=== PATIENT | male | born 1955 | race Caucasian/White ===

== ENCOUNTER 2017-10-03 12:36 | Emergency (ER) | payer OTHER, SELFPAY | END 2017-10-03 14:02 | disposition home or self-care (01) | DX: J01.01 Acute recurrent maxillary sinusitis (principal); E78.5 Hyperlipidemia, unspecified; F17.210 Nicotine dependence, cigarettes, uncomplicated; Z88.2 Allergy status to sulfonamides; Z91.040 Latex allergy status | CPT/HCPCS: 87804; 87880; 96372 ==

== ENCOUNTER 2017-11-23 06:58 | Day surgery (SDC) | payer OTHER, SELFPAY ==
[2017-11-19 14:14] VITALS: BMI 33.3
[2017-11-23] VITALS (7 sets, daily range): BP systolic 105–135; BP diastolic 55–88; PULSE 62–89; RESP 18; TEMP 36.6; O2SAT 93–96
--- NOTE | 2017-11-23 08:14 | PC.NURSE ---
pt continues bearing down aftewr receiving 13 versed & 200 mariana cartagena consulted per dr montejo request & will assume sedation responsibilities
--- NOTE | 2017-11-23 09:03 | P.PCN_ITS ---
- Procedure: Date: 11/23/17 Procedure Performed:: Total colonoscopy with polypectomy Indications:: 62-year-old white male who was referred by Dr. Guy Chung for hernia. Patient had been seen 2-1/2 years ago which time I did a colonoscopy. He was having some left flank pain. Colonoscopy done on 04/30/15 revealed sigmoid diverticulosis and a couple of serrated adenomas near the hepatic flexure as well as a couple of tubular adenomas. I had recommended a 2 year follow-up colonoscopy. Patient had recently seen Dr. Mendoza for several urologic issues. He underwent his routine CT scan and was found to have left inguinal hernia containing fat. He was referred for surgical consultation. He was found to have a moderate sized left inguinal hernia which seem to be likely asymptomatic. However, the patient complained of intermittent left flank pain. He also had an incidental small umbilical hernia and had previously undergone laparoscopic cholecystectomy. Due to the history of atypical precancerous polyps I planned to proceed with colonoscopy initially. Performing Provider:: Sukumar Moon MD Referring Provider:: Guy Chung Sedation:: Versed 13 mg, fentanyl 200 mcg, propofol Procedure:: Consent was obtained and patient was taken to same-day surgery endoscopy procedure room. He was positioned in a lateral decubitus position. Sedation was achieved with titration of Versed and fentanyl. Variable stiffness Olympus colonoscope was inserted in the descending colon without significant difficulty. However he was unable to be advanced beyond this for quite some time due to some floppiness and looping of the sigmoid colon. Due to the patient's discomfort and difficulty anesthesia then administered propofol. Ultimately with abdominal pressure the colonoscope was advanced into the cecum. Ileocecal valve and appendiceal orifice were clearly identified. Colonoscope was withdrawn through the colon with careful surveillance. Near the hepatic flexure he had a moderate sessile polyp removed with hot snare. In the distal transverse colon there were several small polyps removed with cold biopsy forceps. In the sigmoid colon there was a sessile polyp removed with hot snare. Distal sigmoid revealed several diminutive polyps removed with cold biopsy forceps. There was some sigmoid diverticulosis. Retroflexion within the rectum revealed nonpathologic internal hemorrhoids. Findings:: Diverticulosis Polyps Recommendations:: Likely recommend repeat colonoscopy in 3 years pending the pathology. Possible some of his left flank pain symptoms may be secondary to left inguinal hernia. He also may have some floppiness and looping of the sigmoid colon which may contribute. He returns this I will substance abuse counselor him about potential laparoscopic left with possible bilateral inguinal hernia repair with concomitant primary repair of small umbilical hernia. Complications:: None Estimated blood obtained (mL): 5
--- NOTE | 2017-11-23 09:15 | PC.NURSE ---
rectal tube removed
== END 2017-11-23 09:45 | disposition home or self-care (01) ==
LOC: OUTP 06:59
PROVIDERS: Family Provider Physician Assistant; PCP Physician Assistant; Visit Provider Surgery
PROC: 0DJD8ZZ Inspection of Lower Intestinal Tract, Via Natural or Artificial Opening Endoscopic (ICD-10-PCS; CPT 45385; principal; 2017-11-23 07:30)
DX: Z09 Encounter for follow-up examination after completed treatment for conditions other than malignant neoplasm (principal); Z86.010 Personal history of colon polyps; K63.5 Polyp of colon; K57.30 Diverticulosis of large intestine without perforation or abscess without bleeding; D37.4 Neoplasm of uncertain behavior of colon; R10.32 Left lower quadrant pain
CPT/HCPCS: 45385; 45380; 99152; 99153

== ENCOUNTER 2017-12-12 11:19 | Emergency (ER) | payer OTHER, SELFPAY ==
[2017-12-12 11:37] VITALS: BP 107/80; PULSE 81; RESP 18; TEMP 36.6; O2SAT 98; BMI 36.3
[2017-12-12 11:52] LABS: Basophils # 0.1 K/mm3 (0-0.2); Basophils % 1.2 % (0.1-2.0); Eosinophils # 0.1 K/mm3 (0.0-0.4); Eosinophils % 2.4 % (0.1-12.0); Hematocrit 46.5 % (42.0-52.0); Hemoglobin 15.3 g/dL (14.1-18.0); Lymphocytes # 1.3 K/mm3 (0.7-4.5); Lymphocytes % 23.7 K/mm3 (10-50); Mean Corpuscular HGB Conc 32.9 g/dL (31.8-35.4); Mean Corpuscular Volume 94.4 fl (80-94); Mean Platelet Volume 9.4 fl (7.4-10.4); Monocytes # 0.4 K/mm3 (0.1-1.0); Monocytes % 6.9 % (1.7-9.3); Neutrophils # 3.5 K/mm3 (1.8-7.8); Neutrophils % 65.8 % (37.0-80.0); Platelet Count 166 K/mm3 (142-424); Red Blood Count 4.93 M/mm3 (4.60-6.20); Red Cell Distribution Width 12.8 % (11.5-17.5); White Blood Count 5.4 K/mm3 (4.8-10.8)
--- NOTE | 2017-12-12 12:03 | HMH.EDUTC ---
[facility] Disposition Clinical Impression: URI (upper respiratory infection) Qualifiers: URI type: unspecified URI Qualified Code(s): J06.9 - Acute upper respiratory infection, unspecified Disposition: Home, Self-Care Condition on Discharge: Good Instructions: DI for Nasal Congestion, Sore Throat Additional Instructions: Follow up with family doctor in 12-48 hours if no improvement in symptoms Follow up with family doctor for lab results that was drawn in the [facility] today Over the counter Motrin or Tylenol as needed for fever or pain Return if needed Make sure to inform your doctor that you was recently given antibiotics so they are aware prior to your surgery Referrals: Rocio Bedoya PA [Primary Care Provider] - Time of Disposition: 12:12 Medical Decision Making - Medical Records Medical records reviewed: Yes: I reviewed the patient's medical records. Vital Signs: 12/12/17 11:37 Temperature 97.9 F Temperature Source Temporal Artery Scan Pulse Rate [Right Brachial] 81 Respiratory Rate 18 Blood Pressure [Right Arm] 107/80 Blood Pressure Mean [Right Arm] 89 Blood Pressure Source [Right Arm] Automatic Cuff Blood Pressure Position [Right Arm] Sitting 02 Sat by Pulse Oximetry 98 Oxygen Delivery Method Room Air - Lab Data Lab results reviewed: Yes: I reviewed the patient's lab results. Lab Results 12/12/17 11:43: WBC 5.4, RBC 4.93, Hgb 15.3, Hct 46.5, MCV 94.4 H, MCH 31.0, MCHC 32.9, RDW 12.8, Plt Count 166, MPV 9.4, Neut % (Auto) 65.8, Lymph % (Auto) 23.7, [place] % (Auto) 6.9, Eos % (Auto) 2.4, Baso % (Auto) 1.2, Neut # (Auto) 3.5, Lymph # (Auto) 1.3, [place] # (Auto) 0.4, Eos # (Auto) 0.1, Baso # (Auto) 0.1 Result diagrams: 12/12/17 11:43 Orders (Tests/Meds): ORDERS Category Date Time Status Basic Metabolic Panel Stat Lab 12/12/17 11:43 Received - Valentin Inquiry Pt receiving controlled substance: No Valentin was queried for this patient: No - Reevaluation(s) Time: 12:10 [facility] HPI - General Stated complaint: sinus Mode of Arrival: Family Vehicle Source of Information: Patient Limitations: No Limitations Description of Symptoms (Recalled from Triage Doc. by RN): POSSIBLE SINUS INFECTION X 3 DAYS HEENT Symptoms (Recalled from RN notes): Yes (SINUS PROBLEMS) Resp Symptoms (Recalled from RN notes): Yes (SINUS PROBLEMS) Skin Symptoms (Recalled from RN notes): No MS Symptoms (Recalled from RN notes): No Functional Status (Recalled from RN notes): N/A - History of Present Illness Provider Complaint: Patient states that he is scheduled for surgery on Wed and was suppose to have labs drawn today States that he also wanted to be seen because he was having sinus pain and pressure and throat feeling sore. State that he has not had any fever, denies SOA - Related Data Home Medications Medication Instructions Recorded Confirmed meloxicam 15 mg tablet 15 mg PO QDAY 10/13/17 11/23/17 omeprazole 20 mg capsule,delayed 20 mg PO QDAY 10/13/17 11/23/17 release oxybutynin chloride ER 10 mg 10 mg PO QDAY 10/13/17 11/23/17 tablet,extended release 24 hr paroxetine 10 mg tablet 10 mg PO QAM 10/13/17 11/23/17 Allergies Allergy/AdvReac Type Severity Reaction Status Date / Time latex [LATEX] Allergy Mild Verified 12/06/17 09:27 Sulfa (Sulfonamide Allergy Mild Verified 12/06/17 09:27 Antibiotics) [SULFA (SULFONAMIDE ANTIBIOTICS)] - Worker's Comp Is this a Worker's Comp case?: No [facility] History I have reviewed the patient's past medical history: Yes Medical History: Reports:: Hyperlipidemia Denies:: Diabetes Mellitus Type 1, Diabetes Mellitus Type 2, Internal Pacemaker, Lung Disease, Seizures Other Medical History: Reports: Arthritis Comment: Enlarged prostate, Primary osteoarthritis, Anxiety Laterality Cases: Bilateral: Other Other Surgeries: Yes: Colonoscopy, Other (cholecystectomy,prostate laser,cysto,ibnc,meatal dilat.). No: Pacemaker Amputation: No Fractu
--- NOTE | 2017-12-12 12:07 | ED_ITS ---
[facility] [place] Disposition Clinical Impression: URI (upper respiratory infection) Qualifiers: URI type: unspecified URI Qualified Code(s): J06.9 - Acute upper respiratory infection, unspecified Disposition: Home, Self-Care Condition on Discharge: Good Instructions: DI for Nasal Congestion, Sore Throat Additional Instructions: Follow up with family doctor in 12-48 hours if no improvement in symptoms Follow up with family doctor for lab results that was drawn in the [facility] today Over the counter Motrin or Tylenol as needed for fever or pain Return if needed Make sure to inform your doctor that you was recently given antibiotics so they are aware prior to your surgery Referrals: Rocio Bedoya PA [Primary Care Provider] - Time of Disposition: 12:12 Medical Decision Making - Medical Records Medical records reviewed: Yes: I reviewed the patient's medical records. Vital Signs: 12/12/17 11:37 Temperature 97.9 F Temperature Source Temporal Artery Scan Pulse Rate [Right Brachial] 81 Respiratory Rate 18 Blood Pressure [Right Arm] 107/80 Blood Pressure Mean [Right Arm] 89 Blood Pressure Source [Right Arm] Automatic Cuff Blood Pressure Position [Right Arm] Sitting 02 Sat by Pulse Oximetry 98 Oxygen Delivery Method Room Air - Lab Data Lab results reviewed: Yes: I reviewed the patient's lab results. Lab Results 12/12/17 11:43: WBC 5.4, RBC 4.93, Hgb 15.3, Hct 46.5, MCV 94.4 H, MCH 31.0, MCHC 32.9, RDW 12.8, Plt Count 166, MPV 9.4, Neut % (Auto) 65.8, Lymph % (Auto) 23.7, [place] % (Auto) 6.9, Eos % (Auto) 2.4, Baso % (Auto) 1.2, Neut # (Auto) 3.5 , Lymph # (Auto) 1.3, [place] # (Auto) 0.4, Eos # (Auto) 0.1, Baso # (Auto) 0.1 Result diagrams: 12/12/17 11:43 Orders (Tests/Meds): ORDERS Category Date Time Status Basic Metabolic Panel Stat Lab 12/12/17 11:43 Received - Valentin Inquiry Pt receiving controlled substance: No Valentin was queried for this patient: No - Reevaluation(s) Time: 12:10 [facility] [place] HPI - General Stated complaint: sinus Mode of Arrival: Family Vehicle Source of Information: Patient Limitations: No Limitations Description of Symptoms (Recalled from Triage Doc. by RN): POSSIBLE SINUS INFECTION X 3 DAYS HEENT Symptoms (Recalled from RN notes): Yes (SINUS PROBLEMS) Resp Symptoms (Recalled from RN notes): Yes (SINUS PROBLEMS) Skin Symptoms (Recalled from RN notes): No MS Symptoms (Recalled from RN notes): No Functional Status (Recalled from RN notes): N/A - History of Present Illness Provider Complaint: Patient states that he is scheduled for surgery on Wed and was suppose to have labs drawn today States that he also wanted to be seen because he was having sinus pain and pressure and throat feeling sore. State that he has not had any fever, denies SOA - Related Data Home Medications Medication Instructions Recorded Confirmed meloxicam 15 mg tablet 15 mg PO QDAY 10/13/17 11/23/17 omeprazole 20 mg capsule,delayed 20 mg PO QDAY 10/13/17 11/23/17 release oxybutynin chloride ER 10 mg 10 mg PO QDAY 10/13/17 11/23/17 tablet,extended release 24 hr paroxetine 10 mg tablet 10 mg PO QAM 10/13/17 11/23/17 Allergies Allergy/AdvReac Type Severity Reaction Status Date / Time latex [LATEX] Allergy Mild Verified 12/06/17 09:27 Sulfa (Sulfonamide Allergy Mild
[2017-12-12 12:25] VITALS: BP 110/82; PULSE 80; RESP 18; TEMP 36.6; O2SAT 98
[2017-12-12 12:31] LABS: Anion Gap 11.1 mEq/L (5-15); Blood Urea Nitrogen 19 mg/dL (7-18); Carbon Dioxide 27 mmol/L (21.0-32.0); Chloride 105 mmol/L (98-107); Creatinine Clearance Estimated 114 mL/min (0-300); Creatinine,Serum 1.17 mg/dL (0.70-1.30); Estimated Glomerular Filt Rate 63 ml/min (>60); GFR (African American) 77 ML/MIN (>60); Glucose 105 mg/dL (74-106); Potassium 4.1 mmoL/L (3.5-5.1); Sodium 139 mmol/L (136-145)
[2017-12-17 14:48] LABS: Prostate Specific Ag 0.6 ng/mL (0.0-4.0)
[2017-12-17 14:49] LABS: PSA, Free 0.14 ng/mL
== END 2017-12-12 12:27 | disposition home or self-care (01) ==
PROVIDERS: Emergency Provider Nurse Practitioner; Family Provider Physician Assistant; PCP Physician Assistant
DX: J06.9 Acute upper respiratory infection, unspecified (principal); Z91.040 Latex allergy status; E78.5 Hyperlipidemia, unspecified; Z88.2 Allergy status to sulfonamides; F17.210 Nicotine dependence, cigarettes, uncomplicated
CPT/HCPCS: 80048; 84153; 84154; 85025; 96372; 99202

== ENCOUNTER 2017-12-15 06:11 | Day surgery (SDC) | payer OTHER, SELFPAY ==
[2017-12-14 11:06] VITALS: BMI 36.2
[2017-12-15] VITALS (12 sets, daily range): BP systolic 124–142; BP diastolic 72–92; PULSE 64–108; RESP 12–22; TEMP 36.3–43; O2SAT 93–97
--- NOTE | 2017-12-15 07:01 | HMH.ANESCL ---
[facility] Anesthesia Checklist - Patient Identification Patient Identification: Arm Band, Verbal (Name & ) - Structural Data Admitted From: Home Planned Operative Procedure/s: ing hernia Consent for Planned Operative Procedure(s) Verified: Yes Verified Documents: Surgical Consent - NPO Status Verified Time NPO: 00:00 - Chart Verification Results Verified: CBC, BMP - Additional verifications Patient : No Anesthesia Reactions: No Hx Blood Transfusions: No Blood Transfusion Reaction: No Cephalosporin Allergy: No Previous Colonoscopy: Yes - Cardiovascular Assessment Heart Sounds: S1 & S2 Pulse Strength: Baseline Pulse Rhythm: Regular Peripheral Edema: No - Airway Assessment C-Spine Mobility Assessed: Yes TMJ Mobility Assessed: Yes Dentition: Good Dentition - Neurological Assessment Level of Consciousness: Awake, Appropriate Hx Seizures: No Numbness or tingling in extremities: No - Anesthesia Plan Anesthesia Risk discussed: Yes Anesthesia Plan: Verified ASA Class: III Anesthesia Type: General [facility] Anesthesia HX I have reviewed the patient's past medical history: Yes Medical History: Reports:: Chronic Obstructive Pulmonary Disease (COPD), Hyperlipidemia Denies:: Cancer, Diabetes Mellitus Type 1, Diabetes Mellitus Type 2, Internal Pacemaker, Lung Disease, MRSA, Seizures Other Medical History: Reports: Arthritis. Denies: Blood Transfusion Reaction Laterality Cases: Bilateral: Other Other Surgeries: Yes: Colonoscopy, Other (cholecystectomy,prostate laser,cysto,ibnc,meatal dilat.). No: Pacemaker Amputation: No Fractures: No *Family Hx:: Unable to obtain, Cancer
--- NOTE | 2017-12-15 09:36 | SUR.OPER ---
Addendum entered by Sherlyn Parker RN 12/15/17 13:40: 1123-alaniz catheter removed at this time 1110-family updated at this time per RONA Gotti Original Note: 0927-family updated at this time per RONA Gotti
--- NOTE | 2017-12-15 11:32 | P.PN_ITS ---
[facility] Anesthesia Record Part II Discharge Time: 12:00 Destination: [facility] PACU nurse assessment reviewed?: Yes Patient Condition:: Good Anesthesia Complications:: None
--- NOTE | 2017-12-15 11:32 | P.PN_ITS ---
[facility] Anesthesia Record Part I Intake, IV Amount: 3,500 Estimated blood loss (mL): 25 Urine output (mL): 400 Blood Pressure: 139/73 SaO2: 94 Pulse Rate: 108 Respiratory Rate: 12 Temperature: 98.6 F Patient is:: Awake, Stable Stable to PACU at:: 11:30
--- NOTE | 2017-12-15 11:32 | HMH.ANESII ---
[facility] Anesthesia Record Part II Discharge Time: 12:00 Destination: [facility] PACU nurse assessment reviewed?: Yes Patient Condition:: Good Anesthesia Complications:: None
--- NOTE | 2017-12-15 11:35 | HMH.OPNOTE ---
Date of procedure: 12/15/17 Pre-op Diagnosis:: Possible bilateral inguinal hernia Umbilical hernia Post-op Diagnosis:: Incarcerated left inguinal hernia, no obvious right inguinal hernia Umbilical hernia Procedure performed:: Laparoscopic left inguinal hernia repair (TEPP) with placement of extra large Bard 3D max mesh Open primary repair of umbilical hernia. Surgeon:: Sukumar Moon MD LOCAL DELIVERY TRUCK DRIVER:: Kerwin Rodriguez Anesthesia: GETA Estimated blood loss (mL): 75 Clinical Note:: Patient is a 62-year-old white male. He has a history of left lower quadrant and left flank pain and discomfort. He has been seeing Dr. Guy Chung for some urologic issues. He had undergone CT scan of the abdomen and pelvis which revealed a left inguinal hernia containing fat. He was sent for surgical consultation. At that time the patient was past due for colonoscopy needed undergo colonoscopy which revealed floppiness of the sigmoid colon and several adenomatous polyps. However he did have a rather large palpable symptomatic left inguinal hernia. There is also question of possible right inguinal hernia. He had an asymptomatic incidental umbilical hernia. The options were discussed with the patient and given the multiple hernias with possible bilateral inguinal hernias and a definite asymptomatic umbilical hernia plan was made for laparoscopic repair attempt. Attention was to be turned to the left side as this was the large symptomatic definite inguinal hernia. Operative findings:: Patient had a rather large chronically incarcerated left indirect inguinal hernia containing a large amount of fat. The internal ring defect had actually extended onto the left lower flank area. Of note, he did have a ridge thickened tissue above the cord within the muscles. Operative note:: Consent was obtained. Patient was taken to the operating room. He was positioned in a supine position. General anesthesia was induced via endotracheal tube. Ambriz catheter was placed for bladder decompression. Abdomen and perineum were prepped and draped in the standard surgical fashion. Subumbilical skin incision was made. With difficulty due to scar tissue from prior laparoscopic cholecystectomy dissection was carried down to the anterior rectus fascia. This was incised to the left of the linea alba. Preperitoneal space was entered. The dissecting balloon trocar was inserted and preperitoneal space was dissected out. This was then removed and replaced with the structural balloon trocar. CO2 pneumo preperitoneum was achieved 15 mmHg. A couple of 5 mm trochars were inserted in the midline inferior to the umbilicus under laparoscopic visualization. Dissection was carried out initially identifying Servando's ligament. There was a large amount of fatty tissues and these were swept inferiorly. Structures were identified including inferior epigastric vessels. Initially was difficult to identify the cord structures due to the large amount of fatty tissues with herniation. Ultimately the herniated fatty tissues were able to be dissected free from the internal ring. Dissection of the preperitoneal space was carried out laterally. The internal ring defect appeared to be quite large and extensive splitting the muscles laterally to the patient's left lower quadrant area. Ultimately this was all dissected free. There appeared to be some development of pneumoperitoneum and visualization was somewhat difficult. To inspect internally a 5 mm trocar using the optical trocar was inserted in the left upper abdomen. There appeared to be extremely tiny defect in the peritoneum measuring a few millimeters. Trocar was used for evacuation of intra-abdominal gas. Additional dissection was carried out the preperitoneal space and there was noted to be somewhat of a thickened ridge of muscle initially believed to be possible additional chronically incarcerated tissues however this was above the cord. Briefly inspectio
--- NOTE | 2017-12-15 11:38 | P.OP_ITS ---
Date of procedure: 12/15/17 Pre-op Diagnosis:: Possible bilateral inguinal hernia Umbilical hernia Post-op Diagnosis:: Incarcerated left inguinal hernia, no obvious right inguinal hernia Umbilical hernia Procedure performed:: Laparoscopic left inguinal hernia repair (TEPP) with placement of extra large Bard 3D max mesh Open primary repair of umbilical hernia. Surgeon:: Sukumar Moon MD HABILITATION SPECIALIST:: Kerwin Rodriguez Anesthesia: GETA Estimated blood loss (mL): 75 Clinical Note:: Patient is a 62-year-old white male. He has a history of left lower quadrant and left flank pain and discomfort. He has been seeing Dr. Guy Chung for some urologic issues. He had undergone CT scan of the abdomen and pelvis which revealed a left inguinal hernia containing fat. He was sent for surgical consultation. At that time the patient was past due for colonoscopy needed undergo colonoscopy which revealed floppiness of the sigmoid colon and several adenomatous polyps. However he did have a rather large palpable symptomatic left inguinal hernia. There is also question of possible right inguinal hernia. He had an asymptomatic incidental umbilical hernia. The options were discussed with the patient and given the multiple hernias with possible bilateral inguinal hernias and a definite asymptomatic umbilical hernia plan was made for laparoscopic repair attempt. Attention was to be turned to the left side as this was the large symptomatic definite inguinal hernia. Operative findings:: Patient had a rather large chronically incarcerated left indirect inguinal hernia containing a large amount of fat. The internal ring defect had actually extended onto the left lower flank area. Of note, he did have a ridge thickened tissue above the cord within the muscles. Operative note:: Consent was obtained. Patient was taken to the operating room. He was positioned in a supine position. General anesthesia was induced via endotracheal tube. Ambriz catheter was placed for bladder decompression. Abdomen and perineum were prepped and draped in the standard surgical fashion. Subumbilical skin incision was made. With difficulty due to scar tissue from prior laparoscopic cholecystectomy dissection was carried down to the anterior rectus fascia. This was incised to the left of the linea alba. Preperitoneal space was entered. The dissecting balloon trocar was inserted and preperitoneal space was dissected out. This was then removed and replaced with the structural balloon trocar. CO2 pneumo preperitoneum was achieved 15 mmHg. A couple of 5 mm trochars were inserted in the midline inferior to the umbilicus under laparoscopic visualization. Dissection was carried out initially identifying Servando's ligament. There was a large amount of fatty tissues and these were swept inferiorly. Structures were identified including inferior epigastric vessels. Initially was difficult to identify the cord structures due to the large amount of fatty tissues with herniation. Ultimately the herniated fatty tissues were able to be dissected free from the internal ring. Dissection of the preperitoneal space was carried out laterally. The internal ring defect appeared to be quite large and extensive splitting the muscles laterally to the patient's left lower quadrant area. Ultimately this was all dissected free. There appeared to be some development of pneumoperitoneum and visualization was somewhat difficult. To inspect internally a 5 mm trocar using the optical trocar was inserted in the left upper abdomen. There appeared to be extremely tiny defect in the peritoneum measuring a few millimeters. Trocar was used for evacuation of intra-abdominal gas. Addit
[2017-12-15 15:15] LABS: Microscopic,Cath URINE MICROSCOPIC (MICROSCOPIC)
[2017-12-15 16:29] LABS: Appearance,Urine/Cath CLEAR (Clear); Bilirubin,Cath Negative (Negative); Blood, Urine/Cath Negative (Negative); Color,Urine/Cath YELLOW (Yellow); Glucose,Urine/Cath (UA) Negative (Negative); Ketones,Urine/Cath Negative (Negative); Leukocyte Esterase,Cath Negative (Negative); Nitrate,Cath Negative (Negative); Protein,Urine/Cath Negative (Negative); Urobilinogen,Cath 0.2 EU/dl (0.2)
[2017-12-15 17:30] LABS: Bacteria,Urine/Cath 1+ /lpf; Hyaline Casts,Urine/Cath OCC #/lpf (0)
== END 2017-12-15 12:45 | disposition home or self-care (01) ==
LOC: OR 06:12
PROVIDERS: Family Provider Physician Assistant; PCP Physician Assistant; Visit Provider Surgery
PROC: (CPT 49653; principal; 2017-12-15 07:30)
PROC: 0WQF4ZZ Repair Abdominal Wall, Percutaneous Endoscopic Approach (ICD-10-PCS; CPT 49653; 2017-12-15 07:30)
DX: K40.90 Unilateral inguinal hernia, without obstruction or gangrene, not specified as recurrent (principal); K42.9 Umbilical hernia without obstruction or gangrene
CPT/HCPCS: 49653; 49585; 81001; 93005; 96374; C1781; J0131; J0330; J2405; J2710

== ENCOUNTER → 2018-05-02 09:03 | Outpatient (REF) | payer OTHER, SELFPAY ==
[2018-05-02 13:59] LABS: Basophils # 0.1 K/mm3 (0-0.2); Basophils % 1.1 % (0.1-2.0); Eosinophils # 0.2 K/mm3 (0.0-0.4); Eosinophils % 3.4 % (0.1-12.0); Hematocrit 47.1 % (42.0-52.0); Hemoglobin 15.8 g/dL (14.1-18.0); Lymphocytes # 1.3 K/mm3 (0.7-4.5); Lymphocytes % 23.8 K/mm3 (10-50); Mean Corpuscular HGB Conc 33.6 g/dL (31.8-35.4); Mean Corpuscular Hemoglobin 31.7 pg (27.0-31.2); Mean Corpuscular Volume 94.4 fl (80-94); Monocytes # 0.4 K/mm3 (0.1-1.0); Monocytes % 6.7 % (1.7-9.3); Neutrophils # 3.7 K/mm3 (1.8-7.8); Platelet Count 190 K/mm3 (142-424); Red Blood Count 4.99 M/mm3 (4.60-6.20); Red Cell Distribution Width 13.2 % (11.5-17.5); White Blood Count 5.6 K/mm3 (4.8-10.8)
[2018-05-02 14:02] LABS: Alanine Aminotransferase 30 U/L (12-78); Albumin/Globulin Ratio 1.3 (1.1-1.8); Alkaline Phosphatase 61 U/L (46-116); Aspartate Amino Transferase 18 U/L (15-37); Bilirubin,Total 0.6 mg/dL (0.2-1.0); Blood Urea Nitrogen 24 mg/dL (7-18); Calcium 9.2 mg/dL (8.5-10.1); Carbon Dioxide 25 mmol/L (21.0-32.0); Chloride 107 mmol/L (98-107); Chol/HDL Ratio 4.9 (1-3.5); Cholesterol 209 mg/dL (140-200); Creatinine,Serum 1.17 mg/dL (0.70-1.30); Estimated Glomerular Filt Rate 63 ml/min (>60); GFR (African American) 77 ML/MIN (>60); Globulin 3.1 gm/dl (1.3-3.2); Glucose 95 mg/dL (74-106); HDL Cholesterol 43 mg/dL (27-67); LDL Cholesterol 145 mg/dL (0-130); Sodium 141 mmol/L (136-145); T4 (Thyroxine) 8.5 ug/dl (4.7-13.3); Thyroid Stimulating Hormone 1.07 uIU/ml (0.358-3.740); Total Protein,Serum 7.1 gm/dL (6.4-8.2); Triglycerides 107 mg/dL (30-200); VLDL Cholesterol 21 mg/dL (0-40)
[2018-05-04 16:49] LABS: PSA, Free 0.14 ng/mL; Prostate Specific Ag 0.6 ng/mL (0.0-4.0); Vitamin B12 331 pg/mL (232-1245)
[2018-05-04 17:11] LABS: Testosterone,Free 5.2 pg/mL (6.6-18.1)
[2018-05-06 18:14] LABS: Testosterone, Total, LC/MS 623.6 ng/dL (264.0-916.0)
== END ==
LOC: LAB 09:03
PROVIDERS: Visit Provider Physician Assistant
DX: J44.9 Chronic obstructive pulmonary disease, unspecified (principal); R53.83 Other fatigue
CPT/HCPCS: 80053; 80061; 82607; 82652; 84153; 84154; 84402; 84403; 84436; 84443; 85025

== ENCOUNTER → 2018-05-25 10:36 | Outpatient (REF) | payer OTHER, SELFPAY ==
[2018-05-30 12:56] LABS: Testosterone, Total, LC/MS 689.3 ng/dL (264.0-916.0)
== END ==
LOC: LAB 10:36
PROVIDERS: Visit Provider Physician Assistant
DX: R79.89 Other specified abnormal findings of blood chemistry (principal)
CPT/HCPCS: 84402; 84403

== ENCOUNTER → 2018-09-07 13:30 | Outpatient (CLI) | payer OTHER, SELFPAY ==
--- NOTE | 2018-09-07 13:35 | US_ITS ---
US scrotum HISTORY: Left testicular swelling ITS.REASON: swelling left testicle ORDERING PHYSICIAN: GEORGIA Millan PATIENT AGE: 62 years Comparison: None FINDINGS: RIGHT TESTICLE: The right testicle has an unremarkable appearance measuring 4.9 x 2.8 x 3.3 cm. No testicular mass, spermatocele, or varicocele evident. Blood flow is noted to the right testicle. There is a small right hydrocele LEFT TESTICLE: The left testicle has an unremarkable appearance measuring5.2 x 3 x 3.0 cm. No mass, hydrocele, or varicocele evident. Blood flow is noted to the left testicle. There is a medium-sized left hydrocele IMPRESSION: Small right hydrocele and medium sized left hydrocele No testicular mass. There is bilateral testicular blood flow
--- NOTE | 2018-09-07 13:35 | CT_ITS ---
CT abdomen pelvis wo con CLINICAL INDICATION: Left lower quadrant pain and swelling of the left testicle ITS.REASON: LLQ pain ORDERING PHYSICIAN: GEORGIA Millan PATIENT AGE: 62 years COMPARISON: 09/16/2017 TECHNIQUE: Axial images obtained with sagittal and coronal reformats. All CT scans at the facility use one or more dose reduction, viz: automated exposure control, ma/kV adjustment per patient size (including targeted exams where dose is matched to indication, i.e. head), or iterative reconstruction technique. PROCEDURE: Oral Contrast: None IV Contrast: None . FINDINGS: No acute finding of the lung bases. The liver, spleen, adrenal glands, and pancreas have an unremarkable unenhanced CT appearance. There has been a prior cholecystectomy without ductal dilatation. No renal calculi or hydronephrosis. No ureteral calculi. No evidence of appendicitis. There is a small appendicolith present at the base of the appendix at 3 mm. No intestinal obstruction or free air. There is diverticulosis of the colon. No evidence of diverticulitis. There is some increased soft tissue density deep to the left lower abdominal wall and extending to the inguinal region assumed to represent postsurgical change from prior left inguinal hernia surgery. Left inguinal hernia no longer apparent. There is some minimal stranding of the fat lower pelvic region anteriorly deep to the rectus muscle which may be due to postsurgical scarring. Postsurgical changes noted of the lumbar spine with prior fusion at L5-S1 with degenerative disc disease in the lumbar spine. IMPRESSION: 1. No acute abdominal pelvic findings. 2. Postsurgical changes in the left inguinal region. There is some increased density deep to the rectus abdominis muscle inferiorly on the left and in the left ankle is now presumed to be postsurgical in nature. There is some minimal stranding of the fat lower pelvic region anteriorly deep to the rectus muscle which may be due to postsurgical scarring
== END ==
PROVIDERS: PCP Physician Assistant; Visit Provider Physician Assistant
DX: R10.32 Left lower quadrant pain (principal); N50.89 Other specified disorders of the male genital organs
CPT/HCPCS: 74176; 76870

== ENCOUNTER 2018-11-19 17:47 | Emergency (ER) | payer OTHER, SELFPAY ==
[2018-11-19 18:10] VITALS: BP 152/88; PULSE 85; RESP 20; TEMP 36.6; O2SAT 97; BMI 35.2
--- NOTE | 2018-11-19 18:28 | HMH.EDUTC ---
[facility] [place] Disposition Clinical Impression: Left groin pain, Leg pain, left Radiculopathy Qualifiers: Spinal region: lumbar Qualified Code(s): M54.16 - Radiculopathy, lumbar region Disposition: Home, Self-Care Condition on Discharge: Good Instructions: DI for Groin Strain, DI for Leg Pain Additional Instructions: Rest, apply ice to the affected area as tolerated fro 15 minutes 3 to 4 times as tolerated if it helps. Take tylenol for the pain. If it continues, you need further evaluation. This could be related to a hernia, even though we did not feel one. Please follow up with your regular doctor or your hernia surgeon in 48 hours or so if you continue to have problems. GO TO THE ER IF YOU HAVE ANY WORSENING SYMPTOMS, SUCH WORSENING PAIN, SWELLING, REDNESS, ETC, OR IF YOU HAVE ANY LIFE THREATENING SYMPTOMS. Referrals: Rocio Bedoya PA [Primary Care Provider] - Time of Disposition: 19:54 Medical Decision Making - Medical Records Medical records reviewed: Yes: I reviewed the patient's medical records. - Valentin Inquiry Pt receiving controlled substance: No Valentin was queried for this patient: No Vital Signs: 11/19/18 18:10 11/19/18 19:59 Temperature 97.9 F 98.1 F Temperature Source Temporal Artery Scan Oral Pulse Rate 80 Pulse Rate [Right Radial] 85 Respiratory Rate 20 18 Blood Pressure 146/82 H Blood Pressure [Right Arm] 152/88 H Blood Pressure Mean [Right Arm] 109 02 Sat by Pulse Oximetry 97 Oxygen Delivery Method Room Air Room Air - Lab Data Lab results reviewed: Yes: I reviewed the patient's lab results. Lab Results 11/19/18 18:00: WBC 10.1, RBC 5.12, Hgb 16.0, Hct 47.7, MCV 93.1, MCH 31.2, MCHC 33.5, RDW 13.3, Plt Count 257, MPV 7.9, Neut % (Auto) 57.3, Lymph % (Auto) 31.3, [place] % (Auto) 7.7, Eos % (Auto) 2.5, Baso % (Auto) 1.2, Neut # (Auto) 5.8, Lymph # (Auto) 3.2, [place] # (Auto) 0.8, Eos # (Auto) 0.3, Baso # (Auto) 0.1 11/19/18 18:00: Sodium 140, Potassium 4.0, Chloride 104, Carbon Dioxide 26, Anion Gap 14.0, BUN 28 H, Creatinine 1.05, Estimated Creat Clear 122, Estimated GFR 72, Est GFR ( Amer) 87, Glucose 71 L, Calcium 9.2 11/19/18 18:46: Urine Color Yellow, Urine Appearance Clear, Urine pH 6.0, Ur Specific [place] 1.025, Urine Protein Negative, Urine Glucose (UA) Negative, Urine Ketones Negative, Urine Blood Negative, Urine Nitrate Negative, Urine Bilirubin Negative, Urine Urobilinogen 0.2, Ur Leukocyte Esterase Negative Result diagrams: 11/19/18 18:00 11/19/18 18:00 Orders (Tests/Meds): ORDERS Category Date Time Status XR hip LT 2-3V w/pelvis Stat Exams 11/19/18 18:34 Taken - Radiology Data #1 Image(s): Hip Image Reviewed: Yes I reviewed the patient's radiology image Preliminary Findings: Normal/NAD [facility] [place] HPI - General Stated complaint: pain in groin Time Seen by Provider: 11/19/18 18:15 Mode of Arrival: Family Vehicle Source of Information: Patient Limitations: No Limitations Description of Symptoms (Recalled from Triage Doc. by RN): left groin pain that is radiating down his left thigh. pt denies any scrotal pain, injury. pt states it started suddenly yesterday and has gotten worse today. HEENT Symptoms (Recalled from RN notes): No Resp Symptoms (Recalled from RN notes): No Skin Symptoms (Recalled from RN notes): No MS Symptoms (Recalled from RN notes): Yes (left groin pain) Functional Status (Recalled from RN notes): na - History of Present Illness Provider Complaint: He c/o left groin pain that is radiating down his left thigh. pt denies any scrotal pain, injury. pt states it started suddenly yesterday and has gotten worse today. He has a history of similar complaints. He recently had scrotal u/s done for scrotal pain (2 weeks ago). But he states this pain is definitely not in the scrotum. - Related Data Home Medications Medication Instructions Recorded Confirmed paroxetine 10 mg tablet 10 mg PO ONCE 05/02/18 10/17/18 Prev
--- NOTE | 2018-11-19 18:34 | XR_ITS ---
XR hip LT 2-3V w/pelvis Ordering Physician: George Bansal Patient Age: 63 years: Male HISTORY: ITS.REASON: groin and hip pain Left hip and groin pain for 2 days versus with standing but not sitting. No known trauma. TECHNIQUE: Left hip AP and frog-leg view AP pelvis radiograph included COMPARISON :CT abdomen and pelvis from September 2018. FINDINGS : . LEFT HIP. AP and frog-leg view appear intact. No fracture nor dislocation. Left hip joint space fairly fairly well maintained with only Borderline narrowing superior lateral left hip joint space .. The left femoral head and neck are intact. Femoral head normal contour and density.. Benign Sclerotic bone island is again seen at the base of the left femoral neck similar to previous studies. There are other scattered small sclerotic foci seen on previous CT elsewhere which appear stable. A most compatible with small benign bone islands. AP OSSEOUS PELVIS: appears stable, & intact. Previous fusion at L5/S1 along with the prominent disc space narrowing L4/5 again observed. SI joints unremarkable. Sacrum unremarkable IMPRESSION:.... Left hip intact.... No fracture. Osseous pelvis intact.... No acute findings. L5/S1 fusion. Degenerative disc changes L4/5- incidentally noted at the margin of today's image
--- NOTE | 2018-11-19 18:36 | ED_ITS ---
[facility] [place] Disposition Clinical Impression: Left groin pain, Leg pain, left Radiculopathy Qualifiers: Spinal region: lumbar Qualified Code(s): M54.16 - Radiculopathy, lumbar region Disposition: Home, Self-Care Condition on Discharge: Good Instructions: DI for Groin Strain, DI for Leg Pain Additional Instructions: Rest, apply ice to the affected area as tolerated fro 15 minutes 3 to 4 times as tolerated if it helps. Take tylenol for the pain. If it continues, you need further evaluation. This could be related to a hernia, even though we did not feel one. Please follow up with your regular doctor or your hernia surgeon in 48 hours or so if you continue to have problems. GO TO THE ER IF YOU HAVE ANY WORSENING SYMPTOMS, SUCH WORSENING PAIN, SWELLING, REDNESS, ETC, OR IF YOU HAVE ANY LIFE THREATENING SYMPTOMS. Referrals: Rocio Bedoya PA [Primary Care Provider] - Time of Disposition: 19:54 Medical Decision Making - Medical Records Medical records reviewed: Yes: I reviewed the patient's medical records. - Valentin Inquiry Pt receiving controlled substance: No Valentin was queried for this patient: No Vital Signs: 11/19/18 18:10 11/19/18 19:59 Temperature 97.9 F 98.1 F Temperature Source Temporal Artery Scan Oral Pulse Rate 80 Pulse Rate [Right Radial] 85 Respiratory Rate 20 18 Blood Pressure 146/82 H Blood Pressure [Right Arm] 152/88 H Blood Pressure Mean [Right Arm] 109 02 Sat by Pulse Oximetry 97 Oxygen Delivery Method Room Air Room Air - Lab Data Lab results reviewed: Yes: I reviewed the patient's lab results. Lab Results 11/19/18 18:00: WBC 10.1, RBC 5.12, Hgb 16.0, Hct 47.7, MCV 93.1, MCH 31.2, MCHC 33.5, RDW 13.3, Plt Count 257, MPV 7.9, Neut % (Auto) 57.3, Lymph % (Auto) 31.3, Burt % (Auto) 7.7, Eos % (Auto) 2.5, Baso % (Auto) 1.2, Neut # (Auto) 5.8, Lymph # (Auto) 3.2, Burt # (Auto) 0.8, Eos # (Auto) 0.3, Baso # (Auto) 0.1 11/19/18 18:00: Sodium 140, Potassium 4.0, Chloride 104, Carbon Dioxide 26, Anion Gap 14.0, BUN 28 H, Creatinine 1.05, Estimated Creat Clear 122, Estimated GFR 72, Est GFR ( Amer) 87, Glucose 71 L, Calcium 9.2 11/19/18 18:46: Urine Color Yellow, Urine Appearance Clear, Urine pH 6.0, Ur Specific [place] 1.025, Urine Protein Negative, Urine Glucose (UA) Negative, Urine Ketones Negative, Urine Blood Negative, Urine Nitrate Negative, Urine Bilirubin Negative, Urine Urobilinogen 0.2, Ur Leukocyte Esterase Negative Result diagrams: 11/19/18 18:00 11/19/18 18:00 Orders (Tests/Meds): ORDERS Category Date Time Status XR hip LT 2-3V w/pelvis Stat Exams 11/19/18 18:34 Taken - Radiology Data #1 Image(s): Hip Image Reviewed: Yes I reviewed the patient's radiology image Preliminary Findings: Normal/NAD [facility] [place] HPI - General Stated complaint: pain in groin Time Seen by Provider: 11/19/18 18:15 Mode of Arrival: Family Vehicle Source of Information: Patient Limitations: No Limitations Description of Symptoms (Recalled from Triage Doc. by RN): left groin pain that is radiating down his left thigh. pt denies any scrotal pain, injury. pt states it started suddenly yesterday and has gotten worse today. HEENT Symptoms (Recalled from RN notes): No Resp Symptoms (Recalled fr
[2018-11-19 19:06] LABS: Apearance,Urine Clear (Clear); Bilirubin,Urine Negative (Negative); Blood, Urine Negative (Negative); Color,Urine Yellow (Yellow); Glucose,Urine (UA) Negative (Negative); Ketones,Urine Negative (Negative); Protein,Urine Negative (Negative); Specific Gravity, Urine 1.025 (1.005-1.030); UTC Leukocyte Esterase,Urine Negative (Negative); Urobilinogen,Urine 0.2 EU/dl (0.2)
[2018-11-19 19:07] LABS: UTC Nitrate,Urine Negative (Negative)
[2018-11-19 19:09] LABS: Basophils # 0.1 K/mm3 (0-0.2); Basophils % 1.2 % (0.1-2.0); Eosinophils # 0.3 K/mm3 (0.0-0.4); Eosinophils % 2.5 % (0.1-12.0); Hematocrit 47.7 % (42.0-52.0); Lymphocytes # 3.2 K/mm3 (0.7-4.5); Lymphocytes % 31.3 % (10-50); Mean Corpuscular HGB Conc 33.5 g/dL (31.8-35.4); Mean Corpuscular Hemoglobin 31.2 pg (27.0-31.2); Mean Corpuscular Volume 93.1 fl (80-94); Mean Platelet Volume 7.9 fl (7.4-10.4); Monocytes # 0.8 K/mm3 (0.1-1.0); Monocytes % 7.7 % (1.7-9.3); Neutrophils # 5.8 K/mm3 (1.8-7.8); Neutrophils % 57.3 % (37.0-80.0); Platelet Count 257 K/mm3 (142-424); Red Blood Count 5.12 M/mm3 (4.60-6.20); Red Cell Distribution Width 13.3 % (11.5-17.5); White Blood Count 10.1 K/mm3 (4.8-10.8)
[2018-11-19 19:15] LABS: Blood Urea Nitrogen 28 mg/dL (7-18); Calcium 9.2 mg/dL (8.5-10.1); Carbon Dioxide 26 mmol/L (21.0-32.0); Chloride 104 mmol/L (98-107); Creatinine Clearance Estimated 122 mL/min (50-200); Creatinine,Serum 1.05 mg/dL (0.70-1.30); Estimated Glomerular Filt Rate 72 ml/min (>60); GFR (African American) 87 ML/MIN (>60); Glucose 71 mg/dL (74-106); Sodium 140 mmol/L (136-145)
[2018-11-19 19:59] VITALS: BP 146/82; PULSE 80; RESP 18; TEMP 36.7; O2SAT 98
== END 2018-11-19 19:56 | disposition home or self-care (01) ==
PROVIDERS: Emergency Provider Nurse Practitioner Family; PCP Physician Assistant
DX: M54.16 Radiculopathy, lumbar region (principal); E78.5 Hyperlipidemia, unspecified; J44.9 Chronic obstructive pulmonary disease, unspecified; F17.210 Nicotine dependence, cigarettes, uncomplicated
CPT/HCPCS: 73502; 80048; 81003; 85025; 96372; 99203

== ENCOUNTER 2018-11-20 11:22 | Emergency (ER) | payer OTHER, SELFPAY ==
[2018-11-20 11:31] VITALS: BP 156/93; PULSE 69; RESP 18; TEMP 37.2; O2SAT 96; BMI 34.5
--- NOTE | 2018-11-20 11:40 | HMH.EDGENADL ---
ED Disposition Clinical Impression: Left thigh pain Disposition: Home, Self-Care Condition on Discharge: Good Additional Instructions: Follow-up with Rocio in the office this week, call tomorrow to arrange appointment. Additional instructions for CONTROLLED SUBSTANCES: You have been prescribed a medication that is a controlled substance. Controlled substances include pain medications known as opiates and sedative nerve medications known as benzodiazepines. Tramadol, Fioricet, and gabapentin are also controlled substances. Some common opiates include: Codeine (such as Tylenol #3) Hydrocodone (Vicodin, Lortab, Lorcet, Burt) Oxycodone (Percocet, Percodan, Oxycodone, Oxy IR) Some common benzodiazepines include: Diazepam (Valium) Lorazepam (Ativan) Alprazolam (Xanax) Clonazepam (Klonopin) Oxazepam (Serax) All of these controlled substances are highly addictive and frequently abused. Misuse can and frequently does lead to addiction as well as overdose and . Medication should be stored in a locked cabinet or other secure storage unit. Do not store the medication in a motor vehicle. Short term supplies, 3 days or less, are prescribed because of the highly addictive nature of the medication. Any of the controlled substance medication NOT taken should be disposed of properly and NOT SAVED. The recommended method of disposing of unused medications is: Place the medicines in a sealable plastic bag. If the medicine is a solid, crush it or add water to dissolve it. Add something undesirable (cat litter, coffee grounds, etc.) Dispose of sealed bag in household trash Do not flush or pour unused medicines down a sink or drain. Controlled substances should not be shared, given away or sold. Because of the addictive nature and frequent abuse, these medications are sometimes stolen. These medications should be kept in a safe place where they cannot be stolen. Do not keep them in your car or purse. Lost or stolen prescriptions for controlled substances WILL NOT BE REFILLED in this emergency department, regardless of whether a police report was filed. Prescriptions: Gabapentin [Gabapentin 100mg Cap] 100 mg PO TID #21 cap predniSONE [Prednisone 10mg Tab Dose-Pack] 10 mg PO DAILY #42 pack Referrals: Rocio Bedoya PA [Primary Care Provider] - - Critical Care Critical Care Time: No Attestation: On 11/20/18, the high probability of a clinically significant, sudden or life threatening deterioration of the following system(s) required my full and direct attention, intervention and personal management. The time I documented below is in addition to time spent performing reported procedures but includes the following listed in this critical care notation. Medical Decision Making - Valentin Inquiry Pt receiving controlled substance: Yes Valentin was queried for this patient: Yes Reference #:: [id number] Risks and benefits of using a controlled substance: were discussed with pt by me Comment: 7 rxs, last rx 12 percocet 11/14/18. Vital Signs: 11/20/18 11:31 Temperature 99 F Temperature Source Oral Pulse Rate [Left Radial] 69 Respiratory Rate 18 Blood Pressure [Right Arm] 156/93 H Blood Pressure Mean [Right Arm] 114 Blood Pressure Source [Right Arm] Automatic Cuff Blood Pressure Position [Right Arm] Sitting 02 Sat by Pulse Oximetry 96 Oxygen Delivery Method Room Air - Lab Data Lab Results 11/20/18 12:15: D-Dimer 194 Orders (Tests/Meds): ED MEDICATIONS Discontinued Medications Generic Name Dose Route Start Last Admin Trade Name Freq PRN Reason Stop Dose Admin Methylprednisolone Sodium Succinate 125 mg 11/20/18 12:54 11/20/18 13:09 Solu-Medrol 125mg/2ml Vial IV 11/20/18 12:55 125 mg ONCE ONE Administration Medical Decision Narrative: Patient's states that she thought she was told yesterday in the urgent treatment center that a blood test
[2018-11-20 12:41] LABS: D-Dimer 194 ng/mL (0-400)
[2018-11-20 13:23] VITALS: BP 145/78; PULSE 75; RESP 16; TEMP 36.6; O2SAT 98
== END 2018-11-20 13:24 | disposition home or self-care (01) ==
PROVIDERS: Emergency Provider Emergency Medicine; PCP Physician Assistant
DX: M79.652 Pain in left thigh (principal); J44.9 Chronic obstructive pulmonary disease, unspecified; E78.5 Hyperlipidemia, unspecified; F17.210 Nicotine dependence, cigarettes, uncomplicated; Z88.2 Allergy status to sulfonamides; Z91.040 Latex allergy status; Z51.81 Encounter for therapeutic drug level monitoring
CPT/HCPCS: 85378; 96374; 99282

== ENCOUNTER → 2018-11-21 12:38 | Outpatient (CLI) | payer OTHER, SELFPAY ==
--- NOTE | 2018-11-21 12:50 | XR_ITS ---
EXAM: XR lumbar spine min 4V HISTORY: ITS.REASON: left thigh pain ORDERING PHYSICIAN: GEORGIA Millan PATIENT AGE: 63 years COMPARISON: CT scan abdomen and pelvis 09/16/2017 FINDINGS: There is straightening of the normal curvature. There are metallic brackets and pedicle screws fusing L5 and S1. All lumbar vertebrae appear intact. L5 is a transitional vertebrae with partial sacralization. There is no pars defect. There is disc space narrowing and anterior ossific spurring at the L4-5 level. There is mild sclerosis of the right SI joint. IMPRESSION: Postsurgical changes L5-S1 with prominent degenerative disc disease L4-5
== END ==
PROVIDERS: PCP Physician Assistant; Visit Provider Physician Assistant
DX: M79.652 Pain in left thigh (principal)
CPT/HCPCS: 72110

== ENCOUNTER → 2019-02-15 10:03 | Outpatient (CLI) | payer OTHER, SELFPAY ==
--- NOTE | 2019-02-15 10:06 | NVE_ITS ---
Venous Exam Indications: 729.5 Pain in limb. IMPRESSIONS 1. There is no evidence of significant Reflux. 2. No evidence of deep or superficial vein thrombosis involving the right lower extremity History: Risk factors: Current tobacco use. Right lower extremity venous duplex evaluation. Doppler flow study including spectral analysis, color and wheeler scale imaging. Location: Vascular laboratory. Patient status: Outpatient. CRITICAL FINDINGS - Reported to: David Hernandez's office - 02/15/2019 - 10:25 am - Neg for DVT Tables: Venous flow and imaging: + +-------+ + Location Overall Flow properties + +-------+ + Right common femoral Patent Normal phasicity; spontaneous; normal augmentation; compressible + +-------+ + Right saphenofemoral junction Patent Compressible + +-------+ + Right profunda femoral Patent Compressible + +-------+ + Right femoral Patent Normal phasicity; spontaneous; normal augmentation; compressible + +-------+ + Right greater saphenous Patent Normal phasicity; spontaneous; normal augmentation; compressible + +-------+ + Right popliteal Patent Normal phasicity; spontaneous; normal augmentation; compressible + +-------+ + Right posterior tibial Patent Compressible + +-------+ + Right peroneal Patent Compressible + +-------+ + Right gastrocnemius Patent Compressible + +-------+ + Right soleal Patent Compressible + +-------+ + (Report amended ) Electronically signed by: Sloan Hobson [id number]
--- NOTE | 2019-02-15 10:27 | XR_ITS ---
XR knee RT 4V HISTORY: ITS.REASON: Right knee pain ORDERING PHYSICIAN: GEORGIA Villatoro PATIENT AGE: 63 years COMPARISON: None FINDINGS: There are moderate osteoarthritic changes involving all 3 compartments greatest at the medial compartment. No fracture or dislocation. No lytic or blastic change. There is a small suprapatellar effusion. IMPRESSION: Moderate osteoarthritis
== END ==
PROVIDERS: PCP Emergency Medicine; Visit Provider Physician Assistant
DX: M25.561 Pain in right knee (principal)
CPT/HCPCS: 73564; 93971

== ENCOUNTER → 2019-08-03 13:34 | Outpatient (CLI) | payer OTHER, SELFPAY ==
[2019-08-03 14:02] LABS: Basophils # 0.1 K/mm3 (0-0.2); Basophils % 1.5 % (0.1-2.0); Eosinophils # 0.1 K/mm3 (0.0-0.4); Eosinophils % 2.6 % (0.1-12.0); Hematocrit 48.4 % (42.0-52.0); Hemoglobin 15.6 g/dL (14.1-18.0); Lymphocytes # 1.5 K/mm3 (0.7-4.5); Lymphocytes % 27.8 % (10-50); Mean Corpuscular HGB Conc 32.3 g/dL (31.8-35.4); Mean Corpuscular Hemoglobin 31.5 pg (27.0-31.2); Mean Corpuscular Volume 97.7 fl (80-94); Mean Platelet Volume 10.6 fl (7.4-10.4); Monocytes # 0.4 K/mm3 (0.1-1.0); Monocytes % 7.6 % (1.7-9.3); Neutrophils # 3.3 K/mm3 (1.8-7.8); Neutrophils % 60.4 % (37.0-80.0); Platelet Count 199 K/mm3 (142-424); Red Blood Count 4.95 M/mm3 (4.60-6.20); Red Cell Distribution Width 12.5 % (11.5-17.5); White Blood Count 5.5 K/mm3 (4.8-10.8)
[2019-08-03 14:56] LABS: Alanine Aminotransferase 25 U/L (12-78); Albumin Level 3.8 gm/dL (3.4-5.0); Albumin/Globulin Ratio 1.3 (1.1-1.8); Alkaline Phosphatase 53 U/L (46-116); Anion Gap 13.3 mEq/L (5-15); Aspartate Amino Transferase 15 U/L (15-37); Bilirubin,Total 0.4 mg/dL (0.2-1.0); Blood Urea Nitrogen 19 mg/dL (7-18); Calcium 9.2 mg/dL (8.5-10.1); Carbon Dioxide 24 mmol/L (21.0-32.0); Chloride 104 mmol/L (98-107); Chol/HDL Ratio 3.8 (1-3.5); Cholesterol 179 mg/dL (140-200); Creatinine,Serum 1.04 mg/dL (0.70-1.30); Estimated Glomerular Filt Rate 72 ml/min (>60); GFR (African American) 88 ML/MIN (>60); Glucose 92 mg/dL (74-106); HDL Cholesterol 47 mg/dL (27-67); LDL Cholesterol 115 mg/dL (0-130); Potassium 4.3 mmoL/L (3.5-5.1); Prostate Specific Ag Screen 0.5 ng/mL (0.0-4.0); Sodium 137 mmol/L (136-145); Thyroid Stimulating Hormone 0.91 uIU/ml (0.358-3.740); Total Protein,Serum 6.8 gm/dL (6.4-8.2); Triglycerides 84 mg/dL (30-200); VLDL Cholesterol 17 mg/dL (0-40)
[2019-08-04 08:19] LABS: Vitamin D 25 Hydroxy 25.5 ng/mL (30.0-100.0)
[2019-08-04 14:57] LABS: Testosterone,Total 502 ng/dL (264-916)
== END ==
PROVIDERS: Visit Provider Physician Assistant
DX: R53.83 Other fatigue (principal); G47.33 Obstructive sleep apnea (adult) (pediatric); Z12.5 Encounter for screening for malignant neoplasm of prostate; E55.9 Vitamin D deficiency, unspecified; Z79.899 Other long term (current) drug therapy
CPT/HCPCS: 80053; 80061; 82652; 84403; 84443; 85025; G0103

== ENCOUNTER → 2019-08-16 12:44 | Outpatient (CLI) | payer OTHER, SELFPAY ==
[2019-08-16 13:50] VITALS: PULSE 79; PULSE 82
--- NOTE | 2019-08-16 14:13 | CT_ITS ---
PROCEDURE: CT LUNG SCREENING CLINICAL INDICATION: Smoker Sixty pack-year smoking history, asymptomatic for lung cancer COMPARISON: [facility] CT CHEST W/O CONTRAST from 03/23/2017 TECHNIQUE: The exam was performed on a GE Light Speed [address] scanner using 2.90 mGy CTDI. A low dose helical CT CHEST was performed on a multi-detector scanner. All CT scans at the facility use one or more dose reduction, viz: automated exposure control, ma/kV adjustment per patient size (including targeted exams where dose is matched to indication, i.e. head), or iterative reconstruction technique. The LDCT was performed in a facility that meets the criteria for the screening program. Data regarding this exam was submitted to ACR which is an approved registry. The order for this exam indicates that it came as a result of a lung cancer screening counseling shard decision-making visit that included all the elements required of such a visit including smoking cessation. The radiologist interpreting this exam meets the CMS criteria for the LDCT lung cancer screening program. The exam is reported using the Lung-RADS classification scale and reported to the ACR registry. NOTE: This study was performed for the specific purposes of lung cancer screening and is not an alternative to diagnostic chest CT. RADIATION DOSE: CTDI vol(CT dose Index-volume) = 2.90mG DLP (Dose Length Product) = 114.64 2 or mGcm FINDINGS: Centrilobular emphysema with scattered areas of scarring. There is an azygos fissure is a normal variant. A hyperdense nodular areas present in the right upper lobe centrally containing some calcification. 5 mm subpleural nodule left upper lobe unchanged. Calcified granuloma left lower lobe OTHER FINDINGS: Coronary artery calcification IMPRESSION: Lung rads category 2 benign findings. Recommend screening LD CT in 12 months Dictated by: Sloan Hobson MD 08/16/2019 17:39 Electronically signed by Sloan Hobson MD in [place] 08/20/2019 07:23
== END ==
PROVIDERS: PCP Emergency Medicine; Visit Provider Physician Assistant
DX: Z87.890 Personal history of sex reassignment (principal); Z12.2 Encounter for screening for malignant neoplasm of respiratory organs; R53.83 Other fatigue; G47.33 Obstructive sleep apnea (adult) (pediatric); R06.00 Dyspnea, unspecified
CPT/HCPCS: 94060; 94618; 94640

== ENCOUNTER → 2019-09-11 14:26 | Outpatient (CLI) | payer OTHER, SELFPAY ==
--- NOTE | 2019-09-11 14:28 | CA_ITS ---
APPROVED REPORT Right Lower Extremity Venous Study for DVT. Sharepoint Application Developer: LEIDA Indications Lower Extremity Pain: Right pain Risk Factors Trauma Vein Imaging CFV (R): compressive, spontaneous, phasic, augmentation SFJ (R): compressive, spontaneous, phasic, augmentation FEM (R): compressive, spontaneous, phasic, augmentation POP (R): compressive, spontaneous, phasic, augmentation PTV (R): compressive, spontaneous, phasic, augmentation, Compressible GSV (R): Compressible Peroneals (R):Compressible GAS (R): Compressible Findings No evidence of DVT or superficial thrombophlebitis in the veins scanned of the right lower extremity. Conclusion No evidence of DVT or superficial thrombophlebitis in the veins scanned of the right lower extremity. Electronically signed by : Sloan Hobson MD 09/11/2019 16:50:23
== END ==
PROVIDERS: PCP Emergency Medicine; Visit Provider Nurse Practitioner Family
DX: M79.604 Pain in right leg (principal); T14.8XXA Other injury of unspecified body region, initial encounter
CPT/HCPCS: 93971

== ENCOUNTER → 2019-10-03 06:17 | Outpatient (CLI) | payer OTHER, SELFPAY ==
--- NOTE | 2019-10-03 06:18 | CA_ITS ---
APPROVED REPORT EXAM: Comprehensive 2D, Doppler, and color-flow Echocardiogram Panman: Evelia May RDCS Ht: 6 ft 0 in Wt: 241lbs BSA: 2.31 BP: 150/84 mmHg Indications: COPD, Shortness of Breath, ABN CT CALCIUM,DEBORAH,GERD,SMOKER 2D Dimensions LVOT 2.03 cm (M/F) 1.5-2.5 M-Mode Dimensions RVDd 2.91 cm (0.9-2.6) LVDd 5.23 cm (3.5-5.7) LVDs 3.22 cm (3.5-5.7) IVSd 1.07 cm (0.6-1.1) PWd 1.07 cm (0.6-1.1) EF (Teich) 68.30% FS 38.40% EDV (Teich) 131.20 mL ESV (Teich) 41.60 mL LV Diastology E/A Ratio 1.21 Mitral Valve MV A Velocity 50.00 (40-130 cm/s) Left Ventricle Left atrium is mildly enlarged, left ventricle is normal size, mild concentric left ventricular hypertrophy, visually estimated ejection fraction 55% with no regional wall motion abnormality, diastolic parameters are inconclusive. Right Ventricle Right atrium and right ventricle mildly enlarged with normal contractility. Aortic Valve Aortic valve is thickened and calcified leaflet continue to display good mobility. There is no aortic stenosis or aortic insufficiency. Mitral Valve Mitral valve is grossly normal, there is mild mitral regurgitation. Tricuspid Valve Tricuspid valve is grossly normal, there is mild tricuspid regurgitation. Tricuspid regurgitation jet velocity is inadequate for calculation of the right ventricular systolic pressure. Pulmonic Valve Pulmonic valve is poorly visualized. Great Vessels Aortic root is normal size. Pericardium No significant pericardial effusion noted. Conclusion 1. Mild mitral enlargement, normal left ventricular size, mild concentric left ventricular hypertrophy, visually estimated ejection fraction 55% with no regional wall motion abnormality, diastolic parameters are inconclusive. 2. Mildly enlarged right ventricle with normal contractility. 3. Mild mitral and tricuspid regurgitation. 4. No significant pericardial effusion noted. Electronically signed by : Ankush Mahmood, 10/03/2019 15:14:38
--- NOTE | 2019-10-03 06:22 | NM_ITS ---
APPROVED REPORT Exam: Nuclear Stress Test Indication: SOB, Fatigue, Abnormal CT, High cholesterol, Tobacco use, Family history Patient Location: Outpatient Stress Tech: Oriana Cox NE Tech:Patience Cartagena, ARRT, RT (R)(N) Ht: 6 ft 0 in Wt: 270 lbs HR: 61 bpm BP: 143/91 mmHg BSA: 2.42 m2 History: SOB, Fatigue, Abnormal CT, High cholesterol, Tobacco use, Family history Procedure: Patient received a 0.4 mg of intravenous Lexiscan, resting heart rate 61 bpm, resting blood pressure 143/91 mmHg, with Lexiscan maximum heart rate achived was 103 bpm which is % of the maximum predicted heart rate and blood pressure was 149/83 mmHg. Electrocardiogram Resting electrocardiogram showed sinus rhythm, with Lexiscan there is less than 1.[address] segment depression noted from the baseline EKG. The EKG portion of the Lexiscan Myoview is nondiagnostic. Cardiac Stress and Resting SPECT Images: Cardiac Stress and Resting SPECT images were obtained using technetium 99m Myoview 29.3 mCi stress and 10.86 mCi at rest. Gated SPECT for analysis of segmental wall motion and calculation of the ejection fraction also done. Cardiac stress and resting SPECT images show decreases activity in the inferolateral wall which improves on the resting images suggestive of reversible ischemia, computer derived ejection fraction is 58% with no regional wall motion abnormality, right ventricle is normal size and contractility. Conclusion: 1. The EKG portion of the Lexiscan Myoview is nondiagnostic. 2. Mild reversible ischemia involving the inferolateral wall, computer derived ejection fraction 58% with no regional wall motion abnormality, right ventricle is normal size and contractility. 3. Abnormal Lexiscan Myoview study. Electronically signed by : Ankush Mahmood, 10/06/2019 12:20:41
--- NOTE | 2019-10-03 06:22 | CA_ITS ---
APPROVED REPORT Exam: Pharmacologic Technologist: Oriana Cox Ht: 6 ft 0 in Wt: 270 lbs BSA: 2.42 m2 HR: 61 bpm BP: 143/91 mmHg Indications: CAlcification Abnormal CT Medical History Medications: Omeprazole,,,,, Vitamin D3,,,,, Buspirone,,,,, MeLOXICAM,,,,, Vitamin D2,,,,, CHANTIX,,,,, TriLOgy,,,,, ViByrd,,,,, Stress Test Details Test: LEXISCAN HR Resting HR: 74 bpm Max Heart Rate (APMHR): 158 bpm Max HR Achieved: 109 bpm Target HR (85% APMHR): 134 bpm % of APMHR: 68 Recovery HR: 79 bpm BP Resting BP: 143.0/91.0 mmHg Max BP: 157.0/91.0 mmHg Recovery BP: 147.0/87.0 mmHg ECG Clinical Exercise duration: 04:00 min Highest Stage Achieved: Exercise capacity: 1.0 METs Stress ECG Conclusion Resting ECG: Normal sinus rhythm, PVC, otherwise normal Symptoms: Mild chest pressure, dyspnea, malaise. Arrhythmias/Ectopy: Occasional PVC. ST-T Changes: No significant changes. Conclusion: Unremarkable Lexiscan stress. Myoview images reported separately. Electronically signed by : Ankush Mahmood, 10/03/2019 15:18:21
--- NOTE | 2019-10-03 07:03 | HMH.ITSHM ---
Current Home Medications as stated by this patient Jacob Lunsford or international account representative. []BUSIPIRONE VITAMIN D3 VITAMIN D2 TRILAGEY MELOXICAM OMEPRAZOLE CHANBEREX CONSUELO
== END ==
PROVIDERS: PCP Physician Assistant; Visit Provider Nurse Practitioner Family
DX: I25.10 Atherosclerotic heart disease of native coronary artery without angina pectoris (principal); I10 Essential (primary) hypertension; R06.00 Dyspnea, unspecified; R53.83 Other fatigue
CPT/HCPCS: 78452; 93017; 93306; A9502; J2785

== ENCOUNTER → 2019-11-06 09:36 | Outpatient (CLI) | payer OTHER, SELFPAY ==
--- NOTE | 2019-11-06 09:51 | CT_ITS ---
PROCEDURE: CT ABDOMEN PELVIS WO CON CLINICAL INDICATION: LLQ PAIN CHRONIC LEFT LOWER QUADRANT PAIN COMPARISON: ABDPELW/O CT ABD PELVIS W/O CONTRAST from 03/15/[address] abdomen pelvis wo con from 09/07/2018 TECHNIQUE: Axial images obtained with sagittal and coronal reformats. All CT scans at the facility use one or more dose reduction, viz: automated exposure control, ma/kV adjustment per patient size (including targeted exams where dose is matched to indication, i.e. head), or iterative reconstruction technique. FINDINGS: LOWER THORAX: No acute finding ABDOMEN & PELVIS: The liver, spleen, adrenal glands, and pancreas have an unremarkable unenhanced appearance. There has been a prior cholecystectomy. No renal or ureteral calculi. No hydronephrosis. There is mild thickening of the gastric wall which may be due to nondistention. Gastritis is included in the differential diagnosis. Unremarkable appendix. There are scattered sigmoid and descending colon diverticula but no evidence of diverticulitis. There are postsurgical changes in the left lower quadrant from prior hernia repair. There is some fat density noted in the left inguinal region with a thin density noted along the posterior aspect of this fat. This may represent some fat in trapped between the peritoneum and abdominal wall and mesh or could be secondary to previous inflammatory changes. This is not significantly changed. No recurrence inguinal hernia is evident. Postsurgical changes are present in the lumbar spine. IMPRESSION: 1. Mild thickening of the body and fundus of the stomach which could be due to nondistention or gastritis. 2. Colonic diverticulosis without evidence of diverticulitis. 3. Postsurgical changes in the left inguinal region with an area of encapsulated fat in this region which may be postsurgical. Not significantly changed. No evidence of recurrence hernia Dictated by: Sloan Hobson MD 11/07/2019 07:19 Electronically signed by Sloan Hobson MD in [place] 11/07/2019 07:19
== END ==
PROVIDERS: PCP Physician Assistant; Visit Provider Internal Medicine
DX: R10.32 Left lower quadrant pain (principal)
CPT/HCPCS: 74176

== ENCOUNTER → 2019-11-15 15:24 | Outpatient (CLI) | payer OTHER, SELFPAY | PROVIDERS: PCP Internal Medicine; Visit Provider Nurse Practitioner Family | DX: G47.33 Obstructive sleep apnea (adult) (pediatric) (principal) | CPT/HCPCS: 94762 ==

== ENCOUNTER 2020-10-20 18:09 | Emergency (ER) | payer BC, SELFPAY ==
[2020-10-20 18:15] VITALS: BP 124/94; PULSE 98; RESP 21; TEMP 37.1; O2SAT 100; BMI 31.4
--- NOTE | 2020-10-20 18:21 | HMH.EDUTC ---
[facility] [place] Disposition Clinical Impression: Sinusitis Qualifiers: Sinusitis location: unspecified location Chronicity: acute Recurrence: non-recurrent Qualified Code(s): J01.90 - Acute sinusitis, unspecified Fatigue Qualifiers: Fatigue type: chronic, unspecified Qualified Code(s): R53.82 - Chronic fatigue, unspecified Disposition: Home, Self-Care Condition on Discharge: Good Instructions: DI for Sinusitis, DI for Fatigue Additional Instructions: Drink plenty of fluids. Take tylenol for pain or fever. Return if you begin to have difficulty breathing. Follow up with your regular doctor. GO TO THE ER FOR ANY WORSENING SYMPTOMS Follow up with your primary care doctor. There are lab test that you need that you need to be fasting to do. That is something that your physician should do. Also your weakness in your legs needs to be checked out further by your primary care doctor. Prescriptions: methylPREDNISolone [Medrol] 4 mg PO DIRECTED 6 Days #21 [email or web address] Transmission Status: Received by [facility] #[id number] Cefdinir [Omnicef 300mg Capsule] 300 mg PO BID #20 cap Transmission Status: Received by [facility] #[id number] Benzonatate [Tessalon Perle 100mg Cap] 100 mg PO TIDP PRN #30 cap PRN Reason: Cough Transmission Status: Received by [facility] #[id number] Referrals: Rocio Bedoya PA [Primary Care Provider] - Time of Disposition: 19:07 Medical Decision Making - Medical Records Medical records reviewed: No: I reviewed the patient's medical records. - Valentin Inquiry Pt receiving controlled substance: No Vital Signs: 10/20/20 18:15 10/20/20 19:24 Temperature 98.7 F 98.7 F Temperature Source Oral Pulse Rate 98 H Pulse Rate [Right Brachial] 98 H Respiratory Rate 21 21 Blood Pressure 124/94 H Blood Pressure [Right Arm] 124/94 H Blood Pressure Mean [Right Arm] 104 Blood Pressure Source [Right Arm] Automatic Cuff Blood Pressure Position [Right Arm] Sitting 02 Sat by Pulse Oximetry 100 - Lab Data Lab results reviewed: Yes: I reviewed the patient's lab results. Lab Results 10/20/20 18:35: WBC 8.0, RBC 5.36, Hgb 17.3, Hct 50.0, MCV 93.4, MCH 32.3 H, MCHC 34.6, RDW 13.2, Plt Count 219, MPV 8.7, Neut % (Auto) 58.2, Lymph % (Auto) 30.6, [place] % (Auto) 6.4, Eos % (Auto) 3.0, Baso % (Auto) 1.9, Neut # (Auto) 4.7, Lymph # (Auto) 2.5, [place] # (Auto) 0.5, Eos # (Auto) 0.2, Baso # (Auto) 0.2 10/20/20 18:35: Sodium 136, Potassium 3.7, Chloride 105, Carbon Dioxide 25, Anion Gap 9.7, BUN 16, Creatinine 1.20, Estimated Creat Clear 93, Estimated GFR 61, Est GFR ( Amer) 74, Glucose 97, Calcium 9.8, Total Bilirubin 0.6, AST 27, ALT 17, Alkaline Phosphatase 61, Total Protein 7.9, Albumin 4.5, Globulin 3.4 H, Albumin/Globulin Ratio 1.3 Result diagrams: 10/20/20 18:35 10/20/20 18:35 Orders (Tests/Meds): ED MEDICATIONS Discontinued Medications Generic Name Dose Route Start Last Admin Trade Name Freq PRN Reason Stop Dose Admin Ceftriaxone Sodium 1 gm 10/20/20 18:50 10/20/20 19:00 Ceftriaxone 1gm Vial IM 10/20/20 18:51 1 gm ONCE ONE Administration Protocol Lidocaine HCl 0 ml 10/20/20 18:50 10/20/20 19:00 Lidocaine 1% 5ml Pf Vial IM 10/20/20 18:51 2.1 ml ONCE ONE Administration Methylprednisolone Sodium Succinate 125 mg 10/20/20 18:50 10/20/20 19:00 Methylprednisolone Sod Succ 125mg Vial IM 10/20/20 18:51 125 mg ONCE ONE Administration ORDERS Category Date Time Status XR chest 2V Stat Exams 10/20/20 18:25 Taken Covid-19 Nasal PCR ([facility]) Routine Lab 10/20/20 18:40 Received [facility] [place] HPI - General Stated complaint: sore throat cough drainage weakness Time Seen by Provider: 10/20/20 18:21 - History of Present Illness Provider Complaint: He is here with a chief complaint of having sinus congestion, sore throat and a dry cough. He states that he has been feeling more weak over the past 1 month. He describes th
--- NOTE | 2020-10-20 18:25 | XR_ITS ---
PROCEDURE: XR CHEST 2V Referring Doctor: George Bansal Patient Age:65Y CLINICAL HISTORY: cough Cough congestion drainage since this morning today's PA and lateral chest is COMPARISON: CR CXR CHEST(2 VIEWS-NOT PORTABLE) from 06/10/2016 CR CXR CHEST(2 VIEWS-NOT PORTABLE) from 07/03/2016 CR CXR CHEST(2 VIEWS-NOT PORTABLE) from 02/20/[address] [address] CHEST W/O CONTRAST from 03/23/2017 FINDINGS: Compared to previous chest film from 02/20/2017 and 07/03/2016. There is actually more optimal inspiration today. There is subtle coarsening markings bilaterally but this is similar to previous studies and most compatible with some minor chronic changes but I see no convincing acute infiltrate or pneumonia at this point. If symptoms progress consider follow-up Heart, darnell, mediastinal structures appear stable and satisfactory. Normal pulmonary vascularity Whole subtle hyperexpansion could reflect some early emphysematous change. Markings upper normal towards the lower lobe on lateral film only.. Incidental azygos lobe. Trace apical pleural scarring. . Chest wall and T-spine appears stable and satisfactory.. IMPRESSION: Nothing definitely acute Subtle chronic changes mild hyperexpansion but no discrete focal pneumonia Dictated by: Swapnil Simon MD 10/20/2020 21:55 Swapnil Simon MD in [place] 10/20/2020 21:55
[2020-10-20 18:52] LABS: Basophils # 0.2 K/mm3 (0-0.2); Basophils % 1.9 % (0.1-2.0); Eosinophils # 0.2 K/mm3 (0.0-0.4); Hemoglobin 17.3 g/dL (14.1-18.0); Lymphocytes # 2.5 K/mm3 (0.7-4.5); Lymphocytes % 30.6 % (10-50); Mean Corpuscular HGB Conc 34.6 g/dL (31.8-35.4); Mean Corpuscular Hemoglobin 32.3 pg (27.0-31.2); Mean Corpuscular Volume 93.4 fl (80-94); Mean Platelet Volume 8.7 fl (7.4-10.4); Monocytes # 0.5 K/mm3 (0.1-1.0); Monocytes % 6.4 % (1.7-9.3); Neutrophils # 4.7 K/mm3 (1.8-7.8); Neutrophils % 58.2 % (37.0-80.0); Platelet Count 219 K/mm3 (142-424); Red Blood Count 5.36 M/mm3 (4.60-6.20); Red Cell Distribution Width 13.2 % (11.5-17.5)
[2020-10-20 18:53] LABS: Chloride 105 mmol/L (98-107); Potassium 3.7 mmoL/L (3.5-5.1); Sodium 136 mmol/L (136-145)
[2020-10-20 18:55] LABS: Blood Urea Nitrogen 16 mg/dl (9-20); Creatinine Clearance Estimated 93 mL/min (50-200); Estimated Glomerular Filt Rate 61 ml/min (>60); GFR (African American) 74 ML/MIN (>60)
[2020-10-20 18:56] LABS: Alanine Aminotransferase 17 U/L (12-78); Albumin Level 4.5 g/dl (3.5-5.0); Albumin/Globulin Ratio 1.3 (1.1-1.8); Alkaline Phosphatase 61 U/L (38-126); Anion Gap 9.7 mEq/L (5-15); Aspartate Amino Transferase 27 U/L (17-59); Bilirubin,Total 0.6 mg/dl (0.2-1.3); Calcium 9.8 mg/dl (8.4-10.2); Carbon Dioxide 25 mmol/L (22.0-30.0); Globulin 3.4 g/dL (1.3-3.2); Glucose 97 mg/dl (74-100); Total Protein,Serum 7.9 g/dl (6.3-8.2)
[2020-10-20 19:24] VITALS: BP 124/94; PULSE 98; RESP 21; TEMP 37.1; O2SAT 100
== END 2020-10-20 19:28 | disposition home or self-care (01) ==
PROVIDERS: Emergency Provider Nurse Practitioner Family; PCP Physician Assistant
DX: Z20.822 Contact with and (suspected) exposure to COVID-19 (principal); J01.90 Acute sinusitis, unspecified; R53.82 Chronic fatigue, unspecified; E78.5 Hyperlipidemia, unspecified; K21.9 Gastro-esophageal reflux disease without esophagitis; F41.9 Anxiety disorder, unspecified; F17.210 Nicotine dependence, cigarettes, uncomplicated; Z88.2 Allergy status to sulfonamides; Z91.040 Latex allergy status
CPT/HCPCS: 71046; 80053; 85025; 96372; 99203; G0463; U0003

== ENCOUNTER → 2020-11-21 08:13 | Outpatient (CLI) | payer BC, SELFPAY ==
--- NOTE | 2020-11-21 08:15 | CT_ITS ---
PROCEDURE: CT LUNG SCREENING CLINICAL INDICATION: HX OF NICOTINE DEPENDENCE COMPARISON: CT CT LUNG SCREENING from 08/16/2019 TECHNIQUE: The exam was performed on a GE Light Speed [address] scanner using 2.90 mGy CTDI. A low dose helical CT CHEST was performed on a multi-detector scanner. All CT scans at the facility use one or more dose reduction, viz: automated exposure control, ma/kV adjustment per patient size (including targeted exams where dose is matched to indication, i.e. head), or iterative reconstruction technique. The LDCT was performed in a facility that meets the criteria for the screening program. Data regarding this exam was submitted to ACR which is an approved registry. The order for this exam indicates that it came as a result of a lung cancer screening counseling shard decision-making visit that included all the elements required of such a visit including smoking cessation. The radiologist interpreting this exam meets the CMS criteria for the LDCT lung cancer screening program. The exam is reported using the Lung-RADS classification scale and reported to the ACR registry. NOTE: This study was performed for the specific purposes of lung cancer screening and is not an alternative to diagnostic chest CT. RADIATION DOSE: CTDI vol(CT dose Index-volume) = 2.90mG DLP (Dose Length Product) = 113 mGcm FINDINGS: There is diffuse emphysematous change. Normal variant azygos lobe is present. There is an area of right upper lobe scarring with calcification. There has been interval development of an irregular area of density and spiculation in the right upper lobe extending to the right apex. This has an irregular margin making measurements imprecise but on axial image 26 it measures 2.8 x 1.3 centimeters. Greatest length on coronal images is more than 5 centimeters. This is separate from the benign findings seen on prior screening CT. The prior CT findings are unchanged and again are benign. There is moderate calcification in the coronary arteries. Partial visualization of the upper abdomen reveals surgical clips from prior cholecystectomy and diverticulosis. There are no suspicious bone lesions CT. IMPRESSION: Lung-RADS Category 4X Very Suspicious Follow-up: Immediate Chest CT without or with contrast, PET/CT and/or tissue sampling depending on the probability of malignancy and comorbidites. PET/CT may be used when there is a greater than or equal to 8 mm solid component. Pulmonary referral is recommended Dictated by: Shannan Nguyen MD 11/21/2020 17:16 Shannan Nguyen MD in [place] 11/21/2020 17:16
== END ==
PROVIDERS: PCP Physician Assistant; Visit Provider Physician Assistant
DX: Z87.891 Personal history of nicotine dependence (principal); Z12.2 Encounter for screening for malignant neoplasm of respiratory organs
CPT/HCPCS: 71271

== ENCOUNTER → 2020-12-05 12:46 | Outpatient (CLI) | payer BC, SELFPAY ==
[2020-12-05 13:18] LABS: Basophils # 0.1 K/mm3 (0-0.2); Basophils % 1.2 % (0.1-2.0); Eosinophils # 0.2 K/mm3 (0.0-0.4); Hematocrit 46.3 % (42.0-52.0); Hemoglobin 15.8 g/dL (14.1-18.0); Lymphocytes # 1.6 K/mm3 (0.7-4.5); Lymphocytes % 20.4 % (10-50); Mean Corpuscular Volume 94.1 fl (80-94); Mean Platelet Volume 8.5 fl (7.4-10.4); Monocytes # 0.5 K/mm3 (0.1-1.0); Neutrophils # 5.6 K/mm3 (1.8-7.8); Neutrophils % 70.3 % (37.0-80.0); Platelet Count 210 K/mm3 (142-424); Red Blood Count 4.92 M/mm3 (4.60-6.20); Red Cell Distribution Width 13.5 % (11.5-17.5)
[2020-12-07 13:10] LABS: Alpha-1-Antitrypsin 156 mg/dL (101-187)
[2020-12-11 13:27] LABS: QuantiFERON-TB Gold Plus Negative (Negative)
[2020-12-11 23:30] LABS: Aspergillus flavus Negative (Neg:<1:1); Aspergillus fumigatus Negative (Neg:<1:1); Aspergillus niger Negative (Neg:<1:1)
[2020-12-12 05:22] LABS: Blastomyces Antibody Negative (Neg:<1:1)
== END ==
PROVIDERS: Visit Provider Internal Medicine Pulmonary Disease
DX: J44.9 Chronic obstructive pulmonary disease, unspecified (principal); J84.10 Pulmonary fibrosis, unspecified; J45.909 Unspecified asthma, uncomplicated
CPT/HCPCS: 36415; 82103; 85025; 86480; 86606; 86612

== ENCOUNTER → 2020-12-25 11:37 | Outpatient (CLI) | payer BC, SELFPAY | PROVIDERS: PCP Physician Assistant; Visit Provider Internal Medicine Pulmonary Disease | DX: Z01.818 Encounter for other preprocedural examination (principal); Z20.822 Contact with and (suspected) exposure to COVID-19 | CPT/HCPCS: U0003 ==

== ENCOUNTER 2020-12-27 10:50 | Day surgery (SDC) | payer BC, SELFPAY ==
[2020-12-24 13:41] VITALS: BMI 32.3
[2020-12-27] VITALS (9 sets, daily range): BP systolic 111–152; BP diastolic 64–103; PULSE 82–92; RESP 14–19; TEMP 36.1–37.1; O2SAT 93–98
--- NOTE | 2020-12-27 13:39 | XR_ITS ---
PROCEDURE: XR CHEST AP CLINICAL HISTORY: BRONCH WITH BX COMPARISON: CR CXR CHEST(2 VIEWS-NOT PORTABLE) from 07/03/2016 CR CXR CHEST(2 VIEWS-NOT PORTABLE) from 02/20/[address] CHEST W/O CONTRAST from 03/23/2017 CR XR CHEST 2V from 10/20/[address] LUNG SCREENING from 11/21/2020 CT,PT PET CT Skull Base to Midthigh from 11/29/2020 FINDINGS: There is a single image submitted during the bronchoscopy showing the bronchus scope in place in the right mid to lower lung Fluoroscopy time: 153 seconds. IMPRESSION: Status post fluoroscopic guided bronchoscopy Dictated by: Sloan Hobson MD 01/24/2021 17:32 Sloan Hobson MD in [place] 01/24/2021 17:32
--- NOTE | 2020-12-27 13:43 | HMH.ANESCL ---
[facility] Anesthesia Checklist - Patient Identification Patient Identification: Family - Structural Data Admitted From: Home Planned Operative Procedure/s: Bronchoscopy with biopsies Consent for Planned Operative Procedure(s) Verified: Yes Verified Documents: Surgical Consent, History and Physical - NPO Status Verified Time NPO: 00:00 - Additional verifications Anesthesia Reactions: No Hx Blood Transfusions: No Blood Transfusion Reaction: No - Airway Assessment C-Spine Mobility Assessed: Yes TMJ Mobility Assessed: Yes (upper missing two upper teeth) Dentition: Partials - Neurological Assessment Level of Consciousness: Awake, Alert - Anesthesia Plan Anesthesia Risk discussed: Yes Anesthesia Plan: Verified ASA Class: III Anesthesia Type: General [facility] History I have reviewed the patient's past medical history: Yes (NAC) Medical History: Reports:: Anxiety, Chronic Obstructive Pulmonary Disease (COPD), Gastroesophageal Reflux Disease(GERD), Hyperlipidemia Denies:: Cancer, Diabetes Mellitus Type 1, Diabetes Mellitus Type 2, Internal Pacemaker, Lung Disease, MRSA, Seizures *Have you ever received a pneumonia vaccine?: Yes *Have you received a flu vaccine this season?: Yes Other Medical History: Reports: Arthritis. Denies: Blood Transfusion Reaction Anesthesia experience/problems:: NAC Laterality Cases: Bilateral: Other Other Surgeries: Yes: Cardiac Catheterization, Cholecystectomy, Colonoscopy, Hernia Repair, Other (cholecystectomy,prostate laser,cysto,ibnc,meatal dilat.). No: Pacemaker Amputation: No Fractures: No - *Social History Last grade of school completed: High school graduate Smoking Status: Current every day smoker Tobacco Type: cigarettes # Packs/Day (cigarettes): 1 Alcohol Intake: never Alcohol Intake Frequency:: other Substance Use Type: denies use *Occupational Status:: retired Housing: house Household Members: spouse *Travel in the last 8 weeks: None - Psychiatric History Pschychiatric History:: Reports:: Anxiety Family Hx:: Cancer, Coronary Artery Disease
--- NOTE | 2020-12-27 13:45 | SUR.PHASEI ---
Pt alert and oriented x3. no complaints of pain. VSS.
--- NOTE | 2020-12-27 13:47 | P.PN_ITS ---
[facility] Anesthesia Record Part I Intake, IV Amount: 1,000 Estimated blood loss (mL): 0 Urine output (mL): 0 Blood Products used (#): none Blood Pressure: 152/103 SaO2: 95 Pulse Rate: 83 Respiratory Rate: 16 Temperature: 97.7 F Patient is:: Drowsy, Stable Stable to PACU at:: 13:32
--- NOTE | 2020-12-27 14:02 | HMH.BRONCH ---
- Procedure: Date: 12/27/20 Patient Date of :: 1955 Procedure Performed:: Bronchoscopy with BAL and transbronchial biopsy Indications:: Pulmonary nodule Performing Provider:: Alex Ko MD Referring Provider:: Dr: Rocio Bedoya Sedation:: General anesthesia Procedure:: Bronchoscopy with BAL and transbronchial biopsy: Diagnostic bronchoscope advanced to the ET tube, airways were examined up to subsegmental bronchi. Airways grossly appear normal. Multiple thick mucoid secretions noted on the airways. No mucous plugging noted. No evidence of hemoptysis or blood clots noted. Bronchoalveolar lavage was performed in the right upper lobe posterior segment with instillation of total of 6 cc of normal saline with return of only 15 cc. Lavage fluid were sent for cell count and differential along with bacterial fungal and AFB staining and cultures. Transbronchial biopsies was performed in the right upper lobe posterior segment a total of 8 biopsies was performed and were sent for cytopathology along with bacterial fungal and AFB staining and cultures. Tolerated the procedure well. Will follow in the clinic with results as previously scheduled Findings:: Please see the procedure note Specimens:: Bronchoalveolar lavage and transbronchial biopsy specimens Recommendations:: See the procedure note Complications:: None Estimated blood obtained (mL): 0
[2021-01-01 13:36] VITALS: BP 126/67; PULSE 92; TEMP 36.3
--- NOTE | 2021-01-01 13:36 | P.PN_ITS ---
[facility] Anesthesia Record Part II Discharge Time: 13:52 Destination: [facility] PACU nurse assessment reviewed?: Yes Patient Condition:: Good Anesthesia Complications:: None Swallowing reflex intact?: Yes Cyanosis?: No Blood Pressure: 126/67 Pulse Rate: 92 Temperature: 97.3 F Mental Status: Alert & Oriented Pain level:: 0 Nausea and/or vomitting:: None Intake, IV Amount: 1,500
== END 2020-12-27 14:30 | disposition home or self-care (01) ==
LOC: OR 10:51
PROVIDERS: PCP Physician Assistant; Visit Provider Internal Medicine Pulmonary Disease
PROC: (CPT 31624; principal; 2020-12-27 12:00)
DX: R91.8 Other nonspecific abnormal finding of lung field (principal); J44.9 Chronic obstructive pulmonary disease, unspecified; Z72.0 Tobacco use; Z79.899 Other long term (current) drug therapy
CPT/HCPCS: 31624; 31628; 71045; 76000; 87070; 87102; 87116; 87186; 87205; 87206; 87220; 89051; J2405

== ENCOUNTER → 2021-02-10 13:48 | Outpatient (POV) | payer BC, SELFPAY | PROVIDERS: Visit Provider Nurse Practitioner Family | DX: Z00.00 Encounter for general adult medical examination without abnormal findings (principal) ==

== ENCOUNTER → 2021-03-12 07:52 | Outpatient (CLI) | payer BC, SELFPAY ==
--- NOTE | 2021-03-12 07:52 | CT_ITS ---
PROCEDURE: CT CHEST WO CON CLINICAL INDICATION: 3-month follow-up Nodule COMPARISON: CT CT LUNG SCREENING from 08/16/[address] LUNG SCREENING from 11/21/2020 TECHNIQUE: Axial images obtained with sagittal and coronal reformats. All CT scans at the facility use one or more dose reduction, viz: automated exposure control, ma/kV adjustment per patient size (including targeted exams where dose is matched to indication, i.e. head), or iterative reconstruction technique. FINDINGS: HEART AND MEDIASTINAL STRUCTURES: No mediastinal or hilar mass or adenopathy. Coronary artery calcifications are present. LUNGS AND PLEURAL SPACES: COPD with centrilobular emphysema and scattered areas of scarring are once again noted. In particular, the irregular parenchymal opacity in the right upper lobe posteriorly is once again noted and not significantly changed. This is flat like in nature with associated atelectatic change/volume loss and air bronchograms suggesting postinflammatory fibrotic changes. The continued follow-up is suggested to confirm long-term stability in this patient with high risk factors for neoplasm. Other scattered areas parenchymal scarring also noted as before. BONY STRUCTURES: No acute bony abnormalities apparent. UPPER ABDOMEN: Unremarkable. ADDITIONAL FINDINGS: No other significant abnormalities. IMPRESSION: Stable CT appearance of the chest. COPD with centrilobular emphysema and scattered areas of scarring. The irregular parenchymal opacity in the right upper lobe is not significantly changed and may represent an area of postinflammatory scarring. Continued 6-12 month follow-up suggested to confirm stability. Dictated by: Sloan Hobson MD 03/13/2021 09:28 Sloan Hobson MD in [place] 03/13/2021 09:28
== END ==
PROVIDERS: PCP Physician Assistant; Visit Provider Internal Medicine Pulmonary Disease
DX: R91.8 Other nonspecific abnormal finding of lung field (principal)
CPT/HCPCS: 71250

== ENCOUNTER → 2021-04-16 11:29 | Outpatient (CLI) | payer BC, SELFPAY | PROVIDERS: Visit Provider Internal Medicine Gastroenterology | DX: Z20.822 Contact with and (suspected) exposure to COVID-19 (principal) | CPT/HCPCS: U0003 ==

== ENCOUNTER 2021-04-18 06:55 | Day surgery (SDC) | payer BC, SELFPAY ==
[2021-04-11 15:54] VITALS: BMI 31.8
[2021-04-18 07:14] VITALS: BP 151/91; PULSE 90; RESP 18; TEMP 36.9; O2SAT 95
--- NOTE | 2021-04-18 07:52 | HMH.PROC ---
[facility] Procedure Note Procedure Note:: Colonoscopy Procedure Report: Colonoscopy with cold snare polypectomy Endoscopist: Petar Schultz II, MD Referring physician: Rocio Bedoya PA-C Date of Procedure: April 18, 2021 Equipment: Olympus 190 variable stiffness pediatric colonoscope Sedation: MAC sedation Indication: Mr. Lunsford is a 65-year-old gentleman with chronic left lower quadrant abdominal pain that is intermittent and began a few years ago. 6 weeks ago, he did go to [facility] and had extensive evaluation that was essentially normal including a CAT scan. He also had a CAT scan 1 year ago that was essentially normal. He does have diverticulosis but has not had any prior diverticulitis. He does feel this discomfort sometimes when he exerts abdominal pressure with a bowel movement. He describes something flopping and looping of the left colon. He did have a colonoscopy in 2018 (Dr. Sukumar Moon) and had 8 polyps (tubular adenomas x2, serrated adenomas x2 and hyperplastic polyps x4) which were removed. His mother had colon cancer and he is uncertain at which age. He was started on MiraLAX plus Konsyl previously with buspirone. He does use a heating pad intermittently. He reports no rectal bleeding, change in his bowel habits or weight loss. The patient will sometimes have left testicular/scrotal swelling at the same time he develops a left-sided abdominal discomfort. He does not have any pain in the left testicle. Procedure: Prior to the procedure, a history and physical exam was performed, and patient's medications and allergies were reviewed. The risks, benefits and alternatives of the sedation and procedure were discussed with the patient. All questions were answered and informed consent was obtained. The patient was brought to the procedure room. Patient identification and proposed procedure were verified by the physician and the nurse. The patient was placed in a left lateral decubitus position and the scope was passed under direct vision. Throughout the procedure, the patient's blood pressure, pulse, and oxygen saturations were monitored continuously. The colonoscopy was accomplished without difficulty. The patient tolerated the procedure well. Findings: On digital rectal examination there was normal rectal tone. There were no external hemorrhoids. The prostate was 2+, smooth, soft, symmetric without nodules. The colonoscope was introduced through the anal canal to the rectum and advanced to the cecum. The ileocecal valve and appendiceal orifice were identified. The scope was advanced a short distance into the ileum which appeared grossly normal. The scope was then withdrawn into the colon. There were a total of 5 polyps (ascending x1 (4 mm), transverse x1 (4 mm), descending x2 (3 and 4 mm) and sigmoid x1 (5 mm)) which were all removed via cold snare polypectomy. The remaining cecum, ascending and transverse colon and mucosa were grossly normal. There were scattered extensive diverticuli throughout the descending and sigmoid colon (LEFT colon). The rectum itself was normal. Upon retroflexion within the rectum there were grade 1-2 internal hemorrhoids. The preparation was excellent throughout with Howard Preparation Score of 9. The cecal time was 12 minutes. Impression: 1. Diminutive colonic polyps x5 2. Extensive left-sided diverticulosis 3. Grade 1-2 internal hemorrhoids Plan: I will follow up the polyp pathology and recommend repeat colonoscopy again in 3-5 years based upon the polyp histology. I would encourage dietary measures and continuation of the fiber bowel regimen on a long-term daily maintenance basis. If the pain persists, I would consider small bowel series.
--- NOTE | 2021-04-18 07:54 | HMH.ANESCL ---
[facility] Anesthesia Checklist - Patient Identification Patient Identification: Arm Band - Structural Data Admitted From: Home Planned Operative Procedure/s: colonoscopy Consent for Planned Operative Procedure(s) Verified: Yes Verified Documents: Surgical Consent, History and Physical - NPO Status Verified Time NPO: 00:00 - Additional verifications Anesthesia Reactions: No Hx Blood Transfusions: No Blood Transfusion Reaction: No - Airway Assessment C-Spine Mobility Assessed: Yes (mp2) TMJ Mobility Assessed: Yes Dentition: Good Dentition - Neurological Assessment Level of Consciousness: Awake, Alert - Anesthesia Plan Anesthesia Risk discussed: Yes Anesthesia Plan: Verified ASA Class: III Anesthesia Type: MAC [facility] History I have reviewed the patient's past medical history: Yes Medical History: Reports:: Anxiety, Chronic Obstructive Pulmonary Disease (COPD), Gastroesophageal Reflux Disease(GERD), Hyperlipidemia, Hypertension Denies:: Cancer, Diabetes Mellitus Type 1, Diabetes Mellitus Type 2, Internal Pacemaker, Lung Disease, MRSA, Seizures *Have you ever received a pneumonia vaccine?: No *Have you received a flu vaccine this season?: Yes Other Medical History: Reports: Arthritis. Denies: Blood Transfusion Reaction Anesthesia experience/problems:: nac Laterality Cases: Bilateral: Other Other Surgeries: Yes: Cardiac Catheterization, Cholecystectomy, Colonoscopy, Hernia Repair, Other (cholecystectomy,prostate laser,cysto,ibnc,meatal dilat.). No: Pacemaker Amputation: No Fractures: No - *Social History Last grade of school completed: High school graduate Smoking Status: Current every day smoker Tobacco Type: cigarettes # Packs/Day (cigarettes): 1 Alcohol Intake: never Alcohol Intake Frequency:: other Substance Use Type: denies use *Occupational Status:: employed Housing: house Household Members: spouse *Travel in the last 8 weeks: None - Psychiatric History Pschychiatric History:: Reports:: Anxiety Family Hx:: Cancer, Coronary Artery Disease
[2021-04-18 08:15] VITALS: BP 126/91; PULSE 83; RESP 18; TEMP 36.9; O2SAT 96
[2021-04-18 08:25] VITALS: BP 129/78; PULSE 67; RESP 18; O2SAT 96
[2021-04-18 08:35] VITALS: BP 131/74; PULSE 71; RESP 18; O2SAT 97
[2021-04-18 08:45] VITALS: BP 132/83; PULSE 71; RESP 18; O2SAT 98
[2021-04-18 12:23] VITALS: O2SAT 99
== END 2021-04-18 09:04 | disposition home or self-care (01) ==
PROVIDERS: PCP Physician Assistant; Visit Provider Internal Medicine Gastroenterology
PROC: 0DJD8ZZ Inspection of Lower Intestinal Tract, Via Natural or Artificial Opening Endoscopic (ICD-10-PCS; CPT 45378; principal; 2021-04-18 08:00)
DX: Z86.010 Personal history of colon polyps (principal); Z80.0 Family history of malignant neoplasm of digestive organs; K63.5 Polyp of colon; K57.30 Diverticulosis of large intestine without perforation or abscess without bleeding; K64.0 First degree hemorrhoids
CPT/HCPCS: 45384

== ENCOUNTER 2021-05-24 16:20 | Emergency (ER) | payer BC, SELFPAY ==
[2021-05-24 17:00] VITALS: BP 125/77; PULSE 72; RESP 19; TEMP 36.9; O2SAT 96; BMI 31.4
--- NOTE | 2021-05-24 17:42 | HMH.EDUTC ---
[facility] [place] Disposition Clinical Impression: Sinusitis Qualifiers: Sinusitis location: unspecified location Chronicity: unspecified Qualified Code(s): J32.9 - Chronic sinusitis, unspecified Disposition: Home, Self-Care Condition on Discharge: Good Instructions: Sinusitis, DI for Sinusitis, DI for Cough -- Adult Additional Instructions: *Monitor Temp, Over the counter Motrin or Tylenol as directed/as needed Tylenol every 4 hours and Motrin every 6 hours (as long as your family doctor has told you that you can take it) for fever or pain. and straight to ER if unable to lower temp less than 101.0 after medication given *Warm salt water gargles may help to soothe the throat *Throat Lozenges *Warm fluids like tea with honey may help to soothe the throat *Sleep elevated *Humidifier/Vaporizer Start oral medication tomorrow Follow up IMMEDIATELY for new or worsening symptoms or no Noticeable improvement over the next 48-72 hours. 911 for difficulty breathing or swallowing Prescriptions: methylPREDNISolone [Medrol 4mg tab] 4 mg PO DIRECTED #21 tab Transmission Status: Pending to [facility] # Azithromycin [Z-Bladimir 250mg Tab] 250 mg PO DIRECTED #6 tab Transmission Status: Pending to [facility] # Referrals: Rocio Bedoya PA [Primary Care Provider] - As needed Time of Disposition: 18:06 Medical Decision Making - Valentin Inquiry Pt receiving controlled substance: No Valentin was queried for this patient: No Vital Signs: 05/24/21 17:00 05/24/21 18:03 Temperature 98.4 F 98.4 F Temperature Source Oral Pulse Rate 72 Pulse Rate [Right Brachial] 72 Respiratory Rate 19 19 Blood Pressure 125/77 Blood Pressure [Right Arm] 125/77 Blood Pressure Mean [Right Arm] 93 Blood Pressure Source [Right Arm] Automatic Cuff Blood Pressure Position [Right Arm] Sitting 02 Sat by Pulse Oximetry 96 Oxygen Delivery Method Room Air Orders (Tests/Meds): ED MEDICATIONS Discontinued Medications Generic Name Dose Route Start Last Admin Trade Name Freq PRN Reason Stop Dose Admin Ceftriaxone Sodium 1 gm 05/24/21 17:50 05/24/21 18:00 Ceftriaxone 1gm Vial IM 05/24/21 17:51 1 gm ONCE ONE Administration Lidocaine HCl 0 ml 05/24/21 17:50 05/24/21 18:00 Lidocaine 1% 5ml Pf Vial IM 05/24/21 17:51 2.1 ml ONCE ONE Administration Methylprednisolone Sodium Succinate 125 mg 05/24/21 17:50 05/24/21 18:00 Methylprednisolone Sod Succ 125mg Vial IM 05/24/21 17:51 125 mg ONCE ONE Administration Medical Decision Narrative: Patient state that he has taken azithromycin and Medrol in the past without complications or reactions [facility] [place] HPI - General Stated complaint: cough, congestion Time Seen by Provider: 05/24/21 17:42 Mode of Arrival: Ambulatory Source of Information: Patient Limitations: No Limitations Description of Symptoms (Recalled from Triage Doc. by RN): PATIENT C/O SINUS CONGESTION, SORE THROAT, AND COUGH SINCE YESTERDAY HEENT Symptoms (Recalled from RN notes): Yes Resp Symptoms (Recalled from RN notes): Yes Skin Symptoms (Recalled from RN notes): No MS Symptoms (Recalled from RN notes): No Functional Status (Recalled from RN notes): WNL - History of Present Illness Provider Complaint: Patient state that he gets sinus infections about this time every year State that he has been feeling like it is coming on for a week and for the last couple of days it has continued to get worse State that he is having pressure like feeling in his sinuses cough and throat irriation State that he feels like it is draining in his throat so he came in to get checked - Related Data Home Medications Medication Instructions Recorded Confirmed polyethylene glycol 3350 17 17 g PO DAILY 11/15/19 04/18/21 gram/dose oral powder Aspirin [Low Dose Aspirin EC] 81 mg PO DAILY 12/24/20 04/18/21 Ofloxacin 10 drp OTIC NEEDED PRN 12/24/20 04/18/21 Dicyclomine HCl [Bentyl 10mg
[2021-05-24 18:03] VITALS: BP 125/77; PULSE 72; RESP 19; TEMP 36.9; O2SAT 96
== END 2021-05-24 18:11 | disposition home or self-care (01) ==
PROVIDERS: Emergency Provider Nurse Practitioner; PCP Physician Assistant
DX: J32.9 Chronic sinusitis, unspecified (principal)
CPT/HCPCS: 96372; 99202; G0463

== ENCOUNTER → 2021-06-23 14:02 | Outpatient (CLI) | payer BC, SELFPAY ==
[2021-06-23 14:19] LABS: Basophils # 0.1 K/mm3 (0-0.2); Basophils % 1.6 % (0.1-2.0); Eosinophils # 0.2 K/mm3 (0.0-0.4); Eosinophils % 4.5 % (0.1-12.0); Hematocrit 49.3 % (42.0-52.0); Hemoglobin 16.8 g/dL (14.1-18.0); Lymphocytes # 1.7 K/mm3 (0.7-4.5); Lymphocytes % 33.7 % (10-50); Mean Corpuscular HGB Conc 34.1 g/dL (31.8-35.4); Mean Corpuscular Hemoglobin 32.9 pg (27.0-31.2); Mean Corpuscular Volume 96.4 fl (80-94); Mean Platelet Volume 9.4 fl (7.4-10.4); Monocytes # 0.4 K/mm3 (0.1-1.0); Monocytes % 7.7 % (1.7-9.3); Neutrophils # 2.7 K/mm3 (1.8-7.8); Neutrophils % 52.5 % (37.0-80.0); Platelet Count 220 K/mm3 (142-424); Red Blood Count 5.11 M/mm3 (4.60-6.20); Red Cell Distribution Width 12.6 % (11.5-17.5); White Blood Count 5.1 K/mm3 (4.8-10.8)
[2021-06-23 15:06] LABS: Alanine Aminotransferase 19 U/L (12-78); Albumin Level 4.3 g/dl (3.5-5.0); Albumin/Globulin Ratio 1.5 (1.1-1.8); Alkaline Phosphatase 61 U/L (38-126); Anion Gap 12.4 mEq/L (5-15); Aspartate Amino Transferase 26 U/L (17-59); Bilirubin,Total 0.4 mg/dl (0.2-1.3); Blood Urea Nitrogen 17 mg/dl (9-20); Calcium 9.7 mg/dl (8.4-10.2); Carbon Dioxide 27 mmol/L (22.0-30.0); Chloride 103 mmol/L (98-107); Chol/HDL Ratio 4.4 (1-3.5); Cholesterol 231 mg/dl (140-200); Estimated Glomerular Filt Rate 67 ml/min (>60); GFR (African American) 82 ML/MIN (>60); Globulin 2.9 g/dL (1.3-3.2); Glucose 79 mg/dl (74-100); HDL Cholesterol 52 mg/dl (40-60); Potassium 4.4 mmoL/L (3.5-5.1); Sodium 138 mmol/L (136-145); Total Protein,Serum 7.2 g/dl (6.3-8.2); Triglycerides 167 mg/dl (30-150); VLDL Cholesterol 33 mg/dL (0-40)
[2021-06-23 15:17] LABS: C-Reactive Protein 1.3 mg/L (0-4); Direct LDL Cholesterol 139.18 mg/dL (100-129)
[2021-06-23 15:36] LABS: Prostate Specific Ag Screen 0.6 ng/ml (0.0-4.0); Thyroid Stimulating Hormone 1.15 uIU/mL (0.465-4.68)
[2021-06-23 15:54] LABS: Vitamin B12 362 pg/mL (239-931)
[2021-06-23 16:32] LABS: 25-OH Vitamin D, Total 44.3 ng/mL (30-100)
[2021-06-23 20:32] LABS: Erythrocyte Sedimentation Rate 4 mm/hr (0-20)
[2021-06-25 08:28] LABS: HIV Screen 4th Generation wRfx Non Reactive (Non Reactive); Hep A Ab, IgM Negative (Negative); Hepatitis B Core Antibody IgM Negative (Negative); Hepatitis B Surface Antigen Negative (Negative); Hepatitis C Antibody <0.1 s/co ratio (0.0-0.9); RA Latex Turbid. <10.0 IU/mL (0.0-13.9); Testosterone,Total 645 ng/dL (264-916)
[2021-06-25 14:14] LABS: Anti-Centromere B Antibodies <0.2 AI (0.0-0.9); Anti-DNA (DS) Ab Qn 2 IU/mL (0-9); Anti-Jo-1 <0.2 AI (0.0-0.9); Anti-Smith Antibody <0.2 AI (0.0-0.9); Antichromatin Antibodies <0.2 AI (0.0-0.9); Antiscleroderma-70 Antibodies <0.2 AI (0.0-0.9); RNP Antibodies <0.2 AI (0.0-0.9); Sjogren's Anti-SS-A <0.2 AI (0.0-0.9); Sjogren's Anti-SS-B <0.2 AI (0.0-0.9)
[2021-06-26 00:07] LABS: Anti-Cyclic Citrullinated Pept 7 units (0-19)
== END ==
PROVIDERS: Visit Provider Physician Assistant
DX: M25.50 Pain in unspecified joint (principal); R53.1 Weakness; M54.5 Low back pain; R29.898 Other symptoms and signs involving the musculoskeletal system; Z11.4 Encounter for screening for human immunodeficiency virus [HIV]; Z12.5 Encounter for screening for malignant neoplasm of prostate; Z68.32 Body mass index [BMI] 32.0-32.9, adult
CPT/HCPCS: 80053; 80061; 80074; 82306; 82607; 84403; 84443; 85025; 85651; 86140; 86200; 86225; 86235; 86431; 86703; G0103; G0432

== ENCOUNTER → 2021-07-01 14:39 | Outpatient (POV) | payer BC, SELFPAY | PROVIDERS: Visit Provider Dermatology | DX: Z00.00 Encounter for general adult medical examination without abnormal findings (principal) ==

== ENCOUNTER 2021-07-05 14:02 | Emergency (ER) | payer BC, SELFPAY ==
[2021-07-05 14:08] VITALS: BP 159/98; PULSE 90; RESP 18; O2SAT 98; BMI 31.8
[2021-07-05 14:30] VITALS: BP 159/98; PULSE 90; RESP 18; TEMP 36.7; O2SAT 98; BMI 31.8
[2021-07-05 14:43] VITALS: BP 159/98; PULSE 90; RESP 18; TEMP 36.7; O2SAT 98
--- NOTE | 2021-07-05 15:16 | HMH.EDUTC ---
[facility] [place] Clinical Impression: Laceration Disposition: Home, Self-Care Condition on Discharge: Good Instructions: How to Care for a Laceration After Repair, DI for Laceration Repair -- Simple Additional Instructions: return in 10 days for suture removal watch s/s of infection antibiotics as ordered Prescriptions: cephALEXin [Cephalexin 500mg Tab] 500 mg PO BID 7 Days #14 tab Transmission Status: Pending to [facility] #[id number] Referrals: Rocio Bedoya PA [Primary Care Provider] - Time of Disposition: 15:21 Medical Decision Making - Valentin Inquiry Pt receiving controlled substance: No Vital Signs: 07/05/21 14:08 07/05/21 14:30 07/05/21 14:43 Temperature 98.0 F 98.0 F Temperature Source Oral Pulse Rate 90 Pulse Rate [Left Radial] 90 90 Respiratory Rate 18 18 18 Blood Pressure 159/98 H Blood Pressure [Right Arm] 159/98 H 159/98 H Blood Pressure Mean [Right Arm] 118 118 Blood Pressure Source [Right Arm] Automatic Cuff Automatic Cuff Blood Pressure Position [Right Arm] Sitting Sitting 02 Sat by Pulse Oximetry 98 98 Oxygen Delivery Method Room Air Room Air Orders (Tests/Meds): ED MEDICATIONS Discontinued Medications Generic Name Dose Route Start Last Admin Trade Name Freq PRN Reason Stop Dose Admin Tetanus/Reduced Diphtheria/Acell Pertussis 0.5 ml 07/05/21 14:34 07/05/21 14:40 Tet/Diphth/Pert-Adult 0.5ml Syringe IM 07/05/21 14:35 0.5 ml .ONCE ONE Administration [facility] [place] HPI - General Chief complaint: Urgent Treatment Center Stated complaint: AO 1002@1345 lac L Index finger Time Seen by Provider: 07/05/21 15:16 Mode of Arrival: Ambulatory Source of Information: Patient Limitations: No Limitations Description of Symptoms (Recalled from Triage Doc. by RN): PATIENT C/O LACERATION TO LEFT MIDDLE FINGER. REPORTS HE PINCHED IT BETWEEN A TRAILER AND A HITCH. NOT UP TO DATE ON TDAP HEENT Symptoms (Recalled from RN notes): No Resp Symptoms (Recalled from RN notes): No Skin Symptoms (Recalled from RN notes): Yes MS Symptoms (Recalled from RN notes): No Functional Status (Recalled from RN notes): WNL - History of Present Illness Provider Complaint: 65 yr old male presents for laceration to left middle finger. pt states he had his hand caught between the truck and trailor. does not want xray - Related Data Home Medications Medication Instructions Recorded Confirmed polyethylene glycol 3350 17 17 g PO DAILY 11/15/19 06/23/21 gram/dose oral powder Dicyclomine HCl [Bentyl 10mg 10 mg PO NEEDED PRN 04/11/21 06/23/21 capsule] Omeprazole See Rx Instructions .ROUTE .COMPLEX 04/11/21 06/23/21 Previous Rx's Medication Instructions Recorded losartan 25 mg tablet 25 mg PO DAILY #90 tab 04/03/21 cyclobenzaprine 10 mg tablet See Rx Instructions .ROUTE 05/07/21 NEEDED PRN #90 tab acetaminophen 300 mg-codeine 30 mg 1 tab PO BID PRN #30 tab 06/23/21 tablet albuterol sulfate 90 mcg/actuation 2 puff INHALATION Q6H #8.5 g 06/23/21 aerosol inhaler fluticasone fur. 200 mcg-umeclid 1 inh INHALATION DAILY #28 each 06/23/21 62.5 mcg-vilant 25 mcg inhalat.powder meloxicam 15 mg tablet 15 mg PO DAILY #90 tab 06/23/21 cephALEXin [Cephalexin 500mg Tab] 500 mg PO BID 7 Days #14 tab 07/05/21 Allergies Allergy/AdvReac Type Severity Reaction Status Date / Time latex [LATEX] Allergy Mild Verified 06/23/21 09:22 Sulfa (Sulfonamide Allergy Mild Verified 06/23/21 09:22 Antibiotics) [SULFA (SULFONAMIDE ANTIBIOTICS)] - Worker's Comp Is this a Worker's Comp case?: No [facility] History - Hepatitis A Screen Drug use history?: No High risk sexual behaviors?: No History of sexually transmitted infection?: No Currently employed?: No Childcare worker?: No Do you have indoor plumbing?: Yes Do you have electricity?: Yes Attestation statement:: This patient has been screened for Hepatitis A risk factors. I have reviewed t
== END 2021-07-05 15:24 | disposition home or self-care (01) ==
PROVIDERS: Emergency Provider Nurse Practitioner Family; PCP Physician Assistant
DX: S61.211A Laceration without foreign body of left index finger without damage to nail, initial encounter (principal); W23.0XXA Caught, crushed, jammed, or pinched between moving objects, initial encounter; Y92.89 Other specified places as the place of occurrence of the external cause; J44.9 Chronic obstructive pulmonary disease, unspecified; K21.9 Gastro-esophageal reflux disease without esophagitis; E78.5 Hyperlipidemia, unspecified; F17.210 Nicotine dependence, cigarettes, uncomplicated; Z91.040 Latex allergy status; Z88.2 Allergy status to sulfonamides; Z23 Encounter for immunization
CPT/HCPCS: 12001; 90471; 90715; 99202; G0463

== ENCOUNTER 2021-07-07 07:56 | Outpatient (RCR) | payer BC, SELFPAY ==
--- NOTE | 2021-07-07 08:54 | HMH.PTOPEV ---
PT Outpatient Evaluation Rehab PT Outpatient Evaluation Start: 07/07/21 07:59 Freq: Status: Active Protocol: Document 07/07/21 08:38 ANNYELMER (Rec: 07/07/21 08:54 ANNYELMER [id number]) Electronically Signed By Feliciano Burrows, PT 07/07/21 08:38 Outpatient Therapy Subjective History Subjective History This is the initial Physical Therapy evaluation for Jacob Lunsford. Pt is a 65 y/o male rferred to PT ofr low back pain, but pt's major complaints was weakness in BLE and B knee pain. Pt reports he began noticing wekness ~ 1 year ago while helping his son move. Pt reports he began noticing weakness while walking up and down the loading ramp of the [employer]. Pt rpeorta ~ 20 years ago he did have 3 spinal surgeries which fianlly required fusion of L5 /S1. Pt states he only has pain after activity and doesn' t notice the weakness unless he is up on his feet for 2-3 hours. 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 Chief Complaint Pain,Stiff,Weakness Symptom Type Ache,Dull Symptoms Relieved By Rest/Positioning,Heat Symptoms Aggravated By Standing,Physical Activity, Walking Prior Functional Limitations None Current Functional Limitations Standing,Squatting,Recreation Activity,Walking,Stairs Symptom Description Intermittent Level of pain today (0-10) 0 Pain scale - at its best (0-10) 0 Pain scale - at its worst (0-10) 6 Lumbopelvic Eval Palapation tenderness bilateral thoracic spinal tenderness No lumbar spinal tenderness No paraspinal tenderness No buttock tenderness No Range of Motion Lumbar Spine ROM Reason Not Measured Within Functional Limits Manual Muscle Test Bilateral Knee Extension Strength Grade 4 Good Knee Flexion Strength Grade 4 Good Hip Abduction Strength Grade 4 Good Hip Adduction Strength Grade 4 Good DTR Rt Patellar 1+ Lt Patellar 1+ Special Tests Lumbar Spine Screen Negative Forward Bending Test- Standing Negative Left,Negative Right Hip Bowstrin
== END 2021-07-07 07:59 | disposition home or self-care (01) ==
LOC: PT 07:56
PROVIDERS: PCP Physician Assistant; Visit Provider Physician Assistant
DX: M54.50 Low back pain, unspecified (principal)
CPT/HCPCS: 97163

== ENCOUNTER 2021-08-10 12:50 | Emergency (ER) | payer BC, SELFPAY ==
[2021-08-10 14:47] VITALS: BP 146/93; PULSE 90; RESP 19; TEMP 36.9; O2SAT 98; BMI 32.4
[2021-08-10 15:03] VITALS: BP 146/93; PULSE 90; RESP 19; TEMP 36.9
--- NOTE | 2021-08-10 15:12 | HMH.EDUTC ---
[facility] [place] Clinical Impression: Sinusitis Qualifiers: Sinusitis location: unspecified location Chronicity: acute Recurrence: non-recurrent Qualified Code(s): J01.90 - Acute sinusitis, unspecified Disposition: Home, Self-Care Condition on Discharge: Good Instructions: Sinusitis, DI for Sinusitis Additional Instructions: Drink plenty of fluids. Take tylenol or ibuprofen for pain or fever. Take the medications as directed. Follow up with your regular doctor. GO TO THE ER FOR ANY WORSENING SYMPTOMS Don't start the oral steroids until tomorrow, since you had the shot here today. Prescriptions: Amoxicillin/Potassium Clav [Augmentin 875-125 Tablet] 1 tab PO Q12H 10 Days #20 tab Transmission Status: Received by [facility] #[id number] Benzonatate [Benzonatate 100mg cap] 100 mg PO TIDP PRN #30 cap PRN Reason: Cough Transmission Status: Received by [facility] #[id number] methylPREDNISolone [Medrol] 4 mg PO DIRECTED 6 Days #21 packet Transmission Status: Received by [facility] #[id number] Referrals: Rocio Bedoya PA [Primary Care Provider] - Time of Disposition: 15:16 Medical Decision Making - Medical Records Medical records reviewed: No: I reviewed the patient's medical records. - Valentin Inquiry Pt receiving controlled substance: No Vital Signs: 08/10/21 14:47 08/10/21 15:03 Temperature 98.4 F 98.4 F Temperature Source Oral Pulse Rate 90 Pulse Rate [Left] 90 Respiratory Rate 19 19 Blood Pressure 146/93 H Blood Pressure [Right Arm] 146/93 H Blood Pressure Mean [Right Arm] 110 02 Sat by Pulse Oximetry 98 - Lab Data Lab results reviewed: Yes: I reviewed the patient's lab results. Orders (Tests/Meds): ED MEDICATIONS Discontinued Medications Generic Name Dose Route Start Last Admin Trade Name Freq PRN Reason Stop Dose Admin Ceftriaxone Sodium 1 gm 08/10/21 15:14 08/10/21 15:26 Ceftriaxone 1gm Vial IM 08/10/21 15:15 1 gm ONCE ONE Administration Lidocaine HCl 0 ml 08/10/21 15:14 08/10/21 15:26 Lidocaine 1% 5ml Pf Vial IM 08/10/21 15:15 2.5 ml ONCE ONE Administration Methylprednisolone Sodium Succinate 125 mg 11/07/21 15:14 08/10/21 15:27 Methylprednisolone Sod Succ 125mg Vial IM 08/10/21 15:15 125 mg ONCE ONE Administration [facility] [place] HPI - General Stated complaint: cough, congestion Time Seen by Provider: 08/10/21 15:13 Mode of Arrival: Ambulatory Source of Information: Patient Limitations: No Limitations Description of Symptoms (Recalled from Triage Doc. by RN): pt c/o sinus drainage/congestion, cough and green mucous. x2 days. HEENT Symptoms (Recalled from RN notes): Yes (sinus congestion/drainage with gree mucous) Resp Symptoms (Recalled from RN notes): Yes (cough) Skin Symptoms (Recalled from RN notes): No MS Symptoms (Recalled from RN notes): No Functional Status (Recalled from RN notes): na - History of Present Illness Provider Complaint: He c/o sinus congestion, sinus pressure, bilateral ear pressure and a cough for the past 3 days. He usually gets a sinus infection at this time of the year. He has been fully vaccinated against covid-19. - Related Data Home Medications Medication Instructions Recorded Confirmed polyethylene glycol 3350 17 17 g PO DAILY 11/15/19 07/30/21 gram/dose oral powder Dicyclomine HCl [Bentyl 10mg 10 mg PO NEEDED PRN 04/11/21 07/30/21 capsule] Omeprazole See Rx Instructions .ROUTE .COMPLEX 04/11/21 07/30/21 umeclidinium 62.5 mcg-vilanterol 1 inh INHALATION DAILY each 07/30/21 07/30/21 25 mcg/actuation powdr for inhalation Previous Rx's Medication Instructions Recorded losartan 25 mg tablet 25 mg PO DAILY #90 tab 04/03/21 cyclobenzaprine 10 mg tablet See Rx Instructions .ROUTE 05/07/21 NEEDED PRN #90 tab acetaminophen 300 mg-codeine 30 mg 1 tab PO BID PRN #30 tab 06/23/21 tablet albuterol sulfate 90 mcg/actuation 2 puff INHALA
== END 2021-08-10 15:36 | disposition home or self-care (01) ==
PROVIDERS: Emergency Provider Nurse Practitioner Family; PCP Physician Assistant
DX: J01.90 Acute sinusitis, unspecified (principal); K21.9 Gastro-esophageal reflux disease without esophagitis; E78.5 Hyperlipidemia, unspecified; I10 Essential (primary) hypertension; F17.210 Nicotine dependence, cigarettes, uncomplicated
CPT/HCPCS: 96372; 99202; G0463

== ENCOUNTER → 2021-12-03 08:18 | Outpatient (CLI) | payer BC, MEDICARE, SELFPAY ==
--- NOTE | 2021-12-03 08:18 | CT_ITS ---
FINAL REPORT TECHNIQUE: Axial images were obtained from the lung apex to the mid abdomen by computed tomography. Coronal reformatted images were obtained. This study was performed with techniques to keep radiation doses as low as reasonably achievable, (ALARA). Individualized dose reduction techniques using automated exposure control or adjustment of mA and/or kV according to the patient''s size were employed. CLINICAL HISTORY: 9-month follow-up from nodule COMPARISON: March 12, 2021 FINDINGS: There is no axillary adenopathy. There is no hilar or mediastinal adenopathy. Heart size is normal. There is no pericardial or pleural effusion. Limited images of the upper abdomen demonstrate postoperative changes from cholecystectomy. On the lung window images, there is moderate to severe emphysema. There is a stable, irregular right upper lobe opacity measuring up to approximately 2.4 cm, favor scarring. There are bilateral calcified granulomas. No new masses or nodules are identified. IMPRESSION: Stable right upper lobe opacity favoring scarring. No new masses or nodules are identified. Reviewed, Interpreted and Dictated by Sukumar Boogie III, MD Transcribed by Mohini Florence Authenticated by Sukumar Boogie III, MD on 12/03/2021 09:28:25 AM [facility]
== END ==
PROVIDERS: PCP Physician Assistant; Visit Provider Internal Medicine Pulmonary Disease
DX: R91.8 Other nonspecific abnormal finding of lung field (principal)
CPT/HCPCS: 71250

== ENCOUNTER 2022-02-15 10:11 | Emergency (ER) | payer BC, MEDICARE, SELFPAY ==
[2022-02-15 10:15] VITALS: BP 131/82; PULSE 76; RESP 19; TEMP 36.7; O2SAT 98; BMI 31.3
--- NOTE | 2022-02-15 10:42 | HMH.EDUTC ---
[facility] Disposition Clinical Impression: Acute non-recurrent maxillary sinusitis Disposition: Home, Self-Care Condition on Discharge: Good Instructions: DI for Sinusitis Additional Instructions: Start antibiotic patient to take as ordered for a full length of time even if you feel better. Sinus infections do not get better overnight. It may take 2-3 days to notice much improvement so be sure to use conservative measures as discussed for symptoms. Flonase 1 spray each nostril daily to help with nasal congestion, sinus and ear pressure/information Increase fluids Humidifier/vaporizer as needed Tylenol and ibuprofen as needed for fever or pain. If symptoms do not improve or get worse return or be seen in the ER Follow-up with primary care this week Prescriptions: Ciprofloxacin HCl [Ciprofloxacin 250mg Tab] 250 mg PO BID #6 tab Transmission Status: Pending to [facility] #[id number] Referrals: Rocio Bedoya PA [Primary Care Provider] - Time of Disposition: 10:55 Medical Decision Making - Valentin Inquiry Pt receiving controlled substance: No Vital Signs: 02/15/22 10:15 Temperature 98.1 F Temperature Source Oral Pulse Rate [Right Brachial] 76 Respiratory Rate 19 Blood Pressure [Right Arm] 131/82 Blood Pressure Mean [Right Arm] 98 Blood Pressure Source [Right Arm] Automatic Cuff Blood Pressure Position [Right Arm] Sitting 02 Sat by Pulse Oximetry 98 Oxygen Delivery Method Room Air Orders (Tests/Meds): ORDERS Category Date Time Status Full Resp Panel w/COVID ([facility]) Routine Lab 02/15/22 10:25 Ordered [facility] HPI - General Chief complaint: Urgent Treatment Center Stated complaint: home positive test,sore throat,cough Time Seen by Provider: 02/15/22 10:42 Mode of Arrival: Ambulatory Source of Information: Patient Limitations: No Limitations Description of Symptoms (Recalled from Triage Doc. by RN): PATIENT C/O SORE THROAT, COUGH, AND SINUS PRESSURE X 2 DAYS. REPORTS A POSITIVE HOME COVID TEST HEENT Symptoms (Recalled from RN notes): Yes Resp Symptoms (Recalled from RN notes): Yes Skin Symptoms (Recalled from RN notes): No MS Symptoms (Recalled from RN notes): No Functional Status (Recalled from RN notes): WNL - History of Present Illness Provider Complaint: 66 yr old male presents for sore throat, sinus pressure, green nasal drainage, body aches and cough since last week/ pt states he also is having a issue with his prostate and he usually takes levaquin and it clears - Related Data Home Medications Medication Instructions Recorded Confirmed polyethylene glycol 3350 17 17 g PO DAILY 11/15/19 09/16/21 gram/dose oral powder Omeprazole See Rx Instructions .ROUTE .COMPLEX 04/11/21 12/10/21 Previous Rx's Medication Instructions Recorded losartan 25 mg tablet 25 mg PO DAILY #90 tab 04/03/21 levofloxacin 500 mg tablet 500 mg PO Q24H #10 tab 11/27/21 albuterol sulfate 90 mcg/actuation 2 puff INHALATION Q6H 90 Days #8.5 12/10/21 aerosol inhaler g tiotropium 2.5 mcg-olodaterol 2.5 2 puff INHALATION DAILY 90 Days #4 12/10/21 mcg/actuation mist for inhalation g cyclobenzaprine 10 mg tablet 10 mg .ROUTE NEEDED PRN #90 tab 12/15/21 meloxicam 15 mg tablet 15 mg PO DAILY #90 tab 12/15/21 acetaminophen 300 mg-codeine 30 mg 1 tab PO BID PRN #20 tab 01/06/22 tablet levofloxacin 500 mg tablet 500 mg PO Q24H #14 tab 01/06/22 Ciprofloxacin HCl [Ciprofloxacin 250 mg PO BID #6 tab 02/15/22 250mg Tab] Allergies Allergy/AdvReac Type Severity Reaction Status Date / Time latex [LATEX] Allergy Mild Verified 12/10/21 10:11 Sulfa (Sulfonamide Allergy Mild Verified 12/10/21 10:11 Antibiotics) [SULFA (SULFONAMIDE ANTIBIOTICS)] - Worker's Comp Is this a Worker's Comp case?: No [facility] History - Hepatitis A Screen Attestation statement:: This patient has been screened for Hepatitis A risk factors. I have reviewed the patient's past medical history: Yes Medical
[2022-02-15 10:59] VITALS: BP 131/82; PULSE 76; RESP 19; TEMP 36.7; O2SAT 98
[2022-02-15 11:22] LABS: Adenovirus,PCR Not Detected (NotDetected); Bordetella Pertussis Not Detected (NotDetected); Chlamydophila Pneumoniae, PCR Not Detected (NotDetected); Coronavirus 229E Not Detected (NotDetected); Coronavirus NL63 Not Detected (NotDetected); Coronavirus OC43 Not Detected (NotDetected); Coronovirus HKU1,PCR Not Detected (NotDetected); Human Metapneumovirus Not Detected (NotDetected); Influenza A, PCR Not Detected (NotDetected); Influenza AH1, 2009 Not Detected (NotDetected); Influenza AH1, PCR Not Detected (NotDetected); Influenza AH3,PCR Not Detected (NotDetected); Influenza B, PCR Not Detected (NotDetected); Mycoplasma Pneumoniae, PCR Not Detected (NotDetected); Parainfluenza 1, PCR Not Detected (NotDetected); Parainfluenza 2, PCR Not Detected (NotDetected); Parainfluenza 3, PCR Not Detected (NotDetected); Parainfluenza 4, PCR Not Detected (NotDetected); Respiratory Syncytial Virus Not Detected (NotDetected); Rhinovirus/Enterovirus Not Detected (NotDetected)
[2022-02-15 15:03] LABS: Coronavirus 19, PCR Detected (NotDetected)
--- NOTE | 2022-02-15 15:12 | PC.NURSE ---
PATIENT NOTIFIED OF POSITIVE COVID RESULT AT THIS TIME
== END 2022-02-15 11:06 | disposition home or self-care (01) ==
PROVIDERS: Emergency Provider Nurse Practitioner Family; PCP Physician Assistant
DX: J01.00 Acute maxillary sinusitis, unspecified; U07.1 COVID-19; R05.9 Cough, unspecified; R52 Pain, unspecified; J02.9 Acute pharyngitis, unspecified
CPT/HCPCS: 87581; 87632; 87798; 96372; 99212; C9803; G0463; J0696; U0003; U0005

== ENCOUNTER → 2022-05-12 08:44 | Outpatient (CLI) | payer MEDICARE, OTHER, SELFPAY ==
[2022-05-12 10:03] LABS: Blood Urea Nitrogen 29 mg/dl (9-20); Estimated Glomerular Filt Rate 61 ml/min (>60); GFR (African American) 74 ML/MIN (>60)
== END ==
PROVIDERS: PCP Physician Assistant; Visit Provider Physician Assistant
DX: Z01.812 Encounter for preprocedural laboratory examination (principal)
CPT/HCPCS: 36415; 82565; 84520

== ENCOUNTER → 2022-05-13 08:40 | Outpatient (CLI) | payer MEDICARE, OTHER, SELFPAY ==
--- NOTE | 2022-05-13 08:41 | CT_ITS ---
FINAL REPORT TECHNIQUE: Axial CT images of the abdomen and pelvis were obtained before and after the administration of IV contrast. This study was performed with techniques to keep radiation doses as low as reasonably achievable (ALARA). Individualized dose reduction techniques using automated exposure control or adjustment of mA and/or kV according to the patient''s size were employed. CLINICAL HISTORY: left flank pain/LLQ pain/swelling left testicle left abd pain x 5 years. COMPARISON: 12/22/2019 FINDINGS: Abdomen: There is mild bibasilar atelectasis. There is mild scarring at the lung bases. The heart is normal in size. The liver has an unremarkable appearance, without evidence of mass or biliary duct dilatation. The gallbladder is absent. The spleen is unremarkable. No adrenal masses present. The pancreas has an unremarkable appearance. The kidneys enhance normally. The aorta is normal in caliber. There is no free fluid or adenopathy. No mass or abnormal fluid collection is seen. Precontrast images demonstrate no evidence of nephrolithiasis. Pelvis: The appendix is unremarkable. There is bladder wall thickening, likely inflammatory. There are postoperative changes from fusion at L5-S1. There is no evidence of mass or adenopathy. There is no evidence of bowel obstruction. IMPRESSION: Bladder wall thickening, likely inflammatory. Reviewed, Interpreted and Dictated by Sukumar Boogie III, MD Transcribed by Vesta Hernandez Authenticated and [facility]
== END ==
PROVIDERS: PCP Physician Assistant; Visit Provider Physician Assistant
DX: R10.32 Left lower quadrant pain (principal); N41.1 Chronic prostatitis
CPT/HCPCS: 74178; Q9967

== ENCOUNTER → 2022-09-01 08:36 | Outpatient (CLI) | payer MEDICARE, OTHER, SELFPAY ==
[2022-09-04 13:49] LABS: Pancreatic Elastase, Fecal 324 (>200)
== END ==
PROVIDERS: PCP Physician Assistant; Visit Provider Internal Medicine Gastroenterology
DX: R10.32 Left lower quadrant pain (principal); R10.12 Left upper quadrant pain
CPT/HCPCS: 82656

== ENCOUNTER → 2022-11-18 07:59 | Outpatient (CLI) | payer MEDICARE, OTHER, SELFPAY ==
--- NOTE | 2022-11-18 08:00 | CT_ITS ---
FINAL REPORT CLINICAL HISTORY: lung cancer screening, 1 1/4 packs per day x 40 + years COMPARISON: 12/03/2021 FINDINGS: Low-Dose Chest CT Axial images were obtained from the lung apex to the mid abdomen by computed tomography. Low-dose protocol was utilized. CTDI vol (mGy): 2.90 DLP (mGy-cm): 118.29 There is no axillary adenopathy. There is no hilar or mediastinal adenopathy. The heart is proper size. There is no pericardial or pleural effusion. Lung window images demonstrate emphysema with biapical scarring. The posterior right upper lobe irregular opacity is unchanged and favored to be scarring as previously stated. There is evidence of prior granulomatous disease. The lungs are otherwise clear.. Limited images of the upper abdomen are unremarkable. IMPRESSION: Stable chronic findings with areas of probable scarring. Lung RADS category 1. Recommend 12 month follow-up low-dose chest CT. Reviewed, Interpreted and Dictated by Nori Barry MD Transcribed by Mohini Florence Authenticated and . [facility]
== END ==
PROVIDERS: PCP Physician Assistant; Visit Provider Internal Medicine Pulmonary Disease
DX: Z87.891 Personal history of nicotine dependence (principal); Z12.2 Encounter for screening for malignant neoplasm of respiratory organs
CPT/HCPCS: 71271

== ENCOUNTER → 2022-12-24 09:00 | Outpatient (CLI) | payer MEDICARE, OTHER, SELFPAY ==
--- NOTE | 2022-12-24 09:06 | XR_ITS ---
FINAL REPORT CLINICAL HISTORY: PAIN LLQ FINDINGS: A single view of the abdomen was obtained. There is a nonobstructive bowel gas pattern. There are no abnormally dilated loops of small bowel. There are surgical clips in the right upper quadrant. There is posterior fusion hardware at L5-S1. There are advanced hypertrophic changes in the mid and lower lumbar spine. IMPRESSION: No acute process. Reviewed, Interpreted and Dictated by Ehsan Fraire MD Transcribed by Mohini Florence Authenticated and [facility]
== END ==
LOC: LAB 09:01 → RAD 09:04
PROVIDERS: PCP Physician Assistant; Visit Provider Internal Medicine Gastroenterology
DX: R10.9 Unspecified abdominal pain (principal); R10.12 Left upper quadrant pain; R10.32 Left lower quadrant pain; R14.0 Abdominal distension (gaseous); R14.2 Eructation
CPT/HCPCS: 74018

== ENCOUNTER → 2023-01-04 10:18 | Outpatient (CLI) | payer MEDICARE, OTHER, SELFPAY ==
[2023-01-04 15:02] LABS: Basophils # 0.1 K/mm3 (0-0.2); Basophils % 1.5 % (0.1-2.0); Eosinophils # 0.2 K/mm3 (0.0-0.4); Eosinophils % 2.5 % (0.1-12.0); Hematocrit 48.8 % (42.0-52.0); Hemoglobin 15.8 g/dL (14.1-18.0); Lymphocytes # 1.4 K/mm3 (0.7-4.5); Lymphocytes % 23.7 % (10-50); Mean Corpuscular HGB Conc 32.3 g/dL (31.8-35.4); Mean Corpuscular Hemoglobin 31.3 pg (27.0-31.2); Mean Platelet Volume 9.2 fl (7.4-10.4); Monocytes # 0.4 K/mm3 (0.1-1.0); Neutrophils # 3.8 K/mm3 (1.8-7.8); Neutrophils % 65.3 % (37.0-80.0); Platelet Count 183 K/mm3 (142-424); Red Blood Count 5.03 M/mm3 (4.60-6.20); Red Cell Distribution Width 12.4 % (11.5-17.5); White Blood Count 5.8 K/mm3 (4.8-10.8)
[2023-01-04 15:07] LABS: Alanine Aminotransferase 16 U/L (12-78); Albumin Level 4.6 g/dl (3.5-5.0); Albumin/Globulin Ratio 1.6 (1.1-1.8); Alkaline Phosphatase 59 U/L (38-126); Anion Gap 10.4 mEq/L (5-15); Aspartate Amino Transferase 24 U/L (17-59); Bilirubin,Total 0.7 mg/dl (0.2-1.3); Blood Urea Nitrogen 24 mg/dl (9-20); Calcium 9.5 mg/dl (8.4-10.2); Carbon Dioxide 28 mmol/L (22.0-30.0); Chloride 104 mmol/L (98-107); Chol/HDL Ratio 3.9 (1-3.5); Cholesterol 180 mg/dl (140-200); Estimated Glomerular Filt Rate 75 ml/min (>60); GFR (African American) 90 ML/MIN (>60); Globulin 2.8 g/dL (1.3-3.2); Glucose 91 mg/dl (74-100); HDL Cholesterol 46 mg/dl (40-60); Lipase 184 U/L (23-300); Potassium 4.4 mmoL/L (3.5-5.1); Sodium 138 mmol/L (136-145); Total Protein,Serum 7.4 g/dl (6.3-8.2); Triglycerides 103 mg/dl (30-150); VLDL Cholesterol 21 mg/dL (0-40)
[2023-01-04 15:19] LABS: Direct LDL Cholesterol 104.86 mg/dL (100-129)
[2023-01-04 15:38] LABS: Prostate Specific Ag Screen 0.7 ng/ml (0.0-4.0)
== END ==
PROVIDERS: PCP Family Medicine; Visit Provider Family Medicine
DX: R10.31 Right lower quadrant pain (principal); R10.32 Left lower quadrant pain; Z12.5 Encounter for screening for malignant neoplasm of prostate; J06.9 Acute upper respiratory infection, unspecified; E78.2 Mixed hyperlipidemia
CPT/HCPCS: 80053; 80061; 83690; 85025; 87086; G0103

== ENCOUNTER → 2023-01-13 07:23 | Outpatient (CLI) | payer MEDICARE, OTHER, SELFPAY ==
--- NOTE | 2023-01-13 07:23 | CT_ITS ---
FINAL REPORT TECHNIQUE: Axial CT images of the abdomen and pelvis were obtained without intravenous contrast. Coronal reformatted images were also obtained.This study was performed with techniques to keep radiation doses as low as reasonably achievable (ALARA). Individualized dose reduction techniques using automated exposure control or adjustment of mA and/or kV according to the patient's size were employed. CLINICAL HISTORY: LLQ Pain Weight loss COMPARISON: 05/13/2022 FINDINGS: Abdomen: There is mild emphysema in the lung bases. Post cholecystectomy. There is no evidence of renal stone or hydronephrosis. The left renal pelvis urothelial thickening seen on CTA of the abdomen obtained same day is not as well visualized on this study. The liver, spleen and pancreas have an unremarkable, unenhanced appearance. No mass or adenopathy is seen. No inflammatory process is identified. There is sigmoid diverticulosis. Pelvis: The appendix is normal. There is fusion of L5-S1. Moderate vascular calcifications are noted. There is persistent mild bladder wall thickening. IMPRESSION: No renal or ureteral stone, or hydronephrosis. Persistent mild bladder wall thickening. Sigmoid diverticulosis. Reviewed, Interpreted and Dictated by Sukumar Boogie III, MD Transcribed by Masha Vega Authenticated and [facility]
--- NOTE | 2023-01-13 07:23 | CT_ITS ---
FINAL REPORT TECHNIQUE: Pre-and postcontrast images of the abdomen were performed by computed tomography. Extensive 3-D reconstruction images were performed. A CTA was performed. This study was performed with techniques to keep radiation doses as low as reasonably achievable (ALARA). Individualized dose reduction techniques using automated exposure control or adjustment of mA and/or kV according to the patient''s size were employed. CLINICAL HISTORY: Mesenteric ischemia COMPARISON: none FINDINGS: ABDOMEN: The lung bases are clear. Precontrast images demonstrate no evidence of nephrolithiasis. No adrenal masses are identified. The liver, spleen and pancreas are unremarkable. Post cholecystectomy. Left renal pelvis urothelial thickening is noted of uncertain etiology. This may be inflammatory. Neoplastic involvement is not excluded. The appendix is normal. There are degenerative changes in the lumbar spine with fusion at L5-S1. CTA: The abdominal aorta is without evidence of the aneurysm or dissection. There is mild aneurysmal dilatation of the right common iliac artery up to 1.8 cm. There is mild aneurysmal dilatation of the left common iliac artery up to 1.6 cm in diameter. The celiac axis and proximal superior mesenteric arteries appear normal. The inferior mesenteric arteries are patent. There are mild vascular calcifications. There are 2 renal arteries to each kidney without evidence of stenosis. IMPRESSION: No evidence of stenosis. Mild aneurysmal dilatation of the bilateral common iliac arteries. Left renal pelvis urothelial thickening of uncertain etiology. May represent inflammatory but neoplastic involvement not excluded. Reviewed, Interpreted and Dictated by Sukumar Boogie III, MD Transcribed by Masha Vega Authenticated and [facility]
== END ==
PROVIDERS: PCP Family Medicine; Visit Provider Family Medicine
DX: R10.32 Left lower quadrant pain (principal); R63.4 Abnormal weight loss; K55.9 Vascular disorder of intestine, unspecified
CPT/HCPCS: 74175; 74176; Q9967

== ENCOUNTER 2023-12-03 06:49 | Outpatient (CLI) | payer MEDICARE, OTHER, SELFPAY ==
--- NOTE | 2023-12-03 06:52 | CT_ITS ---
FINAL REPORT TECHNIQUE: Thin section axial images were obtained through the lungs using a low-dose technique per lung cancer screening protocol. Reconstruction images were obtained using the axial data. Exam was performed using dose reduction technique. CLINICAL HISTORY: lung cancer screening November 2023 current smoker 1.5ppd x 40 years COMPARISON: 11/18/2022 FINDINGS: CTDLvol: 2.9 DLP: 105.51 68-year-old male, current smoker 60 pack year history Lungs: No acute pulmonary abnormality. Changes of emphysema are present. There is biapical scarring. A subpleural 4 mm left upper lobe nodule is identified, stable since the prior exam. There is evidence of previous granulomatous disease. Lymph nodes: No thoracic lymphadenopathy. Mediastinum: Heart size is normal. Mild coronary artery calcifications are present. Pleura/pericardium: No pleural or pericardial effusion. Other: No acute abnormality in the upper abdomen. IMPRESSION: Subpleural 4 mm left upper lobe nodule, stable. Changes of emphysema and apical scarring are present. Mild coronary artery calcification. Lung RADS: 2 Recommendation: 12-month follow-up LDCT Reviewed, Interpreted and Dictated by Nori Barry MD Transcribed by Yudith Gunter Authenticated and [facility]
== END 2023-12-03 23:59 ==
PROVIDERS: PCP Physician Assistant; Visit Provider Internal Medicine Pulmonary Disease
DX: F17.210 Nicotine dependence, cigarettes, uncomplicated (principal); Z12.2 Encounter for screening for malignant neoplasm of respiratory organs
CPT/HCPCS: 71271

== ENCOUNTER 2024-03-07 18:00 | Outpatient (CLI) | payer MEDICARE, OTHER, SELFPAY | END 2024-03-07 23:59 | disposition home or self-care (01) | LOC: LAB.DROPOF 03-08 10:58 | PROVIDERS: PCP Physician Assistant; Visit Provider Physician Assistant | DX: R31.9 Hematuria, unspecified (principal); R10.32 Left lower quadrant pain | CPT/HCPCS: 87086 ==

== ENCOUNTER 2024-03-23 07:25 | Outpatient (CLI) | payer MEDICARE, OTHER, SELFPAY ==
--- NOTE | 2024-03-23 07:25 | MR_ITS ---
FINAL REPORT TECHNIQUE: Multiplanar MR without contrast CLINICAL HISTORY: LLQ pain. LEFT SIDED ABDOMINAL PAIN. GOTTEN WORSE X1YEAR. FINDINGS: Pelvic bowel loops are unremarkable. Prostate is normal in size. No fluid collection is identified. There is no adenopathy. Appendix is normal. Distal aorta and iliac vessels are normal in caliber. There are postoperative changes of lower lumbar fusion. IMPRESSION: No findings to account for patient's symptoms. Reviewed, Interpreted and Dictated by Jose M Ramos MD Transcribed by Lucrecia Gomez Authenticated and [facility]
--- NOTE | 2024-03-23 07:25 | MR_ITS ---
FINAL REPORT TECHNIQUE: Multiplanar, sequential MRI images of the abdomen were performed. CLINICAL HISTORY: LLQ pain. LEFT SIDED ABDOMINAL PAIN. GOTTEN WORSE X1YEAR. FINDINGS: Liver is normal in size. Spleen, adrenal glands and pancreas are unremarkable. Patient is status postcholecystectomy. There is no ascites or adenopathy. Aorta is normal in caliber. Kidneys are unremarkable. Bowel is normal. IMPRESSION: No findings to account for patient's symptoms. Reviewed, Interpreted and Dictated by Jose M Ramos MD Transcribed by Lucrecia Gomez Authenticated and [facility]
== END 2024-03-23 23:59 | disposition home or self-care (01) ==
LOC: RAD 07:25
PROVIDERS: PCP Physician Assistant; Visit Provider Physician Assistant
DX: R10.32 Left lower quadrant pain (principal)
CPT/HCPCS: 72195; 74181

== ENCOUNTER 2024-04-14 11:06 | Outpatient (CLI) | payer MEDICARE, OTHER, SELFPAY ==
[2024-04-14 11:36] LABS: Basophils # 0.1 K/mm3 (0-0.2); Basophils % 1.9 % (0.1-2.0); Eosinophils # 0.2 K/mm3 (0.0-0.4); Eosinophils % 2.8 % (0.1-12.0); Hematocrit 42.6 % (42.0-52.0); Hemoglobin 14.7 g/dL (14.1-18.0); Lymphocytes # 1.4 K/mm3 (0.7-4.5); Lymphocytes % 21.7 % (10-50); Mean Corpuscular HGB Conc 34.5 g/dL (31.8-35.4); Mean Corpuscular Hemoglobin 33.4 pg (27.0-31.2); Mean Corpuscular Volume 96.7 fl (80-94); Mean Platelet Volume 9.3 fl (7.4-10.4); Monocytes # 0.4 K/mm3 (0.1-1.0); Monocytes % 5.7 % (1.7-9.3); Neutrophils # 4.2 K/mm3 (1.8-7.8); Neutrophils % 67.9 % (37.0-80.0); Platelet Count 174 K/mm3 (142-424); Red Blood Count 4.41 M/mm3 (4.60-6.20); Red Cell Distribution Width 13.4 % (11.5-17.5); White Blood Count 6.2 K/mm3 (4.8-10.8)
[2024-04-14 12:11] LABS: Alanine Aminotransferase 22 U/L (12-78); Albumin/Globulin Ratio 1.4 (1.1-1.8); Alkaline Phosphatase 73 U/L (38-126); Anion Gap 8.1 mEq/L (5-15); Aspartate Amino Transferase 25 U/L (17-59); Bilirubin,Total 0.5 mg/dl (0.2-1.3); Blood Urea Nitrogen 22 mg/dl (9-20); Calcium 10.1 mg/dl (8.4-10.2); Carbon Dioxide 25 mmol/L (22.0-30.0); Chloride 108 mmol/L (98-107); Chol/HDL Ratio 3.7 (1-3.5); Cholesterol 182 mg/dl (140-200); Estimated Glomerular Filt Rate 55 ml/min (>60); GFR (African American) 67 ML/MIN (>60); Globulin 2.8 g/dL (1.3-3.2); Glucose 100 mg/dl (74-100); HDL Cholesterol 49 mg/dl (40-60); Potassium 4.1 mmoL/L (3.5-5.1); Sodium 137 mmol/L (136-145); Total Protein,Serum 6.8 g/dl (6.3-8.2); Triglycerides 87 mg/dl (30-150); VLDL Cholesterol 17 mg/dL (0-40)
[2024-04-14 12:23] LABS: C-Reactive Protein 1.3 mg/L (0-4); Direct LDL Cholesterol 99.25 mg/dL (100-129)
[2024-04-14 12:42] LABS: Prostate Specific Ag Screen 0.6 ng/ml (0.0-4.0); Thyroid Stimulating Hormone 0.87 uIU/mL (0.465-4.68)
[2024-04-14 14:01] LABS: Erythrocyte Sedimentation Rate 8 mm/hr (0-20)
[2024-04-15 16:57] LABS: Tissue Transglutaminase IgA Ab <2 U/mL (0-3); Tissue Transglutaminase IgG Ab 3 U/mL (0-5)
[2024-04-15 17:13] LABS: H. pylori Breath Test Negative (Negative)
== END 2024-04-14 23:59 | disposition home or self-care (01) ==
LOC: LAB 11:07
PROVIDERS: PCP Physician Assistant; Visit Provider Physician Assistant
DX: Z12.5 Encounter for screening for malignant neoplasm of prostate (principal); R10.9 Unspecified abdominal pain; R53.83 Other fatigue; E78.5 Hyperlipidemia, unspecified
CPT/HCPCS: 36415; 80053; 80061; 83013; 83516; 84443; 85025; 85651; 86140; G0103

== ENCOUNTER 2024-05-04 12:48 | Outpatient (CLI) | payer MEDICARE, OTHER, SELFPAY ==
--- NOTE | 2024-05-04 12:49 | CT_ITS ---
FINAL REPORT TECHNIQUE: Pre-and postcontrast images of the abdomen and pelvis were performed by computed tomography. Extensive 3-D reconstruction images were performed. A CTA was performed. This study was performed with techniques to keep radiation doses as low as reasonably achievable (ALARA). Individualized dose reduction techniques using automated exposure control or adjustment of mA and/or kV according to the patient's size were employed. CLINICAL HISTORY: LLQ pain COMPARISON: 01/13/2023 CT of the abdomen and pelvis without contrast FINDINGS: ABDOMEN AND PELVIS: The lung bases are clear. Precontrast images demonstrate no evidence of nephrolithiasis. No adrenal masses are identified. The liver, spleen and pancreas are unremarkable. The gallbladder has been surgically removed. There is streak artifact secondary to posterior lumbar hardware at the L5-S1 level. The bladder is incompletely distended. Advanced degenerative disc disease is present in the lumbar spine. CTA: The abdominal aorta is proper caliber, and tortuous, convex to the patient's right. The SMA, celiac axis, and EMMY are patent. There is no significant stenosis or calcification. 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 There is a single left renal artery which is widely patent. Bilateral iliac artery aneurysms remain present, measuring 1.4 cm in the right iliac artery, and 1.5 cm in the left iliac artery. IMPRESSION: No significant intra-abdominal vascular abnormality is identified. There are 2 right renal arteries, the more inferior of which contains plaque producing less than 50% luminal diameter stenosis. The superior right renal artery and the left renal artery are widely patent. Bilateral iliac artery aneurysms remain present, stable since the prior exam of 2022. The bladder is incompletely distended. Reviewed, Interpreted and Dictated by Ehsan Fraire MD Transcribed by Yudith Gunter Authenticated and [facility]
[2024-05-04] MEDS: 0.9 % SODIUM CHLORIDE 50 ML VIAL IV (13:09)
[2024-05-04] MEDS: SODIUM CHLORIDE 0.9% 10ML SYR (RAD ONLY) 10 ML IV (13:10)
[2024-05-04] MEDS: IOPAMIDOL-370 (76%);100ML BOTTLE 100 ML IV (13:10)
== END 2024-05-04 23:59 | disposition home or self-care (01) ==
LOC: RAD 12:49
PROVIDERS: PCP Physician Assistant; Visit Provider Physician Assistant
DX: R10.32 Left lower quadrant pain (principal)
CPT/HCPCS: 74174; Q9967

== ENCOUNTER 2024-06-01 10:56 | Outpatient (CLI) | payer MEDICARE, OTHER, SELFPAY ==
--- NOTE | 2024-06-01 10:59 | XR_ITS ---
FINAL REPORT CLINICAL HISTORY: bilateral knee pain COMPARISON: None FINDINGS: Three views of the right knee were obtained. There is no acute fracture or dislocation. There is moderate medial compartment joint space narrowing. There is sharpening of the tibial spines. Osteophytes are noted along the undersurface of the patella. There is no acute soft tissue abnormality. IMPRESSION: Moderate hypertrophic changes of osteoarthritis in the medial compartment and patellofemoral joints. Reviewed, Interpreted and Dictated by Ehsan Fraire MD Transcribed by Masha Vega Authenticated and [facility]
--- NOTE | 2024-06-01 10:59 | XR_ITS ---
FINAL REPORT CLINICAL HISTORY: bilateral knee pain COMPARISON: None FINDINGS: Three views of the left knee were obtained. There is no acute fracture or dislocation. There is moderate medial compartment joint space narrowing. There is sharpening of the tibial spines. Osteophytes are noted along the undersurface of the patella. There is no acute soft tissue abnormality. IMPRESSION: Moderate hypertrophic changes of osteoarthritis in the medial compartment and patellofemoral joints. Reviewed, Interpreted and Dictated by Ehsan Fraire MD Transcribed by Masha Vega Authenticated and [facility]
== END 2024-06-01 23:59 | disposition home or self-care (01) ==
LOC: RAD 10:57
PROVIDERS: PCP Physician Assistant; Visit Provider Physician Assistant
DX: M25.561 Pain in right knee (principal); M25.562 Pain in left knee
CPT/HCPCS: 73562

== ENCOUNTER 2024-07-24 10:43 | Outpatient (CLI) | payer MEDICARE, OTHER, SELFPAY ==
[2024-07-24 18:39] LABS: Microscopic, Urine URINE MICROSCOPIC (MICROSCOPIC)
[2024-07-24 18:47] LABS: Appearance,Urine CLEAR (Clear); Bilirubin,Urine Negative (Negative); Blood, Urine Negative (Negative); Color,Urine YELLOW (Yellow); Glucose,Urine (UA) Negative (Negative); Ketones,Urine Negative (Negative); Leukocyte Esterase,Urine Negative (Negative); Nitrate,Urine Negative (Negative); Protein,Urine Negative (Negative); Specific Gravity, Urine 1.025 (1.005-1.030); Urobilinogen,Urine 0.2 EU/dl (0.2)
[2024-07-24 19:06] LABS: Bacteria,Urine Trace /lpf; Mucus,Urine 1+ /lpf; RBC,Urine Occasional #/hpf (0-3); Squamous Epithelial Cell,Urine Occasional #/hpf (0-5)
== END 2024-07-24 23:59 | disposition home or self-care (01) ==
LOC: LAB.DROPOF 07-25 10:43
PROVIDERS: PCP Student in an Organized Health Care Education/Training Program; Visit Provider Student in an Organized Health Care Education/Training Program
DX: R35.0 Frequency of micturition (principal)
CPT/HCPCS: 81001; 87086

== ENCOUNTER 2024-08-05 11:22 | Emergency (ER) | payer MEDICARE, OTHER, SELFPAY ==
[2024-08-05 12:47] VITALS: BP 140/79; PULSE 67; RESP 18; TEMP 36.6; O2SAT 99; BMI 31.3
--- NOTE | 2024-08-05 13:30 | ED_ITS ---
Discharge Plan Disposition Patient Disposition: Home, Self-Care Condition: Good Prescriptions Prescriptions: New azithromycin 250 mg tablet See Rx Instructions .ROUTE .COMPLEX Qty: 6 0RF Rx Instructions: For 250 mg dose pack: take 500 mg today (day 1), then 250 mg for 4 days (days 2-5) benzonatate 100 mg capsule 100 mg PO TID PRN (Reason: cough) Qty: 30 0RF No Action hydromorphone 2 mg tablet 2 mg PO Q4H gabapentin 300 mg capsule 300 mg PO DIRECTED Patient Comments: FOLLOW PRINTED DIRECTIONS buspirone 10 mg tablet 10 mg PO BID Qty: 180 1RF losartan 25 mg tablet See Rx Instructions .ROUTE .COMPLEX Qty: 90 1RF Dose Instruction: Take 1 tablet by mouth once daily for blood pressure Rx Instructions: Take 1 tablet by mouth once daily for blood pressure meloxicam 15 mg tablet See Rx Instructions .ROUTE .COMPLEX Qty: 90 1RF Dose Instruction: TAKE 1 TABLET BY MOUTH ONCE DAILY NEEDED FOR PAIN Rx Instructions: TAKE 1 TABLET BY MOUTH ONCE DAILY NEEDED FOR PAIN omeprazole 20 mg capsule,delayed release(DR/EC) See Rx Instructions .ROUTE .COMPLEX Qty: 90 1RF Dose Instruction: Take 1 capsule by mouth once daily Rx Instructions: Take 1 capsule by mouth once daily fluticasone propionate 50 mcg/actuation spray,suspension See Rx Instructions .ROUTE .COMPLEX Qty: 48 0RF Dose Instruction: Use 1 spray(s) in each nostril twice daily Rx Instructions: Use 1 spray(s) in each nostril twice daily Referrals Follow up/Referrals: Rocio Bedoya PA [Primary Care Provider] - See instructions Activity Restrictions/Add. Instructions Additional Instructions/Restrictions: Take medication as prescribed. Increase fluids and rest. Follow up with PCP next week. If you become more short or air, return to the ER. Clinical Impressions Clinical Impression: Acute lower respiratory infection, Acute exacerbation of chronic obstructive pulmonary disease Instructions Patient Instructions: DI for Chronic Obstructive Pulmonary Disease, Acute Bronchitis Print Language Print Language: Turkmen Discharge ED Provider: Vanessa Childress [facility] [place] General Stated complaint: sinus conges., cough, cough, body aches Mode of Arrival: Ambulatory Source of Information: Patient Time Seen by Provider: 08/05/24 13:30 Description of Symptoms (Recalled from Triage Doc. by RN): SINUS CONGESTION, SORE THROAT, COUGH, GREEN DRAINAGE HEENT Symptoms (Recalled from RN notes): Yes Resp Symptoms (Recalled from RN notes): Yes Skin Symptoms (Recalled from RN notes): No MS Symptoms (Recalled from RN notes): No Functional Status (Recalled from RN notes): WNL History of Present Illness Provider Complaint: Pt relates that he has a history of COPD and gets pneumonia fairly easily. He reports that for the last week he had had a strong cough and is now coughing up green phlegm. He reports clear sinus drainage and sore throat. Related Data Home Medications ?Medication ?Instructions ?Recorded ?Confirmed gabapentin 300 mg capsule 300 mg PO DIRECTED 06/01/24 08/05/24 hydromorphone 2 mg tablet 2 mg PO Q4H 07/24/24 08/05/24 Previous Rx's ?Medication ?Instructions ?Recorded buspirone 10 mg tablet 10 mg PO BID #180 tabs 06/01/24 losartan 25 mg tablet See Rx Instructions .Route 06/01/24 .COMPLEX #90 tabs meloxicam 15 mg tablet See Rx Instructions .Route 06/01/24 .COMPLEX #90 tabs omeprazole 20 mg capsule,delayed See Rx Instructions .Route 06/01/24 release .COMPLEX #90 caps fluticasone propionate 50 See Rx Instructions .Route 07/12/24 mcg/actuation nasal .COMPLEX #48 grams spray,suspension azithromycin 250 mg tablet See Rx Instructions PO .COMPLEX #6 08/05/24 tabs benzonatate 100 mg capsule 100 mg PO TID PRN cough #30 caps 08/05/24 Allergies Allergy/AdvReac Type Severity Reaction Status Date / Time latex [LATEX] Allergy Mild Verified 07/24/24 15:33 Sulfa (Sulfonamide Allergy Mild Verified 07/24/24 15:33 Antibiotics) [SULFA (SULFONAMIDE ANTIBIOTICS)] Worker's Comp Is this a Worker's Comp case?: No [facility] Disclaimer: The information contained in this section may have been updated after the patient was seen, as this information can be updated by other users. Medical History Allergic rhinitis COPD mixed type Dyspnea on exertion Screening for lung cancer Tobacco abuse counseling Tobacco abuse disorder Chronic bronchitis Smoking greater than 30 pack years Abnormal computerized axial tomography of chest Solitary pulmonary nodule Prostatitis Hypertension Anxiety DEBORAH (obstructive sleep apnea) Low testosterone in male (~05/05/18) Vitamin D deficiency (~05/05/18) Hyperlipidemia (~05/05/18) Depression GERD (gastroesophageal reflux disease) COPD (chronic obstructive pulmonary disease) Surgical History History of back surgery Family History Other Cancer Coronary artery disease Social History Smoking Status: Current every day smoker tobacco type: cigarettes packs per day: 1 alcohol intake: never counseling provided: none substance use type: denies use current occupational status: employed Travel in the last 8 weeks: None household members: spouse housing: house current occupation: [employer] caffeine: Yes ROS Obtained: Yes All systems reviewed & no additional complaints except as documented Constitutional Constitutional: Reports system reviewed and no additional complaints, except as documented, Reports headache(s) and Reports malaise Eyes Eyes: Reports system reviewed and no additional complaints, except as documented ENT Ears, Nose, Mouth, and Throat: Reports system reviewed and no additional complaints, except as documented, Reports headache(s), Reports nasal congestion, Reports nasal discharge and Reports sinus pressure Cardiovascular Cardiovascular: Reports system reviewed and no additional complaints, except as documented Respiratory Respiratory: Reports system reviewed and no additional complaints, except as documented, Reports change in phlegm color, Reports chest congestion and Reports cough with sputum production Gastrointestinal Gastrointestingal: Reports system reviewed and no additional complaints, except as documented Genitourinary Male Genitourinary: Reports system reviewed and no additional complaints, except as documented Musculoskeletal Musculoskeletal: Reports system reviewed and no additional complaints, except as documented Integumentary/Breasts Skin/Breast: Reports system reviewed and no additional complaints, except as documented Neurologic Neurologic: Reports system reviewed and no additional complaints, except as documented and Reports headache(s) Endocrine Endocrine: Reports system reviewed and no additional complaints, except as documented Hematologic/Lymphatic Henatologic/Lymphatic: Reports system reviewed and no additional complaints, except as documented Allergic/Immunologic Allergic/Immunologic: Reports system reviewed and no additional complaints, except as documented Physical Exam General General appearance: alert Comment: Ill appearing Head Head exam: atraumatic and normocephalic Eye Eye exam: Present normal appearance ENT ENT exam: Present mucous membranes moist Expanded ENT Exam External ear exam: Present normal external inspection Nasal speculum exam: Bilateral: other (clear drainage) Mouth exam: Present normal external inspection Teeth exam: Present normal inspection Throat exam: Present normal inspection Neck Neck exam: Present normal inspection Chest Chest inspection: Present normal inspection and symmetric chest wall rise Respiratory Respiratory exam: Present other Expanded Respiratory Exam Location: Left: rhonchi, Right: rales and rhonchi, Upper: rhonchi and Lower: r ales Cardiovascular Cardiovascular exam: Present regular rate and normal rhythm Abdominal Exam Abdominal exam: Present soft and normal bowel sounds Extremities Exam Extremities exam: Present normal inspection Back Exam Back exam: Present normal inspection Neurological Exam Neurological exam: Present alert and oriented X3 Psychiatric Psychiatric exam: Present normal affect and normal mood Skin Skin exam: Present warm and dry Lymphatic Lymphatic Findings: no adenopathy Medical Decision Making Medical Records Screening: Per USPSTF and CDC recommendations, given the prevalence of disease in our region, it is our hospital?s policy to screen for HIV and viral Hepatitis for all patients aged 18 and over and those with ongoing risk factors. Valentin Inquiry Pt receiving controlled substance: No Valentin was queried for this patient: No Vital Signs: 08/05/24 12:47 Temperature 97.9 F Temperature Source Oral Pulse Rate [Left Radial] 67 Respiratory Rate 18 Blood Pressure [Left Arm] 140/79 Blood Pressure Mean [Left Arm] 99 02 Sat by Pulse Oximetry 99
[2024-08-05] MEDS: cefTRIAXone 1GM VIAL 1 GM IM (13:44)
[2024-08-05] MEDS: LIDOCAINE 1% 5ML PF VIAL IM (13:44)
[2024-08-05] MEDS: DEXAMETHASONE 4MG/ML 1ML VIAL 4 MG IM (13:44)
[2024-08-05 13:53] VITALS: BP 140/79; PULSE 67; RESP 18; TEMP 36.6
== END 2024-08-05 14:02 | disposition home or self-care (01) ==
PROVIDERS: Emergency Provider Nurse Practitioner Family; PCP Physician Assistant
DX: J06.9 Acute upper respiratory infection, unspecified (principal); J44.1 Chronic obstructive pulmonary disease with (acute) exacerbation
CPT/HCPCS: 96372; 99213; G0381; J0696; J1100

== ENCOUNTER 2024-09-19 15:34 | Outpatient (CLI) | payer MEDICARE, OTHER, SELFPAY | END 2024-09-19 23:59 | disposition home or self-care (01) | LOC: LAB.DROPOF 15:35 | PROVIDERS: PCP Physician Assistant; Visit Provider Urology | DX: N39.0 Urinary tract infection, site not specified (principal) | CPT/HCPCS: 87086 ==

== ENCOUNTER 2024-10-28 12:15 | Emergency (ER) | payer MEDICARE, OTHER, SELFPAY ==
[2024-10-28 12:29] VITALS: BP 115/72; PULSE 87; RESP 18; TEMP 36.6; O2SAT 97; BMI 30.7
--- NOTE | 2024-10-28 12:38 | ED_ITS ---
Discharge Plan Disposition Patient Disposition: Home, Self-Care Condition: Good Prescriptions Prescriptions: New levofloxacin 500 mg tablet 500 mg PO DAILY 7 Days Qty: 7 0RF No Action hydromorphone 2 mg tablet 2 mg PO Q4H gabapentin 300 mg capsule 300 mg PO DIRECTED Patient Comments: FOLLOW PRINTED DIRECTIONS losartan 25 mg tablet See Rx Instructions .ROUTE .COMPLEX Qty: 90 1RF Dose Instruction: Take 1 tablet by mouth once daily for blood pressure Rx Instructions: Take 1 tablet by mouth once daily for blood pressure meloxicam 15 mg tablet See Rx Instructions .ROUTE .COMPLEX Qty: 90 1RF Dose Instruction: TAKE 1 TABLET BY MOUTH ONCE DAILY NEEDED FOR PAIN Rx Instructions: TAKE 1 TABLET BY MOUTH ONCE DAILY NEEDED FOR PAIN omeprazole 20 mg capsule,delayed release(DR/EC) See Rx Instructions .ROUTE .COMPLEX Qty: 90 1RF Dose Instruction: Take 1 capsule by mouth once daily Rx Instructions: Take 1 capsule by mouth once daily duloxetine 30 mg capsule,delayed release(DR/EC) 30 mg PO DAILY Patient Comments: TAKE 1 CAPSULE BY MOUTH TWICE DAILY NEEDED Referrals Follow up/Referrals: Rocio Bedoya PA [Primary Care Provider] - See instructions Activity Restrictions/Add. Instructions Additional Instructions/Restrictions: Do not take meloxicam while on Levaquin Follow-up with PCP as needed Return if symptoms worsen or do not improve Clinical Impressions Clinical Impression: Acute prostatitis Instructions Patient Instructions: DI for Acute Prostatitis Print Language Print Language: Tamazight Discharge ED Provider: Leigh ([facility])Noah [facility] [place] HPI General Stated complaint: Pain in prostate Mode of Arrival: Ambulatory Source of Information: Patient Time Seen by Provider: 10/28/24 12:34 Description of Symptoms (Recalled from Triage Doc. by RN): PROSTATE PAIN WITH URINARY FREQUENCY HEENT Symptoms (Recalled from RN notes): No Resp Symptoms (Recalled from RN notes): No Skin Symptoms (Recalled from RN notes): No MS Symptoms (Recalled from RN notes): No Functional Status (Recalled from RN notes): WNL History of Present Illness Provider Complaint: 69-year-old male presents for pain in his prostate. Patient states he has chronic prostatitis and when it flares up his PCP gives him Levaquin. Patient states pain and pressure when he sitting, and urinary frequency Related Data Home Medications ?Medication ?Instructions ?Recorded ?Confirmed gabapentin 300 mg capsule 300 mg PO DIRECTED 06/01/24 10/28/24 hydromorphone 2 mg tablet 2 mg PO Q4H 07/24/24 10/28/24 duloxetine 30 mg capsule,delayed 30 mg PO DAILY 10/28/24 10/28/24 release Previous Rx's ?Medication ?Instructions ?Recorded losartan 25 mg tablet See Rx Instructions .Route 06/01/24 .COMPLEX #90 tabs meloxicam 15 mg tablet See Rx Instructions .Route 06/01/24 .COMPLEX #90 tabs omeprazole 20 mg capsule,delayed See Rx Instructions .Route 06/01/24 release .COMPLEX #90 caps levofloxacin 500 mg tablet 500 mg PO DAILY 7 days #7 tabs 10/28/24 Allergies Allergy/AdvReac Type Severity Reaction Status Date / Time latex (LATEX) Allergy Mild Verified 07/24/24 15:33 Sulfa (Sulfonamide Allergy Mild Verified 07/24/24 15:33 Antibiotics) (SULFA (SULFONAMIDE ANTIBIOTICS)) Worker's Comp Is this a Worker's Comp case?: No [facility] Disclaimer: The information contained in this section may have been updated after the patient was seen, as this information can be updated by other users. Medical History , TRANSPORTATION TECHNICIAN) Allergic rhinitis COPD mixed type Dyspnea on exertion Screening for lung cancer Tobacco abuse counseling Tobacco abuse disorder Chronic bronchitis Smoking greater than 30 pack years Abnormal computerized axial tomography of chest Solitary pulmonary nodule Prostatitis Hypertension Anxiety DEBORAH (obstructive sleep apnea) Low testosterone in male (~05/05/18) Vitamin D deficiency (~05/05/18) Hyperlipidemia (~05/05/18) Depression GERD (gastroesophageal reflux disease) COPD (chronic obstructive pulmonary disease) Surgical History , TRANSPORTATION TECHNICIAN) History of back surgery Family History , TRANSPORTATION TECHNICIAN) Coronary artery disease Cancer Social History , TRANSPORTATION TECHNICIAN) Smoking Status: Current every day smoker tobacco type: cigarettes packs per day: 1 alcohol intake: never counseling provided: none substance use type: denies use current occupational status: employed Travel in the last 8 weeks: None household members: spouse housing: house current occupation: [employer] caffeine: Yes Have you lived/traveled outside [place] in past 30 days?: No Contact w/someone who lives/traveled outside [place] past 30 days?: No Exposure to someone with infectious disease in past 14 days?: No Do you have a fever (greater than 100.4 F or 38 C)?: No Have you tested positive for COVID-19: No Exposed to someone with COVID-19 in past 14 days?: No Do you have a sore throat?: No Do you have a cough?: No Do you have any weakness?: No Do you have any diarrhea?: No Are you experiencing any unusual bleeding?: No Do you have any muscle aches/pain?: No Do you have any abdominal pain?: No Are you experiencing loss of taste or smell?: No ROS Obtained: Yes Systems reviewed as appropriate & no additional complaints except as documented Genitourinary Male Genitourinary: Reports system reviewed and no additional complaints, except as documented, Reports as per HPI, Reports urinary frequency and Reports other Physical Exam General General appearance: alert and in no apparent distress ENT ENT exam: Present normal exam Respiratory Respiratory exam: Present normal lung sounds bilaterally Cardiovascular Cardiovascular exam: Present regular rate and normal rhythm Expanded Exam Comment: Patient refused prostate exam Neurological Exam Neurological exam: Present alert and oriented X3 Skin Skin exam: Present warm and intact Medical Decision Making Medical Records Medical records reviewed: Yes I reviewed the patient's medical records. Screening: Per USPSTF and CDC recommendations, given the prevalence of disease in our region, it is our hospital?s policy to screen for HIV and viral Hepatitis for all patients aged 18 and over and those with ongoing risk factors. Valentin Inquiry Pt receiving controlled substance: No Vital Signs: 10/28/24 12:29 Temperature 97.8 F Temperature Source Oral Pulse Rate [Left Radial] 87 Respiratory Rate 18 Blood Pressure [Left Arm] 115/72 Blood Pressure Mean [Left Arm] 86 02 Sat by Pulse Oximetry 97
[2024-10-28 12:45] VITALS: BP 115/72; PULSE 87; RESP 18; TEMP 36.6
== END 2024-10-28 12:46 | disposition home or self-care (01) ==
PROVIDERS: Emergency Provider Nurse Practitioner Family; PCP Physician Assistant
DX: N41.0 Acute prostatitis (principal)
CPT/HCPCS: 99213; G0381

== ENCOUNTER 2024-10-30 15:52 | Outpatient (CLI) | payer MEDICARE, OTHER, SELFPAY ==
[2024-10-30 17:16] LABS: Hemoglobin A1C 5.2 % (4.0-6.0)
== END 2024-10-30 23:59 | disposition home or self-care (01) ==
LOC: LAB 15:53
PROVIDERS: PCP Physician Assistant; Visit Provider Anesthesiology Pain Medicine
DX: G90.522 Complex regional pain syndrome I of left lower limb (principal); Z79.899 Other long term (current) drug therapy
CPT/HCPCS: 36415; 83036; 87081

== ENCOUNTER 2024-12-05 12:30 | Outpatient (CLI) | payer MEDICARE, OTHER, SELFPAY ==
[2024-12-05 13:35] VITALS: PULSE 86; PULSE 90
[2024-12-05] MEDS: ALBUTEROL 0.083% 2.5 MG/3 ML NEB IH (13:35)
--- NOTE | 2024-12-05 14:21 | CT_ITS ---
FINAL REPORT CLINICAL HISTORY: lung cancer screening smoker 40 years, 1.5 years copd COMPARISON: 12/03/2023 FINDINGS: CT CHEST LOW DOSE SCREENING HISTORY: Screening exam for lung cancer. DOSE: CTDI vol: 2.90 mGy, DLP: 104.99 mGy*cm TECHNIQUE: Axial CT without IV contrast administration using low dose protocol. This study was performed with techniques to keep radiation doses as low as reasonably achievable, (ALARA). Individualized dose reduction techniques using automated exposure control or adjustment of mA and/or kV according to the patient's size were employed. No acute lung disease is present. There is a faint nodular density in the subpleural left upper lobe which is stable measuring 3 mm. Right upper lobe scarring is stable. Note is made of emphysema. No pleural or pericardial effusion is seen. No adenopathy or mass lesion is present. IMPRESSION: No suspicious findings. LUNG RADS CATEGORY 2 RECOMMENDATION: 12 month LDCT follow up Reviewed, Interpreted and Dictated by Jose M Ramos MD Transcribed by Vesta Hernandez Authenticated and [facility]
== END 2024-12-05 23:59 | disposition home or self-care (01) ==
LOC: RT 12:31
PROVIDERS: PCP Physician Assistant; Visit Provider Internal Medicine Pulmonary Disease
DX: R06.09 Other forms of dyspnea (principal); F17.210 Nicotine dependence, cigarettes, uncomplicated
CPT/HCPCS: 71271; 94060; 94618; 94640; 94726; 94729; J7613

== ENCOUNTER 2025-06-19 13:00 | Outpatient (CLI) | payer MEDICARE, OTHER, SELFPAY ==
--- NOTE | 2025-06-19 | US_ITS ---
FINAL REPORT CLINICAL HISTORY: CLAUDICATION,HTN,HLD,SMOKER FINDINGS: LOWER EXTREMITY SEGMENTAL PRESSURE MEASUREMENTS FINDINGS: Pressure indices are as follows: RIGHT LOWER EXTREMITY: Thigh: 1.02 Calf: 1.01 Ankle, posterior tibial artery: 1.09 Ankle, dorsalis pedis: 0.96 Toe: 0.74 KIRA: 1.09 Comments: Within normal limits LEFT LOWER EXTREMITY: Thigh: 1.04 Calf: 0.92 Ankle, posterior tibial artery: 0.93 Ankle, dorsalis pedis: 1.06 Toe: 0.80 KIRA: 1.06 Comments: Within normal limits IMPRESSION: No evidence of peripheral vascular disease in the bilateral lower extremities. Reviewed, Interpreted and Dictated by Jose M Ramos MD Transcribed by Masha Vega Authenticated and [facility]
--- OUTSIDE RECORDS SUMMARY | 2025-06-19 13:05 | XMS_ITS | Clinical Summary ---
Author Organization [facility] Address [address] [place] [address] Care Team Providers Care Glue Plant Operator Name Role Phone Rocio Bedoya Primary Care Provider [phone] Allergies Active Allergy Reactions Criticality Noted Date Comments Latex Rash Low 03/16/2021 Sulfa Antibiotics Rash Low 03/16/2021 Medications dicyclomine (BENTYL) 10 MG capsule Take 10 mg by mouth 4 (Four) Times a Day Before Meals & at Bedtime. Active losartan (COZAAR) 25 MG tablet Take 25 mg by mouth Daily. Active omeprazole (priLOSEC) 20 MG capsule Take 20 mg by mouth Daily. Active celecoxib (CeleBREX) 100 MG capsule Take 100 mg by mouth 2 (Two) Times a Day. Active Social History Tobacco Use Types Packs/Day Years Used Date Smoking Tobacco: Every Day Cigarettes Alcohol Use Standard Drinks/Week Comments Never 0 (1 standard drink = 0.6 oz pur e alcohol) AUDIT-C Answer Date Recorded Q1: How often do you have a drink containing alc ohol? Never 03/16/2021 Average Number of Drinks Not on file 021 Frequency of Binge Drinking Not on file 03/04 Abuse Screen Answer Date Recorded Unsafe at Home or Work/School Not on file Feels Threatened by Someone? Not on file 06/2023 Does Anyone Keep You from Co ntacting Others or Doint Things Outside the Home? Not on file 07/12/2023 Physical Sign of Abuse Present Not on file 1 Housing Stability Answer Date Recorded Current Living Arrangements Not on file 06/2023 Potentially Unsafe Housing Conditions Not on efren e 07/12/2023 Family and Community Support Answer Robert e Recorded Help with Day-to-Day Activities Not on file 07/12/2023 Lonely or Isolated Not on file 07/12/2023 Employment Answer Date Recorded Do you want help finding or keeping work or a codi b? Not on file 07/12/2023 Disabilities Answer Date Recorded Concentrating, Remembering, or Making Decisions Difficulty Not on file 07/12/2023 Doing Errands Independently Difficulty Not on fi le 07/12/2023 Education Answer Date Recorded Help with school or training? Not on file Preferred Language Not on file 07/12/2023 Sex and Gender Information Value Date Recorded Sex Assigned at Not on file Legal Sex Male 12:14 PM EDT Gender Identity Not on file Sexual Orientation Not on file Last Filed Vital Signs Vital Sign Reading Time Taken Comments Blood Pressure 136/84 03/16/2021 2:00 PM EDT Pulse 58 03/16/2021 2:09 PM EDT Temperature 36.6 C (97.8 F) 03/16/2021 11:39 AM EDT Respiratory Rate 18 03/16/2021 2:27 PM EDT Oxygen Saturation 98% 03/16/2021 2:09 PM EDT Inhaled Oxygen Concentration - - Weight 107 kg (235 lb) 03/16/2021 11:39 AM EDT Height 182.9 cm (6') 03/16/2021 11:39 AM EDT Body Mass Index 31.87 03/16/2021 11:39 AM EDT Plan of Treatment Health Maintenance Due Date Last Done Comments ANNUAL PHYSICAL 1955 HEPATITIS C SCREENING 1955 COLOGUARD 2001 COLON CANCER SCREENING 5 YEA R SIGMOIDOSCOPY 2001 COLONOSCOPY 2001 COLORECTAL CANCER SCREENING 2001 CT COLONOGRAPHY 2001 FECAL OCCULT BLOOD TEST 2001 FIT Testing (1 year) 2001 Pneumococcal Vaccine 50+ (1 of 1 - PCV) 2006 ZOSTER VACCINE (1 of 2) 2006 COVID-19 Vaccine (1 - season) 2025 INFLUENZA VACCINE 07/04/2025 07/05/2018 TDAP/TD VACCINES (3 - Td or Tdap) 07/05/2031 021, 12/04/1996 AAA SCREEN ONCE Completed 03/16/2021 Procedures Procedure Name Priority Date/Time Associated Diagnosis Comments CT ABDOMEN PELVIS WO CONTRAST STAT 03/16/2021 12:48 PM EDT from Last 3 Months or Most Recently Relevant to Health Maintenance Results * CT Abdomen Pelvis Without Contrast (03/16/2021 12:48 PM EDT) Anatomical Region Laterality Modality Abdomen, Pelvis N/A Computed Tomogra phy 03/16/2021 1:24 PM EDT Impressions 03/16/2021 1:28 PM EDT Minimal faint bilateral perinephric edema, potentially chronic but could be related to any clinical evidence of urinary tract infection. There is otherwise no evidence of obstructive nephropathy, nephrolithiasis, hydronephrosis or other renal abnormality. No additional acute findings in the abdomen and pelvis. This report was finalized on 03/16/2021 1:28 PM by Cristóbal Townsend. Narrative 03/16/2021 1:28 PM EDT EXAMINATION: CT ABDOMEN PELVIS WO CONTRAST- INDICATION: flank pain TECHNIQUE: Axial noncontrast CT of the abdomen and pelvis with multiplanar reconstruction The radiation dose reduction device was turned on for each scan per the ALARA (As Low as Reasonably Achievable) protocol. COMPARISON: NONE FINDINGS: The lung bases are grossly clear. Body wall soft tissues are unremarkable. There is no evidence of acute fracture or aggressive osseous lesion. L5-S1 fusion hardware is noted in place. The liver, spleen, pancreas and bilateral adrenal glands demonstrate homogeneous attenuation without evidence of suspicious focal lesion. There is nonspecific and fairly mild bilateral perinephric edema, possibly related to any evidence of urinary tract infection, however without evidence of obstruction, hydronephrosis or nephrolithiasis. The appendix is normal. Small and large bowel loops are nondilated. There is no suspicious focal bowel wall thickening. Mild colonic diverticulosis changes are present, without specific acute inflammatory signs of diverticulitis. No free fluid or pneumoperitoneum. Normal caliber atherosclerotic abdominal aorta. No bulky retroperitoneal adenopathy. Procedure Note Cristóbal Townsend MD - 03/16/2021 EXAMINATION: CT ABDOMEN PELVIS WO CONTRAST- INDICATION: flank pain TECHNIQUE: Axial noncontrast CT of the abdomen and pelvis with multiplanar reconstruction The radiation dose reduction device was turned on for each scan per the ALARA (As Low as Reasonably Achievable) protocol. COMPARISON: NONE FINDINGS: The lung bases are grossly clear. Body wall soft tissues are unremarkable. There is no evidence of acute fracture or aggressive osseous lesion. L5-S1 fusion hardware is noted in place. The liver, spleen, pancreas and bilateral adrenal glands demonstrate homogeneous attenuation without evidence of suspicious focal lesion. There is nonspecific and fairly mild bilateral perinephric edema, possibly related to any evidence of urinary tract infection, however without evidence of obstruction, hydronephrosis or nephrolithiasis. The appendix is normal. Small and large bowel loops are nondilated. There is no suspicious focal bowel wall thickening. Mild colonic diverticulosis changes are present, without specific acute inflammatory signs of diverticulitis. No free fluid or pneumoperitoneum. Normal caliber atherosclerotic abdominal aorta. No bulky retroperitoneal adenopathy. IMPRESSION: Minimal faint bilateral perinephric edema, potentially chronic but could be related to any clinical evidence of urinary tract infection. There is otherwise no evidence of obstructive nephropathy, nephrolithiasis, hydronephrosis or other renal abnormality. No additional acute findings in the abdomen and pelvis. This report was finalized on 03/16/2021 1:28 PM by Cristóbal Townsend. Briana Ennis MD [facility] [place] CT ORDERABLES Final R esult from Last 3 Months or Most Recently Relevant to Health Maintenance Insurance MEDICARE A & B Member Subscriber Plan / Payer (Ef fective 2021-Present) Name:Jacob Lunsford Member ID:[id number] Relation to Subscriber:Self Name:Jacob Lunsford Subscriber ID:[id number] Payer ID:[id number] Group ID:Not on file Type:Not on file Address: [address] [place] [address] Care Teams Glue Plant Operator Relationship Specialty Start Date End Date Rocio Bedoya PA PCP - General Physician Train Brakeman 03/16/21
--- NOTE | 2025-06-19 13:47 | PC.NURSE ---
6 Minute walk completed, on room air, without incident. Pt tolerated procedure well.
== END 2025-06-19 23:59 | disposition home or self-care (01) ==
LOC: RT 13:01
PROVIDERS: PCP Physician Assistant; Visit Provider Physician Assistant
DX: I70.213 Atherosclerosis of native arteries of extremities with intermittent claudication, bilateral legs (principal); I10 Essential (primary) hypertension; E78.5 Hyperlipidemia, unspecified; F17.200 Nicotine dependence, unspecified, uncomplicated; R94.2 Abnormal results of pulmonary function studies; R06.02 Shortness of breath; R06.09 Other forms of dyspnea
CPT/HCPCS: 93923; 94618

== ENCOUNTER 2025-08-02 17:33 | Outpatient (CLI) | payer MEDICARE, OTHER, SELFPAY ==
--- OUTSIDE RECORDS SUMMARY | 2025-07-24 13:45 | XMS_ITS ---
Author Organization [facility] Address [address] [place] [id number] Care Team Providers Care Chief Chemist Name Role Phone Raine Silva Unavailable [phone] Allergies Allergen (clinical drug ingredient) Drug/Non Drug Allergy documented on EMR Reaction Allergy Type Onset Date Status Substance with sulfonamide structure and antibacterial mechanism of action (substance) Sulfa Antibiotics rash Drug Allergy Active REASON FOR VISIT Not Feeling Well, runny nose. cough, sore throat. started this morning, woke up with a cough and progressed Denies fever chills sweats and bodyaches. Son had something similar and got an antibiotic and steroid Medications Medication SIG (Take, Route, Frequency, Duration) Notes Start Date End Date Status Fluticasone Propionate 50 MCG/ACT Nasal; Duration: 90 Days Act desiree Losartan Potassium 25 MG Oral; Duration: 90 Days Active Omeprazole 20 MG TAKE 1 CAPSULE BY [facility] ONCE DAILY FOR GERD Oral; Duration: 90 Days Active Pentoxifylline ER 400 MG Oral; Duration: 30 Days Active Celecoxib 200 MG Oral; Duration: 30 Days Active Doxycycline Hyclate 100 MG 1 capsule Ora lly Once a day; Duration: 10 days 07/24/2025 Active Social History Tobacco Use: Social History Observation Description Date Details (start date - stop date) Current Smoker NA - NA Tobacco Control (Standard) Question Answer Notes Tobacco use: Current smoker How many cigarettes a day do you smoke? 11-20 Problems Problem Type SNOMED Code ICD Code Onset Dates Problem Status W/U Status Risk Notes Problem Hypertension (94895132) Hypertension (I10) Active confirmed Problem Gastroesophageal reflux disease (998909673) GERD (K21.9) Active confirmed Problem Arthritis (8548846) Arthritis (M19.90) Active confirmed Problem COPD - Chronic obstructive pulmonary disease (61175220) COPD (chronic obstructive pulmonary disease) (J44.9) Active confirmed Vital Signs Temperature 98.1 degrees Fahrenheit 07/24/20 25 Respiratory Rate 18 /min 07/24/2025 Blood pressure systolic 130 mm Hg 07/24/20 25 Blood pressure diastolic 88 mm Hg 025 Height 072 in 07/24/2025 Weight 0225 lbs 07/24/2025 BMI 30.51 kg/m2 07/24/2025 Oximetry 98 07/24/2025 Encounters Encounter Location Date Provider Diagnosis [id number] [facility] [address] [place] [address] 07/24/2025 Raine Silva Acute upper respiratory infection J06.9 Assessments Encounter Date Diagnosis (ICD Code) Assessment Notes Treatment Notes Treatment Clinical Notes Section Notes 07/24/2025 Acute upper respiratory infection (ICD-10 - J06.9) Complete the entire course of antibiotics as prescribed, even when symptoms have improved, to prevent a relapse of infection and the development of antibiotic resistance. Given pt's history of PNA, current smoking status, and history of COPD, will go ahead and prescribe doxycycline to prevent any further infections Plan Of Treatment Medication Medication Name Sig Start Date Stop Date Notes Doxycycline Hyclate 100 MG 1 capsule Ora lly Once a day; Duration: 10 days 07/24/2025 Treatment Notes Assessment Notes Acute upper respiratory infection Comple te the entire course of antibiotics as prescribed, even when symptoms have improved, to prevent a relapse of infection and the development of antibiotic resistance. Next Appt Details Follow Up: Follow up in 2-3 days if s/s persist or worsen, Reason: Progress Notes * Jacob LUN[birth year]DOB:[birth year] (69 yo M)Acc No.[id number]:07/24/2025 Progress Note Patient: Jacob WAY Provider: Nithya Silva :1955 A ge:69 Y S ex:Male Date:07/24/2025 External Visit ID:[id number] Address[place], [id number] Subjective: * Chief Complaints: * 1 . Not Feeling Well. 2. runny nose. cough, sore throat. started this morning, woke up with a cough and progressed Denies fever chills sweats and bodyaches. Son had something similar and got an antibiotic and steroid. * HPI: C onstitutional: sinus congestion, sore throat, cough since this AM, history of similar symptoms and usually gets antibiotic due to COPD, son had similar symptoms 1 week ago, smokes 1 - 1.5 PPD, history of several episodes of PNA, has not taken anything for symptoms. N ose.: c/o congestion. c/o rhinorrhea. R espiratory: c/o cough. M outh and Throat: c/o sore throat. * ROS: C ONSTITUTIONAL: no c hills. n o b twin aches. n o f ever.? N OSE: rhinorrhea y es. c ongestion y es. M OUTH AND THROAT: post nasal drip y es. s ore throat y es. R ESPIRATORY: sputum y es, g gil. c ough y es. ? G ASTROENTEROLOGY: no n ausea. n o v omiting. n o d iarrhea.? * Medical History: H ypertension, GERD, Arthritis, COPD (chronic obstructive pulmonary disease). * Surgical History: p ain stimulater , back surgery , hernia , gallbladder . * Family History: F ather: . M other: . 2 son(s) , 1 daughter(s) - healthy. . * Social History: T obacco Use: T obacco Control (Standard) T obacco use: C urrent smoker, H ow many cigarettes a day do you smoke? 1 1-20. * Medications: T aking Celecoxib 200 MG Capsule Oral , Taking Pentoxifylline ER 400 MG Tablet Extended Release Oral , Taking Omeprazole 20 MG Capsule Delayed Release TAKE 1 CAPSULE BY MOUTH ONCE DAILY FOR GERD Oral , Taking Losartan Potassium 25 MG Tablet Oral , Taking Fluticasone Propionate 50 MCG/ACT Suspension Nasal , Medication List reviewed and reconciled with the patient * Allergies: S ulfa Antibiotics: rash - Allergy. Objective: * Vitals: T emp:98.1, Pulse:85, RR:18, BP:130/88, Pain (at time of visit):0/10, Ht: 072, Wt: 0225, BMI:30.51, Pulse Ox:98. * Examination: F ocused Exam: GENERAL: a lert and oriented x 4, no acute distress, dress appropriate for the environment & temp, well-groomed, appears well. EARS: b ilateral, external canal w/o redness, swelling, discharge, TM intact, pearly wheeler, landmarks visualized, non-tender. NOSE b oggy mucosa, no frontal or maxillary tenderness.? MOUTH AND THROAT: l ips pink, moist, oral mucosa pink, moist, w/o lesions or discolorations, uvula midline, pharynx pink, moist, w/o infection, no tonsillar enlargement, no exudate. RESPIRATORY: b reath sounds clear throughout, respiration even and unlabored. CARDIO: S 1 & S2 single sounds, no murmurs, gallops, rubs, or clicks, RRR. PSYCH: f riendly attitude. Assessment: * Assessment: 1. A cute upper respiratory infection - J06.9 (Primary) Plan: * Treatment: * Procedure Codes: C ODER Sending to Guidance Director for Code Review * Follow Up: F ollow up in 2-3 days if s/s persist or worsen * Billing Information: * Visit Code: * Procedure Codes: DIRECTOR OF GOVERNMENT SALES Sending to Guidance Director for Code Review. Care Plan Details* Images * [id number] * Sign off status: Completed true * Provider: Nithya Silva Date: Generated for Madi west/aMriela/Nancy on: 04:38 PM CDT History and Physical Notes * HPI (History of Present Illness) Category Sub-Category Detail Notes Category Not es Constitutional sinus congest ion, sore throat, cough since this AM, history of similar symptoms and usually gets antibiotic due to COPD, son had similar symptoms 1 week ago, smokes 1 - 1.5 PPD, history of several episodes of PNA, has not taken anything for symptoms Nose. congestion rhinorrhea Respiratory cough Mouth and Throat sore throat Examination Category Sub-Category Detail Notes Category Not es Focused Exam EARS: bilateral, exter nal canal w/o redness, swelling, discharge, TM intact, pearly wheeler, landmarks visualized, non-tender NOSE boggy mucosa, no fro ntal or maxillary tenderness MOUTH AND THROAT: lips pink, moist, or al mucosa pink, moist, w/o lesions or discolorations, uvula midline, pharynx pink, moist, w/o infection, no tonsillar enlargement, no exudate RESPIRATORY: breath sounds clear throughout, respiration even and unlabored GENERAL: alert and oriented x 4, no acute distress, dress appropriate for the environment & temp, well-groomed, appears well PSYCH: friendly attitude CARDIO: S1 & S2 single sound s, no murmurs, gallops, rubs, or clicks, RRR
--- OUTSIDE RECORDS SUMMARY | 2025-08-02 17:38 | XMS_ITS | Continuity of Care Document ---
Author Organization [facility], ORTHOPEDICS [address] [place] [address] Care Team Providers Care Hearing Screen Coordinator Name Role Phone ANASTASIIA OLIVEIRA Primary Care Provider Assessment No assessment recorded. Plan of Treatment Reminders Order Date Submit Date Provider Last Modified By Organization Details Last Modified Time Details Appointments RECHECK 2024 10:30A M DOUGLAS CENTENO PA-C Not available Not available Not available Lab None recorded . Referral None recorded . Procedures None recorded . Surgeries None recorded . Imaging None recorded . Medication Orders None recorded . Patient TargetsNo targets recorded. Patient InstructionsNo instructions recorded. Reason for Referral None Reported. Problems Name Problem SNOMED Code Status Onset Date Resolution Date Notes Provider Name and Address Organization Details Recorded Time Pericardial effusion 276712585 Active 2016 Not Available [facility] 1 02:28:53 Chest pain 24011383 Active 2016 Not Available [facility] 1 02:28:53 Cigarette smoker 08890150 Active 2016 Not Available [facility] 1 02:28:53 Obesity 098274824 Active 2016 Not Available [facility] 1 02:28:53 Obstructive sleep apnea syndrome 78500897 Active 2016 Not Available [facility] 1 02:28:53 Gastroesophag eal reflux disease 586456582 Active 2016 Not Available [facility] 1 02:28:53 Mitral valve regurgitation 65082019 Active 2016 Not Available [facility] 1 02:28:53 Tricuspid valve regurgitation 781959802 Active 2016 Not Available [facility] 02:28:53 Problem Notes None recorded. Procedures Surgical History Date Name Laterality Status Provider Name and Address Organization Details Recorded Time 025 Injection - Joint/Bursa, Major completed FISH VIEIRA PA-C [address] [place], [address], [facility] 06/19/2025 11:45:16 025 Injection - Joint/Bursa, Major completed FISH VIEIRA PA-C [address] [place], [address], [facility] 01/31/2025 12:02:12 025 SCS Implant - Karen completed JAMIR MCGEE MD [address] [place], [address], [facility] 12/13/2024 08:33:16 025 Stimulation of spinal cord completed Juan Ferraro [facility] 12/25/2024 11:16:36 025 SCS Trial - Karen completed JAMIR MCGEE MD [address] [place], [address], [facility] 11/13/2024 13:43:38 025 Abdominal Trigger Point Injection w/US completed JAMIR MCGEE MD [address] [place], [address], [facility] 10/10/2024 12:41:11 018 Uroflowmetry; Complex completed Thea [facility] 04/14/2018 15:12:52 018 Urodynamics Interpretation completed NAHID RIDLEY JR, MD [address] [place], [address], [facility] 04/18/2018 09:03:17 018 Urodynamics completed [facility] 04/14/2018 15:16:53 017 CYSTOURETHROSCOPY WITH DIRECT VISION INTERNAL URETHROTOMY (SURG) completed [facility] 04/14/2018 15:02:02 013 Circum 28 days or older completed [facility] 04/14/2018 15:09:44 Prostate Surgery completed [facility] 04/14/2018 15:09:24 hernia repair completed Juan Ferraor [facility] 10/10/2024 08:15:18 Imaging Results None recorded. Procedure Notes None recorded. Medical Equipment None Reported. Allergies Allergen ID Allergen Name Allergen Category Reaction Reaction Severity Criticality Documentation Date Start Date Code Code System Note Provider Name and Address Organization Details Recorded Time 367352 Substance with sulfonami de structure and antibacte rial mechanism of action (substanc e) medicatio n Not available Not available Not available 08/28/20162012 12580 8003 SNOMED Comme nt: Creat ed By: Jose Luis Frye reate d Date: 12:23 :01 PM; Not Available [facility] 6 04:17:21 467840 latex environme nt,medica tion Not available Not available Not available 08/28/20162012 21832 91 RxNorm Comme nt: Creat ed By: Jose Luis driscoll d Date: 12:22 :53 PM; Not Available [facility] 6 07:58:29 Medications Name Sig Start Date Stop Date Status Note LastModified by Organization Details LastModified Time Augmentin 875 mg-125 mg tablet Take 1 tablet every 12 hours by oral route. 04/14 completed Not Available Not Available Not Available albuterol sulfate 0.63 mg/3 mL solution for nebulizat ion Inhale by inhalati on route. active Not Available Not Available No t Available oxybutyni n chloride ER 10 mg tablet,ex tended release 24 hr Take 1 tablet every day by oral route. 02/22 completed Not Available Not Available Not Available ibuprofen 800 mg tablet Take 1 tablet as needed by oral route. 04/14 completed Not Available Not Available Not Available hydrocodo ne 5 mg-acetam inophen 325 mg tablet Take 1 tablet every 6 hours by oral route. 02/22 completed Not Available Not Available Not Available Ativan 1 mg tablet Take 1 tablet as needed by oral route. 10/26 completed Not taking 10/10/23 Not Available Not Available Not Available BuSpar 10 mg tablet Take 1 tablet twice a day by oral route. 10/26 completed Not taking 10/10/23 Not Available Not Available Not Available meloxicam 15 mg tablet Take 1 tablet every day by oral route. active Not Available Not Available No t Available hydromorp reji 2 mg tablet Take 1 tablet 3 times a day by oral route as needed for 15 days. 02/28 completed Quit taking Not Available Not Available Not Available baclofen 10 mg tablet Take 1 tablet every day by oral route as needed for 30 days. 2024 active PRN Not Available Not Available Not Avai lable hydrocodo ne 7.5 mg-acetam inophen 325 mg tablet Take 1 tablet every 6 hours by oral route. 10/26 completed Not taking 10/10/23 Not Available Not Available Not Available gabapenti n 300 mg capsule Take 2 capsules every day by oral route for 30 days. 2024 active Stopped Not Available Not Available Not Avai lable Adipex-P 37.5 mg capsule Take 1 capsule every day by oral route. 04/14 completed Not Available Not Available Not Available mupirocin 2 % topical ointment APPLY A SMALL AMOUNT TO BOTH NARES 3 TIMES PER DAY FOR 5 DAYS PRIOR TO SURGERY 02/28 completed Finished Not Available Not Available Not Available cefuroxim e axetil 500 mg tablet Take 1 tablet every 12 hours by oral route. 02/22 completed Not Available Not Available Not Available hydromorp reji 4 mg tablet Take 1 tablet every 6 hours by oral route as needed for 10 days. 12/25 completed Not taking Not Available Not Available Not Available Paxil 10 mg tablet Take 1 tablet every day by oral route. 02/22 completed Not Available Not Available Not Available Hibiclens 4 % topical liquid Apply to surgical area in the bath the evening prior and morning of your procedur e 02/28 completed Finished Not Available Not Available Not Available Prilosec OTC 20 mg tablet,de layed release active Medicati on Descript ion: omeprazo le; Route:or al; refills: 0 Not Available Not Available Not Available Cymbalta 30 mg capsule,d elayed release Take 1 capsule twice a day by oral route as needed for 90 days. 2024 active Pt taking 2- 20mg per day, Wednesday05/13/25 pt will take 1 -30mg daily Not Available Not Available Not Available omeprazol e 02/22 completed Not Available Not Available Not Available losartan active Not Available Not Avai lable Not Available gabapenti n 300 mg 6 tab a day 11/15 completed Not Available Not Available Not Available Mobic Daily 05/10 completed Frequenc y: daily;Me dication Descript ion: meloxica m; Dosage:1 ; Route:or al; refills: 0 Not Available Not Available Not Available TENS units 12/25 completed Not Available Not Available Not Available Analisa 0.5 mg-0.4 mg capsule, extended release Daily 05/10 completed Frequenc y: daily;Me dication Descript ion: dutaster maritza-tams ulosin; Dosage:1 ; Route:or al; refills: 0 Not Available Not Available Not Available Breo Ellipta 1 puff bid prn 10/26 completed Not taking 10/10/23 Not Available Not Available Not Available Flonase Allergy Relief 50 mcg/actua tion nasal spray,gayle pension Lynn 1 spray every day by intranas al route. active Not Available Not Available No t Available Vitals Date Recorded Body height Provider Name an d Address Organization Details Last Updated DateTime 06/19/2025 182.88 cm Ever Pérez [facility] 06/19/2025 08:40:49 Social History Question Answer Notes LastModified by Organizat ion Details LastModified Time Tobacco Smoking Status Current Every Day Smoker Thea traylor, [facility] 09/10/2017 10:40:24 What Is Your Level Of Caffeine Consumption? Heavy Coffee In The Morning Miranda 3 A Day Information not available 12/25/2024 Marital Status Informatio n not available 09/10/2017 What Was The Date Of Your Most Recent Tobacco Screening? 05/09/2025 [email or web address] Information not available 05/09/2025 What Is Your Current Pack Years? [email or web address] emi Information not available 01/22/2025 What Is Your Relationship Status? [email or web address] Information not available 04/12/2023 At What Age Did You Start Smoking Tobacco? 29 Information not available 01/22/2025 How Much Tobacco Do You Smoke? 0.5 PPD Information not available 04/12/2023 How Many Years Have You Smoked Tobacco? 40 Information not available 01/22/2025 Sex: Male Functional Status Question Answer Note LastModified by Organizat ion Details LastModified Time Do you use any illicit or recreational drugs? No [email or web address] Information not available 10/26/2024 What is your level of alcohol consumption? None Information not available 09/10/2017 Are you currently employed? 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 Family History Relationship Description Onset Age of this Age Resolved Age Notes LastModified by Organization Details LastModified Time Sister Family history of malignant neoplasm Breast CA Not available 09/10/2017 10:40:16 Maternal Uncle Malignant neoplasm of prostate [email or web address] Not available 2022 16:15:36 Medical History Condition Response Kidney Stones N Blood Transfusion N Emphysema Y Colon/Rectal Disorders N Sexually Transmitted Disease N Glaucoma N COPD Y Depression N Pneumonia N Measles N Varicose Veins N Anxiety Disorder N Attempted Suicide N Arthritis Y Hearing Loss N Blood Clot N Cancer N Stroke N Radiation Therapy N Blood Thinners N High Cholesterol N Neurologic Disorder N Liver Disease N Fibromyalgia N Headaches N Endocrine Disorder N Kidney Disease N Heart Problems N Chronic Obstructive Pulmonary Disease Y Skin Problems N Meningitis N Ulcers N Heart Attack ([place]) N Diabetes N Rheumatic Fever N Bleeding Disorder N Tuberculosis N AIDS/HIV N Asthma N Epilepsy/Seizures N Sleep Apnea Y Thyroid Disorder N Hepatitis N Hypertension N Osteoporosis N Past Encounters Encounter ID Performer Location Encounter Start Date Encounter Closed Date Diagnosis/Indication Diagnosis SNOMED-CT Code Diagnosis ICD10 Code Diagnosis IMO Codes Diagnosis Note [id number] FISH VIEIRA PA-C [facility] [address] [place] [address] 06/19/2025 08:36:54 06/19/2025 13:58:55 Osteoarthritis of left knee joint 9642092195 33582 M17.12 3236871 He may repeat these every 3 months. He may also try gels in the future. Follow-up as needed. Osteoarthr itis of right knee joint 2862357481 59216 M17.11 6822575 Health Concerns Section Related Observation LastModified by Organization Detai ls LastModified Time None Recorded Concern Status LastModified by Organization Details LastModified Time None Recorded Payers Encounter Date Sequence Insurance Name Policy Number Policy Padilla Covered Member ID Padilla Member ID Guarantor Name 06/19/2025 1 [place] Jacob Lunsford [id number] 1 Jacob Lunsford 06/19/2025 2 [facility] Jacob Lunsford [id number] Jacob Lunsford Notes Date Note Type Note Provider Name and Address Organization Details Recorded Time 06/19/2025 text/html Patient comes in today for FU Bilateral Knee.Patient states they are worse than last visit.Patient denies new injury since last visitPain is constant dull ache in nature.The patient does not have numbness or tinglingThey mild popping and clickingThey are able to sleep comfortably with this injury.Their pain is made better with resting the limbTheir pain is exacerbated by putting weight on and moving the affected limbOverall, the patient would say that their pain is mildly well-controlled at this time. FISH VIEIRA PA-C [address] [place], [address], [facility] 06/19/2025 11:46:04
--- OUTSIDE RECORDS SUMMARY | 2025-08-02 17:39 | XMS_ITS | Referral Summary ---
Author Organization [employer] ([place], [place], [place], [place]) Address [address] [place] [address] Care Team Providers Care Smoke And Flame Specialist Name Role Phone Rocio Bedoya PA-C Primary Care Provider [phone] Allergies Active Allergy Reactions Criticality Noted Date Comments Latex Rash Low 02/01/2010 Reaction on nose from cpap mask Sulfa (Sulfonamide Antibiotics) Itching,Rash Low 02/01/2010 Medications busPIRone (BUSPAR) 10 MG tablet Take 2 tablets (20 mg total) by mouth 2 (two) times daily. 3 Active fluticasone propionate (FLONASE) 50 mcg/actuation nasal spray 1 spray 2 (two) times daily. 3 Active HYDROcodone-kayla taminophen (NORCO 5-325) 5-325 mg per tablet Take 1 tablet by mouth every 6 (six) hours as needed. 3 Active losartan (COZAAR) 25 MG tablet Take 1 tablet (25 mg total) by mouth nightly. 3 Active meloxicam (MOBIC) 15 MG tablet Take 1 tablet (15 mg total) by mouth daily. 3 Active omeprazole (PriLOSEC) 20 MG capsule Take 1 capsule (20 mg total) by mouth nightly. 3 Active naproxen (ALEVE,ANAPROX, MIDOL) 220 MG tablet Take 1 tablet (220 mg total) by mouth 2 (two) times daily with breakfast and dinner. Active tiotropium-olod ateroL (Stiolto Respimat) 2.5-2.5 mcg/actuation Mist Inhale 2 puffs by mouth via inhaler nightly. Active nitrofurantoin, macrocrystal-mo nohydrate, (MACROBID) 100 MG capsule Take 1 capsule (100 mg total) by mouth 2 (two) times daily. 60 capsule 3 Active Active Problems Problem Noted Date Diagnosed Date CPAP (continuous positive airway pressure) depen dence 06/11/2023 High blood pressure 06/11/2023 Prostate disorder 06/11/2023 Ureteropelvic junction obstruction 06/10/2023 Cigarette smoker 05/10/2017 Gastroesophageal reflux disease 05/10/2017 Mitral valve regurgitation 05/10/2017 Obesity 05/10/2017 Obstructive sleep apnea syndrome 05/10/2017 Resolved Problems Problem Noted Date Diagnosed Date Resolved Date COPD (chronic obstructive pulmonary disease) 3 06/12/2023 Social History Tobacco Use Types Packs/Day Years Used Date Smoking Tobacco: Every Day Cigarettes 1.2 43 Passive Smoke Exposure: Past Smokeless Tobacco: Never Alcohol Use Standard Drinks/Week Comments Yes 0 (1 standard drink = 0.6 oz pur e alcohol) 2 beers a year Food Insecurity Answer Date Recorded Food run out past 12 months Not on file 10/04 Food did not last past 12 months Not on file 10/22/2023 Employment Answer Date Recorded Help finding and keeping a job Not on file 0 10/22/2023 Family and Community Support Answer Robert e Recorded Help with Day to Day Activities Not on file 10/22/2023 Feeling Lonely or Isolated Not on file 10/22 Educational Attainment Answer Date Nils rded Speak language other than Qatari at home Not on file 10/22/2023 Want help with school or training Not on file 10/22/2023 Substance Use Answer Date Recorded Used prescription meds for non-medical reasons N ot on file 10/22/2023 Used illegal drugs past 12 months Not on file 10/22/2023 Sex and Gender Information Value Date Recorded Sex Assigned at Male 03/31/2022 11:02 AM CDT Legal Sex Male 11:02 AM CDT Gender Identity Male 03/31/2022 11:02 AM CDT Sexual Orientation Not on file Last Filed Vital Signs Vital Sign Reading Time Taken Comments Blood Pressure 154/90 06/12/2023 12:00 PM EDT Pulse 62 06/12/2023 12:00 PM EDT Temperature 36.8 C (98.3 F) 06/12/2023 11:11 AM EDT Respiratory Rate 20 06/12/2023 12:00 PM EDT Oxygen Saturation 99% 06/12/2023 12:00 PM EDT Inhaled Oxygen Concentration - - Weight 98.7 kg (217 lb 9.6 oz) 06/08/2023 2:04 P M EDT Height 180.3 cm (5' 11 ) 06/08/2023 2:04 PM EDT Body Mass Index 30.35 06/08/2023 2:04 PM EDT Plan of Treatment Not on file Medical Devices Implanted Type Area Desktop Support Technician Device Identifier Shelf Expiration Date Model / Serial / Lot Stent Uret Braid + [id number] Implanted:Qty : 1 on 06/10/2023 by Guy Mendoza MD at [facility] IMPLANTS Left: Ureter [employer]UR[employer]/GYNE COLOGY [id number] / [id number] / Insurance MEDICARE PART A B Advance Directives For more information, please contact: [phone] * Full Code (Latest Code Status on File) Date Activated Date Inactivated Comments 06/10/2023 4:09 PM 06/12/2023 3:05 PM Care Teams Smoke And Flame Specialist Relationship Specialty Start Date End Date Rocio Bedoya PA-C [address] [place] [address] PCP - General Physician [employer] Secretary 06/08/23
--- OUTSIDE RECORDS SUMMARY | 2025-08-02 17:39 | XMS_ITS | Clinical Summary ---
Author Organization [facility] Address [address] [place] [address] Care Team Providers Care Director International Name Role Phone Rocio Bedoya Primary Care Provider [phone] Allergies Active Allergy Reactions Criticality Noted Date [...] 2006 ZOSTER VACCINE (1 of 2) 2006 INFLUENZA VACCINE 05/04/2025 07/05/2018 COVID-19 Vaccine ( - season) 2025 TDAP/TD VACCINES (3 - Td or Tdap) [...] PM by Cristóbal Townsend. Briana Ennis [place] [facility] [place] Final R esult from Last 3 Months or Most Recently Relevant to Health Maintenance Insurance MEDICARE A & B Member Subscriber Plan / Payer (Ef fective 2021-Present) Name:Jacob Lunsford Member ID:[id number] Relation to Subscriber:Self Name:Jacob Lunsford Subscriber ID:[id number] Payer ID:[id number] Group ID:Not on file Type:Not on file Address: [address] [place] [address] Care Teams Director International Relationship Specialty Start Date End Date Rocio Bedoya PA PCP - General Physician Pediatric Speech Therapist 03/16/21
--- OUTSIDE RECORDS SUMMARY | 2025-08-02 17:39 | XMS_ITS | Continuity of Care Document ---
Author Organization [place] - [employer] [facility] Address [address] [place] [address] Assessment No assessment recorded. Plan of Treatment Reminders Order Date Submit Date Provider Last Modified By Organization Details Last Modified Time Details Appointments None recorded. Lab None recorded. Referral None recorded. Procedures None recorded. Surgeries None recorded. Imaging None recorded. Medication Orders doxycycline hyclate 100 mg capsule 2024 025 [facility], [address], [address], 17:32:51 prednisone 20 mg tablet 2024 025 [facility], [address], [address], 5 05:01:12 Xyzal 5 mg tablet 2024 025 [facility], [address], [address], 5 14:57:32 ceftriaxone 1 gram solution for injection 2024 025 [facility]91, [address], [address], 5 14:56:07 Depo-Medrol 80 mg/mL suspension for injection 2024 025 Not available 14:56:18 Patient TargetsNo targets recorded. Patient InstructionsNo instructions recorded. Reason for Referral None Reported. Results Created Date Observation Date Name Description Value Unit Range Abnormal Flag Note LastModifiedBy Organization Detail LastModifiedTime 06/14/2006/15/2025 ESR ENRIKE+A NA+RF QN+CR P+CCP (I... rheumatoid factor (rf) <10.0 IU/mL <14.0 Not Available [facility] ([facility]) [address] [place], [address], 06/16/2025 08:11:40 06/14/2006/15/2025 ESR ENRIKE+A NA+RF QN+CR P+CCP (I... C-reactive protein, quant 1 mg/L 0-10 normal Not Available [facility] ([facility]) [address] [place], [address], 06/16/2025 08:11:40 06/14/2006/15/2025 ESR ENRIKE+A NA+RF QN+CR P+CCP (I... anti-ccp Ab, IgG/IgA 14 units 0-19 Negat desiree <20 Weak posit desiree 20 - 39 Moder ate posit desiree 40 - 59 Stron g posit desiree >59 Not Available [facility] ([facility]) [address] [place], [address], 06/16/2025 08:11:40 06/14/2006/15/2025 ESR ENRIKE+A NA+RF QN+CR P+CCP (I... sedimentatio n rate-westerg jim 8 mm/HR 0-30 normal Not Available [facility] ([facility]) [address] [place], [address], 06/16/2025 08:11:40 06/14/2006/16/2025 ESR ENRIKE+A NA+RF QN+CR P+CCP (I... RAFFY direct Negati ve negati ve Not Available [facility] ([facility]) [address] [place], [address], 06/16/2025 08:11:40 06/14/2006/15/2025 CBC WITH DIFFE RENTI AL/PL ATELE T WBC 7.5 x10e3 /uL 3.4-10 .8 normal Not Available [facility] ([facility]) [address] [facility], [place], [address], 06/16/2025 08:11:40 06/14/2006/15/2025 CBC WITH DIFFE RENTI AL/PL ATELE T RBC 4.62 x10e6 /uL 4.14-5 .80 normal Not Available [facility] ([facility]) [address] [facility], [place], [address], 06/16/2025 08:11:40 06/14/2006/15/2025 CBC WITH DIFFE RENTI AL/PL ATELE T hemoglobin 15.2 g/dL 13.0-1 7.7 normal Not Available [facility] ([facility]) [address] [facility], [place], [address], 06/16/2025 08:11:40 06/14/2006/15/2025 CBC WITH DIFFE RENTI AL/PL ATELE T hematocrit 45.9 % 37.5-5 1.0 normal Not Available [facility] ([facility]) [address] [place], [address], 06/16/2025 08:11:40 06/14/2006/15/2025 CBC WITH DIFFE RENTI AL/PL ATELE T MCV 99 fL 79-97 above high normal Not Available [facility] ([facility]) [address] [place], [address], 06/16/2025 08:11:40 06/14/20 25 06/15/2025 CBC WITH DIFFE RENTI AL/PL ATELE T MCH 32.9 pg 26.6-3 3.0 normal Not Available [facility] ([facility]) [address] [facility], [place], [address], 06/16/2025 08:11:40 06/14/2006/15/2025 CBC WITH DIFFE RENTI AL/PL ATELE T MCHC 33.1 g/dL 31.5-3 5.7 normal Not Available [facility] ([facility]) [address] [facility], [place], [address], 06/16/2025 08:11:40 06/14/20 25 06/15/2025 CBC WITH DIFFE RENTI AL/PL ATELE T RDW 12.0 % 11.6-1 5.4 Not Available [facility] ([facility]) [address] [facility], [place], [address], 06/16/2025 08:11:40 06/14/20 25 06/15/2025 CBC WITH DIFFE RENTI AL/PL ATELE T platelets 196 x10e3 /uL 150-45 0 normal Not Available [facility] ([facility]) [address] [facility], [place], [address], 06/16/2025 08:11:40 06/14/20 25 06/15/2025 CBC WITH DIFFE RENTI AL/PL ATELE T neutrophils 63 % not estab. normal Not Available [facility] ([facility]) [address] [facility], [place], [address], 06/16/2025 08:11:40 06/14/20 25 06/15/2025 CBC WITH DIFFE RENTI AL/PL ATELE T lymphs 24 % not estab. normal Not Available [facility] ([facility]) [address] [facility], [place], [address], 06/16/2025 08:11:40 06/14/20 25 06/15/2025 CBC WITH DIFFE RENTI AL/PL ATELE T monocytes 8 % not estab. normal Not Available [facility] ([facility]) [address] [facility], [place], [address], 06/16/2025 08:11:40 06/14/20 25 06/15/2025 CBC WITH DIFFE RENTI AL/PL ATELE T eos 3 % not estab. normal Not Available [facility] ([facility]) [address] [place], [address], 06/16/2025 08:11:40 06/14/20 25 06/15/2025 CBC WITH DIFFE RENTI AL/PL ATELE T basos 2 % not estab. normal Not Available [facility] ([facility]) [address] [place], [address], 06/16/2025 08:11:40 06/14/20 25 06/15/2025 CBC WITH DIFFE RENTI AL/PL ATELE T immature cells BUGGY RUNNER Not Available [facility] ([facility]) [address] [place], [address], 06/16/2025 08:11:40 06/14/20 25 06/15/2025 CBC WITH DIFFE RENTI AL/PL ATELE T neutrophils (absolute) 4.8 x10e3 /uL 1.4-7. 0 normal Not Available [facility] ([facility]) [address] [place], [address], 06/16/2025 08:11:40 06/14/20 25 06/15/2025 CBC WITH DIFFE RENTI AL/PL ATELE T lymphs (absolute) 1.8 x10e3 /uL 0.7-3. 1 normal Not Available [facility] ([facility]) [address] [place], [address], 06/16/2025 08:11:40 06/14/20 25 06/15/2025 CBC WITH DIFFE RENTI AL/PL ATELE T monocytes(ab solute) 0.6 x10e3 /uL 0.1-0. 9 normal Not Available [facility] ([facility]) [address] [place], [address], 06/16/2025 08:11:40 06/14/20 25 06/15/2025 CBC WITH DIFFE RENTI AL/PL ATELE T eos (absolute) 0.2 x10e3 /uL 0.0-0. 4 normal Not Available [facility] ([facility]) [address] [facility], [place], [address], 06/16/2025 08:11:40 06/14/20 25 06/15/2025 CBC WITH DIFFE RENTI AL/PL ATELE T baso (absolute) 0.1 x10e3 /uL 0.0-0. 2 normal Not Available [facility] ([facility]) [address] [facility], [place], [address], 06/16/2025 08:11:40 06/14/20 25 06/15/2025 CBC WITH DIFFE RENTI AL/PL ATELE T immature granulocytes 0 % not estab. Not Available [facility] ([facility]) [address] [facility], [place], [address], 06/16/2025 08:11:40 06/14/2006/15/2025 CBC WITH DIFFE RENTI AL/PL ATELE T immature grans (abs) 0.0 x10e3 /uL 0.0-0. 1 Not Available [facility] ([facility]) [address] [facility], [place], [address], 06/16/2025 08:11:40 06/14/2006/15/2025 CBC WITH DIFFE RENTI AL/PL ATELE T NRBC BUGGY RUNNER Not Available [facility] ([facility]) [address] [facility], [place], [address], 06/16/2025 08:11:40 06/14/2006/15/2025 CBC WITH DIFFE RENTI AL/PL ATELE T hematology comments: BUGGY RUNNER Not Available [facility] ([facility]) [address] [facility], [place], [address], 06/16/2025 08:11:40 06/14/20 25 06/14/2025 COMP. METAB OLIC PANEL (14) interpretati on: Commen t GFR estim ate at the follo wing level for >or=3 month s is class ified as follo ws: GFR WITH KIDNE Y DAMAG E WITHO UT KIDNE Y DAMAG E >or=9 0 Stage 1 Giselle l 60-89 Stage 2 Decr eased GFR 30-59 Stage 3 Stage 3 15-29 Stage 4 Stage 4 <15 (or dialy sis) Stage 5 Stage 5 Estim ated GFR will over estim ate true GFR if serum creat inine is risin g as in acute renal failu re and will under estim ate true GFR if serum creat inine is decli chaka as in resol ving acute renal failu re. Addit ional infor aly nava may be found at www.k doqi. org. Not Available [facility] ([facility]) [address] [place], [address], 06/16/2025 08:11:41 06/14/20 25 06/15/2025 COMP. METAB OLIC PANEL (14) glucose 94 mg/dL 70-99 normal Not Available [facility] ([facility]) [address] [place], [address], 06/16/2025 08:11:41 06/14/20 25 06/15/2025 COMP. METAB OLIC PANEL (14) BUN 18 mg/dL 8-27 normal Not Available [facility] ([facility]) [address] [place], [address], 06/16/2025 08:11:41 06/14/2006/15/2025 COMP. METAB OLIC PANEL (14) creatinine 1.29 mg/dL 0.76-1 .27 above high normal Not Available [facility] ([facility]) [address] [place], [address], 06/16/2025 08:11:41 06/14/20 25 06/15/2025 COMP. METAB OLIC PANEL (14) eGFR 60 mL/mi n/1.7 3 >59 normal Not Available [facility] ([facility]) [address] [facility], [place], [address], 06/16/2025 08:11:41 06/14/20 25 06/15/2025 COMP. METAB OLIC PANEL (14) BUN/creatini ne ratio 14 10-24 normal Not Available [facility] ([facility]) [address] [facility], [place], [address], 06/16/2025 08:11:41 06/14/20 25 06/15/2025 COMP. METAB OLIC PANEL (14) sodium 139 mmol/ L 134-14 4 normal Not Available [facility] ([facility]) [address] [facility], [place], [address], 06/16/2025 08:11:41 06/14/20 25 06/15/2025 COMP. METAB OLIC PANEL (14) potassium 4.2 mmol/ L 3.5-5. 2 normal Not Available [facility] ([facility]) [address] [place], [address], 06/16/2025 08:11:41 06/14/20 25 06/15/2025 COMP. METAB OLIC PANEL (14) chloride 105 mmol/ L 96-106 normal Not Available [facility] ([facility]) [address] [place], [address], 06/16/2025 08:11:41 06/14/20 25 06/15/2025 COMP. METAB OLIC PANEL (14) carbon dioxide, total 20 mmol/ L 20-29 normal Not Available [facility] ([facility]) [address] [place], [address], 06/16/2025 08:11:41 06/14/20 25 06/15/2025 COMP. METAB OLIC PANEL (14) calcium 9.6 mg/dL 8.6-10 .2 normal Not Available [facility] ([facility]) [address] [place], [address], 06/16/2025 08:11:41 06/14/20 25 06/15/2025 COMP. METAB OLIC PANEL (14) protein, total 6.4 g/dL 6.0-8. 5 normal Not Available [facility] ([facility]) [address] [place], [address], 06/16/2025 08:11:41 06/14/20 25 06/15/2025 COMP. METAB OLIC PANEL (14) albumin 4.2 g/dL 3.9-4. 9 normal Not Available [facility] ([facility]) [address] [place], [address], 06/16/2025 08:11:41 06/14/20 25 06/15/2025 COMP. METAB OLIC PANEL (14) globulin, total 2.2 g/dL 1.5-4. 5 Not Available [facility] ([facility]) [address] [place], [address], 06/16/2025 08:11:41 06/14/20 25 06/15/2025 COMP. METAB OLIC PANEL (14) bilirubin, total 0.3 mg/dL 0.0-1. 2 normal Not Available [facility] ([facility]) [address] [place], [address], 06/16/2025 08:11:41 06/14/20 25 06/15/2025 COMP. METAB OLIC PANEL (14) alkaline phosphatase 65 IU/L 44-121 normal Eff ectiv e Septe mber 2024 Alkal ine Phosp hatas e refer ence inter king will be horan ing to: Age Male Femal e 0 - 5 days 47 - 127 47 - 127 6 - 10 days 29 - 242 29 - 242 11 - 20 days 109 - 357 109 - 357 21 - 30 days 94 - 494 94 - 494 1 - 2 month s 149 - 539 149 - 539 3 - 6 month s 131 - 452 131 - 452 7 - 11 month s 117 - 401 117 - 401 12 month s - 6 years 158 - 369 158 - 369 7 - 12 years 150 - 409 150 - 409 13 years 156 - 435 78 - 227 14 years 114 - 375 64 - 161 15 years 88 - 279 56 - 134 16 years 74 - 207 51 - 121 17 years 63 - 161 47 - 113 18 - 20 years 51 - 125 42 - 106 21 - 50 years 47 - 123 41 - 116 51 - 80 years 49 - 135 51 - 125 >80 years 48 - 129 48 - 129 Not Available [facility] ([facility]) [address] [place], [address], 06/16/2025 08:11:41 06/14/20 25 06/15/2025 COMP. METAB OLIC PANEL (14) AST (SGOT) 16 IU/L 0-40 normal Not Available [facility] ([facility]) [address] [place], [address], 06/16/2025 08:11:41 06/14/20 25 06/15/2025 COMP. METAB OLIC PANEL (14) ALT (SGPT) 11 IU/L 0-44 normal Not Available [facility] ([facility]) [address] [place], [address], 06/16/2025 08:11:41 06/14/20 25 06/15/2025 LIPID PANEL cholesterol, total 173 mg/dL 100-19 9 normal Not Available [facility] ([facility]) [address] [place], [address], 06/16/2025 08:11:41 06/14/20 25 06/15/2025 LIPID PANEL triglyceride s 210 mg/dL 0-149 above high normal Not Available [facility] ([facility]) [address] [place], [address], 06/16/2025 08:11:41 06/14/20 25 06/15/2025 LIPID PANEL HDL cholesterol 42 mg/dL >39 normal Not Available [facility] ([facility]) [address] [facility], [place], [address], 06/16/2025 08:11:41 06/14/20 25 06/15/2025 LIPID PANEL VLDL cholesterol henok 36 mg/dL 5-40 Not Available [facility] ([facility]) [address] [facility], [place], [address], 06/16/2025 08:11:41 06/14/20 25 06/15/2025 LIPID PANEL LDL chol calc ([facility]) 95 mg/dL 0-99 Not Available [facility] ([facility]) [address] [facility], [place], [address], 06/16/2025 08:11:41 06/14/20 25 06/15/2025 LIPID PANEL LDL calc comment: BUGGY RUNNER Not Available [facility] ([facility]) [address] [facility], [place], [address], 06/16/2025 08:11:41 06/14/20 25 06/15/2025 HCV ANTIB SOLEDAD CASCA DE(PC R/GEN O) HCV Ab Non Reacti ve non reacti ve Not Available [facility] ([facility]) [address] [facility], [place], [address], 06/16/2025 08:11:42 06/14/2006/15/2025 HCV ANTIB SOLEDAD CASCA DE(PC R/GEN O) interpretati on: Commen t Not infec lópez with HCV unles s early or acute infec tion is suspe cted (whic h may be delay ed in an immun ocomp romis ed indiv idual ), or other evide nce exist s to indic ate HCV infec tion. Not Available [facility] ([facility]) [address] [facility], [place], [address], 06/16/2025 08:11:42 06/14/20 25 06/14/2025 PSA TOTAL (REFL EX TO FREE) reflex criteria Commen t The perce nt free PSA is perfo rmed on a refle x basis only when the total PSA is betwe en 4.0 and 10.0 ng/mL . Not Available [facility] ([facility]) [address] [facility], [place], [address], 06/16/2025 08:11:42 06/14/2006/15/2025 PSA TOTAL (REFL EX TO FREE) prostate specific Ag 0.4 NG/mL 0.0-4. 0 normal Shadia ECLIA metho dolog y. Accor ding to the Ameri can [employer] g[employer] iatio n, Serum PSA shoul d decre ase and remai n at undet ectab le level s after radic al prost atect ross. The AUA defin es bioch emica l recur rence as an initi al PSA value 0.2 ng/mL or great er follo wed by a subse quent confi rmato ry PSA value 0.2 ng/mL or great er. Value s obtai brian with diffe rent assay metho ds or kits canno t be used inter horan eably . Resul ts canno t be inter prete d as absol august evide nce of the prese nce or absen ce of olga huang se. Not Available [facility] ([facility]) [address] [facility], [place], [address], 06/16/2025 08:11:42 06/14/2006/15/2025 TSH TSH 1.060 uIU/m L 0.450- 4.500 normal Not Available [facility] ([facility]) [address] [facility], [place], [address], 06/16/2025 08:11:43 06/14/2006/15/2025 HIV AB/P2 4 AG WITH REFLE X HIV Ab/P24 Ag screen Non Reacti ve non reacti ve HIV-1 /HIV- 2 antib odies and HIV-1 p24 antig en were NOT detec lópez. There is no labor atory evide nce of HIV infec tion. HIV Negat desiree Not Available [facility] ([facility]) [address] [facility], [place], [address], 06/16/2025 08:11:43 06/14/2006/16/2025 URINE CULTU RE, ROUTI NE urine culture, routine Final report Not Available [facility] ([facility]) [address] [facility], [place], [address], 06/16/2025 08:11:43 06/14/2006/16/2025 URINE CULTU RE, ROUTI NE result 1 No growth Not Available [facility] ([facility]) [address] [facility], [place], [address], 06/16/2025 08:11:43 06/14/2006/14/2025 urina lysis , dipst ick Leukocytes Negati ve Not Available [address], [address], 06/14/2025 13:41:49 06/14/20 25 06/14/2025 urina lysis , dipst ick Nitrite positi ve Not Available [facility] [address] [place] [address], [address], 06/14/2025 13:41:49 06/14/20 25 06/14/2025 urina lysis , dipst ick Urobilinogen .2 Not Available [facility] [address] [place] [address], [address], 06/14/2025 13:41:49 06/14/20 25 06/14/2025 urina lysis , dipst ick Protein Negati ve Not Available [facility] [address] [place] [address], [address], 06/14/2025 13:41:49 06/14/20 25 06/14/2025 urina lysis , dipst ick pH 7.0 Not Available [address], [place], [address], 06/14/2025 13:41:49 06/14/2006/14/2025 urina lysis , dipst ick Blood Negati ve Not Available [address], [place], [address], 06/14/2025 13:41:49 06/14/20 25 06/14/2025 urina lysis , dipst ick Specific [place] 1.020 Not Available [address], [place], [address], 06/14/2025 13:41:49 06/14/2006/14/2025 urina lysis , dipst ick Ketone Negati ve Not Available [address], [place], [address], 06/14/2025 13:41:49 06/14/2006/14/2025 urina lysis , dipst ick Bilirubin Negati ve Not Available [address], [place], [address], 06/14/2025 13:41:49 06/14/2006/14/2025 urina lysis , dipst ick Glucose Negati ve Not Available [address], [place], [address], 06/14/2025 13:41:49 06/14/2006/14/2025 urina lysis , dipst ick Appearance Clear Not Available [address], [address], 06/14/2025 13:41:49 06/14/20 25 06/14/2025 urina lysis , dipst ick Color Yates Not Available [facility] [address] [facility] [facility] [address], [place], [address], 06/14/2025 13:41:49 06/19/20 25 06/19/2025 ankle brach ial index , compl ete No observ ation record ed. [facility] [address], [place], [address], 06/19/2025 17:56:04 Result Notes None recorded. Problems Name Problem SNOMED Code Status Onset Date Resolution Date Notes Provider Name and Address Organization Details Recorded Time Candidias is of mouth 44742799 Completed 202306/14/2025 GEORGIA Shaw [address] [place] [address], [address], [employer] 14:00:02 Chronic obstructi ve pulmonary disease 62425360 Active 2023 GEORGIA Shaw [address] [place] [address], [address], [place] [employer] 4 16:36:15 Erectile dysfuncti on 684116021 Active 2023 GEORGIA Shaw [address] [place] [address], [address] 8, [employer] 5 11:11:08 Acute prostatit is 86205081 Completed 202306/14/2025 GEORGIA Shaw [address] [place] [address], [address], [place] [employer] 14:00:08 Essential hypertens ion 88524825 Active 2023 GEORGIA Shaw [address] [place] [address], [address] 8, [employer] 5 11:11:03 Osteoarth ritis 245832570 Active 2024 GEORGIA Shaw [address] [place] [address], [address] 8, [employer] 11:38:22 Obstructi ve sleep apnea syndrome 95676683 Active 2024 GEORGIA Shaw [address] [place] [address], [address] 8, [employer] 11:38:09 Dyspnea 216707361 Active 2024 GEORGIA Shaw [address] [place] [address], 6[address] 8, [employer] 14:14:23 Flank pain 767961449 Completed 202406/26/2025 GEORGIA Shaw [address] [place] [address], [address] 8, [employer] 17:30:04 Tobacco dependenc e syndrome 98164066 Active 2024 GEORGIA Shaw [address] [place] [address], 705[address] 8, [employer] 12:16:28 Bacterial conjuncti vitis 166123040 Completed 202406/14/2025 GEORGIA Shaw [address] [place] [address], [address], [employer] 13:59:57 Weakness of bilateral lower limb Active 2024 GEORGIA Shaw [address] [place] [address], [address]25[address] 8, [employer] 13:58:53 Acute urinary tract infection 591558915 Completed 202406/26/2025 GEORGIA Shaw [address] [place] [address], 70547[address] 8, [employer] 17:30:10 Pain in bilateral legs 065991855211 02980 Active 2024 GEORGIA Shaw [address] [place] [address], [address] 8, [employer] 17:56:16 Bacterial sinusitis 153545970 Active 2024 BannerGEORGIA Benites [address] [place] [address], 626[address] 8, [employer] 5 17:32:12 Bronchiti s 20237635 Active 2024 Rocio GEORGIA Bedoya [address] [place] [address], 384[address] 8, [employer] 5 15:12:52 Acute cough Active 2024 Rocio GEORGIA Bedoya [address] [place] [address], 813[address] 8, [employer] 5 12:24:11 Problem Notes None recorded. Procedures Surgical History Date Name Laterality Status Provider Name and Address Organization Details Recorded Time Back Surgery completed [email or web address] 08/24/2024 13:34:05 Hernia Repair completed [employer] 08/24/2024 13:34:05 Orthopedic Surgery completed [employer] 08/24/2024 13:34:05 Gallbladder Surgery completed [employer] 08/24/2024 13:34:05 Other completed [employer] 01/04/2025 10:57:46 Imaging Results None recorded. Procedure Notes None recorded. Medical Equipment None Reported. Allergies Allergen ID Allergen Name Allergen Category Reaction Reaction Severity Criticality Documentation Date Start Date Code Code System Note Provider Name and Address Organization Details Recorded Time 76476 Substance with sulfonami de structure and antibacte rial mechanism of action (substanc e) medicatio n itching Not available Not available 08/24/2024 34509 8003 SNOMED [employer], [employer] 13:34:02 34918 latex environme nt,medica tion rash Not available Not available 08/24/2024 91823 91 RxNorm [employer], [employer] 13:34:02 Medications Name Sig Start Date Stop Date Status Note LastModified by Organization Details LastModified Time diazepam 10mg suppository # Insert 1 supposito ry (10 mg total) into the rectum every night as needed (pelvic pain). 03/05 completed Not Available Not Available Not Available celecoxib 200 mg capsule TAKE 1 CAPSULE BY MOUTH ONCE DAILY active Not Available Not Available No t Available cyclobenzap rine 10 mg tablet TAKE 1 TABLET BY MOUTH THREE TIMES DAILY NEEDED FOR MUSCLE SPASM 01/04 completed Not Available Not Available Not Available clotrimazol e 10 mg tiffany Take 1 tablet 5 times a day by oral route as directed for 14 days, for thrush. 01/04 completed Not Available Not Available Not Available promethazin e-DM 6.25 mg-15 mg/5 mL oral syrup Take 5 mL every 4 hours by oral route as needed for 10 days. 2024 active Not Available Not Available Not Avai lable nystatin 100,000 unit/mL oral suspension TAKE 5 ML BY MOUTH 4 TIMES DAILY FOR 10 DAYS 06/14 completed Not Available Not Available Not Available doxycycline hyclate 100 mg capsule TAKE 1 CAPSULE BY MOUTH ONCE DAILY active Not Available Not Available No t Available ipratropium 0.5 mg-albutero l 3 mg (2.5 mg base)/3 mL nebulizatio n soln USE 3 ML IN NEBULIZER EVERY 8 HOURS active Not Available Not Available No t Available azithromyci n 250 mg tablet 08/24 completed Not Available Not Available Not Available levalbutero l 0.63 mg/3 mL solution for nebulizatio n USE 1 IN NEBULIZER EVERY 8 HOURS NEEDED FOR SHORTNESS OF BREATH OR WHEEZING 06/26 completed Not Available Not Available Not Available hydrocodone 5 mg-acetamin ophen 325 mg tablet TAKE 1 TABLET BY MOUTH EVERY 6 HOURS NEEDED FOR PAIN 08/24 completed Not Available Not Available Not Available fluconazole 200 mg tablet Take 1 tablet every day by oral route as directed for 14 days, for thrush. 01/04 completed Not Available Not Available Not Available meloxicam 15 mg tablet TAKE 1 TABLET BY MOUTH ONCE DAILY 06/26 completed Not Available Not Available Not Available prednisone 20 mg tablet Take 1 tablet twice a day by oral route for 5 days. 2024 active Not Available Not Available Not Avai lable Pyridium 200 mg tablet Take 1 tablet 3 times a day by oral route for 5 days. 06/26 completed Not Available Not Available Not Available pentoxifyll ine ER 400 mg tablet,exte nded release TAKE 1 TABLET BY MOUTH TWICE DAILY 07/27 completed Not Available Not Available Not Available Depo-Medrol 80 mg/mL suspension for injection Take 80 mg by injection route. 2024 active Not Available Not Available Not Avai lable losartan 100 mg-hydrochl orothiazide 25 mg tablet Take 1 tablet every day by oral route as directed for 30 days, for high blood pressure. 01/04 completed Not Available Not Available Not Available ceftriaxone 1 gram solution for injection Take 1 g by injection route. 2024 active Not Available Not Available Not Avai lable hydromorpho ne 2 mg tablet TAKE 1 TABLET BY MOUTH THREE TIMES DAILY FOR 15 DAYS NEEDED 03/05 completed Not Available Not Available Not Available baclofen 10 mg tablet 07/27 completed Not Available Not Available Not Available benzonatate 100 mg capsule TAKE 1 CAPSULE BY MOUTH THREE TIMES DAILY NEEDED FOR COUGH 06/14 completed Not Available Not Available Not Available hydrocodone 7.5 mg-acetamin ophen 325 mg tablet TAKE 1 TABLET BY MOUTH EVERY DAY NEEDED 08/24 completed Not Available Not Available Not Available buspirone 10 mg tablet TAKE 1 TABLET BY MOUTH TWICE DAILY 08/24 completed Not Available Not Available Not Available losartan 25 mg tablet TAKE 1 TABLET BY MOUTH TWICE DAILY DIRECTED active Not Available Not Available No t Available gabapentin 300 mg capsule TAKE 2 CAPSULES BY MOUTH THREE TIMES DAILY 06/14 completed Not Available Not Available Not Available omeprazole 20 mg capsule,del ayed release TAKE 1 CAPSULE BY MOUTH ONCE DAILY FOR GERD active Not Available Not Available No t Available mupirocin 2 % topical ointment APPLY A SMALL AMOUNT TO THE NOSTRILS 3 TIMES PER DAY FOR 5 DAYS PRIOR TO PROCEDURE 01/04 completed Not Available Not Available Not Available prednisone 5 mg tablets in a dose pack TAKE DIRECTED ON PACKAGE 08/24 completed Not Available Not Available Not Available levofloxaci n 500 mg tablet TAKE 1 TABLET BY MOUTH EVERY 24 HOURS DIRECTED FOR INFECTION FOR 14 DAYS 06/14 completed Not Available Not Available Not Available levofloxaci n 750 mg tablet 08/24 completed Not Available Not Available Not Available methylpredn isolone 4 mg tablets in a dose pack TAKE BY MOUTH DIRECTED ON INSIDE OF PACKAGE 06/14 completed Not Available Not Available Not Available fluticasone propionate 50 mcg/actuati on nasal spray,suspe nsion USE 1 SPRAY(S) IN EACH NOSTRIL TWICE DAILY active Not Available Not Available No t Available doxycycline hyclate 100 mg tablet Take 1 tablet twice a day by oral route for 14 days. 2024 active Not Available Not Available Not Avai lable amoxicillin 500 mg-potassiu m clavulanate 125 mg tablet TAKE 1 TABLET BY MOUTH TWICE DAILY FOR 14 DAYS 08/24 completed Not Available Not Available Not Available Ventolin HFA 90 mcg/actuati on aerosol inhaler INHALE 2 PUFFS BY MOUTH 4 TIMES DAILY NEEDED FOR SHORTNESS OF BREATH OR WHEEZING 06/14 completed Not Available Not Available Not Available moxifloxaci n 0.5 % eye drops INSTILL 1 DROP INTO AFFECTED EYE(S) THREE TIMES DAILY 06/26 completed Not Available Not Available Not Available tadalafil 20 mg tablet Take 1 tablet every day by oral route as directed for 30 days, for sexual activity. 2023 active Not Available Not Available Not Avai lable duloxetine 20 mg capsule,del ayed release TAKE 1 CAPSULE BY MOUTH ONCE DAILY FOR 30 DAYS 06/26 completed Not Available Not Available Not Available duloxetine 30 mg capsule,del ayed release TAKE 1 CAPSULE BY MOUTH EVERY OTHER DAY 06/14 completed Not Available Not Available Not Available varenicline tartrate 0.5 mg (11)-1 mg (42) tablets in a dose pack TAKE 1 TABLET BY MOUTH IN MORNING WITH FOOD FOR 3 DAYS, THEN INCREASE TO 1 TABLET BY MOUTH TWICE DAILY WITH FOOD THEREAFTE R DIRECTED ON PACKAGE active Not Available Not Available No t Available Xyzal 5 mg tablet Take 1 tablet every day by oral route for 30 days. 07/27 completed Not Available Not Available Not Available Claritin-D active Not Available Not Av ailable Not Available Trelegy Ellipta 100 mcg-62.5 mcg-25 mcg powder for inhalation Inhale 1 puff every day by inhalatio n route. active Not Available Not Available No t Available Vitals Date Recorded Body height Body mass index (BMI) Body weight Body temperature Oxygen saturation Oxygen saturation in Arterial blood by Pulse oximetry Heart rate Systolic And Diastolic Provider Name and Address Organization Details Last Updated DateTime 182.88 cm 30.5 kg/m2 077782. 85 g 98.2 [degF] 98 % 98 % 68 /min 136/84 mm[Hg] [facility] 17:13:55 Social History Question Answer Notes LastModified by Organizat ion Details LastModified Time Tobacco Smoking Status Current Every Day Smoker [facility] 08/24/2024 13:34:05 Do You Have An Advance Directive? Yes Information not available 08/24/2024 Is Your Home Air Conditioned? Yes Information not available 08/24/2024 Do You Wear A Helmet When Biking? No Information not available 08/24/2024 Are You Blind Or Do You Have Difficulty Seeing? No Information not available 08/24/2024 What Is Your Level Of Caffeine Consumption? Moderate Information not available 08/24/2024 Are You A Caregiver? No Information not available 07/27/2025 What Type Of Cash Register Servicer Do You Use? None Information not available 08/24/2024 Have You Been To An Area Known To Be High Risk For COVID-19? No Information not available 08/24/2024 Are You Deaf Or Do You Have Serious Difficulty Hearing? No Information not available 08/24/2024 What Type Of Diet Are You Following? REGULAR Information not available 08/24/2024 What Is The Highest Grade Or Level Of School You Have Completed Or The Highest Degree You Have Received? [id number] Information not available 08/24/2024 Have There Been Any Changes To Your Family Or Social Situation? No Information not available 08/24/2024 Are There Any Guns Present In Your Home? Yes Information not available 08/24/2024 Which Of Your Hands Is Dominant? Right Information not available 08/24/2024 Do You Engage In Moderate/heavy Exercise (e.g. Brisk Walk, Jogging, Strength Training, Etc)? No Information not available 07/27/2025 What Is Your Home Situation? Other Information not available 08/24/2024 How Many Times In The Past Year Have You Used An Illegal Drug Or Used A Prescription Medication For Nonmedical Reasons? 0 Information not available 07/27/2025 Where Do You Live? [place] Information not available 07/27/2025 Do You Have A Medical Power Of Technology Coach? Yes Information not available 08/24/2024 What Was The Date Of Your Most Recent Tobacco Screening? 07/27/2025 Information not available 07/27/2025 Do You Have Any Pets? Yes Information not available 08/24/2024 Do You Use Protection During Sex? No Information not available 08/24/2024 What Is Your Relationship Status? Information not available 08/24/2024 Have You Repeated Any Grades? No Information not available 08/24/2024 Do You Wear A Seatbelt When Driving Or As A Passenger? Yes Information not available 07/27/2025 Do You Use Your Seat Belt Or Car Seat Routinely? Yes Information not available 08/24/2024 Are You Sexually Active? Yes Information not available 08/24/2024 Do You Have Any Siblings? 7 Information not available 08/24/2024 Do You Have Smoke And Carbon Monoxide Detectors In Your Home? Yes Information not available 08/24/2024 At What Age Did You Start Smoking Tobacco? 19 Information not available 08/24/2024 Are You Passively Exposed To Smoke? No Information not available 08/24/2024 Are There Any Smokers In Your House? Yes Information not available 08/24/2024 How Much Tobacco Do You Smoke? 1 PPD Information not available 08/24/2024 Do You Participate In Social Media? Yes Information not available 08/24/2024 What Types Of Sporting Activities Do You Participate In? 0 Information not available 07/27/2025 Do You Use Sunscreen Routinely? No Information not available 08/24/2024 Has Tobacco Cessation Counseling Been Provided? Yes Information not available 08/24/2024 On What Date Was Tobacco Cessation Counseling Provided? 07/27/2025 Information not available 07/27/2025 How Many Years Have You Smoked Tobacco? 50 Information not available 08/24/2024 Have You Recently Traveled Abroad? No Information not available 08/24/2024 Do You Have Difficulty Walking Or Climbing Stairs? Yes Information not available 08/24/2024 Are You Currently In School? No Information not available 08/24/2024 Do You Feel Safe In Your Home? Yes Information not available 07/27/2025 Do You Have Any Dietary Restrictions? No Information not available 08/24/2024 Sex: Unknown Functional Status Question Answer Note LastModified by Organizat ion Details LastModified Time Do you use any illicit or recreational drugs? No Information not available 08/24/2024 Do you or have you ever used any other forms of tobacco or nicotine? No Information not available 08/24/2024 What is your level of alcohol consumption? None Information not available 08/24/2024 Are you currently employed? No Information not available 08/24/2024 Do you have transportation difficulties? No Information not available 08/24/2024 Are you able to walk independently without assistance or assistive devices? YESWOREST Information not available 08/24/2024 Do you have difficulty doing errands alone? No Information not available 08/24/2024 Are you able to care for yourself independently? Yes Information not available 08/24/2024 Do you have difficulty dressing, bathing, grooming, or toileting? No Information not available 08/24/2024 What is your exercise level? None Information not available 08/24/2024 Mental Status Question Answer Note LastModified by Organizat ion Details LastModified Time Do you feel stressed (tense, restless, nervous, or anxious, or unable to sleep at night)? [id number] Information not available 08/24/2024 Do you have difficulty concentrating, remembering or making decisions? No Information no t available 08/24/2024 Are you or have you been involved with bullying? No Information not available 08/24/2024 Family History Relationship Description Onset Age of this Age Resolved Age Notes LastModified by Organization Details LastModified Time Mother Malignant neoplasm of colon Not available 2023 13:34:03 Mother Arthritis Not available 08/24/2024 13:34:03 Mother Heart disease Not available 2023 13:34:03 Sister Malignant neoplasm of breast Not available 2023 13:34:03 Sister Malignant neoplasm of colon Not available 2023 13:34:03 Father Arthritis Not available 08/24/2024 13:34:03 Father Hypertensive disorder Not available 2023 13:34:03 Father Heart disease Not available 2023 13:34:03 Medical History Condition Response Coronary Artery Disease N Gout N Other N Blood Diseases N Kidney Stones N Hyperthyroidism N Breast Cancer N Blood Transfusion N Emergency room visit since last appointm ent. N Hypothyroidism N Lung Disease Y Dermatologic Disorders N Depression N COPD N Defects or Inherited Disease N Developmental or Behavioral Disorders N Breast Problem N Difficulty Swallowing N Anesthesia Complications N History of STI N Meniere's disease N Anxiety Disorder N Muscle, Joint, or Bone Problems N Autoimmune disease N Vision or Eye Problems N Arthritis Y Polyps N Infertility N Mental Disorder N Congenital Anomalies N Acid Reflux (GERD) Y Cancer N Stroke N Neurologic/Epilepsy N Endometriosis N Bladder or Kidney Problems Y High Cholesterol N Liver Disease N Organ Transplant N Psychiatric/Mental Health Condition N Fibromyalgia N Dialysis N Schizophrenia N Headaches N Kidney Disease N Allergies/Hayfever N Heart Problems N Ear or Hearing Problems N Hospitalizations N Learning Disorder N Artificial Joints N Thyroid Problems N GI Problems N Acne N ADD/ADHD N Eating Disorder N Anemia N Constipation N Mental Illness N Ovarian Cancer N Diabetes N Bedwetting N Hepatitis/Liver Disease N Tuberculosis N Eczema N Diverticulitis N Abuse/Domestic Violence N Asthma N Trauma/Violence N Substance Abuse N Reflux/GERD N Depression/ depression N Hepatitis N Heart Disease N Pulmonary Embolism N Tourette Syndrome N Chronic Ear Infections N Pre-Eclampsia N Hypertension N Chicken Pox N Autism Spectrum Disorder (ASD) N Osteoporosis N Thrombophilias N Immunizations Vaccine Type Date Status Note Provider Nam e and Address Organization Details Recorded Time Tdap 1 completed Isabel Vice null, [employer] 01/04/2025 10:44:51 influenza, unspecified formulation 4 completed Isabel Vice null, [employer] 01/04/2025 10:44:51 Influenza, high-dose, quadrivalent, PF 2 completed Isabel Vice null, [employer]. 01/04/2025 10:44:51 COVID-19, mRNA, LNP-S, PF, 100 mcg/0.5mL dose or 50 mcg/0.25mL dose 1 completed Isabel Vice null, [employer]. 01/04/2025 10:44:51 COVID-19, mRNA, LNP-S, PF, 100 mcg/0.5mL dose or 50 mcg/0.25mL dose 1 completed Isabel Vice null, [employer]. 01/04/2025 10:44:51 COVID-19, mRNA, LNP-S, PF, 100 mcg/0.5mL dose or 50 mcg/0.25mL dose 2 completed Isabel Vice null, [employer] 01/04/2025 10:44:51 COVID-19, mRNA, LNP-S, PF, 100 mcg/0.5mL dose or 50 mcg/0.25mL dose 1 completed Isabel Vice null, [employer] 01/04/2025 10:44:51 COVID-19, mRNA, LNP-S, PF, 50 mcg/0.5 mL 4 completed Isabel Vice null, [employer] 01/04/2025 10:44:51 Influenza, high-dose, trivalent, PF 4 completed Isabel Vice null, [employer] 01/04/2025 10:44:51 Influenza, split virus, trivalent, PF 8 completed Isabel Vice null, [employer] 01/04/2025 10:44:51 Td (adult), 2 Lf tetanus toxoid, preservative free, adsorbed 7 completed Isabel Vice null, [employer] 01/04/2025 10:44:51 Influenza, split virus, quadrivalent, PF 8 completed Isabel Vice null, [employer] 01/04/2025 10:44:51 Influenza, split virus, quadrivalent, PF 0 completed Isabel Vice null, [employer] 01/04/2025 10:44:51 Influenza, split virus, quadrivalent, PF 7 completed Isabel Vice null, [employer] 01/04/2025 10:44:51 Influenza, split virus, quadrivalent, PF 9 completed Isabel Vice null, [employer] 01/04/2025 10:44:51 Influenza, split virus, quadrivalent, PF 1 completed Isabel Vice null, [employer] 01/04/2025 10:44:51 Past Encounters Encounter ID Performer Location Encounter Start Date Encounter Closed Date Diagnosis/Indication Diagnosis SNOMED-CT Code Diagnosis ICD10 Code Diagnosis IMO Codes Diagnosis Note [id number] [place] [facility] [address] [place] [id number] 2 06/14/2025 13:28:17 06/14/2025 14:17:14 Dysuria 81707264 R30.9 331697 Abnormal urinalysis 1672 20400 R82.90 879876 Weakness o f bilateral lower limb 5106985701 55709 R29.898 150045 Acute urin octavio tract infection 098421952 N39.0 620362 Essential hypertension 58829796 I10 Obstructiv e sleep apnea syndrome 17940144 G47.33 Cpap working extremely well Chronic ob structive pulmonary disease 85231733 J44.9 Osteoarthritis 885693473 M19.90 Hyperlipid emia screening 292261324 Z13.220 941311 Thyroid di sorder screening 167501292 Z13.29 05490 HIV screening 555852217 Z11.4 215410 Viral scre ening status 585994295 Z11.59 [id number] [place] [facility] [address] [place] [address] 06/26/2025 16:53:13 06/26/2025 17:43:38 Acute urinary tract infection 416826487 N39.0 Bacterial sinusitis 7034 25458 J32.9 B96.89 [id number] Health Concerns Section Related Observation LastModified by Organization Detai ls LastModified Time None Recorded Concern Status LastModified by Organization Details LastModified Time None Recorded Payers Encounter Date Sequence Insurance Name Policy Number Policy Padilla Covered Member ID Padilla Member ID Guarantor Name 06/26/2025 2 [employer] [facility] (MEDICARE SUPPLEMENT) Jacob Lunsford [id number] Jacob Lunsford 06/26/2025 1 MEDICARE [place]: [facility] Jacob Lunsford [id number] Jacob Lunsford Notes Date Note Type Note Provider Name and Address Organization Details Recorded Time 06/26/2025 text/html ROS as noted in the HPI Sinus pain, pressure, watery eyes, sinus drainage X 2-3 days. No fever. Has tried Advil Cold & Sinus without much relief. [place] [address] [place] [address], [phone], [place] [facility] [employer] 06/26/2025 17:54:19
--- OUTSIDE RECORDS SUMMARY | 2025-08-02 17:39 | XMS_ITS | Data Portability ---
[facility] Organization [facility] Address [address] [place] [address] Assessment No assessment recorded. Plan of Treatment Reminders Order Date Submit Date Provider Last Modified By Organization Details Last Modified Time Details Appointments None recorded. Lab inflammatio n panel, serum or plasma 2024 025 [facility], [facility] [place], [address], 5 08:11:40 urinalysis, dipstick [address], [facility]8 [place], [address], 5 14:01:40 PSA, serum or plasma 2024 025 [facility] [place], [address], 5 08:11:42 lipid panel, serum 2024 025 SWAPNA [facility]), [address] [place], [address], 5 08:11:41 TSH, ultra-sensi tive, serum 2024 025 SWAPNA [facility]), [facility] [place], [address], 5 08:11:43 culture, urine 2024 025 [facility] [facility]), [address] [facility], [place], [address], 5 08:11:44 CBC w/ auto diff 2024 025 [facility] [facility] ([place]), [address] [facility], [place], [address], 5 08:11:40 CMP, serum or plasma 2024 025 [facility] [facility] ([place]), [address] [facility], [place], [address], 5 08:11:41 Hepatitis C IgG Ab, qual, serum 2024 025 [facility] ([place]), [address] [facility], [place], [address], 5 08:11:42 HIV 1 + 2, meaningful use set 2024 025 [facility] ([place]), [address] [facility], [place], [address], 5 08:11:43 urinalysis, dipstick [address], [address] [facility], [place], [address], 5 11:08:40 culture, urine 2024 025 [facility] ([place]), [address] [place], [address], 5 02:08:42 Referral None recorded. Procedures None recorded. Surgeries None recorded. Imaging ankle brachial index, complete 2024 025 [place] [id number] [facility] [address], [place], [address], 15:58:30 XR, chest, 2 view 2024 [facility] (X-Ray), [address] [facility] [address], [place], [address], 5 09:38:37 electrocard iogram 2024 [email or web address] Not available 14:37:54 Medication Orders doxycycline hyclate 100 mg tablet 2024 [facility], [address], [address], 5 15:13:30 prednisone 20 mg tablet 2024 [facility], [address], [address], 15:13:29 promethazin e-DM 6.25 mg-15 mg/5 mL oral syrup 2024 025 [facility], [address], [address], 5 15:13:29 ceftriaxone 1 gram solution for injection [address] [facility], [address], [address], 5 16:00:59 Depo-Medrol 80 mg/mL suspension for injection [address] [facility], [address], [address], 5 16:00:59 doxycycline hyclate 100 mg capsule 2024 025 [facility], [address], [address], 5 17:32:51 prednisone 20 mg tablet 2024 025 [facility], [address] [place], [address], 5 05:01:12 Xyzal 5 mg tablet 2024 [facility], [address] [place], [address], 5 14:57:32 ceftriaxone 1 gram solution for injection [address] [facility], [address] [place], [address], 5 14:56:07 Depo-Medrol 80 mg/mL suspension for injection 2024 [facility] Not available 14:56:18 Celebrex 200 mg capsule [address] [facility], [address] [place], [address], 5 14:01:38 doxycycline hyclate 100 mg capsule [address] [facility], [address], [address], 5 14:01:38 ceftriaxone 1 gram solution for injection [address] [facility], [address], [address], 5 14:56:07 Pyridium 200 mg tablet 2024 025 [facility], [address] [place] [address], [address], 5 05:01:04 Cymbalta 20 mg capsule,del ayed release 06/05/ 2025 06/05/2 025 [facility], [address], [address], 17:11:52 Patient TargetsNo targets recorded. Patient Instructions Encounter Date Encounter Id Patient Instructions Last Modified By Organization Details Last Modified Time 01/04/2025 [id number] sleep apnea: car e instructions [email or web address] Not available 01/04/2025 11:38:00 chronic obstructive pulmonary disease (COPD): care instructions Not available 01/04/2025 11:42:29 learning about copd and how to prevent lung infections Not available 01/04/2025 11:42:29 03/05/2025 [id number] flank pain: care instructions Not available 03/08/2025 11:59:15 sleep apnea: car e instructions Not available 03/08/2025 11:59:15 shortness of breath: care instructions [email or web address] Not available 03/05/2025 14:14:47 06/14/2025 [id number] arthritis: care instructions [email or web address] Not available 06/14/2025 14:01:38 painful urinatio n (dysuria): care instructions [email or web address] Not available 06/14/2025 14:01:38 chronic obstructive pulmonary disease (COPD): care instructions [email or web address] Not available 06/14/2025 14:01:38 learning about copd and how to prevent lung infections Not available 06/14/2025 14:01:38 sleep apnea: car e instructions Not available 06/14/2025 14:01:38 high blood pressure: care instructions [email or web address] Not available 06/14/2025 14:01:38 learning about high blood pressure [email or web address] Not available 06/14/2025 14:01:38 HIV testing: car e instructions [email or web address] Not available 06/14/2025 14:39:55 07/27/2025 [id number] bronchitis: care instructions [email or web address] Not available 07/27/2025 15:13:23 Reason for Referral None Reported. Results Created Date Observation Date Name Description Value Unit Range Abnormal Flag Note LastModifiedBy Organization Detail LastModifiedTime 01/05/2001/06/2025 URINE CULTU RE, ROUTI NE urine culture, routine Final report Not Available [facility] ([facility]) [address] [facility], [place], [address], 01/06/2025 02:08:42 01/05/20 25 01/06/2025 URINE CULTU RE, ROUTI NE result 1 No growth Not Available [facility] ([facility]) [address] [facility], [place], [address], 01/06/2025 02:08:42 01/05/20 25 01/04/2025 urina lysis , dipst ick Leukocytes Negati ve Not Available [address], [place], [address], 01/04/2025 10:46:59 01/05/20 25 01/04/2025 urina lysis , dipst ick Nitrite positi ve Not Available [facility] [address] [place] [address], [address], 01/04/2025 10:46:59 01/05/20 25 01/04/2025 urina lysis , dipst ick Urobilinogen 1 Not Available [facility] [address] [place] [address], [address], 01/04/2025 10:46:59 01/05/20 25 01/04/2025 urina lysis , dipst ick Protein 30 Not Available [address], [address], 01/04/2025 10:46:59 01/05/20 25 01/04/2025 urina lysis , dipst ick pH 6.0 Not Available [facility] [address] [place] [address], [address], 01/04/2025 10:46:59 01/05/20 25 01/04/2025 urina lysis , dipst ick Blood Negati ve Not Available [address], [place], [address], 01/04/2025 10:46:59 01/05/20 25 01/04/2025 urina lysis , dipst ick Specific [place] 1.025 Not Available [facility] [address] [place] [address], [place], [address], 01/04/2025 10:46:59 01/05/20 25 01/04/2025 urina lysis , dipst ick Ketone Negati ve Not Available [address], [place], [address], 01/04/2025 10:46:59 01/05/20 25 01/04/2025 urina lysis , dipst ick Bilirubin Small Not Available [address], [place], [address], 01/04/2025 10:46:59 01/05/20 25 01/04/2025 urina lysis , dipst ick Glucose Negati ve Not Available [address], [place], [address], 01/04/2025 10:46:59 01/05/20 25 01/04/2025 urina lysis , dipst ick Appearance Clear Not Available [address], [place], [address], 01/04/2025 10:46:59 01/05/20 25 01/04/2025 urina lysis , dipst ick Color [place] Not Available [address], [address], 01/04/2025 10:46:59 06/14/2006/15/2025 ESR ENRIKE+A NA+RF QN+CR P+CCP (I... rheumatoid factor (rf) <10.0 IU/mL <14.0 Not Available [facility]) [address] [facility], [place], [address], 06/16/2025 08:11:40 06/14/2006/15/2025 ESR ENRIKE+A NA+RF QN+CR P+CCP (I... C-reactive protein, quant 1 mg/L 0-10 normal Not Available [facility]) [address] [facility], [place], [address], 06/16/2025 08:11:40 06/14/2006/15/2025 ESR ENRIKE+A NA+RF QN+CR P+CCP (I... anti-ccp Ab, IgG/IgA 14 units 0-19 Negat desiree <20 Weak posit desiree 20 - 39 Moder ate posit desiree 40 - 59 Stron g posit desiree >59 Not Available [facility] ([facility]) [address] [facility], [place], [address], 06/16/2025 08:11:40 06/14/2006/15/2025 ESR ENRIKE+A NA+RF QN+CR P+CCP (I... sedimentatio n rate-westerg jim 8 mm/HR 0-30 normal Not Available [facility]) [address] [place], [address], 06/16/2025 08:11:40 06/14/2006/16/2025 ESR ENRIKE+A NA+RF QN+CR P+CCP (I... RAFFY direct Negati ve negati ve Not Available [facility] ([facility]) [address] [place], [address], 06/16/2025 08:11:40 06/14/2006/15/2025 CBC WITH DIFFE RENTI AL/PL ATELE T WBC 7.5 x10e3 /uL 3.4-10 .8 normal Not Available [facility] ([facility]) [address] [place], [address], 06/16/2025 08:11:40 06/14/20 25 06/15/2025 CBC WITH DIFFE RENTI AL/PL ATELE T RBC 4.62 x10e6 /uL 4.14-5 .80 normal Not Available [facility] ([facility]) [address] [place], [address], 06/16/2025 08:11:40 06/14/2006/15/2025 CBC WITH DIFFE RENTI AL/PL ATELE T hemoglobin 15.2 g/dL 13.0-1 7.7 normal Not Available [facility] ([facility]) [address] [place], [address], 06/16/2025 08:11:40 06/14/2006/15/2025 CBC WITH DIFFE RENTI AL/PL ATELE T hematocrit 45.9 % 37.5-5 1.0 normal Not Available [facility] ([facility]) [address] [place], [address], 06/16/2025 08:11:40 06/14/2006/15/2025 CBC WITH DIFFE RENTI AL/PL ATELE T MCV 99 fL 79-97 above high normal Not Available [facility] ([facility]) [address] [place], [address], 06/16/2025 08:11:40 06/14/2006/15/2025 CBC WITH DIFFE RENTI AL/PL ATELE T MCH 32.9 pg 26.6-3 3.0 normal Not Available [facility] ([facility]) [address] [place], [address], 06/16/2025 08:11:40 06/14/2006/15/2025 CBC WITH DIFFE RENTI AL/PL ATELE T MCHC 33.1 g/dL 31.5-3 5.7 normal Not Available [facility] ([facility]) [address] [facility], [place], [address], 06/16/2025 08:11:40 06/14/20 25 06/15/2025 CBC WITH DIFFE RENTI AL/PL ATELE T RDW 12.0 % 11.6-1 5.4 Not Available [facility] ([facility]) [address] [facility], [place], [address], 06/16/2025 08:11:40 06/14/2006/15/2025 CBC WITH DIFFE RENTI AL/PL ATELE T platelets 196 x10e3 /uL 150-45 0 normal Not Available [facility] ([facility]) [address] [facility], [place], [address], 06/16/2025 08:11:40 06/14/2006/15/2025 CBC WITH DIFFE RENTI AL/PL ATELE T neutrophils 63 % not estab. normal Not Available [facility] ([facility]) [address] [facility], [place], [address], 06/16/2025 08:11:40 06/14/2006/15/2025 CBC WITH DIFFE RENTI AL/PL ATELE T lymphs 24 % not estab. normal Not Available [facility] ([facility]) [address] [facility], [place], [address], 06/16/2025 08:11:40 06/14/2006/15/2025 CBC WITH DIFFE RENTI AL/PL ATELE T monocytes 8 % not estab. normal Not Available [facility] ([facility]) [address] [facility], [place], [address], 06/16/2025 08:11:40 06/14/2006/15/2025 CBC WITH DIFFE RENTI AL/PL ATELE T eos 3 % not estab. normal Not Available [facility] ([facility]) [address] [facility], [place], [address], 06/16/2025 08:11:40 06/14/20 25 06/15/2025 CBC WITH DIFFE RENTI AL/PL ATELE T basos 2 % not estab. normal Not Available [facility] ([facility]) [address] [facility], [place], [address], 06/16/2025 08:11:40 06/14/2006/15/2025 CBC WITH DIFFE RENTI AL/PL ATELE T immature cells DIRECTOR OF PRODUCT DEVELOPMENT Not Available [facility]) [address] [facility], [place], [address], 06/16/2025 08:11:40 06/14/2006/15/2025 CBC WITH DIFFE RENTI AL/PL ATELE T neutrophils (absolute) 4.8 x10e3 /uL 1.4-7. 0 normal Not Available [facility] ([facility]) [address] [facility], [place], [address], 06/16/2025 08:11:40 06/14/20 25 06/15/2025 CBC WITH DIFFE RENTI AL/PL ATELE T lymphs (absolute) 1.8 x10e3 /uL 0.7-3. 1 normal Not Available [facility] ([facility]) [address] [place], [address], 06/16/2025 08:11:40 06/14/20 25 06/15/2025 CBC WITH DIFFE RENTI AL/PL ATELE T monocytes(ab solute) 0.6 x10e3 /uL 0.1-0. 9 normal Not Available [facility] ([facility]) [address] [facility], [place], [address], 06/16/2025 08:11:40 06/14/20 25 06/15/2025 CBC WITH DIFFE RENTI AL/PL ATELE T eos (absolute) 0.2 x10e3 /uL 0.0-0. 4 normal Not Available [facility] ([facility]) [address] [facility], [place], [address], 06/16/2025 08:11:40 06/14/20 25 06/15/2025 CBC WITH DIFFE RENTI AL/PL ATELE T baso (absolute) 0.1 x10e3 /uL 0.0-0. 2 normal Not Available [facility] ([facility]) [address] [facility], [place], [address], 06/16/2025 08:11:40 06/14/2006/15/2025 CBC WITH DIFFE RENTI AL/PL ATELE T immature granulocytes 0 % not estab. Not Available [facility] ([facility]) [address] [facility], [place], [address], 06/16/2025 08:11:40 06/14/2006/15/2025 CBC WITH DIFFE RENTI AL/PL ATELE T immature grans (abs) 0.0 x10e3 /uL 0.0-0. 1 Not Available [facility] ([facility]) [address] [facility], [place], [address], 06/16/2025 08:11:40 06/14/2006/15/2025 CBC WITH DIFFE RENTI AL/PL ATELE T NRBC DIRECTOR OF PRODUCT DEVELOPMENT Not Available [facility] ([facility]) [address] [facility], [place], [address], 06/16/2025 08:11:40 06/14/2006/15/2025 CBC WITH DIFFE RENTI AL/PL ATELE T hematology comments: DIRECTOR OF PRODUCT DEVELOPMENT Not Available [facility]) [address] [facility], [place], [address], 06/16/2025 08:11:40 09/11/20 25 06/14/2025 COMP. METAB OLIC PANEL (14) [...] at www.k doqi. org. Not Available [facility] ([facility]) [address] [place], [address], 06/16/2025 08:11:41 06/14/20 25 06/15/2025 COMP. METAB OLIC PANEL (14) glucose 94 mg/dL 70-99 normal Not Available [facility] ([facility]) [address] [place], [address], 06/16/2025 08:11:41 06/14/20 25 06/15/2025 COMP. METAB OLIC PANEL (14) BUN 18 mg/dL 8-27 normal Not Available [facility] ([facility]) [address] [place], [address], 06/16/2025 08:11:41 06/14/20 25 06/15/2025 COMP. METAB OLIC PANEL (14) creatinine 1.29 mg/dL 0.76-1 .27 above high normal Not Available [facility] ([facility]) [address] [place], [address], 06/16/2025 08:11:41 06/14/20 25 06/15/2025 COMP. METAB OLIC PANEL (14) eGFR 60 mL/mi n/1.7 3 >59 normal Not Available [facility] ([facility]) [address] [place], [address], 06/16/2025 08:11:41 06/14/20 25 06/15/2025 COMP. METAB OLIC PANEL (14) BUN/creatini ne ratio 14 10-24 normal Not Available [facility]) [address] [place], [address], 06/16/2025 08:11:41 06/14/20 25 06/15/2025 COMP. METAB OLIC PANEL (14) sodium 139 mmol/ L 134-14 4 normal Not Available [facility] ([facility]) [address] [place], [address], 06/16/2025 08:11:41 06/14/20 25 06/15/2025 COMP. METAB OLIC PANEL (14) potassium 4.2 mmol/ L 3.5-5. 2 normal Not Available [facility] ([facility]) [address] [place], [address], 06/16/2025 08:11:41 06/14/20 25 06/15/2025 COMP. METAB OLIC PANEL (14) chloride 105 mmol/ L 96-106 normal Not Available [facility] ([facility]) [address] [place], [address], 06/16/2025 08:11:41 06/14/20 25 06/15/2025 COMP. METAB OLIC PANEL (14) carbon dioxide, total 20 mmol/ L 20-29 normal Not Available [facility] ([facility]) [address] [place], [address], 06/16/2025 08:11:41 06/14/20 25 06/15/2025 COMP. METAB OLIC PANEL (14) calcium 9.6 mg/dL 8.6-10 .2 normal Not Available [facility] ([facility]) [address] [place], [address], 06/16/2025 08:11:41 06/14/20 25 06/15/2025 COMP. METAB OLIC PANEL (14) protein, total 6.4 g/dL 6.0-8. 5 normal Not Available [facility] ([facility]) [address] [place], [address], 06/16/2025 08:11:41 06/14/20 25 06/15/2025 COMP. METAB OLIC PANEL (14) albumin 4.2 g/dL 3.9-4. 9 normal Not Available [facility] ([facility]) [address] [place], [address], 06/16/2025 08:11:41 06/14/20 25 06/15/2025 COMP. METAB OLIC PANEL (14) globulin, total 2.2 g/dL 1.5-4. 5 Not Available [facility] ([facility]) [address] [place], [address], 06/16/2025 08:11:41 06/14/2006/15/2025 COMP. METAB OLIC PANEL (14) bilirubin, total 0.3 mg/dL 0.0-1. 2 normal Not Available [facility] ([facility]) [address] [place], [address], 06/16/2025 08:11:41 06/14/2006/15/2025 COMP. METAB OLIC PANEL (14) alkaline phosphatase [...] 129 48 - 129 Not Available [facility] ([facility]) [address] [place], [address], 06/16/2025 08:11:41 06/14/20 25 06/15/2025 COMP. METAB OLIC PANEL (14) AST (SGOT) 16 IU/L 0-40 normal Not Available [facility] ([facility]) [address] [place], [address], 06/16/2025 08:11:41 06/14/20 25 06/15/2025 COMP. METAB OLIC PANEL (14) ALT (SGPT) 11 IU/L 0-44 normal Not Available [facility] ([facility]) [address] [place], [address], 06/16/2025 08:11:41 06/14/20 25 06/15/2025 LIPID PANEL cholesterol, total 173 mg/dL 100-19 9 normal Not Available [facility] ([facility]) [address] [place], [address], 06/16/2025 08:11:41 06/14/20 25 06/15/2025 LIPID PANEL triglyceride s 210 mg/dL 0-149 above high normal Not Available [facility] ([facility]) [address] [place], [address], 06/16/2025 08:11:41 06/14/20 25 06/15/2025 LIPID PANEL HDL cholesterol 42 mg/dL >39 normal Not Available [facility]) [address] [place], [address], 06/16/2025 08:11:41 06/14/20 25 06/15/2025 LIPID PANEL VLDL cholesterol henok 36 mg/dL 5-40 Not Available [facility]) [address] [facility], [place], [address], 06/16/2025 08:11:41 06/14/20 25 06/15/2025 LIPID PANEL LDL chol calc ([facility]) 95 mg/dL 0-99 Not Available [facility]) [address] [facility], [place], [address], 06/16/2025 08:11:41 06/14/2006/15/2025 LIPID PANEL LDL calc comment: DIRECTOR OF PRODUCT DEVELOPMENT Not Available [facility]) [address] [facility], [place], [address], 06/16/2025 08:11:41 06/14/2006/15/2025 HCV ANTIB SOLEDAD CASCA DE(PC R/GEN O) HCV Ab Non Reacti ve non reacti ve Not Available [facility] ([facility]) [address] [facility], [place], [address], 06/16/2025 08:11:42 06/14/2006/15/2025 HCV ANTIB SOLEDAD CASCA DE(PC R/GEN O) interpretati on: Commen t Not infec lópez with HCV unles s early or acute infec tion is suspe cted (whic h may be delay ed in an immun ocomp romis ed indiv idual ), or other evide nce exist s to indic ate HCV infec tion. Not Available [facility] ([facility]) [address] [facility], [place], [address], 06/16/2025 08:11:42 06/14/2006/14/2025 PSA TOTAL (REFL EX TO FREE) reflex criteria Commen t The perce nt free PSA is perfo rmed on a refle x basis only when the total PSA is betwe en 4.0 and 10.0 ng/mL . Not Available [facility] ([facility]) [address] [facility], [place], [address], 06/16/2025 08:11:42 06/14/2006/15/2025 PSA TOTAL (REFL EX [...] the [facility]se [facility]. Not Available [facility] ([facility]) [address] [facility], [place], [address], 06/16/2025 08:11:42 06/14/2006/15/2025 TSH TSH 1.060 uIU/m L 0.450- 4.500 normal Not Available [facility] ([facility]) [address] [facility], [place], [address], 06/16/2025 08:11:43 06/14/2006/15/2025 HIV AB/P2 4 AG WITH REFLE X HIV Ab/P24 Ag screen Non Reacti ve non reacti ve HIV-1 /HIV- 2 antib odies and HIV-1 p24 antig en were NOT detec lópez. There is no labor atory evide nce of HIV infec tion. HIV Negat desiree Not Available [facility] ([facility]) [address] [facility], [place], [address], 06/16/2025 08:11:43 06/14/20 25 06/16/2025 URINE CULTU RE, ROUTI NE urine culture, routine Final report Not Available [facility] ([facility]) [address] [facility], [place], [address], 06/16/2025 08:11:43 06/14/20 25 06/16/2025 URINE CULTU RE, ROUTI NE result 1 No growth Not Available [facility] ([facility]) [address] [facility], [place], [address], 06/16/2025 08:11:43 06/14/20 25 06/14/2025 urina lysis , dipst ick Leukocytes Negati ve Not Available [address], [address], 06/14/2025 13:41:49 06/14/20 25 06/14/2025 urina lysis , dipst ick Nitrite positi ve Not Available [address], [place], [address], 06/14/2025 13:41:49 06/14/20 25 06/14/2025 urina lysis , dipst ick Urobilinogen .2 Not Available [address], [place], [address], 06/14/2025 13:41:49 06/14/20 25 06/14/2025 urina lysis , dipst ick Protein Negati ve Not Available [address], [address], 06/14/2025 13:41:49 06/14/20 25 06/14/2025 urina lysis , dipst ick pH 7.0 Not Available [address], [address], 06/14/2025 13:41:49 06/14/20 25 06/14/2025 urina lysis , dipst ick Blood Negati ve Not Available [address], [place], [address], 06/14/2025 13:41:49 06/14/20 25 06/14/2025 urina lysis , dipst ick Specific [place] 1.020 Not Available [address], [place], [address], 06/14/2025 13:41:49 06/14/2006/14/2025 urina lysis , dipst ick Ketone Negati ve Not Available [address], [place], [address], 06/14/2025 13:41:49 06/14/20 25 06/14/2025 urina lysis , dipst ick Bilirubin Negati ve Not Available [address], [place], [address], 06/14/2025 13:41:49 06/14/20 25 06/14/2025 urina lysis , dipst ick Glucose Negati ve Not Available [address], [place], [address], 06/14/2025 13:41:49 06/14/20 25 06/14/2025 urina lysis , dipst ick Appearance Clear Not Available [address], [place], [address], 06/14/2025 13:41:49 06/14/20 25 06/14/2025 urina lysis , dipst ick Color [place] Not Available [address] [place], [address], 06/14/2025 13:41:49 03/05/20 trevin figueroa am No observ ation record ed. Not Available 2024 15:32:17 06/19/20 25 06/19/2025 ankle brach ial index , compl ete No observ ation record ed. [id number] [facility] [address], [place], [address], 06/19/2025 17:56:04 Result Notes None recorded. Problems Name Problem SNOMED Code Status Onset Date Resolution Date Notes Provider Name and Address Organization Details Recorded Time Candidias is of mouth 54372834 Completed 202306/14/2025 GEORGIA Shaw [address] [place] [address], [address], [employer] 14:00:02 Chronic obstructi ve pulmonary disease 15213351 Active 2023 GEORGIA Shaw [address] [place] [address], [address], [employer] 4 16:36:15 Erectile dysfuncti on 277207590 Active 2023 GEORGIA Shaw [address] [place] [address], [address], [employer] 5 11:11:08 Acute prostatit is 57223952 Completed 202306/14/2025 GEORGIA Shaw [address] [place] [address], [address], [employer] 14:00:08 Essential hypertens ion 87301263 Active 2023 GEORGIA Shaw [address] [place] [address], [address], [employer] 5 11:11:03 Osteoarth ritis 937473308 Active 2024 GEORGIA Shaw [address] [place] [address], 12[address] 8, [employer] 11:38:22 Obstructi ve sleep apnea syndrome 24731338 Active 2024 GEORGIA Shaw [address] [place] [address], 76744-266 8, [employer] 11:38:09 Dyspnea 959673681 Active 2024 GEORGIA Shaw [address] [place] [address], 30878-252 8, [employer] 14:14:23 Flank pain 121425733 Completed 202406/26/2025 GEORGIA Shaw [address] [place] [address], 06514-840 8, [employer] 17:30:04 Tobacco dependenc e syndrome 04000900 Active 2024 GEORGIA Shaw [address] [place] [address], 72163-968 8, [employer] 12:16:28 Bacterial conjuncti vitis 878722601 Completed 202406/14/2025 GEORGIA Shaw [address] [place] [address], 00185-063 8, [employer] 13:59:57 Weakness of bilateral lower limb Active 2024 GEORGIA Shaw [address] [place] [address], 88003-935 8, [employer] 13:58:53 Acute urinary tract infection 486265895 Completed 202406/26/2025 GEORGIA Shaw [address] [place] [address], 85251-544 8, [employer] 17:30:10 Pain in bilateral legs 603866334214 17528 Active 2024 GEORGIA Shaw [address] [place] [address], 36422-638 8, [employer] 17:56:16 Bacterial sinusitis 150936551 Active 2024 [place] Ben[place] [address] [place] [address], 22171-405 8, [employer] 5 17:32:12 Bronchiti s 73850424 Active 2024 Rocio GEORGIA Bedoya [address] [place] [address], 58212-971 8, [employer] 5 15:12:52 Acute cough Active 2024 Rocio GEORGIA Bedoya [address] [place] [address], 11658-316 8, [employer] 12:24:11 Problem Notes None recorded. Procedures Surgical History Date Name Laterality Status Provider Name and Address Organization Details Recorded Time Back Surgery completed [employer] 08/24/2024 13:34:05 Hernia Repair completed [employer] 08/24/2024 13:34:05 Orthopedic Surgery completed [employer] 08/24/2024 13:34:05 Gallbladder Surgery completed [employer] 08/24/2024 13:34:05 Other completed [email or web address] 01/04/2025 10:57:46 Imaging Results None recorded. Procedure Notes None recorded. Medical Equipment None Reported. Allergies Allergen ID Allergen Name Allergen Category Reaction Reaction Severity Criticality Documentation Date Start Date Code Code System Note Provider Name and Address Organization Details Recorded Time 26688 Substance with sulfonami de structure and antibacte rial mechanism of action (substanc e) medicatio n itching Not available Not available 08/24/2024 71933 8003 SNOMED [place], [employer] 13:34:02 99068 latex environme nt,medica tion rash Not available Not available 08/24/2024 49366 91 RxNorm [place], [employer] 13:34:02 Medications Name Sig Start Date [...] height Body mass index (BMI) Body weight Heart rate Body temperature Oxygen saturation Oxygen saturation in Arterial blood by Pulse oximetry Systolic And Diastolic Systolic And Diastolic Systolic And Diastolic Provider Name and Address Organization Details Last Updated DateTime 5 182.88 cm 30.9 kg/m2 134041. 34 g 78 /min 97.9 [degF] 95 % 95 % 144/78 mm[Hg] 118/78 mm[Hg] 122/80 mm[Hg] [employer] 5 10:59:38 Date Recorded Body height Body mass index (BMI) Body weight Oxygen saturation Oxygen saturation in Arterial blood by Pulse oximetry Heart rate Body temperature Systolic And Diastolic Systolic And Diastolic Systolic And Diastolic Provider Name and Address Organization Details Last Updated DateTime 5 182.88 cm 30.6 kg/m2 744965. 16 g 100 % 100 % 76 /min 98 [degF] 154/74 mm[Hg] 148/80 mm[Hg] 142/78 mm[Hg] [employer] 5 14:17:20 Date Recorded Body height Body mass index (BMI) Body weight Oxygen saturation Oxygen saturation in Arterial blood by Pulse oximetry Heart rate Body temperature Systolic And Diastolic Provider Name and Address Organization Details Last Updated DateTime 5 182.88 cm 30.6 kg/m2 563876. 72 g 98 % 98 % 74 /min 98.2 [degF] 138/86 mm[Hg] [employer] 5 13:38:07 Date Recorded Body height Body mass index (BMI) Body weight Body temperature Oxygen saturation Oxygen saturation in Arterial blood by Pulse oximetry Heart rate Systolic And Diastolic Provider Name and Address Organization Details Last Updated DateTime 5 182.88 cm 30.5 kg/m2 156802. 85 g 98.2 [degF] 98 % 98 % 68 /min 136/84 mm[Hg] [employer] 5 17:13:55 Date Recorded Body height Body mass index (BMI) Body weight Oxygen saturation Oxygen saturation in Arterial blood by Pulse oximetry Heart rate Body temperature Systolic And Diastolic Provider Name and Address Organization Details Last Updated DateTime 182.88 cm 31.3 kg/m2 681462. 84 g 98 % 98 % 92 /min 97.5 [degF] 138/80 mm[Hg] Isabel Barkley [facility], [employer]. 14:58:50 Social History Question Answer Notes LastModified by Organizat ion Details LastModified Time Tobacco Smoking Status Current Every Day Smoker Isabel Barkley kymberly, [employer] 08/24/2024 13:34:05 Do You Have An Advance [...] Information not available 07/27/2025 What Type Of Teradata Developer Do You Use? None Information not available [...] Or The Highest Degree You Have Received? [id number] Information not available 08/24/2024 Have There Been [...] Do You Have A Medical Power Of Jewelry Setter? Yes Information not available 08/24/2024 What Was [...] anxious, or unable to sleep at night)? [id number] Information not available 08/24/2024 Do you have [...] Diseases N Kidney Stones N Hyperthyroidism N Blood Transfusion N Breast Cancer N Emergency room visit since last appointm ent. N Hypothyroidism N Lung Disease Y COPD N Dermatologic Disorders N Depression N Defects or Inherited Disease N Developmental [...] Y High Cholesterol N Liver Disease N Psychiatric/Mental Health Condition N Organ Transplant N Dialysis N Fibromyalgia N Schizophrenia N Headaches N Kidney Disease [...] N Pulmonary Embolism N Tourette Syndrome N Pre-Eclampsia N Hypertension N Chronic Ear Infections N Osteoporosis N Chicken Pox N Autism Spectrum Disorder (ASD) N Thrombophilias N Immunizations Vaccine Type Date Status Note Provider Nam e and Address Organization Details Recorded Time Tdap completed Isabel Vice [facility], [employer] 01/04/2025 10:44:51 influenza, unspecified formulation 4 completed Isabel Vice null, [employer] 01/04/2025 10:44:51 Influenza, high-dose, quadrivalent, PF 2 completed Isabel Vice null, [employer] 01/04/2025 10:44:51 COVID-19, mRNA, LNP-S, PF, 100 mcg/0.5mL dose or 50 mcg/0.25mL dose 1 completed Isabel Vice null, [employer] 01/04/2025 10:44:51 COVID-19, mRNA, LNP-S, PF, 100 mcg/0.5mL dose or 50 mcg/0.25mL dose 1 completed Isabel Vice null, [employer] 01/04/2025 10:44:51 COVID-19, mRNA, LNP-S, PF, 100 mcg/0.5mL dose or 50 mcg/0.25mL dose 2 completed Isabel Vice null, [facility] 01/04/2025 10:44:51 COVID-19, mRNA, LNP-S, PF, 100 mcg/0.5mL dose or 50 mcg/0.25mL dose 1 completed Isabel Vice null, [facility] 01/04/2025 10:44:51 COVID-19, mRNA, LNP-S, PF, 50 mcg/0.5 mL 4 completed Isabel Vice null, [facility] [employer] 01/04/2025 10:44:51 Influenza, high-dose, trivalent, PF 4 completed Isabel Vice null, [facility] [facility] 01/04/2025 10:44:51 Influenza, split virus, trivalent, PF 8 completed Isabel Vice null, [facility] [employer] 01/04/2025 10:44:51 Td (adult), 2 Lf tetanus toxoid, preservative free, adsorbed 7 completed Isabel Vice null, [facility] 01/04/2025 10:44:51 Influenza, split virus, quadrivalent, PF 8 completed Isabel Vice null, [facility] 01/04/2025 10:44:51 Influenza, split virus, quadrivalent, PF 0 completed Isabel Vice null, [facility] [facility] 01/04/2025 10:44:51 Influenza, split virus, quadrivalent, PF 7 completed Isabel Vice null, [facility] 01/04/2025 10:44:51 Influenza, split virus, quadrivalent, PF 9 completed Isabel Vice null, [facility] 01/04/2025 10:44:51 Influenza, split virus, quadrivalent, PF 1 completed Isabel Vice null, [employer] 01/04/2025 10:44:51 Past Encounters Encounter ID Performer Location Encounter Start Date Encounter Closed Date Diagnosis/Indication Diagnosis SNOMED-CT Code Diagnosis ICD10 Code Diagnosis IMO Codes Diagnosis Note [id number] GE[place]IA Shaw [address] [address] 08/24/2024 13:21:56 08/24/2024 14:29:49 Candidiasis of mouth 25830484 B37.0 Body mass index 30+ - obesity 290048591 Z68.31 [id number] GE[place]IA Shaw [address] [address] 01/04/2025 10:28:11 01/04/2025 11:37:16 Pain in penis 180073629 N48.89 Obstructiv e sleep apnea syndrome 18350295 G47.33 Order sent for new Cpap - uses regularly but machine needs to be replaced Chronic ob structive pulmonary disease 18144670 J44.9 [id number] GE[place]IA Shaw [address] [address] 03/05/2025 13:49:24 03/05/2025 14:37:53 Dyspnea 142152040 R06.02 19448 CXR if not improvingE KG showed NSRMay need ECHO if persists Obstructiv e sleep apnea syndrome 04416916 G47.33 Cpap working extremely well Flank pain 280042136 R10 .9 G89.29 2775893 Had nerve block by pain mgmt and doing wellGiven instructio ns to slowly taper Cymbalta [id number] GE[place]IA Shaw [address] [address] 06/14/2025 13:28:17 06/14/2025 14:17:14 Dysuria 49511316 R30.9 861969 Abnormal urinalysis 1672 39256 R82.90 194650 Weakness o f bilateral lower limb 2331223717 17999 R29.898 836569 Acute urin octavio tract infection 213331092 N39.0 661039 Essential hypertension 60330164 I10 Obstructiv e sleep apnea syndrome 16988156 G47.33 Cpap working extremely well Chronic ob structive pulmonary disease 44993978 J44.9 Osteoarthritis 456377132 M19.90 Hyperlipid emia screening 782782798 Z13.220 839370 Thyroid di sorder screening 211709937 Z13.29 29698 HIV screening 146029945 Z11.4 144115 Viral scre ening status 304134271 Z11.59 739922 [id number] GEORGIA Shaw [address] [address] 06/26/2025 16:53:13 06/26/2025 17:43:38 Acute urinary tract infection 515130994 N39.0 Bacterial sinusitis 7034 35972 J32.9 B96.89 3673730 [id number] GE[place]IA Shaw [address] [address] 07/27/2025 14:32:09 07/27/2025 15:21:28 Bronchitis 71450566 J40 04241 Health Concerns Section Related Observation LastModified by Organization Detai ls LastModified Time None Recorded Concern Status LastModified by Organization Details LastModified Time None Recorded Advance Directives Directive Y: Payers Insurance Date Sequence Insurance Name Policy Number Policy Padilla Covered Member ID Padilla Member ID Guarantor Name 07/26/2025 [place] Jacob Lunsford [id number] Jacob Lunsford 08/31/2024 1 [place] Jacob Lunsford [id number] Jacob Lunsford 07/26/2025 2 [employer] (MEDICARE SUPPLEMENT) Jacob Lunsford [id number] Jacob Lunsford 07/26/2025 1 [place] [employer] [facility] Jacob Lunsford [id number] Jacob Lunsford Notes Date Note Type Note Provider Name and Address Organization Details Recorded Time 01/04/2025 text/html ROS as noted in the HPI Patient presents for followup.History of COPD. Using Trelegy and nebs. Also sees pulmonology. Given oxygen but states that he has never used it.History of DEBORAH. Uses Cpap nightly. Works very well but is getting older and needs to be replaced.Recently got a SCS and it is working well. GEORGIA Shaw [address] [place] [address], [address], [facility] 01/04/2025 11:42:32 03/05/2025 text/html ROS as noted in the HPI Patient presents for followup.Recently started new Cpap machine and it is working great.He is having some shortness of breath. He is on antibiotics and steroids from [facility]. Uses Trelegy daily as well. Doesn't really feel bad - just states he is easily winded.Would like to quit smoking. Has used Chantix in the past but then his insurance wouldn't cover it.Has seen pain management for flank pain and got nerve block. It seemed to work extremely well so he is tapering off gabapentin and would like to taper off Cymbalta as well. GEORGIA Shaw [address] [facility], [place], [address], [employer] 03/08/2025 12:00:08 06/14/2025 text/html ROS as noted in the HPI Patient thinks he has a UTI. Mckinley in his penis when he urinates. No fever.Patient complains of weakness in his legs. Left is worse than right. He does smoke. Legs feel heavy at times. GEORGIA Shaw [address] [place], [address], [employer] 06/15/2025 17:36:55 06/26/2025 text/html ROS as noted in the HPI Sinus pain, pressure, watery eyes, sinus drainage X 2-3 days. No fever. Has tried Advil Cold & Sinus without much relief. GEOR[place]IA Shaw [address] [place], [address], [employer] 06/26/2025 17:54:19 07/27/2025 text/html ROS as noted in the HPI Cough and congestion for a week or so. No fever. Cough is productive. GEORGIA Shaw [address] [place], [address], [facility] 07/27/2025 16:03:58
--- OUTSIDE RECORDS SUMMARY | 2025-08-02 17:39 | XMS_ITS | Patient Health Record ---
Author Organization [facility] Address [address] [place] [address] Care Team Providers Care Castings Drafter Name Role Phone Raine Silva Unavailable [phone] Allergies Allergen (clinical drug ingredient) Drug/Non Drug Allergy documented on EMR Reaction Allergy Type Onset Date Status Substance with sulfonamide structure and antibacterial mechanism of action (substance) Sulfa Antibiotics rash Drug Allergy Active Reason For Referral No Information Medications Medication SIG (Take, Route, Frequency, Duration) Notes Start Date End Date Status Fluticasone Propionate 50 MCG/ACT Nasal; Duration: 90 Days Act desiree Losartan Potassium 25 MG Oral; Duration: 90 Days Active Omeprazole 20 MG TAKE 1 CAPSULE BY [facility] ONCE DAILY FOR GERD Oral; Duration: 90 Days Active Pentoxifylline ER 400 MG Oral; Duration: 30 Days Active Doxycycline Hyclate 100 MG 1 capsule Ora lly Once a day; Duration: 10 days 07/24/2025 Active Celecoxib 200 MG Oral; Duration: 30 Days Active Social History Tobacco Use: Social History Observation Description Date Details (start date - stop date) Current Smoker NA - NA Tobacco Control (Standard) Question Answer Notes Tobacco use: Current smoker How many cigarettes a day do you smoke? 11-20 Problems Problem Type SNOMED Code ICD Code Onset Dates Problem Status W/U Status Risk Notes Problem Hypertension (76947662) Hypertension (I10) Active confirmed Problem Gastroesophageal reflux disease (768314378) GERD (K21.9) Active confirmed Problem Arthritis (3721307) Arthritis (M19.90) Active confirmed Problem COPD - Chronic obstructive pulmonary disease (36447482) COPD (chronic obstructive pulmonary disease) (J44.9) Active confirmed Vital Signs Temperature 98.1 degrees Fahrenheit 07/24/2025 Respiratory Rate 18 /min 07/24/2025 Blood pressure diastolic 88 mm Hg 07/24/2025 Oximetry 98 07/24/2025 Height 072 in 07/24/2025 Blood pressure systolic 130 mm Hg 07/24/2025 Weight 0225 lbs 07/24/2025 BMI 30.51 kg/m2 07/24/2025 Encounters Encounter Location Date Provider Diagnosis [id number] [facility] [address] [place] [address] 07/24/2025 Raine Silva Acute upper respiratory infection [...] prevent any further infections Plan Of Treatment No Information Insurance Providers Payer Name Payer Address Payer Phone Subscriber Number Group Number Insured Name Patient Relationship to Insured Coverage Start Date Coverage End Date [place] [address] [place] [phone] [id number] Jacob Lunsford Self - patient is the insured [facility] [employer] [address] [place] [id number] Jacob Lunsford Self - patient is the insured Medical (General) History Medical History History ICD Code Hypertension I10 GERD K21.9 Arthritis M19.90 COPD (chronic obstructive pulmonary dise ase) J44.9 Surgical History Surgery Date(Month/Year) gallbladder hernia back surgery pain stimulater
--- OUTSIDE RECORDS SUMMARY | 2025-08-02 17:39 | XMS_ITS | Continuity of Care Document ---
Author Organization [place] - [facility] Address [address] [place] [address] Assessment No assessment recorded. Plan of Treatment Reminders Order Date Submit Date Provider Last Modified By Organization Details Last Modified Time Details Appointments None recorded. Lab None recorded. Referral None recorded. Procedures None recorded. Surgeries None recorded. Imaging None recorded. Medication Orders doxycycline hyclate 100 mg tablet 2024 025 [facility], [address], [address], 5 15:13:30 prednisone 20 mg tablet 2024 025 [facility], [address], [address], 5 15:13:29 promethazin e-DM 6.25 mg-15 mg/5 mL oral syrup 2024 025 [facility], [address], [address], 5 15:13:29 ceftriaxone 1 gram solution for injection [address] [facility], [address], [address], 5 16:00:59 Depo-Medrol 80 mg/mL suspension for injection [id number] [facility], [address], [address], 16:00:59 Patient TargetsNo targets recorded. Patient Instructions Encounter Date Encounter Id Patient Instructions Last Modified By Organization Details Last Modified Time 07/27/2025 [id number] bronchitis: care instructions [email or web address] Not available 07/27/2025 15:13:23 Reason for Referral None Reported. Problems Name Problem SNOMED Code Status Onset Date Resolution Date Notes Provider Name and Address Organization Details Recorded Time Candidias is of mouth 06045593 Completed 202306/14/2025 GEORGIA Shaw [address] [place] [address], [address] 8, [employer] 14:00:02 Chronic obstructi ve pulmonary disease 34589053 Active 2023 GEORGIA Shaw [address] [place] [address], [address]797 8, [employer] 4 16:36:15 Erectile dysfuncti on 282108871 Active 2023 GEORGIA Shaw [address] [place] [address], [address]316 8, [employer] 5 11:11:08 Acute prostatit is 49637621 Completed 202306/14/2025 GEORGIA Shaw [address] [place] [address], [address]176 8, [employer] 14:00:08 Essential hypertens ion 39627342 Active 2023 GEORGIA Shaw [address] [place] [address], 80320-598 8, [employer] 5 11:11:03 Osteoarth ritis 627102090 Active 2024 GEORGIA Shaw [address] [place] [address], 42567[address]273 8, [employer] 5 11:38:22 Obstructi ve sleep apnea syndrome 86712855 Active 2024 GEORGIA Shaw [address] [place] [address], 47[address]185 8, [place] [employer] 11:38:09 Dyspnea 759311522 Active 2024 GEORGIA Shaw [address] [place] [address], 85480-026 8, [employer] 14:14:23 Flank pain 683497168 Completed 202406/26/2025 GEORGIA Shaw [address] [place] [address], 84486-139 8, [employer] 17:30:04 Tobacco dependenc e syndrome 25796338 Active 2024 GEORGIA Shaw [address] [place] [address], 56513-284 8, [employer] 12:16:28 Bacterial conjuncti vitis 768533253 Completed 202406/14/2025 GEORGIA Shaw [address] [place] [address], 23187-389 8, [employer] 13:59:57 Weakness of bilateral lower limb Active 2024 GEORGIA Shaw [address] [place] [address], 16663-523 8, [place] [employer] 13:58:53 Acute urinary tract infection 224061230 Completed 202406/26/2025 GEORGIA Shaw [address] [place] [address], 60187-088 8, [employer] 17:30:10 Pain in bilateral legs 273427361260 87918 Active 2024 GEORGIA Shaw [address] [place] [address], 00216-754 8, [employer] 17:56:16 Bacterial sinusitis 693445912 Active 2024 GEORGIA Shaw [address] [place] [address], 13409-025 8, [place] [employer] 5 17:32:12 Bronchiti s 64585864 Active 2024 Rocio GEORGIA Bedoya [address] [place] [address], 59106-843 8, [employer] 5 15:12:52 Acute cough Active 2024 Rocio GEORGIA Bedoya [address] [place] [address], 296[address]-852 8, [employer] 5 12:24:11 Problem Notes None recorded. Procedures Surgical History Date Name Laterality Status Provider Name and Address Organization Details Recorded Time Back Surgery completed [employer]. 08/24/2024 13:34:05 Hernia Repair completed [facility]. 08/24/2024 13:34:05 Orthopedic Surgery completed [facility]. 08/24/2024 13:34:05 Gallbladder Surgery completed [facility]. 08/24/2024 13:34:05 Other completed [employer]. 01/04/2025 10:57:46 Imaging Results None recorded. Procedure Notes None recorded. Medical Equipment None Reported. Allergies Allergen ID Allergen Name Allergen Category Reaction Reaction Severity Criticality Documentation Date Start Date Code Code System Note Provider Name and Address Organization Details Recorded Time 58606 Substance with sulfonami de structure and antibacte rial mechanism of action (substanc e) medicatio n itching Not available Not available 08/24/2024 67139 8003 SNOMED [employer]. 4 13:34:02 78908 latex environme nt,medica tion rash Not available Not available 08/24/2024 47327 91 [employer] 13:34:02 Medications Name Sig Start Date [...] Last Updated DateTime 182.88 cm 31.3 kg/m2 388616. 84 g 98 % 98 % 92 /min 97.5 [degF] 138/80 mm[Hg] Isabel Barkley [employer]. 14:58:50 Social History Question Answer Notes LastModified by Organizat ion Details LastModified Time Tobacco Smoking Status Current Every Day Smoker Isabel [email or web address]. 08/24/2024 13:34:05 Do You Have An Advance [...] Information not available 07/27/2025 What Type Of Program Director/Traffic Director Do You Use? None Information not available [...] Or The Highest Degree You Have Received? [id number] Information not available 08/24/2024 Have There Been [...] Do You Have A Medical Power Of Break Off Worker? Yes Information not available 08/24/2024 What Was [...] anxious, or unable to sleep at night)? [id number] Information not available 08/24/2024 Do you have [...] History Condition Response Coronary Artery Disease N Other N Gout N Kidney Stones N Blood Diseases N Hyperthyroidism N Blood Transfusion N Breast Cancer N Emergency room visit since last appointm ent. N COPD N Depression N Dermatologic Disorders N Hypothyroidism N Lung Disease Y Developmental or Behavioral Disorders N Defects or Inherited Disease N Breast Problem N Difficulty Swallowing N [...] Details Recorded Time Tdap completed Isabel Vice traylor, [employer] 01/04/2025 10:44:51 influenza, unspecified formulation 4 completed Isabel Vice null, [employer] 01/04/2025 10:44:51 Influenza, high-dose, quadrivalent, PF 2 completed Isabel Vice null, [employer] 01/04/2025 10:44:51 COVID-19, mRNA, LNP-S, PF, 100 mcg/0.5mL dose or 50 mcg/0.25mL dose 1 completed Isabel Vice null, [employer] 01/04/2025 10:44:51 COVID-19, mRNA, LNP-S, PF, 100 mcg/0.5mL dose or 50 mcg/0.25mL dose 1 completed Isabel Vice null, [employer] 01/04/2025 10:44:51 COVID-19, mRNA, LNP-S, PF, 100 mcg/0.5mL dose or 50 mcg/0.25mL dose 2 completed Isabel Vice null, [employer] 01/04/2025 10:44:51 COVID-19, mRNA, LNP-S, PF, 100 mcg/0.5mL dose or 50 mcg/0.25mL dose 1 completed Isabel Vice null, [employer] 01/04/2025 10:44:51 COVID-19, mRNA, LNP-S, PF, 50 mcg/0.5 mL 4 completed Isabel Vice null, [employer] 01/04/2025 10:44:51 Influenza, high-dose, trivalent, PF 4 completed Isabel Vice null, [employer] 01/04/2025 10:44:51 Influenza, split virus, trivalent, PF 8 completed Isabel Vice null, [employer] 01/04/2025 10:44:51 Td (adult), 2 Lf tetanus toxoid, preservative free, adsorbed 7 completed Isabel Vice null, [employer] 01/04/2025 10:44:51 Influenza, split virus, quadrivalent, PF 8 completed Isabel Vice null, [employer] 01/04/2025 10:44:51 Influenza, split virus, quadrivalent, PF 0 completed Isabel Vice null, [employer] 01/04/2025 10:44:51 Influenza, split virus, quadrivalent, PF 7 completed Isabel Vice null, [employer] 01/04/2025 10:44:51 Influenza, split virus, quadrivalent, PF 9 completed Isabel Vice null, [employer] 01/04/2025 10:44:51 Influenza, split virus, quadrivalent, PF 1 completed Isabel Vice null, [employer] 01/04/2025 10:44:51 Past Encounters Encounter ID Performer Location Encounter Start Date Encounter Closed Date Diagnosis/Indication Diagnosis SNOMED-CT Code Diagnosis ICD10 Code Diagnosis IMO Codes Diagnosis Note [id number] GEORGIA Shaw [address] [address] 07/27/2025 14:32:09 07/27/2025 15:21:28 Bronchitis 63220450 J40 85049 Health Concerns Section Related Observation LastModified by Organization Detai ls LastModified Time None Recorded Concern Status LastModified by Organization Details LastModified Time None Recorded Payers Encounter Date Sequence Insurance Name Policy Number Policy Padilla Covered Member ID Padilla Member ID Guarantor Name 07/27/[address] [facility] (MEDICARE SUPPLEMENT) Jacob Lunsford [id number] Jacob Lunsford 07/27/2025 1 [place]IC[place]: [employer] [facility] Jacob Lunsford [id number] Jacob Lunsford Notes Date Note Type Note Provider Name and Address Organization Details Recorded Time 07/27/2025 text/html ROS as noted in the HPI Cough and congestion for a week or so. No fever. Cough is productive. GEORGIA Shaw [address] [place] [address], [address], [facility] [employer] 07/27/2025 16:03:58
--- OUTSIDE RECORDS SUMMARY | 2025-08-02 17:39 | XMS_ITS | Continuity of Care Document ---
Author Organization [place] - [place] [facility] Address [address] [place] [address] Assessment No assessment recorded. Plan of Treatment Reminders Order Date Submit Date Provider Last Modified By Organization Details Last Modified Time Details Appointments None recorded. Lab inflammatio n panel, serum or plasma 2024 025 [email or web address] [address] [place], [address], 5 08:11:40 urinalysis, dipstick 2024 025 [email or web address] [facility], [address] [facility], [place], [address], 5 14:01:40 PSA, serum or plasma 2024 025 [facility] [address] [place], [address], 5 08:11:42 lipid panel, serum 2024 025 [facility]NA [facility] [address] [place], [address], 5 08:11:41 TSH, ultra-sensi tive, serum 2024 025 [employer] ([place]), [address] [place], [address], 5 08:11:43 culture, urine 2024 025 [facility] ([place]), [address] [place], [address], 5 08:11:44 CBC w/ auto diff 2024 025 [facility] ([place]), [address] [place], [address], 5 08:11:40 CMP, serum or plasma [address] [facility]), [address] [place], [address], 5 08:11:41 Hepatitis C IgG Ab, qual, serum 2024 025 [facility] ([place]), [address] [place], [address], 5 08:11:42 HIV 1 + 2, meaningful use set 2024 025 [facility] ([place]), [address] [place], [address], 5 08:11:43 Referral None recorded. Procedures None recorded. Surgeries None recorded. Imaging ankle brachial index, complete [address], [address], 5 15:58:30 Medication Orders Celebrex 200 mg capsule [email or web address] [place] [address] Pharmacy 591, [address], [address], 5 14:01:38 doxycycline hyclate 100 mg capsule [email or web address] [place] [address] Pharm[address] [place] [address], [address], 14:01:38 ceftriaxone 1 gram solution for injection 2024 025 [facility], [address] [facility] [place], [address], 14:56:07 Pyridium 200 mg tablet 2024 0[facility] [address] [place], [address], 05:01:04 Patient TargetsNo targets recorded. Patient Instructions Encounter Date Encounter Id Patient Instructions Last Modified By Organization Details Last Modified Time 06/14/2025 [id number] arthritis: care instructions [email or web address] Not available 06/14/2025 14:01:38 painful urinatio n (dysuria): care instructions [email or web address] Not available 06/14/2025 14:01:38 chronic obstructive pulmonary disease (COPD): care instructions [email or web address] Not available 06/14/2025 14:01:38 learning about copd and how to prevent lung infections [email or web address] Not available 06/14/2025 14:01:38 sleep apnea: car e instructions [email or web address] Not available 06/14/2025 14:01:38 high blood pressure: care instructions [email or web address] Not available 06/14/2025 14:01:38 learning about high blood pressure Not available 06/14/2025 14:01:38 HIV testing: car e instructions [email or web address] Not available 06/14/2025 14:39:55 Reason for Referral None Reported. Results Created Date Observation Date Name Description Value Unit Range Abnormal Flag Note LastModifiedBy Organization Detail LastModifiedTime 06/14/2006/15/2025 ESR ENRIKE+A NA+RF QN+CR P+CCP (I... rheumatoid factor (rf) <10.0 IU/mL <14.0 Not Available [facility] ([facility]) [address] [facility], [place], [address], 06/16/2025 08:11:40 06/14/2006/15/2025 ESR ENRIKE+A NA+RF QN+CR P+CCP (I... C-reactive protein, quant 1 mg/L 0-10 normal Not Available [facility] ([facility]) [address] [place], [address], 06/16/2025 08:11:40 06/14/20 25 06/15/2025 ESR ENRIKE+A NA+RF QN+CR P+CCP (I... anti-ccp Ab, IgG/IgA 14 units 0-19 Negat desiree <20 Weak posit desiree 20 - 39 Moder ate posit desiree 40 - 59 Stron g posit desiree >59 Not Available [facility] ([facility]) [address] [place], [address], 06/16/2025 08:11:40 06/14/20 25 06/15/2025 ESR ENRIKE+A NA+RF QN+CR P+CCP (I... sedimentatio n rate-westerg jim 8 mm/HR 0-30 normal Not Available [facility] ([facility]) [address] [facility], [place], [address], 06/16/2025 08:11:40 06/14/20 25 06/16/2025 ESR ENRIKE+A NA+RF QN+CR P+CCP (I... RAFFY direct Negati ve negati ve Not Available [facility] ([facility]) [address] [place], [address], 06/16/2025 08:11:40 06/14/20 25 06/15/2025 CBC WITH DIFFE RENTI AL/PL ATELE T WBC 7.5 x10e3 /uL 3.4-10 .8 normal Not Available [facility] ([facility]) [address] [place], [address], 06/16/2025 08:11:40 06/14/20 25 06/15/2025 CBC WITH DIFFE RENTI AL/PL ATELE T RBC 4.62 x10e6 /uL 4.14-5 .80 normal Not Available [facility] ([facility]) [address] [facility], [place], [address], 06/16/2025 08:11:40 06/14/2006/15/2025 CBC WITH DIFFE RENTI AL/PL ATELE T hemoglobin 15.2 g/dL 13.0-1 7.7 normal Not Available [facility] ([facility]) [address] [facility], [place], [address], 06/16/2025 08:11:40 06/14/2006/15/2025 CBC WITH DIFFE RENTI AL/PL ATELE T hematocrit 45.9 % 37.5-5 1.0 normal Not Available [facility] ([facility]) [address] [facility], [place], [address], 06/16/2025 08:11:40 06/14/2006/15/2025 CBC WITH DIFFE RENTI AL/PL ATELE T MCV 99 fL 79-97 above high normal Not Available [facility] ([facility]) [address] [place], [address], 06/16/2025 08:11:40 06/14/2006/15/2025 CBC WITH DIFFE RENTI AL/PL ATELE T MCH 32.9 pg 26.6-3 3.0 normal Not Available [facility] ([facility]) [address] [place], [address], 06/16/2025 08:11:40 06/14/2006/15/2025 CBC WITH DIFFE RENTI AL/PL ATELE T MCHC 33.1 g/dL 31.5-3 5.7 normal Not Available [facility] ([facility]) [address] [place], [address], 06/16/2025 08:11:40 06/14/20 25 06/15/2025 CBC WITH DIFFE RENTI AL/PL ATELE T RDW 12.0 % 11.6-1 5.4 Not Available [facility] ([facility]) [address] [facility], [place], [address], 06/16/2025 08:11:40 06/14/20 25 06/15/2025 CBC WITH DIFFE RENTI AL/PL ATELE T platelets 196 x10e3 /uL 150-45 0 normal Not Available [facility] ([facility]) [address] [facility], [place], [address], 06/16/2025 08:11:40 06/14/20 25 06/15/2025 CBC WITH DIFFE RENTI AL/PL ATELE T neutrophils 63 % not estab. normal Not Available [facility] ([facility]) [address] [facility], [place], [address], 06/16/2025 08:11:40 06/14/20 25 06/15/2025 CBC WITH DIFFE RENTI AL/PL ATELE T lymphs 24 % not estab. normal Not Available [facility] ([facility]) [address] [facility], [place], [address], 06/16/2025 08:11:40 06/14/20 25 06/15/2025 CBC WITH DIFFE RENTI AL/PL ATELE T monocytes 8 % not estab. normal Not Available [facility] ([facility]) [address] [facility], [place], [address], 06/16/2025 08:11:40 06/14/20 25 06/15/2025 CBC WITH DIFFE RENTI AL/PL ATELE T eos 3 % not estab. normal Not Available [facility] ([facility]) [address] [facility], [place], [address], 06/16/2025 08:11:40 06/14/20 25 06/15/2025 CBC WITH DIFFE RENTI AL/PL ATELE T basos 2 % not estab. normal Not Available [facility] ([facility]) [address] [facility], [place], [address], 06/16/2025 08:11:40 06/14/20 25 06/15/2025 CBC WITH DIFFE RENTI AL/PL ATELE T immature cells SCHOOL MANAGER Not Available [facility] ([facility]) [address] [facility], [place], [address], 06/16/2025 08:11:40 06/14/20 25 06/15/2025 CBC WITH DIFFE RENTI AL/PL ATELE T neutrophils (absolute) 4.8 x10e3 /uL 1.4-7. 0 normal Not Available [facility] ([facility]) [address] [place], [address], 06/16/2025 08:11:40 06/14/20 25 06/15/2025 CBC WITH DIFFE RENTI AL/PL ATELE T lymphs (absolute) 1.8 x10e3 /uL 0.7-3. 1 normal Not Available [facility] ([facility]) [address] [place], [address], 06/16/2025 08:11:40 06/14/20 25 06/15/2025 CBC WITH DIFFE RENTI AL/PL ATELE T monocytes(ab solute) 0.6 x10e3 /uL 0.1-0. 9 normal Not Available [facility] ([facility]) [address] [place], [address], 06/16/2025 08:11:40 06/14/20 25 06/15/2025 CBC WITH DIFFE RENTI AL/PL ATELE T eos (absolute) 0.2 x10e3 /uL 0.0-0. 4 normal Not Available [facility] ([facility]) [address] [place], [address], 06/16/2025 08:11:40 06/14/20 25 06/15/2025 CBC WITH DIFFE RENTI AL/PL ATELE T baso (absolute) 0.1 x10e3 /uL 0.0-0. 2 normal Not Available [facility] ([facility]) [address] [facility], [place], [address], 06/16/2025 08:11:40 06/14/20 25 06/15/2025 CBC WITH DIFFE RENTI AL/PL ATELE T immature granulocytes 0 % not estab. Not Available [facility] ([facility]) [address] [facility], [place], [address], 06/16/2025 08:11:40 06/14/20 25 06/15/2025 CBC WITH DIFFE RENTI AL/PL ATELE T immature grans (abs) 0.0 x10e3 /uL 0.0-0. 1 Not Available [facility] ([facility]) [address] [facility], [place], [address], 06/16/2025 08:11:40 06/14/20 25 06/15/2025 CBC WITH DIFFE RENTI AL/PL ATELE T NRBC SCHOOL MANAGER Not Available [facility] ([facility]) [address] [facility], [place], [address], 06/16/2025 08:11:40 06/14/20 25 06/15/2025 CBC WITH DIFFE RENTI AL/PL ATELE T hematology comments: SCHOOL MANAGER Not Available [facility] ([facility]) [address] [facility], [place], [address], 06/16/2025 08:11:40 06/14/2006/14/2025 COMP. METAB OLIC PANEL (14) interpretati on: [...] resol ving acute renal failu re. Addit manuelal lilyr aly nava may be found at www.k doqi. org. Not Available [facility] ([facility]) [address] [facility], [place], [address], 06/16/2025 08:11:41 06/14/20 25 06/15/2025 COMP. METAB OLIC PANEL (14) glucose 94 mg/dL 70-99 normal Not Available [facility] ([facility]) [address] [facility], [place], [address], 06/16/2025 08:11:41 06/14/20 25 06/15/2025 COMP. METAB OLIC PANEL (14) BUN 18 mg/dL 8-27 normal Not Available [facility] ([facility]) [address] [facility], [place], [address], 06/16/2025 08:11:41 06/14/20 25 06/15/2025 COMP. METAB OLIC PANEL (14) creatinine 1.29 mg/dL 0.76-1 .27 above high normal Not Available [facility] ([facility]) [address] [facility], [place], [address], 06/16/2025 08:11:41 06/14/20 25 06/15/2025 COMP. METAB OLIC PANEL (14) eGFR 60 mL/mi n/1.7 3 >59 normal Not Available [facility] ([facility]) [address] [facility], [place], [address], 06/16/2025 08:11:41 06/14/20 25 06/15/2025 COMP. METAB OLIC PANEL (14) BUN/creatini ne ratio 14 10-24 normal Not Available [facility] ([facility]) [address] [facility], [place], [address], 06/16/2025 08:11:41 06/14/20 25 06/15/2025 COMP. METAB OLIC PANEL (14) sodium 139 mmol/ L 134-14 4 normal Not Available [facility] ([facility]) [address] [facility] [place], [address], 06/16/2025 08:11:41 06/14/20 25 06/15/2025 COMP. METAB OLIC PANEL (14) potassium 4.2 mmol/ L 3.5-5. 2 normal Not Available [facility] ([facility]) [address] [facility] [place], [address], 06/16/2025 08:11:41 06/14/2006/15/2025 COMP. METAB OLIC PANEL (14) chloride 105 mmol/ L 96-106 normal Not Available [facility] ([facility]) [address] [facility] [place], [address], 06/16/2025 08:11:41 06/14/20 25 06/15/2025 COMP. METAB OLIC PANEL (14) carbon dioxide, total 20 mmol/ L 20-29 normal Not Available [facility] ([facility]) [address] [facility] [place], [address], 06/16/2025 08:11:41 06/14/20 25 06/15/2025 COMP. METAB OLIC PANEL (14) calcium 9.6 mg/dL 8.6-10 .2 normal Not Available [facility] ([facility]) [address] [facility] [place], [address], 06/16/2025 08:11:41 06/14/20 25 06/15/2025 COMP. METAB OLIC PANEL (14) protein, total 6.4 g/dL 6.0-8. 5 normal Not Available [facility] ([facility]) [address] [facility] [place], [address], 06/16/2025 08:11:41 06/14/20 25 06/15/2025 COMP. METAB OLIC PANEL (14) albumin 4.2 g/dL 3.9-4. 9 normal Not Available [facility] ([facility]) [address] [place], [address], 06/16/2025 08:11:41 06/14/20 25 06/15/2025 COMP. METAB OLIC PANEL (14) globulin, total 2.2 g/dL 1.5-4. 5 Not Available [facility] ([facility]) [address] [place], [address], 06/16/2025 08:11:41 06/14/20 25 06/15/2025 COMP. METAB OLIC PANEL (14) bilirubin, total 0.3 mg/dL 0.0-1. 2 normal Not Available [facility] ([facility]) [address] [place], [address], 06/16/2025 08:11:41 06/14/20 25 06/15/2025 COMP. METAB [...] 129 48 - 129 Not Available [facility] ([facility]) [address] [place], [address], 06/16/2025 08:11:41 06/14/20 25 06/15/2025 COMP. METAB OLIC PANEL (14) AST (SGOT) 16 IU/L 0-40 normal Not Available [facility] ([facility]) [address] [place], [address], 06/16/2025 08:11:41 06/14/20 25 06/15/2025 COMP. METAB OLIC PANEL (14) ALT (SGPT) 11 IU/L 0-44 normal Not Available [facility] ([facility]) [address] [place], [address], 06/16/2025 08:11:41 06/14/20 25 06/15/2025 LIPID PANEL cholesterol, total 173 mg/dL 100-19 9 normal Not Available [facility] ([facility]) [address] [place], [address], 06/16/2025 08:11:41 06/14/20 25 06/15/2025 LIPID PANEL triglyceride s 210 mg/dL 0-149 above high normal Not Available [facility] ([facility]) [address] [place], [address], 06/16/2025 08:11:41 06/14/20 25 06/15/2025 LIPID PANEL HDL cholesterol 42 mg/dL >39 normal Not Available [facility] ([facility]) [address] [place], [address], 06/16/2025 08:11:41 06/14/20 25 06/15/2025 LIPID PANEL VLDL cholesterol henok 36 mg/dL 5-40 Not Available [facility] ([facility]) [address] [place], [address], 06/16/2025 08:11:41 06/14/20 25 06/15/2025 LIPID PANEL LDL chol calc ([facility]) 95 mg/dL 0-99 Not Available [facility] ([facility]) [address] [facility], [place], [address], 06/16/2025 08:11:41 06/14/2006/15/2025 LIPID PANEL LDL calc comment: SCHOOL MANAGER Not Available [facility] ([facility]) [address] [facility], [place], [address], 06/16/2025 08:11:41 06/14/2006/15/2025 HCV ANTIB SOLEDAD CASCA DE(PC R/GEN O) HCV Ab Non Reacti ve non reacti ve Not Available [facility] ([facility]) [address] [facility], [place], [address], 06/16/2025 08:11:42 06/14/2006/15/2025 HCV ANTIB SOLEDAD CASCA DE(PC R/GEN O) interpretati on: Commen t Not infec lópez with HCV unles s early or acute infec tion is suspe cted (whic h may be delay ed in an immun ocomp romis ed indiv idual ), or other evide nce exist s to indic ate HCV infec tion. Not Available [facility] ([facility]) [address] [facility], [place], [address], 06/16/2025 08:11:42 06/14/2006/14/2025 PSA TOTAL (REFL EX TO FREE) reflex criteria Commen t The perce nt free PSA is perfo rmed on a refle x basis only when the total PSA is betwe en 4.0 and 10.0 ng/mL . Not Available [facility] ([facility]) [address] [facility], [place], [address], 06/16/2025 08:11:42 06/14/2006/15/2025 PSA TOTAL (REFL EX [...] the prese nce or absen ce [facility] se. Not Available [facility] ([facility]) [address] [facility], [place], [address], 06/16/2025 08:11:42 06/14/2006/15/2025 TSH TSH 1.060 uIU/m L 0.450- 4.500 normal Not Available [facility] ([facility]) [address] [facility], [place], [address], 06/16/2025 08:11:43 06/14/2006/15/2025 HIV AB/P2 4 AG WITH REFLE X HIV Ab/P24 Ag screen Non Reacti ve non reacti ve HIV-1 /HIV- 2 antib odies and HIV-1 p24 antig en were NOT detec lópez. There is no labor atory evide nce of HIV infec tion. HIV Negat desiree Not Available [facility] ([facility]) [address] [facility], [place], [address], 06/16/2025 08:11:43 06/14/2006/16/2025 URINE CULTU RE, ROUTI NE urine culture, routine Final report Not Available [facility] ([facility]) [address] [place], [address], 06/16/2025 08:11:43 06/14/2006/16/2025 URINE CULTU RE, ROUTI NE result 1 No growth Not Available [facility] ([facility]) [address], [place], [address], 06/16/2025 08:11:43 06/14/2006/14/2025 urina lysis , dipst ick Leukocytes Negati ve Not Available [address], [place], [address], 06/14/2025 13:41:49 06/14/2006/14/2025 urina lysis , dipst ick Nitrite positi ve Not Available [address], [place], [address], 06/14/2025 13:41:49 06/14/2006/14/2025 urina lysis , dipst ick Urobilinogen .2 Not Available [address], [place], [address], 06/14/2025 13:41:49 06/14/2006/14/2025 urina lysis , dipst ick Protein Negati ve Not Available [address], [place], [address], 06/14/2025 13:41:49 06/14/2006/14/2025 urina lysis , dipst ick pH 7.0 Not Available [address], [place], [address], 06/14/2025 13:41:49 06/14/2006/14/2025 urina lysis , dipst ick Blood Negati ve Not Available [address], [address], 06/14/2025 13:41:49 06/14/20 25 06/14/2025 urina lysis , dipst ick Specific [place] 1.020 Not Available [address], [place], [address], 06/14/2025 13:41:49 06/14/2006/14/2025 urina lysis , dipst ick Ketone Negati ve Not Available [address], [address], 06/14/2025 13:41:49 06/14/2006/14/2025 urina lysis , dipst ick Bilirubin Negati ve Not Available [address], [address], 06/14/2025 13:41:49 06/14/2006/14/2025 urina lysis , dipst ick Glucose Negati ve Not Available [address], [address], 06/14/2025 13:41:49 06/14/2006/14/2025 urina lysis , dipst ick Appearance Clear Not Available [address], [address], 06/14/2025 13:41:49 06/14/2006/14/2025 urina lysis , dipst ick Color [place] Not Available [address], [address], 06/14/2025 13:41:49 06/19/2006/19/2025 ankle brach ial index , compl ete No observ ation record ed. [facility] [address], [place], [address], 06/19/2025 17:56:04 Result Notes None recorded. Problems Name Problem SNOMED Code Status Onset Date Resolution Date Notes Provider Name and Address Organization Details Recorded Time Candidias is of mouth 42281984 Completed 202306/14/2025 GEORGIA Shaw [address] [place] [address], [address], [email or web address] 5 14:00:02 Chronic obstructi ve pulmonary disease 86715346 Active 2023 GEORGIA Shaw [address] [place] [address], 175[address]703 8, [employer] 4 16:36:15 Erectile dysfuncti on 697605530 Active 2023 GEORGIA Shaw [address] [place] [address], 44[address] 8, [employer] 5 11:11:08 Acute prostatit is 64838525 Completed 202306/14/2025 GEORGIA Shaw [address] [place] [address], 4[address] 8, [employer] 5 14:00:08 Essential hypertens ion 69760244 Active 2023 GEORGIA Shaw [address] [place] [address], 11089[address]889 8, [employer] 5 11:11:03 Osteoarth ritis 683737197 Active 2024 GEORGIA Shaw [address] [place] [address], 80[address]740 8, [employer] 5 11:38:22 Obstructi ve sleep apnea syndrome 38448755 Active 2024 GEORGIA Shaw [address] [place] [address], 72229-030 8, [employer] 5 11:38:09 Dyspnea 620110614 Active 2024 GEORGIA Shaw [address] [place] [address], 18409-850 8, [employer] 5 14:14:23 Flank pain 103934930 Completed 202406/26/2025 GEORGIA Shaw [address] [place] [address], 29409-957 8, [employer] 17:30:04 Tobacco dependenc e syndrome 56418690 Active 2024 GEORGIA Shaw [address] [place] [address], 14466-435 8, [employer] 12:16:28 Bacterial conjuncti vitis 985802780 Completed 202406/14/2025 GEORGIA Shaw [address] [place] [address], 83730-005 8, [employer] 13:59:57 Weakness of bilateral lower limb Active 2024 GEORGIA Shaw [address] [place] [address], 76675-196 8, [employer] 13:58:53 Acute urinary tract infection 003577865 Completed 202406/26/2025 GEORGIA Shaw [address] [place] [address], 57979-780 8, [employer] 17:30:10 Pain in bilateral legs 605202455711 30057 Active 2024 GEORGIA Shaw [address] [place] [address], 65720-831 8, [employer] 17:56:16 Bacterial sinusitis 787902473 Active 2024 GEORGIA Shaw [address] [place] [address], 19038-135 8, [employer] 17:32:12 Bronchiti s 10792841 Active 2024 GEORGIA Shaw [address] [place] [address], 69176-854 8, [employer] 15:12:52 Acute cough Active 2024 GEORGIA Shaw [address] [place] [address], 19263-590 8, [employer] 12:24:11 Problem Notes None recorded. Procedures Surgical History Date Name Laterality Status Provider Name and Address Organization Details Recorded Time Back Surgery completed [facility] [employer] 08/24/2024 13:34:05 Hernia Repair completed [employer] 08/24/2024 13:34:05 Orthopedic Surgery completed [employer] 08/24/2024 13:34:05 Gallbladder Surgery completed [employer] 08/24/2024 13:34:05 Other completed [employer]. 01/04/2025 10:57:46 Imaging Results None recorded. Procedure Notes None recorded. Medical Equipment None Reported. Allergies Allergen ID Allergen Name Allergen Category Reaction Reaction Severity Criticality Documentation Date Start Date Code Code System Note Provider Name and Address Organization Details Recorded Time 32130 Substance with sulfonami de structure and antibacte rial mechanism of action (substanc e) medicatio n itching Not available Not available 08/24/2024 58086 8003 SNOMED [employer], [employer] 4 13:34:02 97594 latex environme nt,medica tion rash Not available Not available 08/24/2024 46125 91 [employer] 13:34:02 Medications Name Sig Start Date [...] Updated DateTime 5 182.88 cm 30.6 kg/m2 641395. 72 g 98 % 98 % 74 /min 98.2 [degF] 138/86 mm[Hg] Isabel [employer] 5 13:38:07 Social History Question Answer Notes LastModified by Organizat ion Details LastModified Time Tobacco Smoking Status Current Every Day Smoker Isabel traylor [facility] [employer] 08/24/2024 13:34:05 Do You Have An Advance [...] Information not available 07/27/2025 What Type Of Web Site Designer Do You Use? None Information not available [...] Or The Highest Degree You Have Received? [id number] Information not available 08/24/2024 Have There Been [...] Do You Have A Medical Power Of Hot Room Attendant? Yes Information not available 08/24/2024 What Was [...] anxious, or unable to sleep at night)? [id number] Information not available 08/24/2024 Do you have [...] Artery Disease N Other N Gout N Blood Diseases N Kidney Stones N Hyperthyroidism N Blood Transfusion N Breast Cancer N Emergency room visit since last appointm ent. N Lung Disease Y COPD N Depression N Hypothyroidism N Dermatologic Disorders N Defects or Inherited Disease N Developmental or Behavioral Disorders N Breast Problem N Difficulty Swallowing N Anesthesia Complications N History of STI N Anxiety Disorder N Meniere's disease N Autoimmune disease N Muscle, Joint, or Bone Problems N Vision or Eye Problems N Arthritis Y Infertility N Polyps N Mental Disorder N Congenital Anomalies N Acid Reflux (GERD) Y Cancer N Stroke N Neurologic/Epilepsy N Endometriosis N Bladder or Kidney Problems Y High Cholesterol N Liver Disease N Organ Transplant N Psychiatric/Mental Health Condition N Dialysis N Headaches N Fibromyalgia N Schizophrenia N Kidney Disease N Allergies/Hayfever N Heart Problems N Ear or Hearing Problems N Hospitalizations N Learning Disorder N Artificial Joints N Thyroid Problems N GI Problems N Acne N ADD/ADHD N Eating Disorder N Anemia N Constipation N Mental Illness N Diabetes N Ovarian Cancer N Bedwetting N Hepatitis/Liver Disease N Tuberculosis N Eczema N Abuse/Domestic Violence N Diverticulitis N Asthma N Trauma/Violence N Substance Abuse [...] Time Tdap 1 completed Isabel Vice null, [employer] 01/04/2025 10:44:51 influenza, unspecified formulation 4 completed Isabel Vice null, [employer] 01/04/2025 10:44:51 Influenza, high-dose, quadrivalent, PF 2 completed Isabel Vice null, [employer] 01/04/2025 10:44:51 COVID-19, mRNA, LNP-S, PF, 100 mcg/0.5mL dose or 50 mcg/0.25mL dose 1 completed Isabel Vice null, [employer] 01/04/2025 10:44:51 COVID-19, mRNA, LNP-S, PF, 100 mcg/0.5mL dose or 50 mcg/0.25mL dose 1 completed Isabel Vice null, [employer] 01/04/2025 10:44:51 COVID-19, mRNA, LNP-S, PF, 100 mcg/0.5mL dose or 50 mcg/0.25mL dose 2 completed Isabel Vice null, [employer] 01/04/2025 10:44:51 COVID-19, mRNA, LNP-S, PF, 100 mcg/0.5mL dose or 50 mcg/0.25mL dose 1 completed Isabel Vice null, [employer] 01/04/2025 10:44:51 COVID-19, mRNA, LNP-S, PF, 50 mcg/0.5 mL 4 completed Isabel Vice null, [employer] 01/04/2025 10:44:51 Influenza, high-dose, trivalent, PF 4 completed Isabel Vice null, [employer] 01/04/2025 10:44:51 Influenza, split virus, trivalent, PF 8 completed Isabel Vice null, [employer] 01/04/2025 10:44:51 Td (adult), 2 Lf tetanus toxoid, preservative free, adsorbed 7 completed Isabel Vice null, [employer] 01/04/2025 10:44:51 Influenza, split virus, quadrivalent, PF 8 completed Isabel Vice null, [employer] 01/04/2025 10:44:51 Influenza, split virus, quadrivalent, PF 0 completed Isabel Vice null, [employer] 01/04/2025 10:44:51 Influenza, split virus, quadrivalent, PF 7 completed Isabel Vice null, [facility] [employer] 01/04/2025 10:44:51 Influenza, split virus, quadrivalent, PF 9 completed Isabel Vice null, [employer] 01/04/2025 10:44:51 Influenza, split virus, quadrivalent, PF 1 completed Isabel Vice null, [employer] 01/04/2025 10:44:51 Past Encounters Encounter ID Performer Location Encounter Start Date Encounter Closed Date Diagnosis/Indication Diagnosis SNOMED-CT Code Diagnosis ICD10 Code Diagnosis IMO Codes Diagnosis Note [id number] [place] Shaw [facility] [address] [place], [place] [address] [address] 06/14/2025 13:28:17 06/14/2025 14:17:14 Dysuria 34718156 R30.9 328310 Abnormal urinalysis 1672 43248 R82.90 197377 Weakness o f bilateral lower limb 0617943377 56742 R29.898 372254 Acute urin octavio tract infection 837386887 N39.0 754383 Essential hypertension 15518088 I10 Obstructiv e sleep apnea syndrome 05772215 G47.33 Cpap working extremely well Chronic ob structive pulmonary disease 30841895 J44.9 Osteoarthritis 749668225 M19.90 Hyperlipid emia screening 405542080 Z13.220 065693 Thyroid di sorder screening 430804856 Z13.29 71754 HIV screening 107776879 Z11.4 793793 Viral scre ening status 796790637 Z11.59 664032 Health Concerns Section Related Observation LastModified by Organization Detai ls LastModified Time None Recorded Concern Status LastModified by Organization Details LastModified Time None Recorded Payers Encounter Date Sequence Insurance Name Policy Number Policy Padilal Covered Member ID Padilla Member ID Guarantor Name 06/14/2025 2 [employer] (MEDICARE SUPPLEMENT) Jacob Lunsford [id number] Jacob Lunsford 06/14/2025 1 MEDICARE [place] [facility] Jacob Lunsford [id number] Jacob Lunsford Notes Date Note Type Note Provider Name and Address Organization Details Recorded Time 06/14/2025 text/html ROS as noted in the HPI Patient thinks he has a UTI. Mckinley in his penis when he urinates. No fever.Patient complains of weakness in his legs. Left is worse than right. He does smoke. Legs feel heavy at times. [place] Shaw [address] [place] [address], [place], [address], [facility] [employer] 06/15/2025 17:36:55
--- OUTSIDE RECORDS SUMMARY | 2025-08-02 17:39 | XMS_ITS | Clinical Summary ---
Author Organization [facility] ([place], [place], [place], [place]) Address [address] [place] [address] Care Team Providers Care Fur Polisher Name Role Phone Rocio Bedoya PA-C Primary Care Provider [phone] Allergies Active Allergy Reactions Criticality Noted Date [...] COPD (chronic obstructive pulmonary disease) 3 06/12/2023 Family History Medical History Relation Name Comments Cancer Mother Cancer Sister 1 Cancer Sister 2 Relation Name Status Comments Mother Sister 1 Sister 2 Social History Tobacco Use Types Packs/Day Years [...] 06/08/2023 2:04 PM EDT Plan of Treatment Health Maintenance Due Date Last Done Comments CT Colonography 1956 Colonoscopy 1956 Colorectal Cancer Screening 1956 FOBT/FIT 1956 Fit-DNA (Cologuard) 1956 Sigmoidoscopy 1956 Depression Screening (12+) 1968 Hepatitis C Screening 1974 Pneumococcal 50+ years (1 of 2 - PCV) 1975 Shingles Vaccine (Zoster) (1 of 2) 2006 Respiratory Syncytial Virus (RSV) Adult or (1 - Risk 60-74 years 1-dose series) 2016 Medicare Initial AWV [id number] 10/05/2022 Tobacco Cessation Counseling and Screening (12+) 06/11/2024 06/11/2023 Falls Risk Screening 10/04/2024 COVID-19 VACCINE (5 - 2024-2 6 season) 2025 05/05/2022, 07/02/2021, 11/22/2020, Additional history exists Influenza Vaccine (#1) 2025 09/20/2022, 2020 DTAP/TDAP/TD VACCINES (3 - T d or Tdap) 07/05/2031 07/05/2021, 12/04/1996 Medical Devices Implanted Type Area Refrigeration Plant Operator Device Identifier Shelf Expiration Date Model / Serial / Lot Stent Uret Braid + [id number] - [id number] Implanted:Qty : 1 on 06/10/2023 by Guy Mendoza MD at [facility] IMPLANTS Left: Ureter [employer]:UROLOGY/GYNE COLOGY [id number] / [id number] / Insurance MEDICARE PART [place] [address] [address] Advance Directives For more information, please contact: [phone] * Full Code (Latest Code Status on File) Date Activated Date Inactivated Comments 06/10/2023 4:09 PM 06/12/2023 3:05 PM Care Teams Fur Polisher Relationship Specialty Start Date End Date Rocio Bedoya, [facility] [address] [place] [address] PCP - General Physician Frame Tender 06/08/23
--- OUTSIDE RECORDS SUMMARY | 2025-08-02 17:39 | XMS_ITS | Data Portability ---
Author Organization [facility] Office Address [address] [address] Care Team Providers Care Communication Equipment Repairer Name Role Phone ANASTASIIA OLIVEIRA Primary Care Provider Assessment Encounter Date Assessment Date Assessment LastModified by Organization Details LastModified Time 05/03/2024 05/03/2024 NOA (prescription drug monitoring report): reviewed today and is appropriate. Global Risk Assessment Score: low Risk. -All UDS's have been appropriate -All random pill counts have been appropriate when requested -Patient remains on low dose pain medication [email or web address] Not available 05/03/2024 11:41:24 Plan of Treatment Reminders Order Date Submit Date Provider Last Modified By Organization Details Last Modified Time Details Appointments None recorde d. Lab drug screen, urine - Meds: HYDROMO RPHONE AND GABAPET DELVIS TWIN 2023 024 [facility]NA [facility] ([facility]), [address] [place] [address], [id number], 4 13:42:01 drug screen, urine - Meds:HY DROCODO NE AND GABAPEN ITN TWIN 2023 024 [facility]APNA [facility] ([facility]), [address] [place], [address], 4 12:17:19 drug screen, urine - Meds: hydroco done and gabapen tin twin 2023 024 SWAPNA Bl[facility] MD [facility] ([facility]), [address] [place], [address], 4 08:36:42 drug screen, urine - Meds: 2023 024 SWAPNA Bl[facility] MD [facility] ([facility]), [address] [place], [address], 4 08:13:43 [facility] as part of multi mode pain managem ent 2023 024 [facility] [address], [address], [facility] [address], [place], [address], 4 09:15:59 Procedures None recorde d. Surgeries None recorde d. Imaging None recorde d. Medication Orders gabapen tin 300 mg capsule 2023 024 [id number], [address], [id number], 4 08:24:10 hydromo rphone 2 mg tablet 2023 024 [facility][id number], [address], [id number], 4 08:24:06 hydromo rphone 2 mg tablet 2023 024 [facility] #[id number], [address], [id number], 4 08:24:06 gabapen tin 300 mg capsule 2023 024 [facility] #[id number], [address], [id number], 4 08:33:24 hydromo rphone 2 mg tablet 2023 024 [facility], [address] [facility] [address], SHIRIN Horn, [id number], 4 08:33:23 hydromo rphone 2 mg tablet 2023 024 [facility] #, [address] [facility] [address], SH[place] Horn, [id number], 4 12:04:59 gabapen tin 300 mg capsule 2023 024 [facility] #, [address]29 [facility] [address], SH[place] Horn, [id number], 4 09:12:13 hydromo rphone 2 mg tablet 2023 024 [facility] #, [address] [facility] [address], SHIRIN Horn, [id number], 4 09:12:08 hydroco done 7.5 mg-acet aminoph en 325 mg tablet 2023 024 [facility] #, [address] [facility] [address], SHIRIN Horn, [id number], 4 12:19:19 hydroco done 7.5 mg-acet aminoph en 325 mg tablet 2023 024 [facility] #, [address] [facility] [address], SHIRIN Horn, [id number], 4 12:19:20 gabapen tin 300 mg capsule 2023 024 [facility] #, [address] [facility] [address], SHIRIN Horn, [id number], 4 12:19:19 Patient TargetsNo targets recorded. Patient Instructions Encounter Date Encounter Id Patient Instructions Last Modified By Organization Details Last Modified Time 05/03/[id number] I have spent 45min with the patient, reviewing medical records including any diagnostic results, and discussing treatment options including pain medications and pain alleviating procedures. Pt denies THC, cocaine, amphetamines, taking anybody else's prescription medications, etoh, substance abuse, DUI's or arrests. But he did try gummy but it had delta 8 and made him drugged and loopy which he didn't like. He did feel that it helped his pain. few min after my exam he started to have more pain in abd but I couldn't illict any pain with palpation he is currently in PT trial suhail 300mg qhs x 5d and increase to 2 tabs tid increase hydro 7.5mg #30 pharmacy is closed Saturdays and Sundays fill dates 05/05, 06/04/24 f/u eov Dr. Mccormick to discuss sup hypogastric block? Pundendal block? [email or web address] Not available 05/03/2024 12:14:46 07/03/[id number] Take medications EXACTLY as instructed. Call office for any problems DO NOT run out of medications and medications should last till next appointment. Notify office if going to be late or need to reschedule. [email or web address] Not available 07/02/2024 18:27:31 07/31/2024 [id number] Take medications EXACTLY as instructed. Call office for any problems DO NOT run out of medications and medications should last till next appointment. Notify office if going to be late or need to reschedule. [email or web address] Not available 07/30/2024 17:53:25 09/26/2024 [id number] Take medications EXACTLY as instructed. Call office for any problems DO NOT run out of medications and medications should last till next appointment. Notify office if going to be late or need to reschedule. [email or web address] Not available 09/25/2024 08:06:47 Reason for Referral Behavioral Health Referral f or Left lower quadrant pain Pt referred for further and continual pain magement Beh Med eval as part of multi mode pain management Referring Physician: Nasima Frank, Interventional Pain Management, Encounter Date: 05/03/2024 Results Created Date Observation Date Name Description Value Unit Range Abnormal Flag Note LastModifiedBy Organization Detail LastModifiedTime 07/03/20 24 07/03/2024 GABAP ENTIN abnormal status abnormal Not Available Marquis Blanco MD [facility] (In House Lab) [address] [place] [address], [id number], 07/04/2024 08:36:44 07/03/20 24 07/03/2024 GABAP ENTIN abnormal status high Not Available Marquis Blanco MD [facility] (In House Lab) [address] [place] [address], [address], 07/04/2024 08:36:44 07/03/20 24 07/04/2024 OPIAT E DEFIN ITIVE PANEL LC/MS codeine 0.0 NG/mL <75.0 Not Available Shima Blanco MD [facility] (In House Lab) [address] [place] [address], [address], 07/04/2024 08:36:43 07/03/20 24 07/04/2024 OPIAT E DEFIN ITIVE PANEL LC/MS morphine 0 NG/mL <75.0 Not Available Shima Blanco MD [facility] (In House Lab) [address] [place] [address], [address], 07/04/2024 08:36:43 07/03/20 24 07/04/2024 OPIAT E DEFIN ITIVE PANEL LC/MS 6-STEFANO 0 NG/mL <15.0 Not Available Shima Blanco MD [facility] (In House Lab) [address] [place] [address], [address], 07/04/2024 08:36:43 07/03/20 24 07/04/2024 OPIAT E DEFIN ITIVE PANEL LC/MS hydromorphon e 129.1 NG/mL <75.0 abnormal Not Available Marquis Blanco MD [facility] (In House Lab) [address] [place] [address], [address], 07/04/2024 08:36:43 07/03/20 24 07/04/2024 OPIAT E DEFIN ITIVE PANEL LC/MS hydrocodone 336.6 NG/mL <75.0 abnormal Not Available Luis Felipe Blanco MD [facility] (In House Lab) [address] [place] [address], [address], 07/04/2024 08:36:43 07/03/20 24 07/04/2024 OPIAT E DEFIN ITIVE PANEL LC/MS norhydrocodo ne 617.6 NG/mL <75.0 abnormal Not Available Marquis Blanco MD [facility] (In House [facility]) [address] [place] [address], [address], 07/04/2024 08:36:43 07/03/20 24 07/04/2024 GABAP ENTIN DEFIN ITIVE PANEL -LC/M S gabapentin >74432 NG/mL <5000. 0 abnormal Not Available Shima Blanco MD [facility] (In House Lab) [address] [place] [address], [address], 07/04/2024 08:36:42 07/03/20 24 07/03/2024 D-PRE SUMPT SHAWN URINE DRUG REPOR T amphetamine NEGATI VE NG/mL <1000. 0 Not Available Shima Blanco MD [facility] (In House Lab) [address] [place] [address], [address], 07/04/2024 08:36:42 07/03/20 24 07/03/2024 D-PRE SUMPT SHAWN URINE DRUG REPOR T benzodiazepi ne <3.3 NG/mL <200.0 Curre nt metho d may not detec t low level s of Klono pin Not Available Shima Blanco MD [facility] (In House Lab) [address] [place] [address], [id number], 07/04/2024 08:36:42 07/03/20 24 07/03/2024 D-PRE SUMPT SHAWN URINE DRUG REPOR T buprenorphin e NEGATI VE NG/mL <10.0 Not Available Shima Blanco MD [facility] (In House [facility]) [address] [place] [address], [id number], 07/04/2024 08:36:42 09/30/20 24 07/03/2024 D-PRE SUMPT SHAWN URINE DRUG REPOR T cannabinoid NEGATI VE NG/mL <50.0 Not Available Shima Blanco MD [facility] (In House [facility]) [address] [place] [address], [address], 07/04/2024 08:36:42 07/03/20 24 07/03/2024 D-PRE SUMPT SHAWN URINE DRUG REPOR T cocaine NEGATI VE NG/mL <300.0 Not Available Shima Blanco MD [facility] (In House [facility]) [address] [place] [address], [address], 07/04/2024 08:36:42 07/03/20 24 07/03/2024 D-PRE SUMPT SHAWN URINE DRUG REPOR T ethanol NEGATI VE mg/dL <50.0 Not Available Shima Blanco MD [facility] (In House [facility]) [address] [place] [address], [address], 07/04/2024 08:36:42 07/03/20 24 07/03/2024 D-PRE SUMPT SHAWN URINE DRUG REPOR T methadone <0.8 NG/mL <300.0 Not Available Shima Blanco MD [facility] (In House [facility]) [address] [place] [address], [address], 07/04/2024 08:36:42 07/03/20 24 07/03/2024 D-PRE SUMPT SHAWN URINE DRUG REPOR T opiates 390.0 NG/mL <300.0 high Opiat es inclu celsa Codei ne,Mo rphin e, Wacissa morph one,H ydroc odone Not Available Shima Blanco MD [facility] (In House [facility]) [address] [place] [address], [address], 07/04/2024 08:36:42 07/03/20 24 07/03/2024 D-PRE SUMPT SHAWN URINE DRUG REPOR T oxycodone 30.0 NG/mL <300.0 Not Available Shima Blanco MD [facility] (In House [facility]) [address] [place] [address], [address], 07/04/2024 08:36:42 07/03/20 24 07/03/2024 D-PRE SUMPT SHAWN URINE DRUG REPOR T urine creatinine (validity test) 50.0 mg/dL 20.0 - 300.0 Not Available Shima Blanco MD [facility] (In House [facility]) [address] [place] [address], [address], 07/04/2024 08:36:42 07/31/20 24 07/31/2024 GABAP ENTIN abnormal status abnormal Not Available Marquis Blanco MD [facility] (In House [facility]) [address] [place] [address], [address], 08/04/2024 12:17:21 07/31/20 24 08/04/2024 OPIAT E DEFIN ITIVE PANEL LC/MS codeine 0.0 NG/mL <75.0 Not Available Shima Blanco MD [facility] (In House [facility]) [address] [place] [address], [address], 08/04/2024 12:17:20 07/31/20 24 08/04/2024 OPIAT E DEFIN ITIVE PANEL LC/MS morphine 0 NG/mL <75.0 Not Available Shima Blanco MD [facility] (In House [facility]) [address] [place] [address], 06[address], 08/04/2024 12:17:20 07/31/20 24 08/04/2024 OPIAT E DEFIN ITIVE PANEL LC/MS 6-STEFANO 0 NG/mL <15.0 Not Available Shima Blanco MD [facility] (In House [facility]) [address] [place] [address], [address], 08/04/2024 12:17:20 07/31/20 24 08/04/2024 OPIAT E DEFIN ITIVE PANEL LC/MS hydromorphon e 773.4 NG/mL <75.0 abnormal Not Available Marquis Blanco MD [facility] (In House [facility]) [address] [place] [address], [address], 08/04/2024 12:17:20 10/28/20 24 08/04/2024 OPIAT E DEFIN ITIVE PANEL LC/MS hydrocodone 77.9 NG/mL <75.0 abnormal Not Available Luis Felipe Blanco MD [facility] ([facility]) [address] [place] [address], 112[address], 08/04/2024 12:17:20 07/31/20 24 08/04/2024 OPIAT E DEFIN ITIVE PANEL LC/MS norhydrocodo ne 28.3 NG/mL <75.0 Not Available Marquis Blanco MD [facility] (In House [facility]) [address] [place] [address], [address], 08/04/2024 12:17:20 07/31/20 24 08/04/2024 GABAP ENTIN DEFIN ITIVE PANEL -LC/M S gabapentin >11775 NG/mL <5000. 0 abnormal Not Available Shima Blanco MD [facility] (In House [facility]) [address] [place] [address], 85369, 08/04/2024 12:17:19 07/31/20 24 07/31/2024 D-PRE SUMPT SHAWN URINE DRUG REPOR T amphetamine NEGATI VE NG/mL <1000. 0 Not Available Shima Blanco MD [facility] (In House [facility]) [address] [place] [address], [address], 08/04/2024 12:17:19 07/31/20 24 07/31/2024 D-PRE SUMPT SHAWN URINE DRUG REPOR T benzodiazepi ne <3.3 NG/mL <200.0 Curre nt metho d may not detec t low level s of Klono pin Not Available Shima Blanco MD [facility] ([facility]) [address] [place] [address], [address], 08/04/2024 12:17:19 07/31/20 24 07/31/2024 D-PRE SUMPT SHAWN URINE DRUG REPOR T buprenorphin e NEGATI VE NG/mL <10.0 Not Available Shima Blanco MD [facility] ([facility] House [facility]) [address] [place] [address], 35939, 08/04/2024 12:17:19 07/31/20 24 07/31/2024 D-PRE SUMPT SHAWN URINE DRUG REPOR T cannabinoid NEGATI VE NG/mL <50.0 Not Available Shima Blanco MD [facility] (In House [facility]) [address] [place], [address], 08/04/2024 12:17:19 07/31/20 24 07/31/2024 D-PRE SUMPT SHAWN URINE DRUG REPOR T cocaine NEGATI VE NG/mL <300.0 Not Available Shima Blanco MD [facility] (In House [facility]) [address] [place] [address], [address], 08/04/2024 12:17:19 07/31/20 24 07/31/2024 D-PRE SUMPT SHAWN URINE DRUG REPOR T ethanol NEGATI VE mg/dL <50.0 Not Available Shima Blanco MD [facility] (In House [facility]) [address] [place] [address], 35191, 08/04/2024 12:17:19 07/31/20 24 07/31/2024 D-PRE SUMPT SHAWN URINE DRUG REPOR T methadone 27.0 NG/mL <300.0 Not Available Shima Blanco MD [facility] (In House [facility]) [address] [place], [address], 08/04/2024 12:17:19 07/31/20 24 07/31/2024 D-PRE SUMPT SHAWN URINE DRUG REPOR T opiates 283.0 NG/mL <300.0 Opiat es inclu celsa Codei ne,Mo rphin e, Wacissa morph one,H ydroc odone Not Available Shima Blanco MD [facility] (In House Lab) [facility] [place], [address], 08/04/2024 12:17:19 07/31/20 24 07/31/2024 D-PRE SUMPT SHAWN URINE DRUG REPOR T oxycodone 13.0 NG/mL <300.0 Not Available Shima Blanco MD [facility] (In House [facility]) [address] [place] [address], [address], 08/04/2024 12:17:19 07/31/2007/31/2024 D-PRE SUMPT SHAWN URINE DRUG REPOR T urine creatinine (validity test) 38.5 mg/dL 20.0 - 300.0 Not Available Shima Blanco MD [facility] ([facility] House [facility]) [address] [place] [address], 15357, 08/04/2024 12:17:19 09/26/20 24 09/26/2024 GABAP ENTIN abnormal status abnormal Not Available Marquis Blanco MD [facility] (In House [facility]) [address] [place] [address], [address]27, 10/02/2024 13:42:04 09/26/20 24 09/26/2024 GABAP ENTIN abnormal status high Not Available Marquis Blanco MD [facility] (In House [facility]) [address] [place] [address], [address], 10/02/2024 13:42:04 09/26/20 24 10/02/2024 OPIAT E DEFIN ITIVE PANEL LC/MS codeine 0.0 NG/mL <75.0 Not Available Shima Blanco MD [facility] (In House [facility]) [address] [place] [address], [address]14, 10/02/2024 13:42:03 09/26/20 24 10/02/2024 OPIAT E DEFIN ITIVE PANEL LC/MS morphine 0 NG/mL <75.0 Not Available Shima Blanco MD [facility] (In House [facility]) [address] [place] [address], [address]10, 10/02/2024 13:42:03 09/26/2010/02/2024 OPIAT E DEFIN ITIVE PANEL LC/MS 6-STEFANO 0 NG/mL <15.0 Not Available Shima Blanco MD [facility] (In House [facility]) [address] [place] [address], 38506, 10/02/2024 13:42:03 09/26/2026 0910/02/2024 OPIAT E DEFIN ITIVE PANEL LC/MS hydromorphon e 2590.5 NG/mL <75.0 abnormal Not Available Marquis Blanco MD [facility] (In House [facility]) [address] [place] [address], 31993, 10/02/2024 13:42:03 09/26/20 24 10/02/2024 OPIAT E DEFIN ITIVE PANEL LC/MS hydrocodone 0 NG/mL <75.0 Not Available Marquis Blanco MD [facility] (In House [facility]) [address] [place] [address], 46794, 10/02/2024 13:42:03 09/26/20 24 10/02/2024 OPIAT E DEFIN ITIVE PANEL LC/MS norhydrocodo ne 0 NG/mL <75.0 Not Available Marquis Blanco MD [facility] (In House [facility]) [address] [place] [address], 07202, 10/02/2024 13:42:03 09/26/20 24 10/02/2024 GABAP ENTIN DEFIN ITIVE PANEL -LC/M S gabapentin >28661 NG/mL <5000. 0 abnormal Not Available Shima Blanco MD [facility] (In House [facility]) [address] [place] [address], 14740, 10/02/2024 13:42:02 09/26/20 24 10/02/2024 BENZO DIAZE PINE DEFIN ITIVE PANEL - LC/MS alprazolam 0 NG/mL <75.0 Not Available Shima Blanco MD [facility] (In House [facility]) [address] [place] [address], 86637, 10/02/2024 13:42:02 09/26/20 24 10/02/2024 BENZO DIAZE PINE DEFIN ITIVE PANEL - LC/MS A-hydroxyalp razolam 0 NG/mL <75.0 Not Available Marquis Blanco MD [facility] (In House [facility]) [address] [place] [address], 97500, 10/02/2024 13:42:02 09/26/20 24 10/02/2024 BENZO DIAZE PINE DEFIN ITIVE PANEL - LC/MS clonazepam 0 NG/mL <75.0 Not Available Shima Blanco MD [facility] (In [facility]) [address] [place] [address], 71714, 10/02/2024 13:42:02 09/26/20 24 10/02/2024 BENZO DIAZE PINE DEFIN ITIVE PANEL - LC/MS 7-aminoclona zepam 0 NG/mL <75.0 Not Available Marquis Blanco MD [facility] (In [facility]) [address] [place] [address], 10048, 10/02/2024 13:42:02 09/26/20 24 10/02/2024 BENZO DIAZE PINE DEFIN ITIVE PANEL - LC/MS diazepam 0 NG/mL <75.0 Not Available Shima Blanco MD [facility] ([facility]) [address] [place] [address], 70474, 10/02/2024 13:42:02 09/26/20 24 10/02/2024 BENZO DIAZE PINE DEFIN ITIVE PANEL - LC/MS oxazepam 84.8 NG/mL <75.0 abnormal Not Available Shima Blanco MD [facility] (In [facility]) [address] [place] [address], 08504, 10/02/2024 13:42:02 09/26/20 24 10/02/2024 BENZO DIAZE PINE DEFIN ITIVE PANEL - LC/MS temazepam 125.7 NG/mL <75.0 abnormal Not Available Shima Blanco MD [facility] ([facility]) [address] [place] [address], 07101, 10/02/2024 13:42:02 09/26/20 24 10/02/2024 BENZO DIAZE PINE DEFIN ITIVE PANEL - LC/MS lorazepam 0 NG/mL <75.0 Not Available Shima Blanco MD [facility] ([facility]) [address] [place] [address], 93605, 10/02/2024 13:42:02 09/26/20 24 09/26/2024 D-PRE SUMPT SHAWN URINE DRUG REPOR T amphetamine NEGATI VE NG/mL <1000. 0 Not Available Shima Blanco MD [facility] ([facility]) [address] [place] [address], 24175, 10/02/2024 13:42:01 09/26/20 24 09/26/2024 D-PRE SUMPT SHAWN URINE DRUG REPOR T benzodiazepi ne 505.0 NG/mL <200.0 high Curre nt metho d may not detec t low level s of Klono pin Not Available Shima Blanco MD [facility] ([facility]) [address] [place] [address], 05156, 10/02/2024 13:42:01 09/26/20 24 09/26/2024 D-PRE SUMPT SHAWN URINE DRUG REPOR T buprenorphin e NEGATI VE NG/mL <10.0 Not Available Shima Blanco MD [facility] (In [facility]) [address] [place] [address], 42147, 10/02/2024 13:42:01 09/26/20 24 09/26/2024 D-PRE SUMPT SHAWN URINE DRUG REPOR T cannabinoid NEGATI VE NG/mL <50.0 Not Available Shima Blanco MD [facility] ([facility]) [address] [place] [address], 31997, 10/02/2024 13:42:01 09/26/20 24 09/26/2024 D-PRE SUMPT SHAWN URINE DRUG REPOR T cocaine NEGATI VE NG/mL <300.0 Not Available Shima Blanco MD [facility] ([facility]) [address] [place] [address], 67502, 10/02/2024 13:42:01 09/26/20 24 09/26/2024 D-PRE SUMPT SHAWN URINE DRUG REPOR T ethanol NEGATI VE mg/dL <50.0 Not Available Shima Blanco MD [facility] (In [facility]) [address] [place] [address], 91058, 10/02/2024 13:42:01 09/26/20 24 09/26/2024 D-PRE SUMPT SHAWN URINE DRUG REPOR T methadone <0.8 NG/mL <300.0 Not Available Shima [facility] ([facility]) [address] [place] [address], 59292, 10/02/2024 13:42:01 09/26/20 24 09/26/2024 D-PRE SUMPT SHAWN URINE DRUG REPOR T opiates 488.0 NG/mL <300.0 high Opiat es inclu celsa Codei ne,Mo rphin e, Wacissa morph one,H ydroc odone Not Available Shima Blanco MD [facility] ([facility]) [address] [place] [address], 55645, 10/02/2024 13:42:01 09/26/20 24 09/26/2024 D-PRE SUMPT SHAWN URINE DRUG REPOR T oxycodone 30.0 NG/mL <300.0 Not Available Shima Blanco MD [facility] ([facility]) [address] [place] [address], 34600, 10/02/2024 13:42:01 09/26/20 24 09/26/2024 D-PRE SUMPT SHAWN URINE DRUG REPOR T urine creatinine (validity test) 149.4 mg/dL 20.0 - 300.0 Not Available Shima Blanco MD [facility] ([facility]) [address] [place] [address], 61321, 10/02/2024 13:42:01 Result Notes None recorded. Problems Name Problem SNOMED Code Status Onset Date Resolution Date Notes Provider Name and Address Organization Details Recorded Time Left sided abdominal pain [id number] Active 024 Nasima Frank MD [address] [place] [address], [id number], [facility] 4 12:13:39 Problem Notes None recorded. Medical Equipment None Reported. Medications Name Sig Start Date Stop Date Status Note LastModified by Organization Details LastModified Time diazepam 10mg suppository # Insert 1 suppository (10 mg total) into the rectum every night as needed (pelvic pain). active Not Available Not Available No t Available cyclobenzapr ine 10 mg tablet TAKE 1 TABLET BY MOUTH THREE TIMES DAILY NEEDED FOR MUSCLE SPASM active Not Available Not Available No t Available clotrimazole 10 mg tiffany active Not Available Not Available Not Available nystatin 100,000 unit/mL oral suspension SWISH & SWALLOW 10 ML BY MOUTH 4 TIMES DAILY FOR 10 DAYS active Not Available Not Available No t Available azithromycin 250 mg tablet TAKE 2 TABLETS BY MOUTH ON DAY 1, AND THEN TAKE 1 TABLET BY MOUTH ONCE A DAY ON DAY 2 THROUGH DAY 5 active Not Available Not Available No t Available levalbuterol 0.63 mg/3 mL solution for nebulization USE 1 IN NEBULIZER EVERY 8 HOURS NEEDED FOR SHORTNESS OF BREATH OR WHEEZING active Not Available Not Available Not Available hydrocodone 5 mg-acetamino phen 325 mg tablet TAKE 1 TABLET BY MOUTH EVERY 6 HOURS NEEDED FOR PAIN active Not Available Not Available No t Available fluconazole 200 mg tablet TAKE 1 TABLET BY MOUTH ONCE DAILY FOR 7 DAYS active Not Available Not Available No t Available meloxicam 15 mg tablet TAKE 1 TABLET BY MOUTH ONCE DAILY NEEDED FOR PAIN active Not Available Not Available No t Available prednisone 20 mg tablet TAKE 1 TABLET BY MOUTH TWICE DAILY WITH FOOD OR MILK active Not Available Not Available No t Available losartan 100 mg-hydrochlo rothiazide 25 mg tablet active Not Available Not Available Not Available hydromorphon e 2 mg tablet TAKE 1 TABLET BY MOUTH FOUR TIMES DAILY active Not Available Not Available Not Available baclofen 10 mg tablet active Not Available Not Available No t Available hydrocodone 7.5 mg-acetamino phen 325 mg tablet TAKE 1 TABLET BY MOUTH EVERY DAY NEEDED active Not Available Not Available No t Available buspirone 10 mg tablet TAKE 1 TABLET BY MOUTH TWICE DAILY active Not Available Not Available No t Available losartan 25 mg tablet TAKE 1 TABLET BY MOUTH TWICE DAILY DIRECTED active Not Available Not Available No t Available docusate sodium 100 mg capsule TAKE 1 CAPSULE BY MOUTH TWICE DAILY FOR 10 DAYS active Not Available Not Available No t Available gabapentin 300 mg capsule TAKE 2 CAPSULES BY MOUTH THREE TIMES DAILY active Not Available Not Available Not Available omeprazole 20 mg capsule,michelle yed release TAKE 1 CAPSULE BY MOUTH ONCE DAILY active Not Available Not Available No t Available mupirocin 2 % topical ointment APPLY A SMALL AMOUNT TO THE NOSTRILS 3 TIMES PER DAY FOR 5 DAYS PRIOR TO PROCEDURE active Not Available Not Available No t Available prednisone 5 mg tablets in a dose pack TAKE DIRECTED ON PACKAGE active Not Available Not Available No t Available ibuprofen 600 mg tablet TAKE 1 TABLET BY MOUTH EVERY 6 HOURS NEEDED WITH FOOD active Not Available Not Available No t Available cefuroxime axetil 500 mg tablet TAKE 1 TABLET BY MOUTH EVERY 12 HOURS active Not Available Not Available No t Available levofloxacin 500 mg tablet TAKE 1 TABLET BY MOUTH ONCE DAILY FOR 7 DAYS active Not Available Not Available No t Available levofloxacin 750 mg tablet active Not Available Not Available Not Available fluticasone propionate 50 mcg/actuatio n nasal spray,suspen frank USE 1 SPRAY(S) IN EACH NOSTRIL TWICE DAILY active Not Available Not Available Not Available amoxicillin 500 mg-potassium clavulanate 125 mg tablet TAKE 1 TABLET BY MOUTH TWICE DAILY FOR 14 DAYS active Not Available Not Available No t Available tadalafil 20 mg tablet TAKE 1/2 TO 1 (ONE-HALF TO ONE) TABLET BY MOUTH ONCE DAILY NEEDED 30 MINUTES BEFORE SEXUAL ACTIVITY; DO NOT USE MORE THAN 1 DOSE PER 24 HRS. active Not Available Not Available No t Available nitrofuranto in monohydrate/ macrocrystal s 100 mg capsule TAKE 1 CAPSULE BY MOUTH TWICE DAILY active Not Available Not Available No t Available duloxetine 30 mg capsule,michelle yed release TAKE 1 CAPSULE BY MOUTH TWICE DAILY NEEDED active Not Available Not Available No t Available chlorhexidin e gluconate 0.12 % mouthwash RINSE WITH 15ML FOR 30 SECONDS AND SPIT, USE TWICE DAILY AFTER BRUSHING AND FLOSSING . active Not Available Not Available N ot Available Vitals Date Recorded Respiratory rate Heart rate Body weight Systolic And Diastolic Provider Name and Address Organization Details Last Updated DateTime 07/03/2024 16 /min 60 /min 332209.6 9 g 154/84 mm[Hg] [facility] 07/03/2024 08:44:28 Date Recorded Respiratory rate Heart rate Systolic And Diastolic Provider Name and Address Organization Details Last Updated DateTime 07/31/2024 16 /min 68 /min 161/105 mm[Hg] [facility] 07/31/2024 08:21:07 Date Recorded Body weight Respiratory rate Body temperature Body mass index (BMI) Body height Heart rate Systolic And Diastolic Provider Name and Address Organization Details Last Updated DateTime 4 775941. 25 g 16 /min 98 [degF] 31.2 kg/m2 182.88 cm 80 /min 153/92 mm[Hg] Johnny Laura [facility] 4 08:08:23 Social History None recorded. Functional Status None recorded. Mental Status None recorded. Family History Nothing Reported. Medical History No medical history recorded. Past Encounters Encounter ID Performer Location Encounter Start Date Encounter Closed Date Diagnosis/Indication Diagnosis SNOMED-CT Code Diagnosis ICD10 Code Diagnosis IMO Codes Diagnosis Note [id number] Nasima Frank MD [address] [place] [id number] 05/03/2024 08:55:16 05/04/2024 10:10:24 Left lower quadrant pain 370171579 R10.32 Long-term current use of opiate analgesic drug 1319983630 36135 Z79.891 Diagnostic /Lab: Order Presumptiv e UDT (necessary for rapid results) with Definitive confirmati on for chronic pain patient, to define treatment and reinforce therapeuti c compliance ; the following apply: [Presumpti ve UDT includes: (Amp, Carmen, Forrest, Bup, THC, JUNAID, ETOH, Meth, Opi, Oxy )] *-Patient is receiving controlled medication s. *-Presumpt shawn UDT to identify presence of illicit/no n-prescrib ed substance( s) - Confirm positive for ongoing safe prescribin g of controlled substances . *-Presumpt shawn UDT to identify presence of licit/pres cribed substance( s)-Confirm unexpected results, identify specific drug(s) in large class and ensure appropriat e use of prescribed medication (s). *-Definiti ve UDT inadequate ly detected by Presumptiv e UDT (gabapenti n, pregabalin , tramadol, fentanyl, tapentadol and carisoprod ol). Left sided abdominal pain 722131436 R10.9 [id number] SIRNIVASAN [place] MD [address] [place], [place] [address] [place] [address] 07/03/2024 08:20:07 07/03/2024 09:26:22 Long-term current use of opiate analgesic drug 9365271624 06997 Z79.891 Diagnostic /Lab: Order Presumptiv e UDT (necessary for rapid results) with Definitive confirmati on for chronic pain patient, to define treatment and reinforce therapeuti c compliance ; the following apply: [Presumpti ve UDT includes: (Amp, Carmen, Forrest, Bup, THC, JUNAID, ETOH, Meth, Opi, Oxy )] *-Patient is receiving controlled medication s. *-Presumpt shawn UDT to identify presence of illicit/no n-prescrib ed substance( s) - Confirm positive for ongoing safe prescribin g of controlled substances . *-Presumpt shawn UDT to identify presence of licit/pres cribed substance( s)-Confirm unexpected results, identify specific drug(s) in large class and ensure appropriat e use of prescribed medication (s). *-Definiti ve UDT inadequate ly detected by Presumptiv e UDT (gabapenti n, pregabalin , tramadol, fentanyl, tapentadol and carisoprod ol). Left sided abdominal pain 236825258 R10.9 [id number] SRINIVASAN MCCORMICK MD [address] [place] [phone] 07/31/2024 08:16:22 07/31/2024 08:47:14 Long-term current use of opiate analgesic drug [id number] 54687 Z79.891 Diagnostic /Lab: Order Presumptiv e UDT (necessary for rapid results) with Definitive confirmati on for chronic pain patient, to define treatment and reinforce therapeuti c compliance ; the following apply:[Pre sumptive UDT includes: (Amp, Carmen, Forrest, Bup, THC, JUNAID, ETOH, Meth, Opi, Oxy )]*-Patien t is receiving controlled medication s.*-Presum ptive UDT to identify presence of illicit/no n-prescrib ed substance( s) - Confirm positive for ongoing safe prescribin g of controlled substances .*-Presump tive UDT to identify presence of licit/pres cribed substance( s)-Confirm unexpected results, identify specific drug(s) in large class and ensure appropriat e use of prescribed medication (s). _*-Definit shawn UDT inadequate ly detected by Presumptiv e UDT (gabapenti n, pregabalin , tramadol, fentanyl, tapentadol and carisoprod ol).Diagno stic/Lab: Order Presumptiv e UDT (necessary for rapid results) with Definitive confirmati on for chronic pain patient, to define treatment and reinforce therapeuti c compliance ; the following apply: [Presumpti ve UDT includes: (Amp, Carmen, Forrest, Bup, THC, JUNAID, ETOH, Meth, Opi, Oxy )] *-Patient is receiving controlled medication s. *-Presumpt shawn UDT to identify presence of illicit/no n-prescrib ed substance( s) - Confirm positive for ongoing safe prescribin g of controlled substances . *-Presumpt shawn UDT to identify presence of licit/pres cribed substance( s)-Confirm unexpected results, identify specific drug(s) in large class and ensure appropriat e use of prescribed medication (s). *-Definiti ve UDT inadequate ly detected by Presumptiv e UDT (gabapenti n, pregabalin , tramadol, fentanyl, tapentadol and carisoprod ol). Left sided abdominal pain 997328453 R10.9 [id number] SRINIVASAN [place] MD [facility] [address] [phone] 09/26/2024 08:05:45 09/26/2024 08:25:32 Left sided abdominal pain 825409395 R10.9 Long-term current use of opiate analgesic drug [id number] 29220 Z79.891 [id number] Diagnostic /Lab: Order Presumptiv e UDT (necessary for rapid results) with Definitive confirmati on for chronic pain patient, to define treatment and reinforce therapeuti c compliance ; the following apply:[Pre sumptive UDT includes: (Amp, Carmen, Forrest, Bup, THC, JUNAID, ETOH, Meth, Opi, Oxy )]*-Patien t is receiving controlled medication s.*-Presum ptive UDT to identify presence of illicit/no n-prescrib ed substance( s) - Confirm positive for ongoing safe prescribin g of controlled substances .*-Presump tive UDT to identify presence of licit/pres cribed substance( s)-Confirm unexpected results, identify specific drug(s) in large class and ensure appropriat e use of prescribed medication (s). _*-Definit shawn UDT inadequate ly detected by Presumptiv e UDT (gabapenti n, pregabalin , tramadol, fentanyl, tapentadol and carisoprod ol).Diagno stic/Lab: Order Presumptiv e UDT (necessary for rapid results) with Definitive confirmati on for chronic pain patient, to define treatment and reinforce therapeuti c compliance ; the following apply:[Pre sumptive UDT includes: (Amp, Carmen, Forrest, Bup, THC, JUNAID, ETOH, Meth, Opi, Oxy )]*-Patien t is receiving controlled medication s.*-Presum ptive UDT to identify presence of illicit/no n-prescrib ed substance( s) - Confirm positive for ongoing safe prescribin g of controlled substances .*-Presump tive UDT to identify presence of licit/pres cribed substance( s)-Confirm unexpected results, identify specific drug(s) in large class and ensure appropriat e use of prescribed medication (s). _*-Definit shawn UDT inadequate ly detected by Presumptiv e UDT (gabapenti n, pregabalin , tramadol, fentanyl, tapentadol and carisoprod ol).Diagno stic/Lab: Order Presumptiv e UDT (necessary for rapid results) with Definitive confirmati on for chronic pain patient, to define treatment and reinforce therapeuti c compliance ; the following apply: [Presumpti ve UDT includes: (Amp, Carmen, Forrest, Bup, THC, JUNAID, ETOH, Meth, Opi, Oxy )] *-Patient is receiving controlled medication s. *-Presumpt shawn UDT to identify presence of illicit/no n-prescrib ed substance( s) - Confirm positive for ongoing safe prescribin g of controlled substances . *-Presumpt shawn UDT to identify presence of licit/pres cribed substance( s)-Confirm unexpected results, identify specific drug(s) in large class and ensure appropriat e use of prescribed medication (s). *-Definiti ve UDT inadequate ly detected by Presumptiv e UDT (gabapenti n, pregabalin , tramadol, fentanyl, tapentadol and carisoprod ol). Health Concerns Section Related Observation LastModified by Organization Detai ls LastModified Time None Recorded Concern Status LastModified by Organization Details LastModified Time None Recorded Advance Directives Directive None Recorded Payers Insurance Date Sequence Insurance Name Policy Number Policy Padilla Covered Member ID Padilla Member ID Guarantor Name 07/23/2024 1 UNSPECIFIED REMIT PAYOR Jacob Lunsford 11/21/2024 2 [employer] (MEDICARE SUPPLEMENT) Jacob Lunsford [id number] Jacob Lunsford 11/21/2024 1 [place] Jacob Lunsford [id number] Jacob Lunsford Notes Date Note Type Note Provider Name and Address Organization Details Recorded Time 05/03/20 24 text/htm l HPIPt here for NPE for pain in LLQ that radiates to his back. Pain start 8yr ago without inciting injury or event. He has had thorough w/u with Neurology and Gastrology. It has gotten worse in last 2yrs. The Urologist put a stent in Ureter at attachment to kidney and pain quit for 2mos but then pain returned. Urologist went back up and said no change. 8yrs ago he had abd hernia repair which they thought would help pain but it didn't. With his pain he would have urethritis, bladder spasms, swollen L testicle but now not linked to his pain as much. Scan of testicles nml. He has a CT to r/u mesenteric ischemia tomorrow which is a repeat from 2022 which was nml. He has had colonoscopy, ABD/pelvis CT, CT chest/lung. He lost 70lbs because he thought it was related to eating but not so much now. He had lumbar surgery x 3 with fusion which he doesn't have back pain. Pt had consult over the phone with [facility] and they will f/u with him if they want to take his case.PTHX: tylenol, ibu, tramadol no help. Ativan helped some but he didn't like it due to withdrawal. He has not tried gabapentin. He was also prescribed another med but he doesn't remember what it was and [facility] refused to fill. PT aggravated pain slightly but no helpLLQ painconstant dull ache and may be sharp, shooting sporadicintermittentradiates to his backalleviated by: laying down, heat, pain med helps in 45min, heat sometimesaggravated by: activity using arms, laying on L side or either side now. Nasima Frank MD [address] [facility], [place], [phone], [facility] 05/08/2024 16:10:50 07/03/20 24 text/htm sabas LATHAM report reviewed and compliant. Pain is in left abdominal pain/ Pain ache and sharp stabbing pain. Pain keeps awake at night. Pain is intermitente. Pain is intense and intense. Pain made better by meds. Pain made worse by after eat. Pain does radiate. Patient is follow up. Medical management is works kind of and will try hydrmorphone SRINIVASAN MCCORMICK MD [address] [facility], [place], [phone], [facility] 07/03/2024 09:12:07 07/31/20 24 text/htm sabas LATHAM report reviewed and compliant. Pain is on left side. Pain feels like sharp or ache. Pain is constant pain. Pain is gets intense and severe. Pain made better by heating pad. Pain made worse se of arms above head. Pain does radiate. Patient is a followup Medical management is stable and no changes today SRINIVASAN MCCORMICK MD [address] [facility] [address], [place], [phone], [facility] 07/31/2024 08:33:19 09/26/20 24 text/htm sabas LATHAM report reviewed and compliant. Pain is in left side. Pain lke stabbing Pain keeps a awake at nigt. Pain is constant. Pain gets intense ad severe. Pain made better by heat and meds. Pain made worse by arms. Pain does not radiate. Patient is a follow up Medical management is stable and no changes today. SRINIVASAN MCCORMICK MD [address] [facility], [place], [phone], [facility] 09/26/2024 08:24:06
--- OUTSIDE RECORDS SUMMARY | 2025-08-02 17:39 | XMS_ITS | Data Portability ---
Author Organization [facility] CARMENZA Fuentes [place] [facility] Address [address] [place] [address] Care Team Providers Care Marble Coper Name Role Phone ANASTASIIA OLIVEIRA Primary Care Provider Assessment Encounter Date Assessment Date Assessment LastModified by Organization Details LastModified Time 02/28/2025 02/28/2025 This is a 69-year-old gentleman seen today for postoperative follow-up after spinal cord stimulator permanent implant. Postoperative course has been uncomplicated. He is doing quite well and is pleased with his progress. He remains off of opioid pain medication. he would like to discuss weaning off of both gabapentin and Cymbalta. It is notable that he is planning to see his primary care physician in a few weeks to discuss starting Wellbutrin as he is eager to continue smoking cessation efforts. PMH: Chronic prostatitis PSHx: L inguinal hernia repair (2018), robotic dismembered pyeloplasty (05/2024), left ureteral stent, L5-S1 fusion No updated imaging is available for review The patient has undergone no recent injection therapy. Hydromorphone 2 mg 4 times daily, gabapentin 600 mg [address] Peace. He reports limited benefit and is not interested in taking medication long-term NOA report was reviewed today and appropriate. Based upon the above I would consider the patient to beModerate risk. 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 I recommend: 1. Tomas sales utility representative is present today for program optimization. Patient feels that he is getting adequate coverage and does not request any changes to programming. 2. Patient will begin to wean off of gabapentin. He will continue gabapentin 600 mg twice daily x 1 week and then 600 mg daily x 1 week then 300 mg daily x 1 week then stop. 3. At this time he will continue Cymbalta. He will design a weaning strategy with primary care physician however if this is not ideal we will discuss weaning strategy in the future 4. 4-week [facility] follow-up External records were reviewed and discussed as above, including imaging, clinical notes, and relevant labs. yoshi Not available 02/28/2025 11:28:56 03/28/2025 03/28/2025 This is a 69-year-old gentleman seen today for postoperative follow-up after spinal cord stimulator permanent implant. Postoperative course has been uncomplicated. He is doing quite well and is pleased with his progress and is getting notable relief with spinal cord stimulator. He remains off of opioid pain medication. He has now successfully weaned off of gabapentin. He does continue Cymbalta and has a desired weaning strategy from primary care. Patient mentions that his thinks that he is depressed but he is not sure that that is a contributing factor. 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 PMH: Chronic prostatitis PSHx: L inguinal hernia repair (2018), robotic dismembered pyeloplasty (05/2024), left ureteral stent, L5-S1 fusion No updated imaging is available for review The patient has undergone no recent injection therapy. 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 I recommend: 1. Tomas sales utility representative is present today for program optimization. Patient feels that he is getting adequate coverage and does not request any changes to programming today do work today on transitioning his after use to cell phone versus secondary device. 2. Patient has successfully weaned off gabapentin. No true withdrawal symptoms though certainly some side effects to removing the medications that are improving every day. He is encouraged to continue to closely monitor and has no desire to resume gabapentin at this time. I think that is reasonable. Indications for returning to clinic reporting to ED including but not limited to chest pain, vision changes, confusion are discussed in detail. 3. At this time he will continue Cymbalta and may consider adopting weaning strategy as desired by primary care physician in the next 4 weeks. 4. 4-week [place] follow-up External records were reviewed and discussed as above, including imaging, clinical notes, and relevant labs. yoshi Not available 03/28/2025 10:58:22 05/09/2025 05/09/2025 This is a 69-year-old gentleman seen today for follow-up after spinal cord stimulator permanent implant. Postoperative course has been uncomplicated. He is doing quite well and is pleased with his progress and is getting notable relief with spinal cord stimulator. He endorses occasional buzzing in the left calf and posterior knee overall pain is significantly improved. He has successfully weaned off of opioid pain medication and gabapentin. He does continue Cymbalta and is continuing to wean off this medication per primary care. PMH: Chronic prostatitis PSHx: L inguinal hernia repair (2017), robotic dismembered pyeloplasty (05/2024), left ureteral stent, L5-S1 fusion No updated imaging is available for review The patient has undergone no recent injection therapy. 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 I recommend: 1. Tomas sales utility representative is present today for program optimization And to help with maris downloaded on patient's personal phone. 2. Graduated patient on his successful weaning from opioid pain medication and gabapentin. 3. At this time he will continue to ween off of Cymbalta per PCP 4. 3-month [place] follow-up External records were reviewed and discussed as above, including imaging, clinical notes, and relevant labs. yoshi Not available 05/09/2025 10:57:44 Plan of Treatment Reminders Order Date Submit Date Provider Last Modified By Organization Details Last Modified Time Details Appointments RECHECK 2024 10:30A M DOUGLAS CENTENO PA-C Not available Not available Not available Lab None recorded. Referral physical therapist referral - 1-2 visits per week for 6-8 weeks. Range of motion and strength, modalitie s, manual therapy, and developme nt of home exercise program per therapist discretio n. 2024 025 [email or web address] [facility], [address] [place] [address] Robbie Puente, [place], [address], 02/07/2025 07:20:52 Procedures None recorded. Surgeries None recorded. Imaging None recorded. Medication Orders gabapenti n 300 mg capsule 2024 025 [facility], [address], [address], 03/28/2025 10:26:55 Patient TargetsNo targets recorded. Patient InstructionsNo instructions recorded. Reason for Referral Physical Therapist Referral for Quadriceps weakness 1-2 visits per week for 6-8 weeks. Range of motion and strength, modalities, manual therapy, and development of home exercise program per therapist discretion. Referring Physician: Wilber Vieira, Orthopedic Surgery, Encounter Date: 01/31/2025 Results Created Date Observation Date Name Description Value Unit Range Abnormal Flag Note LastModifiedBy Organization Detail LastModifiedTime 02/01/2001/31/2025 xr eugenio knees compl ete, 4 or more vws [facility] [address] [facility] [place] [address] [phone] Patien t Name: PARI ARNDT ER Patien t : [phone] Patien t Orderi ng Provid er: WILBER VIEIRA EXAM DATE: 2024 EXAM: XR EUGENIO KNEES COMPLE TE, 4 OR MORE VWS HISTOR Y: Bilate ral knee pain. COMPAR DARRIUS: None. FINDIN GS: There are severe osteoa rthrit ic change s. There is modera te to severe margin al osteop hytic spurri ng. There is near comple te loss of joint space in the medial femoro tibial compar tment. There is no eviden ce of fractu re. IMPRES SRAVAN: 1. There are severe osteoa rthrit ic change s in both knees. Interp reted By: Erika sofia MD Electr onical ly Signed By: Erika sofia MD on 025 11:36 AM [email or web address] [facility] [address] [place], [address], 02/20/2025 12:58:48 Result Notes None recorded. Problems Name Problem SNOMED Code Status Onset Date Resolution Date Notes Provider Name and Address Organization Details Recorded Time Pericardial effusion 330766442 Active 2016 Not Available [facility] 1 02:28:53 Chest pain 67626985 Active 2016 Not Available [facility] 1 02:28:53 Cigarette smoker 15640492 Active 2016 Not Available [facility] 1 02:28:53 Obesity 062228297 Active 2016 Not Available [facility] 1 02:28:53 Obstructive sleep apnea syndrome 05247341 Active 2016 Not Available [facility] 1 02:28:53 Gastroesophag eal reflux disease 052939026 Active 2016 Not Available [facility] 1 02:28:53 Mitral valve regurgitation 12088195 Active 2016 Not Available [facility] 1 02:28:53 Tricuspid valve regurgitation 270299943 Active 2016 Not Available [facility] 1 02:28:53 Problem Notes None recorded. Procedures Surgical History Date Name Laterality Status Provider Name and Address Organization Details Recorded Time 025 Injection - Joint/Bursa, Major completed WILBER VIEIRA PA-C [address] [place], [address], [facility] 06/19/2025 11:45:16 025 Injection - Joint/Bursa, Major completed WILBER VIEIRA PA-C [address] [place], [address], [facility] 01/31/2025 12:02:12 025 SCS Implant - Karen completed JAMIR MCGEE MD [address] [place], [address], [facility] 12/13/2024 08:33:16 025 Stimulation of spinal cord completed Juan Ferraro [facility] 12/25/2024 11:16:36 025 SCS Trial - Karen completed JAMIR MCGEE MD [address] [place], [address], [facility] 11/13/2024 13:43:38 025 Abdominal Trigger Point Injection w/US completed JAMIR MCGEE MD [address] [place], [address], [facility] 10/10/2024 12:41:11 018 Uroflowmetry; Complex completed [facility] 04/14/2018 15:12:52 018 Urodynamics Interpretation completed NAHID RIDLEY JR, MD [address] [place], [address], [facility] 04/18/2018 09:03:17 018 Urodynamics completed [facility] 04/14/2018 15:16:53 017 CYSTOURETHROSCOPY WITH DIRECT VISION INTERNAL URETHROTOMY (SURG) completed [facility] 04/14/2018 15:02:02 013 Circum 28 days or older completed [facility] 04/14/2018 15:09:44 013 Prostate Surgery completed [facility] 04/14/2018 15:09:24 hernia repair completed Juan Ferraro [facility] 10/10/2024 08:15:18 Imaging Results None recorded. Procedure Notes None recorded. Medical Equipment None Reported. Allergies Allergen ID Allergen Name Allergen Category Reaction Reaction Severity Criticality Documentation Date Start Date Code Code System Note Provider Name and Address Organization Details Recorded Time 048410 Substance with sulfonami de structure and antibacte rial mechanism of action (substanc e) medicatio n Not available Not available Not available 08/28/20162012 03988 8003 SNOMED Comme nt: Creat ed By: Jose Luis driscoll d Date: 12:23 :01 PM; Not Available [facility] 04:17:21 542407 latex environme nt,medica tion Not available Not available Not available 08/28/20162012 80668 91 RxNorm Comme nt: Creat ed By: Jose Luis driscoll d Date: 9/6/2 013 12:22 :53 PM; Not Available [facility] [...] Available Breo Ellipta 1 puff bid prn 01/23 /2025 completed Not taking 10/10/23 Not Available Not Available Not Available Flonase Allergy Relief 50 mcg/actua tion nasal spray,[facility]le pension [facility] 1 spray every day by intranas al route. active Not Available Not Available No t Available Vitals Date Recorded Body height Pain severity - 0-10 verbal numeric rating [Score] - Reported Body mass index (BMI) Body weight Provider Name and Address Organization Details Last Updated DateTime 01/31/2025 182.88 cm 4 31.1 kg/m2 518531.65 g Abybeba Trinh [facility] 01/31/2025 11:48:11 Date Recorded Body height Body mass index (BMI) Body weight Oxygen saturation Oxygen saturation in Arterial blood by Pulse oximetry Heart rate Systolic And Diastolic Provider Name and Address Organization Details Last Updated DateTime 182.88 cm 31.1 kg/m2 365560. 65 g 96 % 96 % 70 /min 130/78 mm[Hg] Hayley Cheatham [facility] 10:57:56 Date Recorded Body height Body mass index (BMI) Body weight Oxygen saturation Oxygen saturation in Arterial blood by Pulse oximetry Heart rate Systolic And Diastolic Provider Name and Address Organization Details Last Updated DateTime 5 182.88 cm 31.1 kg/m2 853005. 65 g 95 % 95 % 78 /min 126/84 mm[Hg] Juan Hebertmagalie [facility] 10:29:45 Date Recorded Body height Body mass index (BMI) Body weight Heart rate Oxygen saturation Oxygen saturation in Arterial blood by Pulse oximetry Systolic And Diastolic Provider Name and Address Organization Details Last Updated DateTime 5 182.88 cm 31.1 kg/m2 554107. 65 g 75 /min 97 % 97 % 130/76 mm[Hg] Marialuisa Pearson [facility] 10:43:17 Date Recorded Body height Provider Name an d Address Organization Details Last Updated DateTime 06/19/2025 182.88 cm Ever Pérez [facility] 06/19/2025 08:40:49 Social History Question Answer Notes LastModified by Organizat ion Details LastModified Time Tobacco Smoking Status Current Every Day Smoker Thea traylor, [facility] 09/10/2017 10:40:24 What Is Your Level Of Caffeine Consumption? Heavy Coffee In The Morning Miranda 3 A Day Information not available 12/25/2024 Marital Status Informatio n not available 09/10/2017 What Was The Date Of Your Most Recent Tobacco Screening? 05/09/2025 [email or web address] Information not available 05/09/2025 What Is Your Current Pack Years? [email or web address] Information not available 01/22/2025 What Is Your Relationship Status? [email or web address] Information not available 04/12/2023 At What Age Did You Start Smoking Tobacco? 29 Information not available 01/22/2025 How Much Tobacco Do You Smoke? 0.5 PPD [email or web address] Information not available 04/12/2023 How Many Years Have You Smoked Tobacco? 40 Information not available 01/22/2025 Sex: Male Functional Status Question Answer Note LastModified by Organizat ion Details LastModified Time Do you use any illicit or recreational drugs? No [email or web address] Information not available 10/26/2024 What is your level of alcohol consumption? None Information not available 09/10/2017 Are you currently employed? Yes [email or web address] Information not available 04/12/2023 What is your occupation? [employer] Executive Director security at [employer] Information not available 03/28/2025 Mental Status None recorded. Family History Relationship Description Onset Age of this Age Resolved Age Notes LastModified by Organization Details LastModified Time Sister Family history of malignant neoplasm Breast CA Not available 09/10/2017 10:40:16 Maternal Uncle Malignant neoplasm of prostate Not available 2022 16:15:36 Medical History Condition Response Kidney Stones N Blood Transfusion N Emphysema Y Colon/Rectal Disorders N Sexually Transmitted Disease N COPD Y Depression N Glaucoma N Pneumonia N Measles N Anxiety Disorder N Varicose Veins N Attempted Suicide N Arthritis Y Hearing Loss N Blood Clot N Cancer N Stroke N Radiation Therapy N Blood Thinners N High Cholesterol N Neurologic Disorder N Liver Disease N Fibromyalgia N Headaches N Kidney Disease N Endocrine Disorder N Heart Problems N Chronic Obstructive Pulmonary Disease Y Skin Problems N Meningitis N Heart Attack (ME) N Ulcers N Diabetes N Rheumatic Fever N Bleeding Disorder N Tuberculosis N AIDS/HIV N Asthma N Epilepsy/Seizures N Sleep Apnea Y Thyroid Disorder N Hepatitis N Hypertension N Osteoporosis N Past Encounters Encounter ID Performer Location Encounter Start Date Encounter Closed Date Diagnosis/Indication Diagnosis SNOMED-CT Code Diagnosis ICD10 Code Diagnosis IMO Codes Diagnosis Note [id number] DAMON BERGERDINH THOMAS APRN CARDIOLOG Y [address] [place] [address] 05/10/2017 11:15:08 05/11/2017 12:08:18 Pericardial effusion 302877937 I31.3 Trivial on recent Echocardio gram. No further testing recommende d at this time. Can repeat Echocardio gram if dyspnea worsens. I will see him back in 3 months for reevaluati on. Advised to call sooner with questions or concerns. Chest pain 15905351 R07. 9 EKG today reveals NSR, 80, QT/QTc 358/412. Likely related to recent bouts of PNA. No further cardiac testing recommende d at this time. Will see him back in 3 months once he has had a chance to recover from recent PNA. If he is symptomati c at that time, recommend Nuclear Stress to rule out ischemic etiology given his risk factors of obesity, smoking, and + family Hx. He is in agreement with this plan. Cigarette smoker 4603926 7 F17.210 1.5 PPD for 30-40 years. No desire to stop smoking. Smoking cessation advised. Obesity 026669328 E66.9 BMI today 33.9; Weight loss recommende d to ultimately achieve BMI < 25. Advised to use caution with Adipex as this medicaton has been known to cause valvular heart disease, CHF and pulmonary HTN. Advised to increase exercise and make healthy dietary changes to aid with weight reduction. Advised to speak with PCP regarding possible alternativ e weight loss medication that has less cardiotoxi c effects. Obstructiv e sleep apnea syndrome 34741643 G47.33 Utilizes CPAP. Advised continued compliance . Gastroesop hageal reflux disease 421803770 K21.9 Followed by PCP. Controlled on PPI. Mitral king ve regurgitation 27682972 I34.0 Tr noted on recent Echocardio gram. Can repeat echocardio gram q 2-3 years for progressio n, sooner if concerning symptoms develop. Tricuspid valve regurgitation 727763520 I07.1 Tr noted on recent Echocardio gram. Can repeat echocardio gram q 2-3 years for progressio n, sooner if concerning symptoms develop. [id number] BETH SMALLS MD INDIRA [facility] [address] [place] [address] 09/10/2017 09:54:59 09/13/2017 12:40:41 Epididymitis 00604281 N45.1 considerin g his previous medical therapies will switch him to Augmentin for 10 days he has a follow-up appointmen t with [facility] in [place]. [id number] NAHID RIDLEY JR, MD INDIRA [facility] [address] [address] 04/14/2018 08:48:15 04/14/2018 10:35:18 Increased frequency of urination 954749065 R35.0 Nocturia 216132077 R35.1 Incomplete emptying of urinary bladder 377997626 R39.14 [id number] BETH SMALLS MD CUA [facility] [address] [place] [address] 04/12/2023 15:49:28 04/12/2023 16:38:55 Renal mass 814450979 N28.89 Plan as above Left flank pain 20296867 9 R10.9 As above [id number] BETH SMALLS MD SURGERY SCHEDULE [address] [place] [address] 05/05/2023 08:26:00 05/05/2023 08:26:25 [id number] BETH SMALLS MD INDIRA [facility] [address] [place] [address] 05/10/2023 10:58:12 05/10/2023 14:54:20 Hydronephrosis due to ureteral stricture 8829155780 95349 N13.1 As above [id number] BETH SMALLS MD CUA [facility] [address] [place] [address] 06/28/2023 10:53:47 06/28/2023 12:00:18 Obstruction of pelviureteric junction 98814364 N13.5 Status post dismembere d pyeloplast y. We will arrange for flexible local cystoscopy for stent removal [id number] BETH SMALLS MD SURGERY SCHEDULE [address] [place] [address] 1 06/30/2023 08:04:20 06/30/2023 08:13:55 [id number] BEHT SMALLS MD CUA [facility] [address],[place] [address] 0 09/17/2023 10:02:08 09/17/2023 11:28:44 Obstruction of pelviureteric junction 01432782 N13.5 Status post dismembere d pyeloplast y. Doing well he will follow-up in 6 months [id number] MD INDIRA [facility] [address],[place] [address] 0 02/23/2024 14:56:57 02/23/2024 15:37:17 Renal colic 2262660 N23 As above Hydronephr osis due to ureteral stricture 5427200001 53074 N13.1 As above [id number] BETH SMALLS MD SURGERY SCHEDULE [address] [place] [address] 1 03/01/2024 07:55:19 03/01/2024 07:56:35 [id number] BETH SMALLS MD CUA [facility] [address],[place] [address] 0 09/22/2024 10:30:27 09/25/2024 04:07:54 Pain in male perineum 502818783 R10.2 As above follow-up 3 months Chronic prostatitis 1990 5009 N41.1 As above Low back pain 490224115 M54.50 Will refer to pain therapy regarding his chronic left flank pain. He has had a recent MRI at [facility] and he will bring his disc. [id number] JAMIR MCGEE MD PAIN MEDICINE CLOSED [address] [place] [address] 1 10/10/2024 07:45:43 10/10/2024 13:19:08 Peripheral neuralgia 88670990 M79.2 Thoracic radiculopathy 22691212 M54.14 Complex re gional pain syndrome type II of left lower limb 7565042330 46334 G57.72 [id number] JAMIR MCGEE MD [facility] [address] [place] [address] 1 10/10/2024 12:01:51 10/10/2024 13:20:24 Peripheral neuralgia 66175986 M79.2 [id number] JAMIR MCGEE MD PAIN MEDICINE CLOSED [address] [place] [address] 1 10/26/2024 10:50:16 10/26/2024 16:02:46 Complex regional pain syndrome type I of left lower limb 9392968187 80815 G90.522 [id number] JAMIR MCGEE MD [facility] NAL CHARGES [address] [place] [address] 1 11/13/2024 12:21:34 11/13/2024 14:29:15 Complex regional pain syndrome of lower limb 189620342 G90.522 [id number] DOUGLAS CENTENO PA-C PAIN MEDICINE CLOSED [address] [place] [address] 1 11/15/2024 12:46:46 11/15/2024 16:16:49 Postoperative visit 690218888 Z09 Lumbar post-laminectomy syndrome 334758190 M96.1 Chronic pain syndrome 37 0605043 G89.4 [id number] JAMIR MCGEE MD [address] [facility] [employer] [facility] [address] [place] [address], [place] [address] 1 12/13/2024 06:19:38 12/13/2024 06:20:26 Complex regional pain syndrome type I of left lower limb 5769188622 76837 G90.522 [id number] JAMIR MCGEE MD PAIN MEDICINE CLOSED [address] [place] [address] 1 12/25/2024 10:54:54 12/25/2024 13:13:43 Postoperative visit 714236164 Z09 Chronic pain syndrome 37 1219997 G89.4 Complex re gional pain syndrome, type II, lower limb 208913492 G57.72 [id number] DOUGLAS CENTENO PA-C PAIN MEDICINE [facility] [place] [address] 1 01/22/2025 15:01:55 01/22/2025 16:20:06 Complex regional pain syndrome, type II, lower limb 871325338 G57.72 Chronic pain syndrome 37 6713885 G89.4 [id number] WILBER VIEIRA PA-C [facility] [address] [place] [address] 1 01/31/2025 10:36:00 01/31/2025 13:07:18 Osteoarthritis of left knee joint 1922937847 45812 M17.12 [id number] Assessment : Bilateral osteoarthr itis of the knees and quadriceps weakness of both knees. Plan: Physical therapy can be helpful for stabilizat ion of the knee. Terminal treatment for both knees would be arthroplas ty. He opted for bilateral steroid injections today, which were tolerated well without complicati on. Follow-up as needed. Osteoarthr itis of right knee joint 0774935636 35956 M17.11 9705878 Quadriceps weakness 3009 92762 M62.81 6838883549 [id number] DOUGLAS CENTENO PA-C PAIN MEDICINE [facility] [place] [address] 1 02/28/2025 10:41:40 02/28/2025 16:32:09 Complex regional pain syndrome, type II, lower limb 168939439 G57.72 Chronic pain syndrome 37 5483038 G89.4 Peripheral neuralgia 254 02397 M79.2 Thoracic radiculopathy 50692336 M54.14 Complex re gional pain syndrome type II of left lower limb 5407552724 57382 G57.72 [id number] DOUGLAS CENTENO PA-C PAIN MEDICINE [facility] [place] [address] 1 03/28/2025 10:10:04 03/28/2025 11:11:02 Chronic pain syndrome 598208103 G89.4 Peripheral neuralgia 254 43659 M79.2 Thoracic radiculopathy 74592267 M54.14 Complex re gional pain syndrome type II of left lower limb [id number] G57.72 [id number] DOUGLAS CENTENO PA-C PAIN MEDICINE [address] [place] [address] 05/09/2025 10:23:50 05/09/2025 15:30:51 Complex regional pain syndrome type II of left lower limb [id number] G57.72 Chronic pain syndrome 37 [id number] G89.4 Peripheral neuralgia 254 61109 M79.2 Thoracic radiculopathy [id number] M54.14 [id number] WILBER VIEIRA PA-C ORTHOPEDI CS [address] [place] [address] 06/19/2025 08:36:54 06/19/2025 13:58:55 Osteoarthritis of left knee joint [id number] 71211 M17.12 [id number] He may repeat these every 3 months. He may also try gels in the future. Follow-up as needed. Osteoarthr itis of right knee joint [id number] M17.11 [id number] Health Concerns Section Related Observation LastModified by Organization Detai ls LastModified Time None Recorded Concern Status LastModified by Organization Details LastModified Time None Recorded Advance Directives Directive None Recorded Payers Insurance Date Sequence Insurance Name Policy Number Policy Padilla Covered Member ID Padilla Member ID Guarantor Name 06/25/2025 2 [facility] Pari Lunsford [id number] Pari Lunsford 06/18/2025 1 [place] Pari Lunsford [id number] Pari Lunsford 06/18/[address] [facility] [id number] Pari Lunsford [id number] Pari Lunsford 06/18/2025 1 [employer] (POS) [id number] Pari Lunsford [id number] Pari Lunsford 07/17/2024 PAYMENT PLAN Pari Lunsford Notes Date Note Type Note Provider Name and Address Organization Details Recorded Time 01/31/2025 text/html WHAT: Bilateral Knee.WHEN: 2-3 yearsHOW: No known injurySYMPTOMS:He states his left knee is worse.Pain is intermittent in nature.The patient does not have numbness or tinglingThey have occasional popping and clickingThey are able to sleep comfortably with this injury.He reports weakness. He states most of his pain comes when he gets up after sitting for an extended period of time.Overall, the patient would say that their pain is not well-controlled at this timePAIN: 10X-RAY: LCMRI: NonePT: NoneINJECTION: Yes- over a year ago WILBER VIEIRA PA-C [address] [place], [address], [facility] 01/31/2025 13:56:22 02/28/2025 text/html Post-OpReported by PatientHPIFor onset/timing, patient reportsdate of surgery: (12/13/24). For quality, patient reportsprocedure: (scs perm). For context, patient reportsreason for procedure: (pain relief). For associated symptoms, patient reportsincision healing well,no fatigue,normal appetite,normal bowel function,no constipation,no nausea,no emesis,pain improving,no pain,no fever,no bleeding, andno lower extremity edema/pain. DOUGLAS CENTENO PA-C [address] [place], [address], [facility] 02/28/2025 11:29:51 03/28/2025 text/html Post-OpReported by PatientHPIFor onset/timing, patient reportsdate of surgery: (12/13/24). For quality, patient reportsprocedure: (scs perm). For context, patient reportsreason for procedure: (pain relief). For associated symptoms, patient reportsincision healing well,no fatigue,normal appetite,normal bowel function,no constipation,no nausea,no emesis,pain improving,no pain,no fever,no bleeding,no lower extremity edema/pain, andno dysuria/urinary symptoms. DOUGLAS CENETNO PA-C [address] [place], [address], [facility] 03/28/2025 10:59:21 05/09/2025 text/html Post-OpReported by PatientHPIFor onset/timing, patient reportsdate of surgery: (12/13/24). For quality, patient reportsprocedure: (scs perm). For context, patient reportsreason for procedure: (pain relief). For associated symptoms, patient reportsincision healing well,no fatigue,normal appetite,normal bowel function,no constipation,no nausea,no emesis,pain improving,no pain,no fever,no bleeding,no lower extremity edema/pain, andno dysuria/urinary symptoms. Elijah Lunsford is a 69 yo male here today for FUP SCS perm performed 12/13/24. Pt reports he has had 100% pain relief w/ the SCS, he does get some pain when the SCS goes below 50%. Pt reports he does have some aching/buzzing in the left leg when sitting in different positions. Pain level today is 0/10. Elijah Lunsford is a 69 yo male here today for FUP SCS perm performed 12/13/24. Pt reports he has had 100% pain relief w/ the SCS, he does get some pain when the SCS goes below 50%. Pt reports he does have some aching/buzzing in the left leg when sitting in different positions. Pain level today is 0/10. DOUGLAS CENTENO PA-C [address] [place], [address], [facility] 05/09/2025 10:58:12 06/19/2025 text/html Patient comes in today for [...] pain is mildly well-controlled at this time. WILBER VIEIRA PA-C [address] [place], [address], [facility] 06/19/2025 11:46:04
--- NOTE | 2025-08-02 17:44 | XR_ITS ---
PROCEDURE INFORMATION: Exam: XR Chest Exam date and time: 08/02/2025 5:45 PM Age: 69 years old Clinical indication: Cough; Additional info: Acute cough x 10 days, on meds but still not getting better, smoker x 50 yrs TECHNIQUE: Imaging protocol: Radiologic exam of the chest. Views: 2 views. COMPARISON: CT LUNG SCREENING 12/05/2024 2:44 PM FINDINGS: Tubes, catheters and devices: Implanted neural stimulation device with leads extending to T7. Lungs: Central opacities with peribronchial cuffing, seen to advantage on the lateral chest radiograph. Pleural spaces: Unremarkable. No pleural effusion. No pneumothorax. Heart/Mediastinum: Unremarkable. No cardiomegaly. Bones/joints: Unremarkable. IMPRESSION: Combination of findings that suggests viral process versus reactive airways without evidence of consolidation.
== END 2025-08-02 23:59 | disposition home or self-care (01) ==
LOC: RAD 17:37
PROVIDERS: PCP Physician Assistant; Visit Provider Physician Assistant
DX: R05.1 Acute cough (principal); R91.8 Other nonspecific abnormal finding of lung field
CPT/HCPCS: 71046

== ENCOUNTER 2025-09-26 11:50 | Inpatient (IN) | payer MEDICARE, OTHER, SELFPAY ==
[2025-09-26] VITALS (30 sets, daily range): BP systolic 65–125; BP diastolic 35–78; PULSE 67–115; RESP 16–25; TEMP 36.8–37.5; O2SAT 88–97; BMI 31.8
--- NOTE | 2025-09-26 12:02 | XR_ITS ---
FINAL REPORT TECHNIQUE: Single view chest CLINICAL HISTORY: Shortness of breath, cough COMPARISON: 08/02/2025 FINDINGS: No acute pulmonary opacity is present. There is no evidence of effusion or pneumothorax. Mediastinum is unremarkable. Heart size is normal. IMPRESSION: No acute abnormality. Reviewed, Interpreted and Dictated by Jose M Ramos MD Transcribed by Yudtih Gunter Authenticated and [facility]
--- NOTE | 2025-09-26 12:04 | HMH.EDCP ---
Discharge Plan Disposition Patient Disposition: Admitted Clinical Impressions Clinical Impression: Sepsis, Pneumonia, TANIA (acute kidney injury) Discharge ED Provider: Rizwan Jarrell HPI General Chief Complaint: Shortness of Breath/Dyspnea Stated Complaint: soa vomiting diarrhea cough fever Time Seen by Provider: 09/26/25 11:55 History of Present Illness HPI narrative: Jacob Lunsford is a 69y male with a history of COPD, tobacco use currently, hypertension, GERD, hyperlipidemia who presents to the emergency department for complaints of nausea, vomiting and diarrhea. Patient states that for the last 3 weeks, he has had a cough intermittently productive. Starting yesterday, he has had intermittent right sided and then left-sided chest pain and intermittently had mid back pain. He states that starting last night, he has had multiple episodes of nonbilious nonbloody vomiting and diarrhea, totaling 7 episodes. He took a Zofran this morning and has not vomited since. He does feel short of breath currently. Related Data Home Medications ?Medication ?Instructions ?Recorded ?Confirmed celecoxib 200 mg capsule 200 mg PO DAILY 06/27/25 09/26/25 fluticasone propionate 50 1 spray intranasal BID 06/27/25 09/26/25 mcg/actuation nasal spray,suspension ipratropium 20 mcg-albuterol 100 2 puff inhalation QIDP PRN 09/26/25 09/26/25 mcg/actuation mist for inhalation shortness of breath or wheezing losartan 25 mg tablet 25 mg PO BID 09/26/25 09/26/25 omeprazole 20 mg capsule,delayed 20 mg PO DAILY 09/26/25 09/26/25 release Previous Rx's ?Medication ?Instructions ?Recorded ipratropium 0.5 mg-albuterol 3 mg 3 ml inhalation Q8H 3 months #810 12/12/24 (2.5 mg base)/3 mL nebulization mL soln Allergies Allergy/AdvReac Type Severity Reaction Status Date / Time latex (LATEX) Allergy Mild Rash Verified 06/27/25 11:56 Sulfa (Sulfonamide Allergy Mild Rash Verified 06/27/25 11:56 Antibiotics) (SULFA (SULFONAMIDE ANTIBIOTICS)) [facility] Disclaimer: The information contained in this section may have been updated after the patient was seen, as this information can be updated by other users. Medical History Sinusitis Allergic rhinitis COPD mixed type Dyspnea on exertion Screening for lung cancer Tobacco abuse counseling Tobacco abuse disorder Chronic bronchitis Smoking greater than 30 pack years Abnormal computerized axial tomography of chest Solitary pulmonary nodule Prostatitis Hypertension Anxiety DEBORAH (obstructive sleep apnea) Low testosterone in male (~05/05/18) Vitamin D deficiency (~05/05/18) Hyperlipidemia (~05/05/18) Depression GERD (gastroesophageal reflux disease) COPD (chronic obstructive pulmonary disease) Surgical History History of back surgery Family History Other Cancer Coronary artery disease Social History Smoking Status: Current every day smoker tobacco type: cigarettes packs per day: 1 alcohol intake: never counseling provided: none substance use type: denies use current occupational status: employed Travel in the last 8 weeks?: None household members: spouse housing: house current occupation: adventist caffeine: Yes Have you lived/traveled outside [place] in past 30 days?: No Contact w/someone who lives/traveled outside US past 30 days?: No Exposure to someone with infectious disease in past 14 days?: No Do you have a fever (greater than 100.4 F or 38 C)?: Yes Have you tested positive for COVID-19?: No Exposed to someone with COVID-19 in past 14 days?: No Do you have a sore throat?: No Do you have a cough?: Yes Do you have any weakness?: No Do you have any diarrhea?: Yes Are you experiencing any unusual bleeding?: No Do you have any muscle aches/pain?: No Do you have any abdominal pain?: No Are you experiencing loss of taste or smell?: No Other Medical History Have you received the Flu Vaccine for this season: Yes Have you received the Pneumonia Vaccine: No ROS Obtained: Yes Systems reviewed as appropriate & no additional complaints except as documented Physical Exam General General appearance: alert Comment: ill appearing Head Head exam: atraumatic Eye Eye exam: Present normal appearance ENT ENT exam: Present normal external ear exam Neck Neck exam: Present full ROM Chest Chest inspection: Present symmetric chest wall rise Respiratory Respiratory exam: Present normal lung sounds bilaterally (crackles, left lung) and respiratory distress (increased work with breathing); Absent wheezes or stridor Cardiovascular Cardiovascular exam: Present normal rhythm and tachycardia Abdominal Exam Abdominal exam: Present soft; Absent tenderness or guarding exam: Present deferred Extremities Exam Extremities exam: Present normal inspection Back Exam Back exam: Present normal inspection Neurological Exam Neurological exam: Present alert and oriented X3 Psychiatric Psychiatric exam: Present normal affect Skin Skin exam: Present warm and dry HEART Score HEART Score HEART Score assessment performed?: Yes HEART Score: 3 Critical Care Critical Care Time Critical Care Time: Yes Attestation: On 09/26/25, the high probability of a clinically significant, sudden or life threatening deterioration of the following system(s) required my full and direct attention, intervention and personal management. The time I documented below is in addition to time spent performing reported procedures but includes the following listed in this critical care notation. Total Time Total Critical Care Time: 35 Medical Decision Making Valentin Inquiry Pt receiving controlled substance: No Vital Signs Vital Signs: 09/26/25 11:54 09/26/25 12:01 09/26/25 12:15 Temperature 98.2 F Temperature Source Oral Pulse Rate 67 Pulse Rate [Right Radial] 78 Respiratory Rate 20 25 H Blood Pressure 101/58 L 102/71 L Blood Pressure [Right Arm] 101/58 L Blood Pressure Mean Blood Pressure Mean [Right Arm] 72 Blood Pressure Source [Right Arm] Automatic Cuff Blood Pressure Position [Right Arm] Sitting 02 Sat by Pulse Oximetry 96 92 L 95 Oxygen Delivery Method Nasal Cannula Room Air Nasal Cannula Oxygen Flow Rate (LPM) 2 2 09/26/25 12:27 09/26/25 12:45 09/26/25 13:00 Temperature Temperature Source Pulse Rate 103 H 111 H Pulse Rate [Right Radial] Respiratory Rate 24 Blood Pressure 97/64 L 96/59 L Blood Pressure [Right Arm] Blood Pressure Mean Blood Pressure Mean [Right Arm] Blood Pressure Source [Right Arm] Blood Pressure Position [Right Arm] 02 Sat by Pulse Oximetry 88 L 96 97 Oxygen Delivery Method Room Air Nasal Cannula Nasal Cannula Oxygen Flow Rate (LPM) 2 2 09/26/25 13:15 09/26/25 13:30 09/26/25 13:45 Temperature Temperature Source Pulse Rate 110 H 100 H Pulse Rate [Right Radial] Respiratory Rate 20 18 Blood Pressure 95/57 L 84/50 L 105/54 L Blood Pressure [Right Arm] Blood Pressure Mean 68 58 60 Blood Pressure Mean [Right Arm] Blood Pressure Source [Right Arm] Blood Pressure Position [Right Arm] 02 Sat by Pulse Oximetry 97 97 Oxygen Delivery Method Nasal Cannula Nasal Cannula Oxygen Flow Rate (LPM) 2 09/26/25 14:18 09/26/25 14:30 09/26/25 14:33 Temperature Temperature Source Pulse Rate 115 H 115 H Pulse Rate [Right Radial] Respiratory Rate 18 18 Blood Pressure 90/56 L 92/56 L Blood Pressure [Right Arm] Blood Pressure Mean 64 65 Blood Pressure Mean [Right Arm] Blood Pressure Source [Right Arm] Blood Pressure Position [Right Arm] 02 Sat by Pulse Oximetry 96 96 Oxygen Delivery Method Nasal Cannula Nasal Cannula Nasal Cannula Oxygen Flow Rate (LPM) 2 2 2 09/26/25 14:42 09/26/25 14:48 Temperature 99.5 F Temperature Source Pulse Rate 115 H Pulse Rate [Right Radial] Respiratory Rate 20 Blood Pressure 92/56 L Blood Pressure [Right Arm] Blood Pressure Mean Blood Pressure Mean [Right Arm] Blood Pressure Source [Right Arm] Blood Pressure Position [Right Arm] 02 Sat by Pulse Oximetry Oxygen Delivery Method Nasal Cannula Oxygen Flow Rate (LPM) 2 2 Lab Data Labs: Lab Results 09/26/25 12:01: WBC 13.9 H, RBC 5.30, Hgb 17.5, Hct 50.4, MCV 95.1 H, MCH 33.0 H, MCHC 34.7, RDW 12.5, Plt Count 202, MPV 10.3, Neut % (Auto) 88.1 H, Lymph % (Auto) 4.4 L, [place] % (Auto) 5.2, Eos % (Auto) 0.6, Baso % (Auto) 0.6, Neut # (Auto) 12.2 H, Lymph # (Auto) 0.6 L, [place] # (Auto) 0.7, Eos # (Auto) 0.1, Baso # (Auto) 0.1, D-Dimer 1.78 H, Sodium 138, Potassium 4.0, Chloride 104, Carbon Dioxide 21 L, Anion Gap 17.0 H, BUN 29 H, Creatinine 2.20 H, Estimated Creat Clear 48, Estimated GFR 30 L, Est GFR ( Amer) 36 L, Glucose 120 H, Calcium 9.8, Total Bilirubin 2.0 H, AST 38, ALT 32, Alkaline Phosphatase 71, Troponin I < 0.01, C-Reactive Protein 114.2 H, NT-Pro-B Natriuret Pep 1470 H, Total Protein 8.1, Albumin 4.8, Globulin 3.3 H, Albumin/Globulin Ratio 1.5, Lipase 36 09/26/25 12:02: VBG pH 7.31, VBG pCO2 44.5, VBG pO2 23.0 L, VBG HCO3 21.9 L, VBG Total CO2 23.3, VBG O2 Saturation 38.7 L, VBG Base Excess -4.4 L, VBG Lactic Acid 4.9 H 09/26/25 12:10: SARS-CoV-2 (PCR) Not detected, Influenza A Untype (PCR) Not detected, Influenza Type B (PCR) Not detected 09/26/25 12:01 09/26/25 12:01 Response Orders (Tests/Meds): ED MEDICATIONS Generic Name Dose Route Start Last Admin Trade Name Freq PRN Reason Stop Dose Admin Acetaminophen 650 mg 09/26/25 14:18 09/26/25 15:35 Acetaminophen 325mg Tab PO 10/26/25 14:17 650 mg Q4HP PRN Administration Fever or Mild Pain (1-3) Albuterol/Ipratropium 3 ml 09/26/25 18:00 Ipratropium/Albuterol 3 Ml Neb IH 10/26/25 17:59 Q6RT HODA Enoxaparin Sodium 40 mg 09/27/25 09:00 Enoxaparin 40mg/0.4ml Syringe SUBCUT 10/27/25 08:59 DAILY HODA Guaifenesin 20 ml 09/26/25 15:13 09/26/25 15:35 Guaifenesin/Dextromethorphan 200mg/20mg 10ml Udc PO 10/26/25 15:12 20 ml Q6HP PRN Administration Cough Piperacillin Sod/Tazobactam 100 mls @ 200 mls/hr 09/26/25 19:00 Sod 4.5 gm/ Sodium Chloride IV 10/06/25 18:59 Q6H HODA Azithromycin 500 mg/ Sodium 250 mls @ 250 mls/hr 09/26/25 15:00 09/26/25 15:36 Chloride IV 09/29/25 14:59 250 mls/hr Q24H HODA Administration Sodium Chloride 1,000 mls @ 100 mls/hr 09/26/25 15:15 09/26/25 15:36 Sod Chlor 0.9% 1000ml Bag IV 10/26/25 15:14 100 mls/hr .Q10H HODA Administration Irbesartan 37.5 mg 09/26/25 21:00 Irbesartan 75mg Tablet PO 10/26/25 20:59 BID HODA Methylprednisolone Sodium Succinate 80 mg 09/26/25 15:10 09/26/25 15:36 Methylprednisolone Sod Succ 125mg Vial IV 09/26/25 15:11 80 mg ONCE ONE Administration Morphine Sulfate 2 mg 09/26/25 15:10 09/26/25 15:37 Morphine 2mg/Ml Syringe IV 10/26/25 15:09 2 mg Q4HP PRN Administration Severe Pain (7-10) Nicotine 21 mg 09/26/25 14:18 09/26/25 15:13 Nicotine 21mg/24hr Patch TD 10/26/25 14:17 21 mg DAILYP PRN Administration Nicotine Cravings Ondansetron HCl 4 mg 09/26/25 14:18 Ondansetron 4mg/2ml Vial IV 10/26/25 14:17 Q8HP PRN Nausea Pantoprazole Sodium 40 mg 09/26/25 21:00 Pantoprazole 40mg Tablet PO 10/26/25 20:59 HS HODA Sodium Chloride 3 ml 09/26/25 14:23 Sodium Chloride 3% 15ml Neb IH 10/26/25 14:22 ONCE PRN INDUCE SPUTUM COLLECTION Sodium Chloride 10 ml 09/26/25 14:56 Sodium Chloride 0.9% 10ml Flush Syringe IV 10/26/25 14:55 NEEDED PRN Maintain IV Site Sodium Chloride 10 ml 09/26/25 15:12 Sodium Chloride 0.9% 10ml Flush Syringe IV 10/26/25 15:11 NEEDED PRN Maintain IV Site Discontinued Medications Generic Name Dose Route Start Last Admin Trade Name Freq PRN Reason Stop Dose Admin Acetaminophen 1,000 mg 09/26/25 13:41 09/26/25 13:44 Acetaminophen 1,000mg/100ml Vial IV 09/26/25 13:42 1,000 mg ONCE ONE Administration Albuterol/Ipratropium 3 ml 09/26/25 13:08 09/26/25 13:19 Ipratropium/Albuterol 3 Ml Neb IH 09/26/25 13:09 3 ml ONCE ONE Administration Lactated Ringer's 1,000 mls @ 999 mls/hr 09/26/25 12:02 09/26/25 13:26 Lactated Ringer's 1000 Ml Bag IV 09/26/25 13:02 Infused .Q1H1M ONE Infusion Piperacillin Sod/Tazobactam 100 mls @ 200 mls/hr 09/26/25 12:24 09/26/25 13:39 Sod 4.5 gm/ Sodium Chloride IV 09/26/25 12:53 Infused ONCE ONE Infusion Lactated Ringer's 1,000 mls @ 999 mls/hr 09/26/25 12:26 09/26/25 14:28 Lactated Ringer's 1000 Ml Bag IV 09/26/25 13:26 Infused .Q1H1M ONE Infusion Iopamidol 70 ml 09/26/25 14:17 09/26/25 14:18 Iopamidol-370 (76%);100ml Bottle IV 09/26/25 14:18 70 ml ONCE ONE Administration Ketorolac Tromethamine 15 mg 09/26/25 12:04 09/26/25 12:18 Ketorolac 15mg/Ml Vial IV 09/26/25 12:05 15 mg ONCE ONE Administration ORDERS Category Date Time Status CT angio chest PE protocol Stat Cat Scan 09/26/25 12:49 Taken CXR --portable [XR chest portable] Stat Exams 09/26/25 12:02 Completed BNP [NT Pro Brain Natriuretic Pep.] Stat Lab 09/26/25 12:01 Completed Basic Metabolic Panel AMLAB Lab 09/27/25 06:00 Ordered Basic Metabolic Panel AMLAB Lab 09/28/25 06:00 Ordered Basic Metabolic Panel AMLAB Lab 09/29/25 06:00 Ordered C-Reactive Protein Stat Lab 09/26/25 12:01 Completed CBC w/Auto Diff [Complete Blood Count Auto Diff] Stat Lab 09/26/25 12:01 Completed CMP [Comprehensive Metabolic Panel] Stat Lab 09/26/25 12:01 Completed Complete Blood Count Auto Diff AMLAB Lab 09/27/25 06:00 Ordered Complete Blood Count Auto Diff AMLAB Lab 09/28/25 06:00 Ordered Complete Blood Count Auto Diff AMLAB Lab 09/29/25 06:00 Ordered D-Dimer Stat Lab 09/26/25 12:01 Completed Lipase Stat Lab 09/26/25 12:01 Completed Lipid Panel AMLAB Lab 09/27/25 06:00 Ordered Magnesium AMLAB Lab 09/27/25 06:00 Ordered Magnesium AMLAB Lab 09/28/25 06:00 Ordered Magnesium AMLAB Lab 09/29/25 06:00 Ordered Rapid PCR Covid and Flu A/B Stat Lab 09/26/25 12:10 Completed Troponin I Q3H Lab 09/26/25 15:30 Received Troponin I Q3H Lab 09/26/25 18:15 Ordered Troponin I Stat Lab 09/26/25 12:01 Completed Urinalysis and Microscopic Stat Lab 09/26/25 12:24 Ordered Blood Culture Stat Micro 09/26/25 12:20 Received Sputum Culture & Gram Stain Stat Micro 09/26/25 14:23 Ordered VBG [Venous Blood Gas] Stat RT 09/26/25 12:02 Completed MDM Narrative Medical Decision Narrative: Jacob Lunsford is a 69y male with a history of COPD, tobacco use currently, hypertension, GERD, hyperlipidemia who presents to the emergency department for complaints of nausea, vomiting and diarrhea. Patient states that for the last 3 weeks, he has had a cough intermittently productive. Starting yesterday, he has had intermittent right sided and then left-sided chest pain and intermittently had mid back pain. He states that starting last night, he has had multiple episodes of nonbilious nonbloody vomiting and diarrhea, totaling 7 episodes. He took a Zofran this morning and has not vomited since. He does feel short of breath currently. On arrival, patient is hypertensive, tachycardic, afebrile, hypoxic and was put on 2 L nasal cannula with improvement of SpO2. Physical exam, stated above, revealed an ill appearing male with mild increased work of breathing. Patient does have crackles at the left base. On arrival, patient is tachycardic, mildly hypoxic and put on 2 L nasal cannula. Tachycardic. Patient was mildly tachypneic with increased work of breathing. Physical exam otherwise showed crackles at the left base on lung exam. No murmurs or rubs. No significant peripheral edema. Differential diagnosis includes, but is not limited to: Sepsis, pneumonia, pulmonary embolism, COPD exacerbation, CHF, among others. The most morbid conditions were considered and workup was based on these. Workup in the emergency room included: Hematologic labs, blood cultures, initial chest x-ray, D-dimer, troponin, EKG. Patient was treated with 2 L lactated ringer for presumed sepsis and a 4.5 g of IV vancomycin. Patient was also given a DuoNeb treatment. EKG was interpreted by me personally and showed sinus tachycardia. No ST elevation or depression. QTc normal at 368 Chest x-ray was interpreted by me personally. Patient has consolidation of the left lower lobe concerning for pneumonia. I do feel that radiology report is incorrect as it was read as no acute findings. Laboratory workup shows elevated white blood cell count of 13.9 with left shift. D-dimer elevated 1.78, will obtain CT PE to rule out pulmonary embolism but likely elevated as an acute phase reactant in the setting of pneumonia. No acidosis, bicarb normal at 23.3, pCO2 normal at 44.5. Lactate is elevated at 4.9. Electrolytes within normal limits. Patient has an TANIA with creatinine elevated 2.2 and BUN of 29. Anion gap is mildly elevated at 17. Patient's bilirubin is mildly elevated at 2, electrolytes otherwise within normal limits. Initial [place] 0.01. CRP is significantly elevated at 114. NT proBNP elevated 1470. Lipase normal at 36. COVID and flu testing negative. CT pulmonary embolism Was interpreted by me personally prior to official radiology read. Patient has a left lower lobe consolidation/ground glass opacities concerning for pneumonia. No evidence of pulmonary embolism on my interpretation. See final radiology report for details. I then discussed the patient's case with Paula Osborne APRN for admission for hypoxic respiratory failure in the setting of sepsis pneumonia and TANIA. Patient was agreeable to admission at this time. Patient was then admitted for further management under the care of Dr. Gross/Paula Osborne.
--- NOTE | 2025-09-26 12:05 | ECG_ITS ---
APPROVED REPORT Exam: Resting ECG HR:121 bpm ECG Measurements Heart Rate 121 AXES TX 120 P 62 QRSd 83 QRS 48 QT 296 T 59 QTc 368 Conclusion SINUS TACHYCARDIA WITH OCCASIONAL SUPRAVENTRICULAR PREMATURE COMPLEXES ABNORMAL RHYTHM ECG UNCONFIRMED REPORT Sinus tachycardia. No STEMI Electronically signed by : HOLLEY MATHUR, 09/26/2025 15:59:02
--- NOTE | 2025-09-26 12:05 | PC.NURSE ---
Rt notified of VBG sent to lab
--- OUTSIDE RECORDS SUMMARY | 2025-09-26 12:14 | XMS_ITS | Patient Health Record ---
Author Organization [facility] Address [address] [place] [address] Care Team Providers Care Midwife Name Role Phone Raine Silva Unavailable [phone] Allergies Allergen (clinical drug ingredient) Drug/Non Drug [...] Omeprazole 20 MG TAKE 1 CAPSULE BY [facility] ONCE DAILY FOR GERD Oral; Duration: 90 [...] Status W/U Status Risk Notes Problem Hypertension (34667876) Hypertension (I10) Active confirmed Problem Gastroesophageal reflux disease (589688040) GERD (K21.9) Active confirmed Problem Arthritis (3651424) Arthritis (M19.90) Active confirmed Problem COPD - Chronic obstructive pulmonary disease (77477302) COPD (chronic obstructive pulmonary disease) (J44.9) Active confirmed Vital Signs Temperature 98.1 degrees Fahrenheit 07/24/2025 Respiratory Rate 18 /min 07/24/2025 Oximetry 98 07/24/2025 Blood pressure diastolic 88 mm Hg 07/24/2025 Height 072 in 07/24/2025 Blood pressure systolic 130 mm Hg 07/24/2025 Weight 0225 lbs 07/24/2025 BMI 30.51 kg/m2 07/24/2025 Encounters Encounter Location Date Provider Diagnosis [id number] [facility] [address] [place] [address] 07/24/2025 Raine Silva Acute upper respiratory infection [...] Coverage End Date MEDICARE [place] [address] [place] [phone] [id number] Jacob Lunsford Self - patient is the insured [facility] [employer] [address] [place] [address] [id number] Jacob Lunsford Self - patient is the insured Medical (General) History Medical History History ICD Code Hypertension I10 GERD K21.9 Arthritis M19.90 COPD (chronic obstructive pulmonary dise ase) J44.9 Surgical History Surgery Date(Month/Year) gallbladder hernia back surgery pain stimulater
--- OUTSIDE RECORDS SUMMARY | 2025-09-26 12:14 | XMS_ITS | Clinical Summary ---
Author Organization [facility] Address [address] [place] [address] Care Team Providers Care Wheel Braider Name Role Phone Rocio Bedoya Primary Care Provider [phone] Allergies Active Allergy Reactions Criticality Noted Date [...] Vaccine ( - season) 2025 TDAP/TD VACCINES (2 - Td or Tdap) 07/05/2031 021, 12/04/1996 [...] PM by Cristóbal Townsend. Briana Ennis [place] [facility] [place] Final R esult from Last 3 Months or Most Recently Relevant to Health Maintenance Insurance MEDICARE A & B Member Subscriber Plan / Payer (Ef fective 2021-Present) Name:Jacob Lunsford Member ID:[id number] Relation to Subscriber:Self Name:Jacob Lunsford Subscriber ID:[id number] Payer ID:[id number] Group ID:Not on file Type:Not on file Address: [address] [place] [address] Care Teams Wheel Braider Relationship Specialty Start Date End Date Rocio Beodya PA PCP - General Physician Factory Clerk 03/16/21
--- OUTSIDE RECORDS SUMMARY | 2025-09-26 12:14 | XMS_ITS | Continuity of Care Document ---
Author Organization [place] - [employer] [facility] Address [address] [place] [address] Assessment No assessment recorded. Plan of Treatment Reminders Order Date Submit Date Provider Last Modified By Organization Details Last Modified Time Details Appointments None recorded. Lab None recorded. Referral None recorded. Procedures None recorded. Surgeries None recorded. Imaging None recorded. Medication Orders doxycycline hyclate 100 mg tablet 2024 025 [facility], [address], [address], 5 05:01:19 prednisone 20 mg tablet 2024 025 [facility], [address], [address], 5 05:02:03 promethazin e-DM 6.25 mg-15 mg/5 mL oral syrup 2024 025 [facility], [address], [address], 5 05:02:26 ceftriaxone 1 gram solution for injection [address] [facility], [address], [address], 5 16:00:59 Depo-Medrol 80 mg/mL suspension for injection 2024 025 [id number] [facility], [address], [place], [address], 16:00:59 Patient TargetsNo targets recorded. Patient Instructions Encounter Date Encounter Id Patient Instructions Last Modified By Organization Details Last Modified Time 07/27/2025 [id number] bronchitis: care instructions [id number] Not available 07/27/2025 15:13:23 Reason for Referral None Reported. Results Created Date Observation Date Name Description Value Unit Range Abnormal Flag Note LastModifiedBy Organization Detail LastModifiedTime 08/02/2008/02/2025 XR, chest , 2 view No observ ation record ed. [facility] (X-Ray) [address] [facility] [address], [place], [address], 08/03/2025 08:38:49 Result Notes None recorded. Problems Name Problem SNOMED Code Status Onset Date Resolution Date Notes Provider Name and Address Organization Details Recorded Time Candidias is of mouth 97250663 Completed 202306/14/2025 GEORGIA Shaw [address] [place] [address], [address], [employer] 14:00:02 Chronic obstructi ve pulmonary disease 75838871 Active 2023 GEORGIA Shaw [address] [place] [address], [address] 8, [employer] 4 16:36:15 Erectile dysfuncti on 777013125 Active 2023 GEORGIA Shaw [address] [place] [address], [address] 8, [employer] 5 11:11:08 Acute prostatit is 92556053 Completed 202306/14/2025 GEORGIA Shaw [address] [place] [address], [address] 8, [employer] 5 14:00:08 Essential hypertens ion 84806813 Active 2023 GEORGIA Shaw [address] [place] [address], [address] 8, [employer] 11:11:03 Osteoarth ritis 519753485 Active 2024 GEORGIA Shaw [address] [place] [address], [address] 8, [employer] 11:38:22 Obstructi ve sleep apnea syndrome 43675686 Active 2024 GEORGIA Shaw [address] [place] [address], [address] 8, [employer] 11:38:09 Dyspnea 919540161 Active 2024 GEORGIA Shaw [address] [place] [address], [address] 8, [employer] 14:14:23 Flank pain 893034461 Completed 202406/26/2025 GEORGIA Shaw [address] [place] [address], [address] 8, [employer] 17:30:04 Tobacco dependenc e syndrome 27681154 Active 2024 GEORGIA Shaw [address] [place] [address], [address] 8, [employer] 12:16:28 Bacterial conjuncti vitis 806398485 Completed 202406/14/2025 GEORGIA Shaw [address] [place] [address], [address] 8, [employer] 13:59:57 Weakness of bilateral lower limb Active 2024 GEORGIA Shaw [address] [place] [address], 465[address] 8, [employer] 13:58:53 Acute urinary tract infection 080473926 Completed 202406/26/2025 GEORGIA Shaw [address] [place] [address], 00[address] 8, [employer] 17:30:10 Pain in bilateral legs 503813941654 41871 Active 2024 GEORGIA Shaw [address] [place] [address], [address] 8, [employer] 5 17:56:16 Bacterial sinusitis 235186521 Active 2024 Rocio Bedoya [place] [address] [place] [address], [address] 8, [employer] 5 17:32:12 Bronchiti s 60304149 Active 2024 GEORGIA Shaw [address] [place] [address], [address] 8, [employer] 15:12:52 Acute cough Active 2024 GEORGIA Shaw [address] [place] [address], [address] 8, [employer] 12:24:11 Problem Notes None recorded. Procedures Surgical History Date Name Laterality Status Provider Name and Address Organization Details Recorded Time Back Surgery completed [employer] 08/24/2024 13:34:05 Hernia Repair completed [employer] 08/24/2024 13:34:05 Orthopedic Surgery completed [employer] 08/24/2024 13:34:05 Gallbladder Surgery completed [employer] 08/24/2024 13:34:05 Other completed [employer] 01/04/2025 10:57:46 Imaging Results None recorded. Procedure Notes None recorded. Medical Equipment None Reported. Allergies Allergen ID Allergen Name Allergen Category Reaction Reaction Severity Criticality Documentation Date Start Date Code Code System Note Provider Name and Address Organization Details Recorded Time 86984 Substance with sulfonami de structure and antibacte rial mechanism of action (substanc e) medicatio n itching Not available Not available 08/24/2024 84056 8003 SNOMED [employer] 13:34:02 80151 latex environme nt,medica tion rash Not available Not available 08/24/2024 94346 91 RxNorm Isabelcarlos traylor, [facility] [employer], [facility]. 13:34:02 Medications Name Sig Start Date Stop Date Status Note LastModified by Organization Details LastModified Time diazepam 10mg suppository # Insert 1 supposito ry (10 mg total) into the rectum every night as needed (pelvic pain). 03/05 completed Not Available Not Available Not Available celecoxib 200 mg capsule Take 1 capsule by mouth once daily 2024 active Not Available Not Available Not Avai lable cyclobenzap rine 10 mg tablet TAKE 1 [...] oral route as needed for 10 days. 08/13 completed Not Available Not Available Not Available nystatin 100,000 unit/mL oral suspension TAKE 5 [...] day by oral route for 5 days. 08/08 completed Not Available Not Available Not Available Pyridium 200 mg tablet Take 1 tablet [...] CAPSULE BY MOUTH ONCE DAILY FOR GERD 2024 active Not Available Not Available Not Avai lable mupirocin 2 % topical ointment APPLY A [...] day by oral route for 14 days. 08/17 completed Not Available Not Available Not Available amoxicillin 500 mg-potassiu m clavulanate 125 mg [...] Not Available Not Av ailable Not Available Brenda Ellipta 100 mcg-62.5 mcg-25 mcg powder for inhalation Inhale 1 puff every day by inhalatio n route. active Not Available Not Available No t Available Vitals Date Recorded Body height Body mass index (BMI) Body weight Oxygen saturation Heart rate Body temperature Systolic And Diastolic Provider Name and Address Organization Details Last Updated DateTime 182.88 cm 31.3 kg/m2 105409. 84 g 98 % 92 /min 97.5 [degF] 138/80 mm[Hg] [employer] 14:58:50 Social History Question Answer Notes LastModified by Organizat ion Details LastModified Time Tobacco Smoking Status Current Every Day Smoker [employer] 08/24/2024 13:34:05 Do You Have An Advance [...] Information not available 07/27/2025 What Type Of Nuclear Engineer Do You Use? None Information not available [...] Or The Highest Degree You Have Received? [id number] Information not available 08/24/2024 Have There Been [...] Do You Have A Medical Power Of Risk And Insurance Manager? Yes Information not available 08/24/2024 What Was [...] Functional Status Question Answer Note LastModified by [employer] Details LastModified Time Do you use [...] anxious, or unable to sleep at night)? [id number] Information not available 08/24/2024 Do you have [...] Time Tdap 1 completed Isabel Vice null, [employer] 01/04/2025 10:44:51 influenza, unspecified formulation 4 completed Isabel Vice null, [employer] 01/04/2025 10:44:51 Influenza, high-dose, quadrivalent, PF 2 completed Isabel Vice null, [employer] 01/04/2025 10:44:51 COVID-19, mRNA, LNP-S, PF, 100 mcg/0.5mL dose or 50 mcg/0.25mL dose 1 completed Isabel Vice null, [employer] 01/04/2025 10:44:51 COVID-19, mRNA, LNP-S, PF, 100 mcg/0.5mL dose or 50 mcg/0.25mL dose 1 completed Isabel Vice null, [employer] 01/04/2025 10:44:51 COVID-19, mRNA, LNP-S, PF, 100 mcg/0.5mL dose or 50 mcg/0.25mL dose 2 completed Isabel Vice null, [employer] 01/04/2025 10:44:51 COVID-19, mRNA, LNP-S, PF, 100 mcg/0.5mL dose or 50 mcg/0.25mL dose 1 completed Isabel Vice null, [employer] 01/04/2025 10:44:51 COVID-19, mRNA, LNP-S, PF, 50 mcg/0.5 mL 4 completed Isabel Vice null, [employer] 01/04/2025 10:44:51 Influenza, high-dose, trivalent, PF 4 completed Isabel Vice null, [employer] 01/04/2025 10:44:51 Influenza, split virus, trivalent, PF 8 completed Isabel Vice null, [employer] 01/04/2025 10:44:51 Td (adult), 2 Lf tetanus toxoid, preservative free, adsorbed 7 completed Isabel Vice null, [employer] 01/04/2025 10:44:51 Influenza, split virus, quadrivalent, PF 8 completed Isabel Vice null, [employer] 01/04/2025 10:44:51 Influenza, split virus, quadrivalent, PF 0 completed Isabel Vice null, [employer] 01/04/2025 10:44:51 Influenza, split virus, quadrivalent, PF 7 completed Isabel Vice null, [employer] 01/04/2025 10:44:51 Influenza, split virus, quadrivalent, PF 9 completed Isabel Vice null, [employer] 01/04/2025 10:44:51 Influenza, split virus, quadrivalent, PF 1 completed Isabel Vice null, [employer] 01/04/2025 10:44:51 Past Encounters Encounter ID Performer Location Encounter Start Date Encounter Closed Date Diagnosis/Indication Diagnosis SNOMED-CT Code Diagnosis ICD10 Code Diagnosis IMO Codes Diagnosis Note [id number] [facility] Shaw [facility] [address] [place] [address] 07/27/2025 14:32:09 07/27/2025 15:21:28 Bronchitis 88776726 J40 26281 Health Concerns Section Related Observation LastModified by Organization Detai ls LastModified Time None Recorded Concern Status LastModified by Organization Details LastModified Time None Recorded Payers Encounter Date Sequence Insurance Name Policy Number Policy Padilla Covered Member ID Padilla Member ID Guarantor Name 07/27/2025 2 [employer] (MEDICARE SUPPLEMENT) Jacob Lunsford [id number] Jacob Lunsford 07/27/2025 1 [place] [facility] [place] Jacob Lunsford [id number] Jacob Lunsford Notes Date Note Type Note Provider Name and Address Organization Details Recorded Time 07/27/2025 text/html ROS as noted in the HPI Cough and congestion for a week or so. No fever. Cough is productive. GEORGIA Shaw [address] [place] [address], [address], [facility] [employer] 07/27/2025 16:03:58
--- OUTSIDE RECORDS SUMMARY | 2025-09-26 12:14 | XMS_ITS | Data Portability ---
Author Organization [facility] - [facility] Address [address] [place] [address] Care Team Providers Care Web Site Specialist Name Role Phone ANASTASIIA OLIVEIRA Primary Care Provider [phone] Assessment Encounter Date Assessment Date Assessment LastModified by Organization Details LastModified Time 05/03/2024 05/03/2024 NOA (prescription drug monitoring report): reviewed today and is appropriate. Global Risk Assessment Score: low Risk. -All UDS's have been appropriate -All random pill counts have been appropriate when requested -Patient remains on low dose pain medication Not available 05/03/2024 11:41:24 Plan of Treatment Reminders Order Date Submit Date Provider Last Modified By Organization Details Last Modified Time Details Appointments None recorde d. Lab drug screen, urine - Meds: HYDROMO RPHONE AND GABAPET DELVIS TWIN 2023 024 SWAPNA Blanco MD [facility] ([facility]), [address] [place] [address], [address], 4 13:42:01 drug screen, urine - Meds:HY DROCODO NE AND GABAPEN ITN TWIN 2023 024 SWAPNA Blanco MD [facility] ([facility]), [address] [place] [address], [address], 4 12:17:19 drug screen, urine - Meds: hydroco done and gabapen tin twin 2023 024 SWAPNA Blanco MD [facility] (In House Lab), [address] [place] [address], [place], [address], 4 08:36:42 drug screen, urine - Meds: 2023 024 SWAPNA Blanco MD [facility] (In House Lab), [address] [place], [address], 4 08:13:43 Referral [facility] referra l - Beh Med eval as part of multi mode pain managem ent 2023 024 [facility] [address] [facility] [address], [address], [facility] [address], [place], [address], 4 09:15:59 Procedures None recorde d. Surgeries None recorde d. Imaging None recorde d. Medication Orders gabapen tin 300 mg capsule 2023 024 [place] [facility] #[id number], [address], [id number], 4 08:24:10 hydromo rphone 2 mg tablet 2023 024 [facility][id number], [address], [id number], 4 08:24:06 hydromo rphone 2 mg tablet 2023 024 [place] [facility] #[id number], [address], [id number], 4 08:24:06 gabapen tin 300 mg capsule 2023 024 [facility][id number], [address], [id number], 4 08:33:24 hydromo rphone 2 mg tablet 2023 024 SWAP[facility] #[id number], [address] [facility] [address], SHIRIN Horn, [id number], 4 08:33:23 hydromo rphone 2 mg tablet 2023 024 [facility] #, [address] [facility] [address], [place], [id number], 4 12:04:59 gabapen tin 300 mg capsule 2023 024 [facility] #, 629 [facility] [address], [place], [id number], 4 09:12:13 hydromo rphone 2 mg tablet 2023 024 [facility] #, 629 [facility] [address], [place], [id number], 4 09:12:08 hydroco done 7.5 mg-acet aminoph en 325 mg tablet 2023 024 [facility] #, 629 [facility] [address], [place], [id number], 4 12:19:19 hydroco done 7.5 mg-acet aminoph en 325 mg tablet 2023 024 [place] [facility] #[id number], [address] [facility] [address], [place], [id number], 4 12:19:20 gabapen tin 300 mg capsule 2023 024 SWAP[facility] #[id number], [address] [facility] [address], [place], [id number], 4 12:19:19 Patient TargetsNo targets recorded. Patient Instructions Encounter Date Encounter Id Patient Instructions Last Modified By Organization Details Last Modified Time 05/03/[id number] I have spent 45min with the patient, [...] to discuss sup hypogastric block? Pundendal block? [email or web address] Not available 05/03/2024 12:14:46 07/03/[id number] Take medications EXACTLY as instructed. Call office for any problems DO NOT run out of medications and medications should last till next appointment. Notify office if going to be late or need to reschedule. [email or web address] Not available 07/02/2024 18:27:31 07/31/[id number] Take medications EXACTLY as instructed. Call office for any problems DO NOT run out of medications and medications should last till next appointment. Notify office if going to be late or need to reschedule. [email or web address] Not available 07/30/2024 17:53:25 09/26/[id number] Take medications EXACTLY as instructed. Call office [...] status abnormal Not Available Marquis Blanco MD [facility] (In House Lab) [address] [place] [address], [address], 07/04/2024 08:36:44 07/03/20 24 07/03/2024 GABAP ENTIN abnormal status high Not Available Marquis Blanco MD [facility] (In House Lab) [address] [place] [address], [address], 07/04/2024 08:36:44 07/03/20 24 07/04/2024 OPIAT E DEFIN ITIVE PANEL LC/MS codeine 0.0 NG/mL <75.0 Not Available Shima Blanco MD [facility] (In House Lab) [address] [place] [address], [address], 07/04/2024 08:36:43 07/03/20 24 07/04/2024 OPIAT E DEFIN ITIVE PANEL LC/MS morphine 0 NG/mL <75.0 Not Available Shima Blanco MD [facility] (In House Lab) [address] [place] [address], [address], 07/04/2024 08:36:43 07/03/20 24 07/04/2024 OPIAT E DEFIN ITIVE PANEL LC/MS 6-STEFANO 0 NG/mL <15.0 Not Available Shima Blanco MD [facility] (In House Lab) [address] [place] [address], [address], 07/04/2024 08:36:43 07/03/20 24 07/04/2024 OPIAT E DEFIN ITIVE PANEL LC/MS hydromorphon e 129.1 NG/mL <75.0 abnormal Not Available Marquis Blanco MD [facility] ([facility] House [facility]) [address] [place] [address], [address], 07/04/2024 08:36:43 07/03/20 24 07/04/2024 OPIAT E DEFIN ITIVE PANEL LC/MS hydrocodone 336.6 NG/mL <75.0 abnormal Not Available Luis Felipe Blanco MD [facility] (In House Lab) [address] [place] [address], [address], 07/04/2024 08:36:43 07/03/20 24 07/04/2024 OPIAT E DEFIN ITIVE PANEL LC/MS norhydrocodo ne 617.6 NG/mL <75.0 abnormal Not Available Marquis Blanco MD [facility] (In House Lab) [address] [place] [address], [address], 07/04/2024 08:36:43 07/03/20 24 07/04/2024 GABAP ENTIN DEFIN ITIVE PANEL -LC/M S gabapentin >34586 NG/mL <5000. 0 abnormal Not Available Shima Blanco MD [facility] (In House Lab) [address] [place] [address], [address], 07/04/2024 08:36:42 07/03/20 24 07/03/2024 D-PRE SUMPT SHAWN URINE DRUG REPOR T amphetamine NEGATI VE NG/mL <1000. 0 Not Available Shima Blanco MD [facility] (In House Lab) [address] [place] [address], [address], 07/04/2024 08:36:42 07/03/20 24 07/03/2024 D-PRE SUMPT SHAWN URINE DRUG REPOR T benzodiazepi ne <3.3 NG/mL <200.0 Curre nt metho d may not detec t low level s of [place] pin Not Available Shima Blanco MD [facility] (In House Lab) [address] [place] [address], [address], 07/04/2024 08:36:42 07/03/20 24 07/03/2024 D-PRE SUMPT SHAWN URINE DRUG REPOR T buprenorphin e NEGATI VE NG/mL <10.0 Not Available Shima Blanco MD [facility] (In House Lab) [address] [place] [address], 09[address], 07/04/2024 08:36:42 07/03/20 24 07/03/2024 D-PRE SUMPT SHAWN URINE DRUG REPOR T cannabinoid NEGATI VE NG/mL <50.0 Not Available Shima Blanco MD [facility] (In House [facility]) [address] [place] [address], [address], 07/04/2024 08:36:42 07/03/20 24 07/03/2024 D-PRE SUMPT SHAWN URINE DRUG REPOR T cocaine NEGATI VE NG/mL <300.0 Not Available Shima Blanco MD [facility] (In House [facility]) [address] [place] [address], 595[address], 07/04/2024 08:36:42 07/03/20 24 07/03/2024 D-PRE SUMPT SHAWN URINE DRUG REPOR T ethanol NEGATI VE mg/dL <50.0 Not Available Shima Blanco MD [facility] (In House [facility]) [address] [place] [address], 05[address], 07/04/2024 08:36:42 07/03/20 24 07/03/2024 D-PRE SUMPT SHAWN URINE DRUG REPOR T methadone <0.8 NG/mL <300.0 Not Available Shima Blanco MD [facility] (In House [facility]) [address] [place] [address], [address]59[address], 07/04/2024 08:36:42 07/03/20 24 07/03/2024 D-PRE SUMPT SHAWN URINE DRUG REPOR T opiates 390.0 NG/mL <300.0 high Opiat es inclu celsa Codei ne,Mo rphin e, [place] morph one,H ydroc odone Not Available Shima Blanco MD [facility] (In House Lab) [facility] [place], [address], 07/04/2024 08:36:42 07/03/20 24 07/03/2024 D-PRE SUMPT SHAWN URINE DRUG REPOR T oxycodone 30.0 NG/mL <300.0 Not Available Shima Blanco MD [facility] (In House [facility]) [address] [place] [address], 470[address], 07/04/2024 08:36:42 07/03/20 24 07/03/2024 D-PRE SUMPT SHAWN URINE DRUG REPOR T urine creatinine (validity test) 50.0 mg/dL 20.0 - 300.0 Not Available Shima Blanco MD [facility] (In House [facility]) [address] [place] [address], [address], 07/04/2024 08:36:42 07/31/20 24 07/31/2024 GABAP ENTIN abnormal status abnormal Not Available Marquis Blanco MD [facility] (In House [facility]) [address] [place] [address], 29[address], 08/04/2024 12:17:21 07/31/2008/04/2024 OPIAT E DEFIN ITIVE PANEL LC/MS codeine 0.0 NG/mL <75.0 Not Available Shima Blanco MD [facility] (In House [facility]) [address] [place] [address], 206[address], 08/04/2024 12:17:20 07/31/2008/04/2024 OPIAT E DEFIN ITIVE PANEL LC/MS morphine 0 NG/mL <75.0 Not Available Shima Blanco MD [facility] (In House [facility]) [address] [place] [address], 35695, 08/04/2024 12:17:20 07/31/20 24 08/04/2024 OPIAT E DEFIN ITIVE PANEL LC/MS 6-STEFANO 0 NG/mL <15.0 Not Available Shima Blanco MD [facility] (In [facility]) [address] [place] [address], 40039, 08/04/2024 12:17:20 07/31/2008/04/2024 OPIAT E DEFIN ITIVE PANEL LC/MS hydromorphon e 773.4 NG/mL <75.0 abnormal Not Available Marquis Blanco MD [facility] (In [facility]) [address] [place] [address], 63696, 08/04/2024 12:17:20 07/31/2008/04/2024 OPIAT E DEFIN ITIVE PANEL LC/MS hydrocodone 77.9 NG/mL <75.0 abnormal Not Available Luis Felipe Blanco MD [facility] (In House [facility]) [address] [place] [address], 20876, 08/04/2024 12:17:20 07/31/20 24 08/04/2024 OPIAT E DEFIN ITIVE PANEL LC/MS norhydrocodo ne 28.3 NG/mL <75.0 Not Available Marquis Blanco MD [facility] (In [facility]) [address] [place] [address], 43321, 08/04/2024 12:17:20 07/31/20 24 08/04/2024 GABAP ENTIN DEFIN ITIVE PANEL -LC/M S gabapentin >07671 NG/mL <5000. 0 abnormal Not Available Shima Blanco MD [facility] (In House [facility]) [address] [place] [address], 65946, 08/04/2024 12:17:19 07/31/20 24 07/31/2024 D-PRE SUMPT SHAWN URINE DRUG REPOR T amphetamine NEGATI VE NG/mL <1000. 0 Not Available Shima Blanco MD [facility] (In [facility]) [address] [place] [address], 62569, 08/04/2024 12:17:19 07/31/20 24 07/31/2024 D-PRE SUMPT SHAWN URINE DRUG REPOR T benzodiazepi ne <3.3 NG/mL <200.0 Curre nt metho d may not detec t low level s of Klono pin Not Available Shima Blanco MD [facility] (In House [facility]) [address] [place] [address], [address]1971, 08/04/2024 12:17:19 07/31/20 24 07/31/2024 D-PRE SUMPT SHAWN URINE DRUG REPOR T buprenorphin e NEGATI VE NG/mL <10.0 Not Available Shima Blanco MD [facility] (In House [facility]) [address] [place] [address], 02217, 08/04/2024 12:17:19 07/31/20 24 07/31/2024 D-PRE SUMPT SHAWN URINE DRUG REPOR T cannabinoid NEGATI VE NG/mL <50.0 Not Available Shima Blanco MD [facility] (In House [facility]) [address] [place] [address], 79820, 08/04/2024 12:17:19 07/31/20 24 07/31/2024 D-PRE SUMPT SHAWN URINE DRUG REPOR T cocaine NEGATI VE NG/mL <300.0 Not Available Shima Blanco MD [facility] (In [facility]) [address] [place] [address], [address], 08/04/2024 12:17:19 07/31/2007/31/2024 D-PRE SUMPT SHAWN URINE DRUG REPOR T ethanol NEGATI VE mg/dL <50.0 Not Available Shima Blanco MD [facility] ([facility]) [address] [place] [address], 59980, 08/04/2024 12:17:19 07/31/20 24 07/31/2024 D-PRE SUMPT SHAWN URINE DRUG REPOR T methadone 27.0 NG/mL <300.0 Not Available Shima Blanco MD [facility] ([facility]) [address] [place] [address], 10571, 08/04/2024 12:17:19 07/31/20 24 07/31/2024 D-PRE SUMPT SHAWN URINE DRUG REPOR T opiates 283.0 NG/mL <300.0 Opiat es inclu celsa Codei ne,Mo rphin e, [place] morph one,H ydroc odone Not Available Shima Blanco MD [facility] (In [facility]) [address] [place] [address], 25581, 08/04/2024 12:17:19 07/31/20 24 07/31/2024 D-PRE SUMPT SHAWN URINE DRUG REPOR T oxycodone 13.0 NG/mL <300.0 Not Available Shima Blanco MD [facility] ([facility]) [address] [place] [address], 00145, 08/04/2024 12:17:19 07/31/20 24 07/31/2024 D-PRE SUMPT SHAWN URINE DRUG REPOR T urine creatinine (validity test) 38.5 mg/dL 20.0 - 300.0 Not Available Shima Blanco MD [facility] ([facility]) [address] [place] [address], 34696, 08/04/2024 12:17:19 09/26/20 24 09/26/2024 GABAP ENTIN abnormal status abnormal Not Available Marquis Blanco MD [facility] (In [facility]) [address] [place] [address], 21267, 10/02/2024 13:42:04 09/26/20 24 09/26/2024 GABAP ENTIN abnormal status high Not Available Marquis Blanco MD [facility] ([facility]) [address] [place] [address], 24366, 10/02/2024 13:42:04 09/26/20 24 10/02/2024 OPIAT E DEFIN ITIVE PANEL LC/MS codeine 0.0 NG/mL <75.0 Not Available Shima Blanco MD [facility] ([facility]) [address] [place] [address], 71313, 10/02/2024 13:42:03 09/26/20 24 10/02/2024 OPIAT E DEFIN ITIVE PANEL LC/MS morphine 0 NG/mL <75.0 Not Available Shima Blanco MD [facility] (In [facility]) [address] [place] [address], 87748, 10/02/2024 13:42:03 09/26/20 24 10/02/2024 OPIAT E DEFIN ITIVE PANEL LC/MS 6-STEFANO 0 NG/mL <15.0 Not Available Shima Blanco MD [facility] (In House [facility]) [address] [place] [address], 87364, 10/02/2024 13:42:03 09/26/20 24 10/02/2024 OPIAT E DEFIN ITIVE PANEL LC/MS hydromorphon e 2590.5 NG/mL <75.0 abnormal Not Available Marquis Blanco MD [facility] (In House [facility]) [address] [place] [address], 11574, 10/02/2024 13:42:03 09/26/20 24 10/02/2024 OPIAT E DEFIN ITIVE PANEL LC/MS hydrocodone 0 NG/mL <75.0 Not Available Marquis Blanco MD [facility] (In [facility]) [address] [place] [address], 57323, 10/02/2024 13:42:03 09/26/20 24 10/02/2024 OPIAT E DEFIN ITIVE PANEL LC/MS norhydrocodo ne 0 NG/mL <75.0 Not Available Marquis Blanco MD [facility] (In [facility]) [address] [place] [address], 15491, 10/02/2024 13:42:03 09/26/20 24 10/02/2024 GABAP ENTIN DEFIN ITIVE PANEL -LC/M S gabapentin >21360 NG/mL <5000. 0 abnormal Not Available Shima Blanco MD [facility] ([facility]) [address] [place] [address], 19639, 10/02/2024 13:42:02 09/26/20 24 10/02/2024 BENZO DIAZE PINE DEFIN ITIVE PANEL - LC/MS alprazolam 0 NG/mL <75.0 Not Available Shima Blanco MD [facility] (In House [facility]) [address] [place] [address], 51502, 10/02/2024 13:42:02 09/26/20 24 10/02/2024 BENZO DIAZE PINE DEFIN ITIVE PANEL - LC/MS A-hydroxyalp razolam 0 NG/mL <75.0 Not Available Marquis Blanco MD [facility] (In [facility]) [address] [place] [address], 37045, 10/02/2024 13:42:02 09/26/20 24 10/02/2024 BENZO DIAZE PINE DEFIN ITIVE PANEL - LC/MS clonazepam 0 NG/mL <75.0 Not Available Shima Blanco MD [facility] (In [facility]) [address] [place] [address], 36052, 10/02/2024 13:42:02 09/26/20 24 10/02/2024 BENZO DIAZE PINE DEFIN ITIVE PANEL - LC/MS 7-aminoclona zepam 0 NG/mL <75.0 Not Available Marquis Blanco MD [facility] (In [facility]) [address] [place] [address], 74782, 10/02/2024 13:42:02 09/26/20 24 10/02/2024 BENZO DIAZE PINE DEFIN ITIVE PANEL - LC/MS diazepam 0 NG/mL <75.0 Not Available Shima Blanco MD [facility] (In [facility]) [address] [place] [address], 78375, 10/02/2024 13:42:02 09/26/20 24 10/02/2024 BENZO DIAZE PINE DEFIN ITIVE PANEL - LC/MS oxazepam 84.8 NG/mL <75.0 abnormal Not Available Shima Blanco MD [facility] ([facility]) [address] [place] [address], 76745, 10/02/2024 13:42:02 09/26/20 24 10/02/2024 BENZO DIAZE PINE DEFIN ITIVE PANEL - LC/MS temazepam 125.7 NG/mL <75.0 abnormal Not Available Shima Blanco MD [facility] ([facility]) [address] [place] [address], 46343, 10/02/2024 13:42:02 09/26/20 24 10/02/2024 BENZO DIAZE PINE DEFIN ITIVE PANEL - LC/MS lorazepam 0 NG/mL <75.0 Not Available Shima Blanco MD [facility] ([facility]) [address] [place] [address], 79178, 10/02/2024 13:42:02 09/26/20 24 09/26/2024 D-PRE SUMPT SHAWN URINE DRUG REPOR T amphetamine NEGATI VE NG/mL <1000. 0 Not Available Shima Blanco MD [facility] ([facility]) [address] [place] [address], 79073, 10/02/2024 13:42:01 09/26/20 24 09/26/2024 D-PRE SUMPT SHAWN URINE DRUG REPOR T benzodiazepi ne 505.0 NG/mL <200.0 high Curre nt metho d may not detec t low level s of Klono pin Not Available Shima Blanco MD [facility] ([facility]) [address] [place] [address], 27377, 10/02/2024 13:42:01 09/26/20 24 09/26/2024 D-PRE SUMPT SHAWN URINE DRUG REPOR T buprenorphin e NEGATI VE NG/mL <10.0 Not Available Shima Blanco MD [facility] ([facility]) [address] [place] [address], 68051, 10/02/2024 13:42:01 09/26/20 24 09/26/2024 D-PRE SUMPT SHAWN URINE DRUG REPOR T cannabinoid NEGATI VE NG/mL <50.0 Not Available Shima Blanco MD [facility] ([facility]) [address] [place] [address], 45331, 10/02/2024 13:42:01 09/26/20 24 09/26/2024 D-PRE SUMPT SHAWN URINE DRUG REPOR T cocaine NEGATI VE NG/mL <300.0 Not Available Shima Blanco MD [facility] ([facility]) [address] [place] [address], 87453, 10/02/2024 13:42:01 09/26/20 24 09/26/2024 D-PRE SUMPT SHAWN URINE DRUG REPOR T ethanol NEGATI VE mg/dL <50.0 Not Available Shima Blanco MD [facility] ([facility]) [address] [place] [address], 12588, 10/02/2024 13:42:01 09/26/20 09/26/2024 D-PRE SUMPT SHAWN URINE DRUG REPOR T methadone <0.8 NG/mL <300.0 Not Available Shima Blanco MD [facility] ([facility]) [address] [place] [address], 95707, 10/02/2024 13:42:01 09/26/20 24 09/26/2024 D-PRE SUMPT SHAWN URINE DRUG REPOR T opiates 488.0 NG/mL <300.0 high Opiat es inclu celsa Codei ne,Mo rphin e, [place] morph one,H ydroc odone Not Available Shima Blanco MD [facility] ([facility]) [address] [place] [address], 69635, 10/02/2024 13:42:01 09/26/20 24 09/26/2024 D-PRE SUMPT SHAWN URINE DRUG REPOR T oxycodone 30.0 NG/mL <300.0 Not Available Shima Blanco MD [facility] ([facility]) [address] [place] [address], 49133, 10/02/2024 13:42:01 09/26/20 24 09/26/2024 D-PRE SUMPT SHAWN URINE DRUG REPOR T urine creatinine (validity test) 149.4 mg/dL 20.0 - 300.0 Not Available Shima Blanco MD [facility] ([facility]) [address] [place] [address], 84679, 10/02/2024 13:42:01 Result Notes None recorded. Problems Name Problem SNOMED Code Status Onset Date Resolution Date Notes Provider Name and Address Organization Details Recorded Time Left sided abdominal pain 046257075 Active 024 Nasima Frank MD [address] [place] [address], [id number] 4, [facility] 4 12:13:39 [...] Updated DateTime 07/03/2024 16 /min 60 /min 806413.6 9 g 154/84 mm[Hg] Galina BLANCO M.D., [...] Address Organization Details Last Updated DateTime 4 299379. 25 g 16 /min 98 [degF] 31.2 [...] ICD10 Code Diagnosis IMO Codes Diagnosis Note [id number] Nasima Frank MD [address] [place] [address] [id number] 4 05/03/2024 08:55:16 05/04/2024 10:10:24 Left lower quadrant pain 832918488 R10.32 Long-term current use of opiate analgesic drug 9058832143 88453 Z79.891 Diagnostic /Lab: Order Presumptiv e UDT [...] and carisoprod ol). Left sided abdominal pain 971391300 R10.9 [id number] SRINIVASAN MCCORMICK MD [address] [place] [address] [id number] 4 07/03/2024 08:20:07 07/03/2024 09:26:22 Long-term current use of opiate analgesic drug 6079006541 23887 Z79.891 Diagnostic /Lab: Order Presumptiv e UDT [...] and carisoprod ol). Left sided abdominal pain 214289736 R10.9 [id number] SRINIVASAN MCCORMICK MD [address] [place] [address] [id number] 4 07/31/2024 08:16:22 07/31/2024 08:47:14 Long-term current use of opiate analgesic drug 6045652136 39640 Z79.891 Diagnostic /Lab: Order Presumptiv e UDT [...] and carisoprod ol). Left sided abdominal pain 278754145 R10.9 [id number] SRINIVASAN MCCORMICK MD [facility] 16969-770 4 09/26/2024 08:05:45 09/26/2024 08:25:32 Left sided abdominal pain 475008882 R10.9 Long-term current use of opiate analgesic drug 9642452118 57971 Z79.891 [id number] Diagnostic /Lab: Order Presumptiv e UDT (necessary [...] Name 07/23/2024 1 UNSPECIFIED REMIT PAYOR Jacob Godoy [place] 11/21/2024 2 [employer] [place] (MEDICARE SUPPLEMENT) Jacob Jayne [place] [id number] Jacob Jayne [place] 11/21/2024 1 [place]IC[place] Jacob Gomez Jonn [id number] 1 Jacob [place] Notes Date Note Type [...] Pt had consult over the phone with [facility] and they will f/u with him [...] or either side now. Nasima Frank MD [address] [facility], [place], [address], [facility] 05/08/2024 16:10:50 07/03/20 [...] and will try hydrmorphone SRINIVASAN MCCORMICK MD [address] [facility], [place], [address], [facility] 07/03/2024 09:12:07 07/31/20 [...] and no changes today SRINIVASAN MCCORMICK MD [address] [facility], [place], [address], [facility] 07/31/2024 08:33:19 09/26/20 [...] and no changes today. SRINIVASAN MCCORMICK MD [address] [facility], [place], [address], [facility] 09/26/2024 08:24:06
--- OUTSIDE RECORDS SUMMARY | 2025-09-26 12:14 | XMS_ITS | Data Portability ---
Author Organization [facility] CARMENZA Fuentes GOTHAM CLOSED Address [address] [address] [facility] [address] [place] [address] Care Team Providers Care Rn Camp Name Role Phone ANASTASIIA OLIVEIRA Primary Care [...] possible peripheral neuralgia. I recommend: 1. Tomas textiles sales representative is present today for program optimization. [...] type II, . I recommend: 1. [employer]omas text[employer] sales representative is present today for program optimization. [...] in the next 4 weeks. 4. 4-week Tomas follow-up External records were [...] with CRPS type II. I recommend: 1. Thom collier is present today for program optimization And to help with maris downloaded on patient's personal phone. 2. Graduated patient on his successful weaning from opioid pain medication and gabapentin. 3. At this time he will continue to ween off of Cymbalta per PCP 4. 3-month Tomas follow-up External records were reviewed and discussed as above, including imaging, clinical notes, and relevant labs. yoshi Not available 05/09/2025 10:57:44 08/07/2025 08/07/2025 This is a 69-year-old gentleman seen today for follow-up after spinal cord stimulator permanent implant. He is doing very well from a pain relief perspective. He has rare pain, often when he over eats. Otherwise, he is very pleased He has successfully weaned off of opioid pain medication, gabapentin and Cymbalta PMH: Chronic prostatitis PSHx: L inguinal hernia repair (2017), robotic dismembered pyeloplasty (05/2024), left ureteral stent, L5-S1 fusion SCS (12/2024, [facility]) No updated imaging is available for review The patient has undergone no recent injection therapy. 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 I recommend: 1. Tomas text[employer] sales representative is present today for program optimization 2. 6-month follow-up 3. I recommend the patient engage in a core exercise plan such as yoga or pilates on a prison basis. [email or web address] Not available 08/07/2025 14:01:41 Plan of Treatment Reminders Order Date Submit Date Provider Last Modified By Organization Details Last Modified Time Details Appointments RECHECK 2025 11:00A M DOUGLAS CENTENO PA-C Not available Not available Not available Lab None recorded. Referral None recorded. Procedures None recorded. Surgeries None recorded. Imaging None recorded. Medication Orders gabapenti n 300 mg capsule 2024 025 [facility] 591, [address], [address], 03/28/2025 10:26:55 Patient TargetsNo targets recorded. Patient InstructionsNo instructions recorded. Reason for Referral None Reported. Results Created Date Observation Date Name Description Value Unit Range Abnormal Flag Note LastModifiedBy Organization Detail LastModifiedTime 02/01/20 25 01/31/2025 xr eugenio knees compl ete, 4 or more vws [facility] [address] [place] [address] Patien t Name: PARI goldstein : 957 Patisy goldstein Orderi ng Provid er: FISH ISHA EXAM DATE: 2024 EXAM: XR EUGENIO KNEES [...] sofia MD on 025 11:36 AM [email or web address] [facility] [address] [place], [address], 02/20/2025 12:58:48 Result Notes None recorded. Problems Name Problem SNOMED Code Status Onset Date Resolution Date Notes Provider Name and Address Organization Details Recorded Time Pericardial effusion 832051985 Active 2016 Not Available [facility] 1 02:28:53 Chest pain 96329079 Active 2016 Not Available [facility] 1 02:28:53 Cigarette smoker 48903620 Active 2016 Not Available [facility] 1 02:28:53 Obesity 007747515 Active 2016 Not Available [facility] 1 02:28:53 Obstructive sleep apnea syndrome 78069914 Active 2016 Not Available [facility] 1 02:28:53 Gastroesophag eal reflux disease 498167035 Active 2016 Not Available [facility] 1 02:28:53 Mitral valve regurgitation 52559124 Active 2016 Not Available [facility] 1 02:28:53 Tricuspid valve regurgitation 159342860 Active 2016 Not Available [facility] 1 02:28:53 Problem Notes None recorded. Procedures Surgical History Date Name Laterality Status Provider Name and Address Organization Details Recorded Time 025 Injection - Joint/Bursa, Major completed FISH VIEIRA PA-C [address] [place], [address], [facility] 06/19/2025 11:45:16 025 Injection - Joint/Bursa, Major completed FISH VIEIRA PA-C [address] [place], [address], [facility] 01/31/2025 12:02:12 025 SCS Implant - Karen completed JAMIR MCGEE MD [facility] [place], [address], [facility] 12/13/2024 08:33:16 025 Stimulation of spinal cord completed Juan Ferraro [facility] 12/25/2024 11:16:36 02/10/2 025 SCS Trial - Karen completed JAMIR MCGEE MD [address] [place], [address], [facility] 11/13/2024 13:43:38 025 Abdominal Trigger Point Injection w/US completed JAMIR MCGEE MD [address] [place], [address], [facility] 10/10/2024 12:41:11 018 Uroflowmetry; Complex completed [facility] 04/14/2018 15:12:52 018 Urodynamics Interpretation completed NAHID RIDLEY JR, MD [address] [place], [address], [facility] 04/18/2018 09:03:17 018 Urodynamics completed [facility] 04/14/2018 15:16:53 017 CYSTOURETHROSCOPY WITH DIRECT VISION INTERNAL URETHROTOMY (SURG) completed [facility] 04/14/2018 15:02:02 013 Circum 28 days or older completed [facility] 04/14/2018 15:09:44 013 Prostate Surgery completed [facility] 04/14/2018 15:09:24 hernia repair completed [facility] 10/10/2024 08:15:18 Imaging Results None recorded. Procedure Notes None recorded. Medical Equipment None Reported. Allergies Allergen ID Allergen Name Allergen Category Reaction Reaction Severity Criticality Documentation Date Start Date Code Code System Note Provider Name and Address Organization Details Recorded Time 553683 Substance with sulfonami de structure and antibacte rial mechanism of action (substanc e) medicatio n Not available Not available Not available 08/28/20162012 87463 8003 SNOMED Comme nt: Creat ed By: Jose Luis Robert anita;Jhonny driscoll d Date: 12:23 :01 PM; Not Available [facility] 6 04:17:21 650169 latex environme nt,medica tion Not available Not available Not available 08/28/20162012 73817 91 RxNorm Comme nt: Creat ed By: Jose Luis pabon Date: 013 12:22 :53 PM; Not Available [facility] 6 07:58:29 Medications Name Sig Start Date [...] tablet every day by oral route. active not taking Not Available Not Available Not Available Celebrex 100 mg capsule Take 1 capsule every day by oral route. active Not Available Not Available No t Available hydromorp reji 2 mg tablet Take 1 tablet 3 times a day by oral route as needed for 15 days. 02/28 completed Quit taking Not Available Not Available Not Available baclofen 10 mg tablet Take 1 tablet every day by oral route as needed for 30 days. 2024 active Not taking Not Available Not Available Not Available hydrocodo ne 7.5 mg-acetam inophen 325 mg [...] Relief 50 mcg/actua tion nasal spray,gayle pension [place] 1 spray every day by intranas al route. active Not Available Not Available No t Available Vitals Date Recorded Body height Body mass index (BMI) Body weight Oxygen saturation Heart rate Systolic And Diastolic Provider Name and Address Organization Details Last Updated DateTime 5 182.88 cm 31.1 kg/m2 786735. 65 g 96 % 70 /min 130/78 mm[Hg] aHyley Cheatham [facility] 5 10:57:56 Date Recorded Body height Body mass index (BMI) Body weight Oxygen saturation Heart rate Systolic And Diastolic Provider Name and Address Organization Details Last Updated DateTime 5 182.88 cm 31.1 kg/m2 031904. 65 g 95 % 78 /min 126/84 mm[Hg] [facility] 5 10:29:45 Date Recorded Body height Body mass index (BMI) Body weight Heart rate Oxygen saturation Systolic And Diastolic Provider Name and Address Organization Details Last Updated DateTime 5 182.88 cm 31.1 kg/m2 600594. 65 g 75 /min 97 % 130/76 mm[Hg] Marialuisa Pearson [facility] 5 10:43:17 Date Recorded Body height Provider Name an d Address Organization Details Last Updated DateTime 06/19/2025 182.88 cm Ever Pérez [facility] 06/19/2025 08:40:49 Date Recorded Body height Body mass index (BMI) Body weight Systolic And Diastolic Provider Name and Address Organization Details Last Updated DateTime 08/07/2025 182.88 cm 31.9 kg/m2 161448.31 g 128/78 mm[Hg] [facility] 08/07/2025 13:30:39 Social History Question Answer Notes LastModified by Organizat ion Details LastModified Time Tobacco Smoking Status Current Every Day Smoker Thea traylor, [facility] 09/10/2017 10:40:24 What Is Your Level Of Caffeine Consumption? Heavy Coffee In The Morning Miranda 3 A Day Information not available 12/25/2024 Marital Status Informatio n not available 09/10/2017 What Was The Date Of Your Most Recent Tobacco Screening? 08/07/2025 Information not available 08/07/2025 What Is Your Current Pack Years? [email or web address] Information not available 01/22/2025 What Is Your Relationship Status? [email or web address] Information not available 04/12/2023 At What Age Did You Start Smoking Tobacco? 29 Information not available 01/22/2025 How Much Tobacco Do You Smoke? 0.5 PPD [email or web address] Information not available 04/12/2023 How Many Years Have You Smoked Tobacco? 40 Information not available 01/22/2025 Sex: Male Functional Status Question Answer Note LastModified by Organizat ion Details LastModified Time Do you use any illicit or recreational drugs? No [email or web address] Information not available 10/26/2024 What is your level of alcohol consumption? None Information not available 09/10/2017 Are you currently employed? 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 Family History Relationship Description Onset Age of this Age Resolved Age Notes LastModified by Organization Details LastModified Time Sister Family history of malignant neoplasm Breast CA Not available 09/10/2017 10:40:16 Maternal Uncle Malignant neoplasm of prostate [email or web address] Not available 2022 16:15:36 Medical History Condition Response Kidney Stones N Blood Transfusion N Emphysema Y Colon/Rectal Disorders N Sexually Transmitted Disease N Glaucoma N COPD Y Depression N Pneumonia N Measles N Attempted Suicide N Varicose Veins N Anxiety Disorder N Hearing Loss N Arthritis Y Blood Clot N Cancer N Stroke N Radiation Therapy N Blood Thinners N High Cholesterol N Neurologic Disorder N Liver Disease N Fibromyalgia N Headaches N Endocrine Disorder N Kidney Disease N Heart Problems N Chronic Obstructive Pulmonary Disease Y Skin Problems N Meningitis N Heart Attack ([place]) N Ulcers N Diabetes N Rheumatic Fever N Bleeding Disorder N Tuberculosis N AIDS/HIV N Asthma N Epilepsy/Seizures N Sleep Apnea Y Thyroid Disorder N Hepatitis N Hypertension N Osteoporosis N Past Encounters Encounter ID Performer Location Encounter Start Date Encounter Closed Date Diagnosis/Indication Diagnosis SNOMED-CT Code Diagnosis ICD10 Code Diagnosis IMO Codes Diagnosis Note [id number] DAMONChau THOMAS APRN CARDIOLOG Y [address] [place] [address] 05/10/2017 11:15:08 05/11/2017 12:08:18 Pericardial effusion 803350675 I31.3 Trivial on recent Echocardio gram. No further testing recommende d at this time. Can repeat Echocardio gram if dyspnea worsens. I will see him back in 3 months for reevaluati on. Advised to call sooner with questions or concerns. Chest pain 01131798 R07. 9 EKG today reveals NSR, 80, [...] in agreement with this plan. Cigarette smoker 8878303 7 F17.210 1.5 PPD for 30-40 years. No desire to stop smoking. Smoking cessation advised. Obesity 106539927 E66.9 BMI today 33.9; Weight loss recommende [...] c effects. Obstructiv e sleep apnea syndrome 67214965 G47.33 Utilizes CPAP. Advised continued compliance . Gastroesop hageal reflux disease 341872277 K21.9 Followed by PCP. Controlled on PPI. Mitral king ve regurgitation 49494518 I34.0 Tr noted on recent Echocardio gram. Can repeat echocardio gram q 2-3 years for progressio n, sooner if concerning symptoms develop. Tricuspid valve regurgitation 980074565 I07.1 Tr noted on recent Echocardio gram. Can repeat echocardio gram q 2-3 years for progressio n, sooner if concerning symptoms develop. [id number] BETH SMALLS MD [facility] [address] [place] [address] 09/10/2017 09:54:59 09/13/2017 12:40:41 Epididymitis 04737950 N45.1 considerin g his previous medical therapies will switch him to Augmentin for 10 days he has a follow-up appointmen t with [place] in [place]. [id number] NAHID RIDLEY JR, MD [facility] [address] [place] [address] 04/14/2018 08:48:15 04/14/2018 10:35:18 Increased frequency of urination 965339478 R35.0 Nocturia 582259229 R35.1 Incomplete emptying of urinary bladder 592154794 R39.14 [id number] BETH SMALLS MD [facility] S [address] [place] [address] RD,[address] [place] [address] 04/12/2023 15:49:28 04/12/2023 16:38:55 Renal mass 001074511 N28.89 Plan as above Left flank pain 80944146 9 R10.9 As above [id number] BETH SMALLS MD SURGERY SCHEDULE [address] [place] [address] 05/05/2023 08:26:00 05/05/2023 08:26:25 [id number] BETH SMALLS MD [facility] [address] [place] [address] [address] [place] [address] 05/10/2023 10:58:12 05/10/2023 14:54:20 Hydronephrosis due to ureteral stricture 4715020293 14587 N13.1 As above [id number] BETH SMALLS MD [facility] [address] [address] 06/28/2023 10:53:47 06/28/2023 12:00:18 Obstruction of pelviureteric junction 93626536 N13.5 Status post dismembere d pyeloplast y. We will arrange for flexible local cystoscopy for stent removal [id number] BETH SMALLS MD SURGERY SCHEDULE [address] [place] [address] 06/30/2023 08:04:20 06/30/2023 08:13:55 [id number] BETH SMALLS MD [facility] [address] [address] 09/17/2023 10:02:08 09/17/2023 11:28:44 Obstruction of pelviureteric junction 72347748 N13.5 Status post dismembere d pyeloplast y. Doing well he will follow-up in 6 months [id number] BETH SMALLS MD [facility] [address] [address] 02/23/2024 14:56:57 02/23/2024 15:37:17 Renal colic 8707132 N23 As above Hydronephr osis due to ureteral stricture 8520021181 52858 N13.1 As above [id number] BETH SMALLS MD SURGERY SCHEDULE [address] [place] [address] 03/01/2024 07:55:19 03/01/2024 07:56:35 [id number] MD [facility] [address] [facility] [address] 09/22/2024 10:30:27 09/25/2024 04:07:54 Pain in male perineum 141944771 R10.2 As above follow-up 3 months Chronic prostatitis 1990 5009 N41.1 As above Low back pain 212211408 M54.50 Will refer to pain therapy regarding his chronic left flank pain. He has had a recent MRI at [facility] and he will bring his disc. [id number] JAMIR MCGEE MD [facility] CLOSED [address] [place] [address] 1 10/10/2024 07:45:43 10/10/2024 13:19:08 Peripheral neuralgia 01238958 M79.2 Thoracic radiculopathy 05462021 M54.14 Complex re gional pain syndrome type II of left lower limb 8136934063 38246 G57.72 [id number] JAMIR MCGEE MD [facility] [address] [place] [address], [place] [address] 1 10/10/2024 12:01:51 10/10/2024 13:20:24 Peripheral neuralgia 52095546 M79.2 [id number] JAMIR MCGEE MD [facility] CLOSED [address] [place] [address] 1 10/26/2024 10:50:16 10/26/2024 16:02:46 Complex regional pain syndrome type I of left lower limb 0759947248 03882 G90.522 [id number] JAMIR MCGEE MD [facility] [address] [place] [address] 1 11/13/2024 12:21:34 11/13/2024 14:29:15 Complex regional pain syndrome of lower limb 575542681 G90.522 [id number] DOUGLAS CENTENO PA-C PAIN MEDICINE CLOSED [address] [place] [address] 1 11/15/2024 12:46:46 11/15/2024 16:16:49 Postoperative visit 759869928 Z09 Lumbar post-laminectomy syndrome 588749518 M96.1 Chronic pain syndrome 37 0040137 G89.4 [id number] JAMIR MCGEE MD [facility] [address] [place] [address], [place] [address] 1 12/13/2024 06:19:38 12/13/2024 06:20:26 Complex regional pain syndrome type I of left lower limb 5054825646 11599 G90.522 [id number] JAMIR MCGEE MD PAIN MEDICINE CLOSED [address] [place] [address] 12/25/2024 10:54:54 12/25/2024 13:13:43 Postoperative visit 572887584 Z09 Chronic pain syndrome 37 0156888 G89.4 Complex re gional pain syndrome, type II, lower limb 682556939 G57.72 [id number] DOUGLAS CENTENO PA-C PAIN MEDICINE [address] [place] [address] 1 01/22/2025 15:01:55 01/22/2025 16:20:06 Complex regional pain syndrome, type II, lower limb 289775207 G57.72 Chronic pain syndrome 37 3853573 G89.4 [id number] FISH VIEIRA PA-C ORTHOPEDI CS [address] [place] [address] 1 01/31/2025 10:36:00 01/31/2025 13:07:18 Osteoarthritis of left knee joint 0019066910 94638 M17.12 [id number] Assessment : Bilateral osteoarthr itis of the knees and quadriceps weakness of both knees. Plan: Physical therapy can be helpful for stabilizat ion of the knee. Terminal treatment for both knees would be arthroplas ty. He opted for bilateral steroid injections today, which were tolerated well without complicati on. Follow-up as needed. Osteoarthr itis of right knee joint 3924733078 32992 M17.11 5305650 Quadriceps weakness 3009 92570 M62.81 3693189126 [id number] DOUGLAS CENTENO PA-C PAIN MEDICINE [address] [place] [address] 1 02/28/2025 10:41:40 02/28/2025 16:32:09 Complex regional pain syndrome, type II, lower limb 348002424 G57.72 Chronic pain syndrome 37 4765588 G89.4 Peripheral neuralgia 254 95470 M79.2 Thoracic radiculopathy 27402260 M54.14 Complex re gional pain syndrome type II of left lower limb 5043507180 54266 G57.72 [id number] DOUGLAS CENTENO PA-C PAIN MEDICINE [address] [place] [address] 1 03/28/2025 10:10:04 03/28/2025 11:11:02 Chronic pain syndrome 107862321 G89.4 Peripheral neuralgia 254 80757 M79.2 Thoracic radiculopathy 66095252 M54.14 Complex re gional pain syndrome type II of left lower limb 4825923193 42585 G57.72 [id number] DOUGLAS CENTENO PA-C PAIN MEDICINE [address] [place] [address] 1 05/09/2025 10:23:50 05/09/2025 15:30:51 Complex regional pain syndrome type II of left lower limb 7632933303 26534 G57.72 Chronic pain syndrome 37 0848450 G89.4 Peripheral neuralgia 254 58358 M79.2 Thoracic radiculopathy 92316296 M54.14 [id number] FISH VIEIRA PA-C ORTHOPEDI CS [address] [place] [address] 1 06/19/2025 08:36:54 06/19/2025 13:58:55 Osteoarthritis of left knee joint 8136847233 29468 M17.12 [id number] He may repeat these every 3 months. He may also try gels in the future. Follow-up as needed. Osteoarthr itis of right knee joint 5058893853 58042 M17.11 4977130 [id number] DOUGLAS CENTENO PA-C PAIN MEDICINE [address] [place] [address] 08/07/2025 13:16:47 08/07/2025 14:12:40 Complex regional pain syndrome type II of left lower limb 5723559161 99506 G57.72 Chronic pain syndrome 37 9380701 G89.4 Peripheral neuralgia 254 62023 M79.2 Thoracic radiculopathy 10673477 M54.14 Health Concerns Section Related Observation LastModified by Organization Detai ls LastModified Time None Recorded Concern Status LastModified by Organization Details LastModified Time None Recorded Advance Directives Directive None Recorded Payers Insurance Date Sequence Insurance Name Policy Number Policy Padilla Covered Member ID Padilla Member ID Guarantor Name 08/04/2025 2 [employer] Pari Lunsford [id number] Pari Lunsford 08/04/2025 1 [place] Pari Lunsford [id number] Pari Lunsford 06/18/2025 1 [facility] [id number] Pari Lunsford [id number] Pari Lunsford 06/18/2025 1 [employer] (POS) [id number] Pari Lunsford [id number] Pari Lunsford 07/17/2024 PAYMENT PLAN Pari Lunsford Notes Date Note Type Note Provider Name and Address Organization Details Recorded Time 02/28/2025 text/html Post-OpReported by PatientHPIFor onset/timing, patient reportsdate of surgery: (12/13/24). For quality, patient reportsprocedure: (scs perm). For context, patient reportsreason for procedure: (pain relief). For associated symptoms, patient reportsincision healing well,no fatigue,normal appetite,normal bowel function,no constipation,no nausea,no emesis,pain improving,no pain,no fever,no bleeding, andno lower extremity edema/pain. DOUGLAS CENTENO PA-C [address] [place], [address], [facility] 02/28/2025 11:29:51 03/28/2025 text/html Post-OpReported by PatientHPIFor onset/timing, patient reportsdate of surgery: (12/13/24). For quality, patient reportsprocedure: (scs perm). For context, patient reportsreason for procedure: (pain relief). For associated symptoms, patient reportsincision healing well,no fatigue,normal appetite,normal bowel function,no constipation,no nausea,no emesis,pain improving,no pain,no fever,no bleeding,no lower extremity edema/pain, andno dysuria/urinary symptoms. DOUGLAS CENTENO PA-C [address] [place], [address], [facility] 03/28/2025 10:59:21 05/09/2025 text/html Post-OpReported by PatientHPIFor [...] level today is 0/10. DOUGLAS CENTENO PA-C [address] [place], [address], [facility] 05/09/2025 10:58:12 06/19/2025 text/html Patient comes in [...] well-controlled at this time. FISH VIEIRA PA-C [address] [place], [address], [facility] 06/19/2025 11:46:04 08/07/2025 text/html Post-OpReported by PatientHPIFor onset/timing, patient reportsdate of surgery: (12/13/24). For quality, patient reportsprocedure: (scs perm). For context, patient reportsreason for procedure: (pain relief). For associated symptoms, patient reportsincision healing well,no fatigue,normal appetite,normal bowel function,no constipation,no nausea,no emesis,pain improving,no pain,no fever,no bleeding,no lower extremity edema/pain, andno dysuria/urinary symptoms. DOUGLAS CENTENO PA-C [address] [place], [address], [facility] 08/07/2025 14:02:26
--- OUTSIDE RECORDS SUMMARY | 2025-09-26 12:14 | XMS_ITS | Continuity of Care Document ---
Author Organization [facility], PAIN MEDICINE [address] [place] [address] Care Team Providers Care Tile Setter Supervisor Name Role Phone ANASTASIIA OLIVEIRA Primary Care Provider [phone] Assessment Encounter Date Assessment Date Assessment LastModified by Organization Details LastModified Time 08/07/2025 08/07/2025 This is a 69-year-old gentleman [...] left ureteral stent, L5-S1 fusion SCS (12/2024, [facility]) No updated imaging is available for review The patient has undergone no recent injection therapy. 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 I recommend: 1. [employer] sales representative is present today for program optimization 2. 6-month follow-up 3. I recommend the patient engage in a core exercise plan such as yoga or pilates on a alf basis. [email or web address] Not available 08/07/2025 14:01:41 Plan [...] Address Organization Details Recorded Time Pericardial effusion 991578661 Active 2016 Not Available [facility] 1 02:28:53 Chest pain 21052514 Active 2016 Not Available [facility] 1 02:28:53 Cigarette smoker 29062835 Active 2016 Not Available [facility] 1 02:28:53 Obesity 023959800 Active 2016 Not Available [facility] 1 02:28:53 Obstructive sleep apnea syndrome 46267775 Active 2016 Not Available [facility] 1 02:28:53 Gastroesophag eal reflux disease 111514947 Active 2016 Not Available [facility] 1 02:28:53 Mitral valve regurgitation 63617210 Active 2016 Not Available [facility] 1 02:28:53 Tricuspid valve regurgitation 583871993 Active 2016 Not Available [facility] 1 02:28:53 Problem Notes None recorded. Procedures Surgical History Date Name Laterality Status Provider Name and Address Organization Details Recorded Time 025 Injection - Joint/Bursa, Major completed FISH VIEIRA PA-C [address] [place] [address], [phone] [place] [address] 06/19/2025 11:45:16 025 Injection - Joint/Bursa, Major completed FISH VIEIRA PA-C [address] [place] [address], [phone] 01/31/2025 12:02:12 025 SCS Implant - Karen completed JAMIR MCGEE MD [address] [place] [address], [phone] 12/13/2024 08:33:16 025 Stimulation of spinal cord completed Juan Ferraro [facility] 12/25/2024 11:16:36 025 SCS Trial - Karen completed JAMIR MCGEE MD [address] [place], [phone], [facility] 11/13/2024 13:43:38 025 Abdominal Trigger Point Injection w/US completed JAMIR MCGEE MD [address] [place] [address], [phone], [facility] 10/10/2024 12:41:11 018 Uroflowmetry; Complex completed [facility] 04/14/2018 15:12:52 018 Urodynamics Interpretation completed NAHID RIDLEY JR, MD [address] [place] [address], [phone] 04/18/2018 09:03:17 018 Urodynamics completed [facility] 04/14/2018 15:16:53 017 CYSTOURETHROSCOPY WITH DIRECT VISION INTERNAL URETHROTOMY (SURG) completed [facility] 04/14/2018 15:02:02 013 Circum 28 days or older completed [facility] 04/14/2018 15:09:44 013 Prostate Surgery completed [facility] 04/14/2018 15:09:24 [facility] 08:15:18 Imaging Results None recorded. Procedure Notes None recorded. Medical Equipment None Reported. Allergies Allergen ID Allergen Name Allergen Category Reaction Reaction Severity Criticality Documentation Date Start Date Code Code System Note Provider Name and Address Organization Details Recorded Time 082415 Substance with sulfonami de structure and antibacte rial mechanism of action (substanc e) medicatio n Not available Not available Not available 08/28/20162012 56957 8003 SNOMED Comme nt: Creat ed By: Jose Luis pabon Date: 12:23 :01 PM; Not Available [facility] 6 04:17:21 609609 latex environme nt,medica tion Not available Not available Not available 08/28/20162012 80860 91 RxNorm Comme nt: Creat ed By: Jose Luis Robert anitaAlba driscoll d Date: 013 12:22 :53 PM; Not Available [facility] 6 07:58:29 Medications Name Sig Start Date [...] Relief 50 mcg/actua tion nasal spray,gay[employer] pension [place] 1 spray every day by intranas al route. active Not Available Not Available No t Available Vitals Date Recorded Body height Body mass index (BMI) Body weight Systolic And Diastolic Provider Name and Address Organization Details Last Updated DateTime 08/07/2025 182.88 cm 31.9 kg/m2 092859.31 g 128/78 mm[Hg] Juan Ferraro [facility] 08/07/2025 13:30:39 Social History Question Answer Notes LastModified by Organizat ion Details LastModified Time Tobacco Smoking Status Current Every Day Smoker Thea traylor, [facility] 09/10/2017 10:40:24 What Is Your Level Of Caffeine Consumption? Heavy Coffee In The Morning Miranda 3 A Day Information not available 12/25/2024 Marital Status Informatio n not available 09/10/2017 What Was The Date Of Your Most Recent Tobacco Screening? 08/07/2025 Information not available 08/07/2025 What Is Your Current Pack Years? [facility] Information not available 01/22/2025 What Is Your Relationship Status? [email or web address] Information not available 04/12/2023 At What Age Did You Start Smoking Tobacco? 29 Information not available 01/22/2025 How Much Tobacco Do You Smoke? 0.5 PPD [email or web address] Information not available 04/12/2023 How Many Years Have You Smoked Tobacco? 40 Information not available 01/22/2025 Sex: Male Functional Status Question Answer Note LastModified by Organizat ion Details LastModified Time Do you use any illicit or recreational drugs? No [email or web address] Information not available 10/26/2024 What is your level of alcohol consumption? None Information not available 09/10/2017 Are you currently employed? 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 Family History Relationship Description Onset Age of this Age Resolved Age Notes LastModified by Organization Details LastModified Time Sister Family history of malignant neoplasm Breast CA Not available 09/10/2017 10:40:16 Maternal Uncle Malignant neoplasm of prostate [email or web address] Not available 2022 16:15:36 Medical History Condition Response Kidney Stones N Blood Transfusion N Emphysema Y Colon/Rectal Disorders N Sexually Transmitted Disease N Glaucoma N Depression N COPD Y Pneumonia N Measles N Anxiety Disorder N [...] Skin Problems N Meningitis N Heart Attack ([place]) N Ulcers N Diabetes N Rheumatic Fever N Bleeding Disorder N Tuberculosis N AIDS/HIV N Asthma N Epilepsy/Seizures N Sleep Apnea Y Thyroid Disorder N Hepatitis N Hypertension N Osteoporosis N Past Encounters Encounter ID Performer Location Encounter Start Date Encounter Closed Date Diagnosis/Indication Diagnosis SNOMED-CT Code Diagnosis ICD10 Code Diagnosis IMO Codes Diagnosis Note [id number] DOUGLAS CENTENO PA-C PAIN MEDICINE [address] [place] [address] 08/07/2025 13:16:47 08/07/2025 14:12:40 Complex regional pain syndrome type II of left lower limb 4881333066 73649 G57.72 Chronic pain syndrome 37 4300233 G89.4 Peripheral neuralgia 254 90418 M79.2 Thoracic radiculopathy 86360404 M54.14 Health Concerns Section Related Observation LastModified by Organization Detai ls LastModified Time None Recorded Concern Status LastModified by Organization Details LastModified Time None Recorded Payers Encounter Date Sequence Insurance Name Policy Number Policy Padilla Covered Member ID Padilla Member ID Guarantor Name 08/07/2025 1 [place] Jacob Lunsford [id number] 1 Jacob Lunsford 08/07/2025 2 [employer] Jacob Lunsford [id number] Jacob Lunsford Notes Date Note Type Note Provider Name and Address Organization Details Recorded Time 08/07/2025 text/html Post-OpReported by PatientHPIFor onset/timing, patient reportsdate of surgery: (12/13/24). For quality, patient reportsprocedure: (scs perm). For context, patient reportsreason for procedure: (pain relief). For associated symptoms, patient reportsincision healing well,no fatigue,normal appetite,normal bowel function,no constipation,no nausea,no emesis,pain improving,no pain,no fever,no bleeding,no lower extremity edema/pain, andno dysuria/urinary symptoms. DOUGLAS CENTENO PA-C [facility] [place], [address], [facility] 08/07/2025 14:02:26
--- OUTSIDE RECORDS SUMMARY | 2025-09-26 12:15 | XMS_ITS | Referral Summary ---
Author Organization [facility] ([place], [place], [place], [place], [place]) Address [address] [place] [address] Care Team Providers Care Test Borer Helper Name Role Phone Rocio Bedoya PA-C Primary Care Provider [phone] Allergies Active Allergy Reactions Criticality Noted Date [...] on file Medical Devices Implanted Type Area Organ Pipe Voicer Device Identifier Shelf Expiration Date Model / Serial / Lot Stent Uret Braid + [id number] - [id number] Implanted:Qty : 1 on 06/10/2023 by Guy Mendoza MD at [facility] IMPLANTS Left: Ureter [employer]:UROLOGY/GYNE COLOGY [id number] / [id number] / Insurance MEDICARE PART A B Advance Directives For more information, please contact: [phone] * Full Code (Latest Code Status on File) Date Activated Date Inactivated Comments 06/10/2023 4:09 PM 06/12/2023 3:05 PM Care Teams Test Borer Helper Relationship Specialty Start Date End Date Rocio Bedoya, [facility] [address] [place] [address] PCP - General Physician Pharmacy Graduate Intern 06/08/23
--- OUTSIDE RECORDS SUMMARY | 2025-09-26 12:15 | XMS_ITS | Data Portability ---
[facility] Organization [facility] Address [address] [place] [address] Assessment No assessment recorded. Plan of Treatment Reminders Order Date Submit Date Provider Last Modified By Organization Details Last Modified Time Details Appointments None recorded. Lab inflammatio n panel, serum or plasma 2024 025 [facility], [facility] [place], [address], 5 08:11:40 urinalysis, dipstick [address], [facility] [place], [address], 5 14:01:40 PSA, serum or plasma 2024 025 [facility] [place], [address], 5 08:11:42 lipid panel, serum 2024 025 SWAPNA [facility]), [address] [place], [address], 5 08:11:41 TSH, ultra-sensi tive, serum 2024 025 SWAPNA [facility]), [facility] [place], [address], 5 08:11:43 culture, urine 2024 025 [facility] [address] [facility], [place], [address], 5 08:11:44 CBC w/ auto diff 2024 025 [facility] [address] [facility], [place], [address], 5 08:11:40 CMP, serum or plasma 2024 025 CHRISTIANA [facility] ([place]), [address] [facility], [place], [address], 5 08:11:41 Hepatitis C IgG Ab, qual, serum 2024 025 [facility] ([place]), [address] [facility], [place], [address], 5 08:11:42 HIV 1 + 2, meaningful use set 2024 025 [facility] ([place]), [address] [facility], [place], [address], 5 08:11:43 urinalysis, dipstick [address], [address] [facility], [place], [address], 5 11:08:40 culture, urine 2024 025 [facility] ([place]), [address] [place], [address], 5 02:08:42 Referral None recorded. Procedures None recorded. Surgeries None recorded. Imaging ankle brachial index, complete 2024 025 [place] [id number] [facility] [address], [place], [address], 5 15:58:30 XR, chest, 2 view 2024 [facility] ([facility]), [address] [facility] [address], [place], [address], 5 09:38:37 electrocard iogram 2024 [email or web address] Not available 14:37:54 Medication Orders doxycycline hyclate 100 mg tablet 2024 025 [facility], [address], [address], 5 05:01:19 prednisone 20 mg tablet 2024 [facility], [address], [address], 5 05:02:03 promethazin e-DM 6.25 mg-15 mg/5 mL oral syrup 2024 025 [facility], [address], [address], 5 05:02:26 ceftriaxone 1 gram solution for injection [address] [facility], [address], [address], 5 16:00:59 Depo-Medrol 80 mg/mL suspension for injection [address] [facility], [address], [address], 5 16:00:59 doxycycline hyclate 100 mg capsule 2024 025 [facility], [address], [address], 5 17:32:51 prednisone 20 mg tablet 2024 025 [facility], [address] [place], [address], 5 05:02:03 Xyzal 5 mg tablet 2024 [facility], [address] [place], [address], 5 14:57:32 ceftriaxone 1 gram solution for injection [address] [facility], [address] [place], [address], 5 14:56:07 Depo-Medrol 80 mg/mL suspension for injection 2024 [facility] Not available 14:56:18 Celebrex 200 mg capsule [address] [facility], [address] [place], [address], 5 14:01:38 doxycycline hyclate 100 mg capsule [address] [facility], [address], [address], 5 14:01:38 ceftriaxone 1 gram solution for injection [address] [facility], [address] [place], [address], 5 14:56:07 Pyridium 200 mg tablet 2024 025 [facility], [address] [place] [address], [address], 5 05:01:04 Cymbalta 20 mg capsule,del ayed release 06/05/ 2025 06/05/2 025 [facility], [address], [address], 17:11:52 Patient TargetsNo targets recorded. Patient Instructions Encounter Date Encounter Id Patient Instructions Last Modified By Organization Details Last Modified Time 01/04/2025 [id number] sleep apnea: car e instructions [email or web address] Not available 01/04/2025 11:38:00 chronic obstructive pulmonary disease (COPD): care instructions [email or web address] Not available 01/04/2025 11:42:29 learning about copd and how to prevent lung infections Not available 01/04/2025 11:42:29 03/05/2025 [id number] flank pain: care instructions [email or web address] Not available 03/08/2025 11:59:15 sleep apnea: car e instructions [email or web address] Not available 03/08/2025 11:59:15 shortness of breath: care instructions [email or web address] Not available 03/05/2025 14:14:47 06/14/2025 [id number] arthritis: care instructions [email or web address] Not available 06/14/2025 14:01:38 painful urinatio n (dysuria): care instructions [id number] Not available 06/14/2025 14:01:38 chronic obstructive pulmonary disease (COPD): care instructions [email or web address] Not available 06/14/2025 14:01:38 learning about copd and how to prevent lung infections [email or web address] Not available 06/14/2025 14:01:38 sleep apnea: car e instructions [email or web address] Not available 06/14/2025 14:01:38 high blood pressure: care instructions [id number] Not available 06/14/2025 14:01:38 learning about high blood pressure [id number] Not available 06/14/2025 14:01:38 HIV testing: car e instructions Not available 06/14/2025 14:39:55 07/27/2025 [id number] bronchitis: care instructions [email or web address] Not available 07/27/2025 15:13:23 Reason for Referral None Reported. Results Created Date Observation Date Name Description Value Unit Range Abnormal Flag Note LastModifiedBy Organization Detail LastModifiedTime 01/05/2001/06/2025 URINE CULTU RE, ROUTI NE urine culture, routine Final report Not Available [facility] ([facility]) [address] [facility], [place], [address], 01/06/2025 02:08:42 01/05/20 25 01/06/2025 URINE CULTU RE, ROUTI NE result 1 No growth Not Available [facility] ([facility]) [address] [facility], [place], [address], 01/06/2025 02:08:42 01/05/20 25 01/04/2025 urina lysis , dipst ick Leukocytes Negati ve Not Available [address], [place], [address], 01/04/2025 10:46:59 01/05/20 25 01/04/2025 urina lysis , dipst ick Nitrite positi ve Not Available [facility] [address] [place] [address], [address], 01/04/2025 10:46:59 01/05/20 25 01/04/2025 urina lysis , dipst ick Urobilinogen 1 Not Available [facility] [address] [place] [address], [address], 01/04/2025 10:46:59 01/05/20 25 01/04/2025 urina lysis , dipst ick Protein 30 Not Available [address], [address], 01/04/2025 10:46:59 01/05/20 25 01/04/2025 urina lysis , dipst ick pH 6.0 Not Available [facility] [address] [place] [address], [address], 01/04/2025 10:46:59 01/05/20 25 01/04/2025 urina lysis , dipst ick Blood Negati ve Not Available [address], [place], [address], 01/04/2025 10:46:59 01/05/20 25 01/04/2025 urina lysis , dipst ick Specific [place] [address] [facility] [address] [place] [address], [place], [address], 01/04/2025 10:46:59 01/05/20 25 01/04/2025 urina lysis , dipst ick Ketone Negati ve Not Available [address], [place], [address], 01/04/2025 10:46:59 01/05/20 25 01/04/2025 urina lysis , dipst ick Bilirubin Small Not Available [address], [place], [address], 01/04/2025 10:46:59 01/05/20 25 01/04/2025 urina lysis , dipst ick Glucose Negati ve Not Available [address], [place], [address], 01/04/2025 10:46:59 01/05/20 25 01/04/2025 urina lysis , dipst ick Appearance Clear Not Available [address], [place], [address], 01/04/2025 10:46:59 01/05/20 25 01/04/2025 urina lysis , dipst ick Color [place] Not Available [address], [address], 01/04/2025 10:46:59 06/14/2006/15/2025 ESR ENRIKE+A NA+RF QN+CR P+CCP (I... rheumatoid factor (rf) <10.0 IU/mL <14.0 Not Available [facility] ([facility]) [address] [facility], [place], [address], 06/16/2025 08:11:40 06/14/2006/15/2025 ESR ENRIKE+A NA+RF QN+CR P+CCP (I... C-reactive protein, quant 1 mg/L 0-10 normal Not Available [facility] ([facility]) [address] [facility], [place], [address], 06/16/2025 08:11:40 06/14/2006/15/2025 ESR ENRIKE+A NA+RF QN+CR P+CCP (I... anti-ccp Ab, IgG/IgA 14 units 0-19 Negat desiree <20 Weak posit desiree 20 - 39 Moder ate posit desiree 40 - 59 Stron g posit desiree >59 Not Available [facility] ([facility]) [address] [facility], [place], [address], 06/16/2025 08:11:40 06/14/2006/15/2025 ESR ENRIKE+A NA+RF QN+CR P+CCP (I... sedimentatio n rate-westerg jim 8 mm/HR 0-30 normal Not Available [facility] ([facility]) [address] [place], [address], 06/16/2025 08:11:40 06/14/2006/16/2025 ESR ENRIKE+A NA+RF QN+CR P+CCP (I... RAFFY direct Negati ve negati ve Not Available [facility] ([facility]) [address] [place], [address], 06/16/2025 08:11:40 06/14/2006/15/2025 CBC WITH DIFFE RENTI AL/PL ATELE T WBC 7.5 x10e3 /uL 3.4-10 .8 normal Not Available [facility] ([facility]) [address] [place], [address], 06/16/2025 08:11:40 06/14/20 25 06/15/2025 CBC WITH DIFFE RENTI AL/PL ATELE T RBC 4.62 x10e6 /uL 4.14-5 .80 normal Not Available [facility] ([facility]) [address] [place], [address], 06/16/2025 08:11:40 06/14/2006/15/2025 CBC WITH DIFFE RENTI AL/PL ATELE T hemoglobin 15.2 g/dL 13.0-1 7.7 normal Not Available [facility] ([facility]) [address] [place], [address], 06/16/2025 08:11:40 06/14/2006/15/2025 CBC WITH DIFFE RENTI AL/PL ATELE T hematocrit 45.9 % 37.5-5 1.0 normal Not Available [facility] ([facility]) [address] [place], [address], 06/16/2025 08:11:40 06/14/2006/15/2025 CBC WITH DIFFE RENTI AL/PL ATELE T MCV 99 fL 79-97 above high normal Not Available [facility] ([facility]) [address] [place], [address], 06/16/2025 08:11:40 06/14/2006/15/2025 CBC WITH DIFFE RENTI AL/PL ATELE T MCH 32.9 pg 26.6-3 3.0 normal Not Available [facility] ([facility]) [address] [place], [address], 06/16/2025 08:11:40 06/14/2006/15/2025 CBC WITH DIFFE RENTI AL/PL ATELE T MCHC 33.1 g/dL 31.5-3 5.7 normal Not Available [facility] ([facility]) [address] [facility], [place], [address], 06/16/2025 08:11:40 06/14/20 25 06/15/2025 CBC WITH DIFFE RENTI AL/PL ATELE T RDW 12.0 % 11.6-1 5.4 Not Available [facility] ([facility]) [address] [facility], [place], [address], 06/16/2025 08:11:40 06/14/2006/15/2025 CBC WITH DIFFE RENTI AL/PL ATELE T platelets 196 x10e3 /uL 150-45 0 normal Not Available [facility] ([facility]) [address] [facility], [place], [address], 06/16/2025 08:11:40 06/14/2006/15/2025 CBC WITH DIFFE RENTI AL/PL ATELE T neutrophils 63 % not estab. normal Not Available [facility] ([facility]) [address] [facility], [place], [address], 06/16/2025 08:11:40 06/14/2006/15/2025 CBC WITH DIFFE RENTI AL/PL ATELE T lymphs 24 % not estab. normal Not Available [facility] ([facility]) [address] [facility], [place], [address], 06/16/2025 08:11:40 06/14/2006/15/2025 CBC WITH DIFFE RENTI AL/PL ATELE T monocytes 8 % not estab. normal Not Available [facility] ([facility]) [address] [facility], [place], [address], 06/16/2025 08:11:40 06/14/2006/15/2025 CBC WITH DIFFE RENTI AL/PL ATELE T eos 3 % not estab. normal Not Available [facility] ([facility]) [address] [facility], [place], [address], 06/16/2025 08:11:40 06/14/20 25 06/15/2025 CBC WITH DIFFE RENTI AL/PL ATELE T basos 2 % not estab. normal Not Available [facility] ([facility]) [address] [facility], [place], [address], 06/16/2025 08:11:40 06/14/2006/15/2025 CBC WITH DIFFE RENTI AL/PL ATELE T immature cells HEALTH SAFETY COORDINATOR Not Available [facility] ([facility]) [address] [facility], [place], [address], 06/16/2025 08:11:40 06/14/2006/15/2025 CBC WITH DIFFE RENTI AL/PL ATELE T neutrophils (absolute) 4.8 x10e3 /uL 1.4-7. 0 normal Not Available [facility] ([facility]) [address] [facility], [place], [address], 06/16/2025 08:11:40 06/14/20 25 06/15/2025 CBC WITH DIFFE RENTI AL/PL ATELE T lymphs (absolute) 1.8 x10e3 /uL 0.7-3. 1 normal Not Available [facility] ([facility]) [address] [place], [address], 06/16/2025 08:11:40 06/14/20 25 06/15/2025 CBC WITH DIFFE RENTI AL/PL ATELE T monocytes(ab solute) 0.6 x10e3 /uL 0.1-0. 9 normal Not Available [facility] ([facility]) [address] [facility], [place], [address], 06/16/2025 08:11:40 06/14/20 25 06/15/2025 CBC WITH DIFFE RENTI AL/PL ATELE T eos (absolute) 0.2 x10e3 /uL 0.0-0. 4 normal Not Available [facility] ([facility]) [address] [facility], [place], [address], 06/16/2025 08:11:40 06/14/20 25 06/15/2025 CBC WITH DIFFE RENTI AL/PL ATELE T baso (absolute) 0.1 x10e3 /uL 0.0-0. 2 normal Not Available [facility] ([facility]) [address] [facility], [place], [address], 06/16/2025 08:11:40 06/14/2006/15/2025 CBC WITH DIFFE RENTI AL/PL ATELE T immature granulocytes 0 % not estab. Not Available [facility] ([facility]) [address] [facility], [place], [address], 06/16/2025 08:11:40 06/14/2006/15/2025 CBC WITH DIFFE RENTI AL/PL ATELE T immature grans (abs) 0.0 x10e3 /uL 0.0-0. 1 Not Available [facility] ([facility]) [address] [facility], [place], [address], 06/16/2025 08:11:40 06/14/2006/15/2025 CBC WITH DIFFE RENTI AL/PL ATELE T NRBC HEALTH SAFETY COORDINATOR Not Available [facility] ([facility]) [address] [facility], [place], [address], 06/16/2025 08:11:40 06/14/2006/15/2025 CBC WITH DIFFE RENTI AL/PL ATELE T hematology comments: HEALTH SAFETY COORDINATOR Not Available [facility] ([facility]) [address] [facility], [place], [address], 06/16/2025 08:11:40 09/11/20 25 06/14/2025 COMP. METAB [...] at www.k [email or web address]. org. Not Available [facility] ([facility]) [address] [place], [address], 06/16/2025 08:11:41 06/14/20 25 06/15/2025 COMP. METAB OLIC PANEL (14) glucose 94 mg/dL 70-99 normal Not Available [facility] ([facility]) [address] [place], [address], 06/16/2025 08:11:41 06/14/20 25 06/15/2025 COMP. METAB OLIC PANEL (14) BUN 18 mg/dL 8-27 normal Not Available [facility] ([facility]) [address] [place], [address], 06/16/2025 08:11:41 06/14/20 25 06/15/2025 COMP. METAB OLIC PANEL (14) creatinine 1.29 mg/dL 0.76-1 .27 above high normal Not Available [facility] ([facility]) [address] [place], [address], 06/16/2025 08:11:41 06/14/20 25 06/15/2025 COMP. METAB OLIC PANEL (14) eGFR 60 mL/mi n/1.7 3 >59 normal Not Available [facility] ([facility]) [address] [place], [address], 06/16/2025 08:11:41 06/14/20 25 06/15/2025 COMP. METAB OLIC PANEL (14) BUN/creatini ne ratio 14 10-24 normal Not Available [facility] ([facility]) [address] [facility] [place], [address], 06/16/2025 08:11:41 06/14/20 25 06/15/2025 COMP. METAB OLIC PANEL (14) sodium 139 mmol/ L 134-14 4 normal Not Available [facility] ([facility]) [address] [facility] [place], [address], 06/16/2025 08:11:41 06/14/20 25 06/15/2025 COMP. METAB OLIC PANEL (14) potassium 4.2 mmol/ L 3.5-5. 2 normal Not Available [facility] ([facility]) [address] [facility] [place], [address], 06/16/2025 08:11:41 06/14/20 25 06/15/2025 COMP. METAB OLIC PANEL (14) chloride 105 mmol/ L 96-106 normal Not Available [facility] ([facility]) [address] [facility] [place], [address], 06/16/2025 08:11:41 06/14/20 25 06/15/2025 COMP. METAB OLIC PANEL (14) carbon dioxide, total 20 mmol/ L 20-29 normal Not Available [facility] ([facility]) [address] [facility] [place], [address], 06/16/2025 08:11:41 06/14/20 25 06/15/2025 COMP. METAB OLIC PANEL (14) calcium 9.6 mg/dL 8.6-10 .2 normal Not Available [facility] ([facility]) [address] [facility] [place], [address], 06/16/2025 08:11:41 06/14/20 25 06/15/2025 COMP. METAB OLIC PANEL (14) protein, total 6.4 g/dL 6.0-8. 5 normal Not Available [facility] ([facility]) [address] [place], [address], 06/16/2025 08:11:41 06/14/20 25 06/15/2025 COMP. METAB OLIC PANEL (14) albumin 4.2 g/dL 3.9-4. 9 normal Not Available [facility] ([facility]) [address] [place], [address], 06/16/2025 08:11:41 06/14/20 25 06/15/2025 COMP. METAB OLIC PANEL (14) globulin, total 2.2 g/dL 1.5-4. 5 Not Available [facility] ([facility]) [address] [place], [address], 06/16/2025 08:11:41 06/14/2006/15/2025 COMP. METAB OLIC PANEL (14) bilirubin, total 0.3 mg/dL 0.0-1. 2 normal Not Available [facility] ([facility]) [address] [place], [address], 06/16/2025 08:11:41 06/14/2006/15/2025 COMP. METAB OLIC PANEL [...] 129 48 - 129 Not Available [facility] ([facility]) [address] [place], [address], 06/16/2025 08:11:41 06/14/20 25 06/15/2025 COMP. METAB OLIC PANEL (14) AST (SGOT) 16 IU/L 0-40 normal Not Available [facility] ([facility]) [address] [place], [address], 06/16/2025 08:11:41 06/14/20 25 06/15/2025 COMP. METAB OLIC PANEL (14) ALT (SGPT) 11 IU/L 0-44 normal Not Available [facility] ([facility]) [address] [place], [address], 06/16/2025 08:11:41 06/14/20 25 06/15/2025 LIPID PANEL cholesterol, total 173 mg/dL 100-19 9 normal Not Available [facility] ([facility]) [address] [place], [address], 06/16/2025 08:11:41 06/14/20 25 06/15/2025 LIPID PANEL triglyceride s 210 mg/dL 0-149 above high normal Not Available [facility] ([facility]) [address] [place], [address], 06/16/2025 08:11:41 06/14/20 25 06/15/2025 LIPID PANEL HDL cholesterol 42 mg/dL >39 normal Not Available [facility] ([facility]) [address] [place], [address], 06/16/2025 08:11:41 06/14/20 25 06/15/2025 LIPID PANEL VLDL cholesterol henok 36 mg/dL 5-40 Not Available [facility] ([facility]) [address] [facility], [place], [address], 06/16/2025 08:11:41 06/14/20 25 06/15/2025 LIPID PANEL LDL chol calc ([facility]) 95 mg/dL 0-99 Not Available [facility] ([facility]) [address] [facility], [place], [address], 06/16/2025 08:11:41 06/14/2006/15/2025 LIPID PANEL LDL calc comment: HEALTH SAFETY COORDINATOR Not Available [facility] ([facility]) [address] [facility], [place], [address], 06/16/2025 08:11:41 06/14/2006/15/2025 HCV ANTIB SOLEDAD CASCA DE(PC R/GEN O) HCV Ab Non Reacti ve non reacti ve Not Available [facility] ([facility]) [address] [facility], [place], [address], 06/16/2025 08:11:42 06/14/2006/15/2025 HCV ANTIB SOLEDAD CASCA DE(PC R/GEN O) interpretati on: Commen t Not infec lópez with HCV unles s early or acute infec tion is suspe cted (whic h may be delay ed in an immun ocomp romis ed indiv idual ), or other evide nce exist s to indic ate HCV infec tion. Not Available [facility] ([facility]) [address] [facility], [place], [address], 06/16/2025 08:11:42 06/14/2006/14/2025 PSA TOTAL (REFL EX TO FREE) reflex criteria Commen t The perce nt free PSA is perfo rmed on a refle x basis only when the total PSA is betwe en 4.0 and 10.0 ng/mL . Not Available [facility] ([facility]) [address] [facility], [place], [address], 06/16/2025 08:11:42 06/14/2006/15/2025 PSA TOTAL (REFL EX [...] t be inter prete d as absol [place] evide nce of the prese nce or absen [facility] se. Not Available [facility] ([facility]) [address] [facility], [place], [address], 06/16/2025 08:11:42 06/14/2006/15/2025 TSH TSH 1.060 uIU/m L 0.450- 4.500 normal Not Available [facility] ([facility]) [address] [facility], [place], [address], 06/16/2025 08:11:43 06/14/2006/15/2025 HIV AB/P2 4 AG WITH REFLE X HIV Ab/P24 Ag screen Non Reacti ve non reacti ve HIV-1 /HIV- 2 antib odies and HIV-1 p24 antig en were NOT detec lópez. There is no labor atory evide nce of HIV infec tion. HIV Negat desiree Not Available [facility] ([facility]) [address] [facility], [place], [address], 06/16/2025 08:11:43 06/14/20 25 06/16/2025 URINE CULTU RE, ROUTI NE urine culture, routine Final report Not Available [facility] ([facility]) [address] [facility], [place], [address], 06/16/2025 08:11:43 06/14/20 25 06/16/2025 URINE CULTU RE, ROUTI NE result 1 No growth Not Available [facility] ([facility]) [address] [facility], [place], [address], 06/16/2025 08:11:43 06/14/20 25 06/14/2025 urina lysis , dipst ick Leukocytes Negati ve Not Available [address], [address], 06/14/2025 13:41:49 06/14/20 25 06/14/2025 urina lysis , dipst ick Nitrite positi ve Not Available [address], [place], [address], 06/14/2025 13:41:49 06/14/20 25 06/14/2025 urina lysis , dipst ick Urobilinogen .2 Not Available [address], [place], [address], 06/14/2025 13:41:49 06/14/20 25 06/14/2025 urina lysis , dipst ick Protein Negati ve Not Available [address], [address], 06/14/2025 13:41:49 06/14/20 25 06/14/2025 urina lysis , dipst ick pH 7.0 Not Available [address], [address], 06/14/2025 13:41:49 06/14/20 25 06/14/2025 urina lysis , dipst ick Blood Negati ve Not Available [address], [place], [address], 06/14/2025 13:41:49 06/14/20 25 06/14/2025 urina lysis , dipst ick Specific [place] 1.020 Not Available [address], [place], [address], 06/14/2025 13:41:49 06/14/2006/14/2025 urina lysis , dipst ick Ketone Negati ve Not Available [address], [place], [address], 06/14/2025 13:41:49 06/14/20 25 06/14/2025 urina lysis , dipst ick Bilirubin Negati ve Not Available [address], [place], [address], 06/14/2025 13:41:49 06/14/20 25 06/14/2025 urina lysis , dipst ick Glucose Negati ve Not Available [address], [place], [address], 06/14/2025 13:41:49 06/14/20 25 06/14/2025 urina lysis , dipst ick Appearance Clear Not Available [address], [place], [address], 06/14/2025 13:41:49 06/14/20 25 06/14/2025 urina lysis , dipst ick Color [place] Not Available [address] [place], [address], 06/14/2025 13:41:49 03/05/20 trevin figueroa am No observ ation record ed. Not Available 2024 15:32:17 06/19/20 25 06/19/2025 ankle brach ial index , compl ete No observ ation record ed. [id number] [facility] [facility] [address], [place], [address], 06/19/2025 17:56:04 08/02/20 25 08/02/2025 XR, chest , 2 view No observ ation record ed. [facility] (X-Ray) [address], [place], [address], 08/03/2025 08:38:49 Result Notes None recorded. Problems Name Problem SNOMED Code Status Onset Date Resolution Date Notes Provider Name and Address Organization Details Recorded Time Candidias is of mouth 21657223 Completed 202306/14/2025 GEORGIA Shaw [address] [place] [address], [address] 8, [employer] 5 14:00:02 Chronic obstructi ve pulmonary disease 88894625 Active 2023 GEORGIA Shaw [address] [place] [address], [address]866 8, [place] [employer] 4 16:36:15 Erectile dysfuncti on 339543369 Active 2023 GEORGIA Shaw [address] [place] [address], [address] 8, [place] [employer] 5 11:11:08 Acute prostatit is 16652827 Completed 202306/14/2025 GEORGIA Shaw [address] [place] [address], [address] 8, [employer] 5 14:00:08 Essential hypertens ion 14112367 Active 2023 GEORGIA Shaw [address] [place] [address], 0[address] 8, [place] [employer] 11:11:03 Osteoarth ritis 785619001 Active 2024 GEORGIA Shaw [address] [place] [address], [address] 8, [place] [employer] 11:38:22 Obstructi ve sleep apnea syndrome 12744457 Active 2024 GEORGIA Shaw [address] [place] [address], [address] 8, [employer] 11:38:09 Dyspnea 120367431 Active 2024 GEORGIA Shaw [address] [place] [address], 989[address] 8, [employer] 14:14:23 Flank pain 689294342 Completed 202406/26/2025 GEORGIA Shaw [address] [place] [address], 847[address]337 8, [employer] 17:30:04 Tobacco dependenc e syndrome 08995136 Active 2024 GEORGIA Shaw [address] [place] [address], 17[address] 8, [employer] 12:16:28 Bacterial conjuncti vitis 999047883 Completed 202406/14/2025 GEORGIA Shaw [address] [place] [address], 694[address]483 8, [employer] 13:59:57 Weakness of bilateral lower limb Active 2024 GEORGIA Shaw [address] [place] [address], 645[address]928 8, [employer] 13:58:53 Acute urinary tract infection 712580265 Completed 202406/26/2025 GEORGIA Shaw [address] [place] [address], [address] 8, [employer] 17:30:10 Pain in bilateral legs 944624938200 74131 Active 2024 Rocio GEORGIA Bedoya [address] [place] [address], [address] 8, [employer] 17:56:16 Bacterial sinusitis 177253339 Active 2024 Rocio GEORGIA Bedoya [address] [place] [address], 635[address]132 8, [employer] 17:32:12 Bronchiti s 13634803 Active 2024 Rocio GEORGIA Bedoya [address] [place] [address], [address] 8, [employer] 15:12:52 Acute cough Active 2024 [place] Aureliano [address], [address], [employer] 12:24:11 Problem Notes None recorded. Procedures Surgical History Date Name Laterality Status Provider Name and Address Organization Details Recorded Time Back Surgery completed [employer] 08/24/2024 13:34:05 Hernia Repair completed [employer] 08/24/2024 13:34:05 Orthopedic Surgery completed [employer] 08/24/2024 13:34:05 Gallbladder Surgery completed [employer] 08/24/2024 13:34:05 Other completed [employer] 01/04/2025 10:57:46 Imaging Results None recorded. Procedure Notes None recorded. Medical Equipment None Reported. Allergies Allergen ID Allergen Name Allergen Category Reaction Reaction Severity Criticality Documentation Date Start Date Code Code System Note Provider Name and Address Organization Details Recorded Time 40222 Substance with sulfonami de structure and antibacte rial mechanism of action (substanc e) medicatio n itching Not available Not available 08/24/2024 17951 8003 SNOMED [employer] 4 13:34:02 08284 latex environme nt,medica tion rash Not available Not available 08/24/2024 96008 91 RxNorm Isabel Vice null, [employer] 4 13:34:02 Medications Name Sig Start Date Stop [...] weight Heart rate Body temperature Oxygen saturation Systolic And Diastolic Systolic And Diastolic Systolic And Diastolic Provider Name and Address Organization Details Last Updated DateTime 5 182.88 cm 30.9 kg/m2 493586. 34 g 78 /min 97.9 [degF] 95 % 144/78 mm[Hg] 118/78 mm[Hg] 122/80 mm[Hg] [employer] 5 10:59:38 Date Recorded Body height Body mass index (BMI) Body weight Oxygen saturation Heart rate Body temperature Systolic And Diastolic Systolic And Diastolic Systolic And Diastolic Provider Name and Address Organization Details Last Updated DateTime 5 182.88 cm 30.6 kg/m2 628938. 16 g 100 % 76 /min 98 [degF] 154/74 mm[Hg] 148/80 mm[Hg] 142/78 mm[Hg] [employer] 5 14:17:20 Date Recorded Body height Body mass index (BMI) Body weight Oxygen saturation Heart rate Body temperature Systolic And Diastolic Provider Name and Address Organization Details Last Updated DateTime 5 182.88 cm 30.6 kg/m2 298826. 72 g 98 % 74 /min 98.2 [degF] 138/86 mm[Hg] [employer] 5 13:38:07 Date Recorded Body height Body mass index (BMI) Body weight Body temperature Oxygen saturation Heart rate Systolic And Diastolic Provider Name and Address Organization Details Last Updated DateTime 5 182.88 cm 30.5 kg/m2 972212. 85 g 98.2 [degF] 98 % 68 /min 136/84 mm[Hg] [employer] 5 17:13:55 Date Recorded Body height Body mass index (BMI) Body weight Oxygen saturation Heart rate Body temperature Systolic And Diastolic Provider Name and Address Organization Details Last Updated DateTime 5 182.88 cm 31.3 kg/m2 137774. 84 g 98 % 92 /min 97.5 [degF] 138/80 mm[Hg] [employer] 5 14:58:50 Social History Question Answer Notes LastModified by [employer] Details LastModified Time Tobacco Smoking Status Current Every Day Smoker [employer] 08/24/2024 13:34:05 Do You Have An Advance [...] Information not available 07/27/2025 What Type Of Clerk Cashier Do You Use? None Information not available [...] Or The Highest Degree You Have Received? PB48883-5 Information not available 08/24/2024 Have There Been [...] Do You Have A Medical Power Of Structures Mechanic? Yes Information not available 08/24/2024 What Was [...] Functional Status Question Answer Note LastModified by [employer] ion Details LastModified Time Do you use [...] Mental Status Question Answer Note LastModified by [employer] Details LastModified Time Do you feel stressed (tense, restless, nervous, or anxious, or unable to sleep at night)? KS1172-3 Information not available 08/24/2024 Do you have [...] Time Tdap 1 completed Isabel Vice null, [employer] 01/04/2025 10:44:51 influenza, unspecified formulation 4 completed Isabel Vice null, [employer] 01/04/2025 10:44:51 Influenza, high-dose, quadrivalent, PF 2 completed Isabel Vice null, [employer] 01/04/2025 10:44:51 COVID-19, mRNA, LNP-S, PF, 100 mcg/0.5mL dose or 50 mcg/0.25mL dose 1 completed Isabel Vice null, [employer] 01/04/2025 10:44:51 COVID-19, mRNA, LNP-S, PF, 100 mcg/0.5mL dose or 50 mcg/0.25mL dose 1 completed Isabel Vice null, [employer] 01/04/2025 10:44:51 COVID-19, mRNA, LNP-S, PF, 100 mcg/0.5mL dose or 50 mcg/0.25mL dose 2 completed Isabel Vice null, [employer] 01/04/2025 10:44:51 COVID-19, mRNA, LNP-S, PF, 100 mcg/0.5mL dose or 50 mcg/0.25mL dose 1 completed Isabel Vice null, [employer] 01/04/2025 10:44:51 COVID-19, mRNA, LNP-S, PF, 50 mcg/0.5 mL 4 completed Isabel Vice null, [employer] 01/04/2025 10:44:51 Influenza, high-dose, trivalent, PF 4 completed Isabel Vice null, [employer] 01/04/2025 10:44:51 Influenza, split virus, trivalent, PF 8 completed Isabel Vice null, [employer] 01/04/2025 10:44:51 Td (adult), 2 Lf tetanus toxoid, preservative free, adsorbed 7 completed Isabel Vice null, [employer] 01/04/2025 10:44:51 Influenza, split virus, quadrivalent, PF 8 completed Isabel Vice null, [employer] 01/04/2025 10:44:51 Influenza, split virus, quadrivalent, PF 0 completed Isabel Vice null, [employer] 01/04/2025 10:44:51 Influenza, split virus, quadrivalent, PF 7 completed Isabel Vice null, [employer] 01/04/2025 10:44:51 Influenza, split virus, quadrivalent, PF 9 completed Isabel Vice null, [employer] 01/04/2025 10:44:51 Influenza, split virus, quadrivalent, PF 1 completed Isabel Vice null, [employer] 01/04/2025 10:44:51 Past Encounters Encounter ID Performer Location Encounter Start Date Encounter Closed Date Diagnosis/Indication Diagnosis SNOMED-CT Code Diagnosis ICD10 Code Diagnosis IMO Codes Diagnosis Note [id number] GEORGIA Shaw [facility] [address] [place], [place] [address] [address] 08/24/2024 13:21:56 08/24/2024 14:29:49 Candidiasis of mouth 89153353 B37.0 Body mass index 30+ - obesity 394896676 Z68.31 [id number] GEORGIA Shaw [facility] [address] [place] [address] 01/04/2025 10:28:11 01/04/2025 11:37:16 Pain in penis 332294492 N48.89 Obstructiv e sleep apnea syndrome 78902055 G47.33 Order sent for new Cpap - uses regularly but machine needs to be replaced Chronic ob structive pulmonary disease 30441734 J44.9 [id number] GEORGIA Shaw [address] [address] 03/05/2025 13:49:24 03/05/2025 14:37:53 Dyspnea 300422129 R06.02 33729 CXR if not improvingE KG showed NSRMay need ECHO if persists Obstructiv e sleep apnea syndrome 74553537 G47.33 Cpap working extremely well Flank pain 869638295 R10 .9 G89.29 8867994 Had nerve block by pain mgmt and doing wellGiven instructio ns to slowly taper Cymbalta [id number] Rocio Bedoya [address] [address] 06/14/2025 13:28:17 06/14/2025 14:17:14 Dysuria 57153522 R30.9 872408 Abnormal urinalysis 1672 62170 R82.90 055171 Weakness o f bilateral lower limb 3635444851 24999 R29.898 609266 Acute urin octavio tract infection 593776531 N39.0 495832 Essential hypertension 49789216 I10 Obstructiv e sleep apnea syndrome 57860684 G47.33 Cpap working extremely well Chronic ob structive pulmonary disease 37837255 J44.9 Osteoarthritis 995413071 M19.90 Hyperlipid emia screening 279044645 Z13.220 958038 Thyroid di sorder screening 611784002 Z13.29 54519 HIV screening 502259161 Z11.4 897597 Viral scre ening status 518108822 Z11.59 566289 [id number] GEORGIA Shaw [address] [address] 06/26/2025 16:53:13 06/26/2025 17:43:38 Acute urinary tract infection 133870849 N39.0 Bacterial sinusitis 7034 59921 J32.9 B96.89 7098384 [id number] GEORGIA Shaw [address] [address] 07/27/2025 14:32:09 07/27/2025 15:21:28 Bronchitis 36623821 J40 65667 Health Concerns Section Related Observation LastModified by Organization Detai ls LastModified Time None Recorded Concern Status LastModified by Organization Details LastModified Time None Recorded Advance Directives Directive Y: Payers Insurance Date Sequence Insurance Name Policy Number Policy Padilla Covered Member ID Padilla Member ID Guarantor Name 07/26/2025 [place] Jacob Lunsford [id number] Jacob Lunsford 08/31/2024 1 [place] Jacob Lunsford [id number] Jacob Lunsford 07/26/2025 2 [employer] (MEDICARE SUPPLEMENT) Jacob Lunsford [id number] Jacob Lunsford 07/26/2025 1 [place] Zaiseoul [facility] Jacob Lunsford [id number] Jacob Lunsford Notes Date Note Type [...] and it is working well. GEORGIA Shaw [address] [place] [address], [address], [employer] 01/04/2025 11:42:32 03/05/2025 text/html ROS as noted in the HPI Patient presents for followup.Recently started new Cpap machine and it is working great.He is having some shortness of breath. He is on antibiotics and steroids from [facility]. Uses Trelegy daily as well. Doesn't really [...] taper off Cymbalta as well. GEORGIA Shaw [address] [place] [address], [place], [address], [employer] 03/08/2025 12:00:08 06/14/2025 text/html ROS as noted in the HPI Patient thinks he has a UTI. Mckinley in his penis when he urinates. No fever.Patient complains of weakness in his legs. Left is worse than right. He does smoke. Legs feel heavy at times. GEORGIA Shaw [address] [place], [address], [employer] 06/15/2025 17:36:55 06/26/2025 text/html ROS as noted in the HPI Sinus pain, pressure, watery eyes, sinus drainage X 2-3 days. No fever. Has tried Advil Cold & Sinus without much relief. GEORGIA Shaw [address] [place], [address], [employer] 06/26/2025 17:54:19 07/27/2025 text/html ROS as noted in the HPI Cough and congestion for a week or so. No fever. Cough is productive. GEORGIA Shaw [address] [place], [address], [employer] 07/27/2025 16:03:58
--- OUTSIDE RECORDS SUMMARY | 2025-09-26 12:15 | XMS_ITS | Clinical Summary ---
Author Organization [employer] ([place], [place], [place], [place], [place]) Address [address] [place] [address] Care Team Providers Care Incubator Operator Name Role Phone Rocio Bedoya PA-C Primary Care Provider [phone] Allergies Active Allergy Reactions Criticality Noted Date [...] Date Nils rded Speak language other than Martiniquais at home Not on file 10/22/2023 Want [...] 07/05/2021, 12/04/1996 Medical Devices Implanted Type Area Associate Drafter Device Identifier Shelf Expiration Date Model / Serial / Lot Stent Uret Braid + [id number] - [id number] Implanted:Qty : 1 on 06/10/2023 by Guy Mendoza MD at [facility] IMPLANTS Left: Ure[employer] [place] [employer]/GYNE COLOGY [id number] / [id number] / Insurance MEDICARE PART A B Advance Directives For more information, please contact: [phone] * Full Code (Latest Code Status on File) Date Activated Date Inactivated Comments 06/10/2023 4:09 PM 06/12/2023 3:05 PM Care Teams Incubator Operator Relationship Specialty Start Date End Date Rocio Bedoya PA-C [address] [place] [address] PCP - General Physician Ferry Hand 06/08/23
[2025-09-26 12:16] LABS: Coronavirus 19, PCR Not Detected (NotDetected); Influenza A, PCR Not Detected (NotDetected); Influenza B, PCR Not Detected (NotDetected)
[2025-09-26 12:16] LABS: VBG HCO3 21.9 mmol/L (23-30); VBG PCO2 44.5 mmol/L (35-51); VBG PH 7.31 mmol/L (7.31-7.41); VBG PO2 23.0 mmol/L (28-40)
[2025-09-26 12:16] LABS: Hematocrit 50.4 % (42.0-52.0); Hemoglobin 17.5 g/dL (14.1-18.0); Immature Granulocytes % 1.1 %; Mean Corpuscular HGB Conc 34.7 g/dL (31.8-35.4); Mean Corpuscular Hemoglobin 33.0 pg (27.0-31.2); Mean Corpuscular Volume 95.1 fl (80-94); Nucleated Red Blood Cells % 0 %; Platelet Count 202 K/mm3 (142-424); Red Blood Count 5.30 M/mm3 (4.60-6.20); Red Cell Distribution Width-SD 43.5 fL; White Blood Count 13.9 K/mm3 (4.8-10.8)
[2025-09-26] MEDS: KETOROLAC 15MG/ML VIAL 15 MG IV (12:18)
[2025-09-26] MEDS: LACTATED RINGERS 1000ML 1,000 ML 999 ML IV ×2 (12:18→13:19)
[2025-09-26 12:19] LABS: Lactate Venous 4.9 mmol/L (0.4-2.0)
[2025-09-26 12:36] LABS: Alanine Aminotransferase 32 U/L (12-78); Albumin Level 4.8 g/dl (3.5-5.0); Albumin/Globulin Ratio 1.5 (1.1-1.8); Alkaline Phosphatase 71 U/L (38-126); Anion Gap 17.0 mEq/L (5-15); Aspartate Amino Transferase 38 U/L (17-59); Bilirubin,Total 2.0 mg/dl (0.2-1.3); Blood Urea Nitrogen 29 mg/dl (9-20); Calcium 9.8 mg/dl (8.4-10.2); Carbon Dioxide 21 mmol/L (22.0-30.0); Chloride 104 mmol/L (98-107); Creatinine Clearance Estimated 48 mL/min (50-200); Creatinine,Serum 2.20 mg/dl (0.66-1.25); Estimated Glomerular Filt Rate 30 ml/min (>60); GFR (African American) 36 ML/MIN (>60); Globulin 3.3 g/dL (1.3-3.2); Glucose 120 mg/dl (74-100); Lipase 36 U/L (23-300); Potassium 4.0 mmoL/L (3.5-5.1); Sodium 138 mmol/L (136-145); Total Protein,Serum 8.1 g/dl (6.3-8.2)
[2025-09-26 12:41] LABS: D-Dimer 1.78 ug/mL (0.0-0.5)
[2025-09-26 12:47] LABS: NT Pro Brain Natriuretic Pep. 1470 pg/mL (0-125)
--- NOTE | 2025-09-26 12:49 | CT_ITS ---
FINAL REPORT TECHNIQUE: Thin section axial CT with contrast with multiplanar reconstruction This study was performed with techniques to keep radiation doses as low as reasonably achievable, (ALARA). Individualized dose reduction techniques using automated exposure control or adjustment of mA and/or kV according to the patient''s size were employed. CLINICAL HISTORY: SOB, hypoxia, elevated D dimer COMPARISON: LDCT 12/05/2024 FINDINGS: CTA CHEST: Pulmonary vessels enhance in normal fashion without evidence of embolism. Thoracic aorta shows no dissection or aneurysm. There is lobular ulcerated plaque in the dorsal distal aortic arch measuring up to 15 mm in size, with a small component of associated thrombus not excluded. Extensive changes of emphysema are present. Lobar pneumonia is present in the left lower lobe. There is minimal dependent atelectasis in the right lower lobe. There is no significant pleural effusion. There is no significant pericardial effusion. No mediastinal or hilar adenopathy is present. IMPRESSION: 1. Lobar pneumonia is present in the left lower lobe. 2. No evidence of pulmonary embolism, or aortic dissection. 3. Lobular ulcerated plaque in the dorsal distal aortic arch measuring up to 15 mm. A small component of associated thrombus is not excluded. Reviewed, Interpreted and Dictated by Jose M Ramos MD Transcribed by Yudith Gunter Authenticated and [facility]
[2025-09-26 12:53] LABS: C-Reactive Protein 114.2 mg/L (0-4)
[2025-09-26] MEDS: PIPERACILLIN/TAZO 4.5 GM in 0.9 % SODIUM CHLORIDE 100 ML IV ×2 (13:00→18:31)
[2025-09-26 13:02] LABS: Troponin I < 0.01 ng/ml (0.00-0.034)
[2025-09-26] MEDS: IPRATROPIUM/ALBUTEROL 3 ML NEB IH ×2 (13:19→18:26)
[2025-09-26] MEDS: ACETAMINOPHEN 1,000MG/100ML VIAL 1000 MG IV (13:44)
--- NOTE | 2025-09-26 14:15 | PC.NURSE ---
HS notified of the need for a bed to admit the pt to the hospitalist for PNA, sepsis and new onset oxygen supplementation necessity.
[2025-09-26] MEDS: IOPAMIDOL-370 (76%);100ML BOTTLE 70 ML IV (14:18)
--- NOTE | 2025-09-26 14:31 | HMH.PHAINT1 ---
Pharmacy Intervention Comments: MEDICATION RECONCILIATION COMPLETED ON PATIENT USING EXTERNAL FILL HISTORY FROM PHARMACY AND LIST FROM PULMONOLOGY OFFICE. -NICOLAS MCKNIGHTD
--- NOTE | 2025-09-26 14:34 | P.HP_ITS ---
<Statement entered by George Gross MD - 09/26/25 15:47> Rounded on patient after nurse practitioner. Personally examined and interviewed patient. Agree with exam findings and care plan as documented. History of Present Illness *Admission Date: 09/26/25 *Reason for visit:: shortness of breath, cough, congestion, N/V/D *History of present illness: Mr. Lunsford is a 69-year-old male who presented to the emergency department with complaints of nausea, vomiting, diarrhea, shortness of breath, cough, and congestion. He has a primary medical history of COPD, tobacco use, GERD, DEBORAH, HTN. He states that he has been feeling bad for approximately 2 weeks, worseni ng over the last few days. He is a heavy tobacco user and states he has been coughing more than normal. He denies fevers, chills, chest pain, urinary symptoms. He does complain of pain with coughing and deep breathing. Workup was done in the emergency department, findings showed sepsis with left- sided pneumonia and acute kidney injury. Meeting sepsis criteria with a white count of 13.9, lactic of 4.9, tachycardic, hypotensive, febrile. Kidney function elevated with a BUN of 29 and creatinine of 2.20. Additionally patient was found to be hypoxic and was placed on 2 L nasal cannula to maintain O2 saturation greater than 90%. [facility] Disclaimer: The information contained in this section may have been updated after the patient was seen, as this information can be updated by other users. Medical History Sinusitis Allergic rhinitis COPD mixed type Dyspnea on exertion Screening for lung cancer Tobacco abuse counseling Tobacco abuse disorder Chronic bronchitis Smoking greater than 30 pack years Abnormal computerized axial tomography of chest Solitary pulmonary nodule Prostatitis Hypertension Anxiety DEBORAH (obstructive sleep apnea) Low testosterone in male (~05/05/18) Vitamin D deficiency (~05/05/18) Hyperlipidemia (~05/05/18) Depression GERD (gastroesophageal reflux disease) COPD (chronic obstructive pulmonary disease) Surgical History History of back surgery Family History Other Cancer Coronary artery disease Social History Smoking Status: Current every day smoker tobacco type: cigarettes packs per day: 1 alcohol intake: never counseling provided: none substance use type: denies use current occupational status: employed Travel in the last 8 weeks?: None household members: spouse housing: house current occupation: rastafari caffeine: Yes Have you lived/traveled outside [place] in past 30 days?: No Contact w/someone who lives/traveled outside US past 30 days?: No Exposure to someone with infectious disease in past 14 days?: No Do you have a fever (greater than 100.4 F or 38 C)?: Yes Have you tested positive for COVID-19?: No Exposed to someone with COVID-19 in past 14 days?: No Do you have a sore throat?: No Do you have a cough?: Yes Do you have any weakness?: No Do you have any diarrhea?: Yes Are you experiencing any unusual bleeding?: No Do you have any muscle aches/pain?: No Do you have any abdominal pain?: No Are you experiencing loss of taste or smell?: No Other Medical History Have you received the Flu Vaccine for this season: Yes Have you received the Pneumonia Vaccine: No Review of Systems Constitutional Constitutional: Denies chills, Reports fatigue, Denies fever(s), Denies headache(s), Reports poor appetite and Reports lethargy Eyes Eyes: Denies blurry vision and Denies change in vision ENT Ears, Nose, Mouth, and Throat: Denies headache(s) and Denies sore throat *Cardiovascular Cardiovascular: Reports dyspnea, Reports dyspnea on exertion, Denies leg edema, Denies lightheadedness and Reports rapid heart rate *Respiratory Respiratory: Reports dyspnea, Reports dyspnea on exertion, Denies hemoptysis, Reports pain on inspiration, Reports pain with cough and Denies wheezing *Gastrointestinal Gastrointestinal: Denies abdominal pain, Denies dyspepsia, Reports loose stools, Reports nausea and Reports vomiting *Genitourinary Genitourinary: Denies difficulty urinating and Denies dysuria *Neurologic Neurologic: Denies headache(s) Endocrine Endocrine: Reports fatigue Allergic/Immunologic Allergic/Immunologic: Denies wheezing Meds Home Medications and Allergies Home Medications ?Medication ?Instructions ?Recorded ?Confirmed ?Type ipratropium 0.5 mg-albuterol 3 mg 3 ml inhalation Q8H 3 months #810 12/12/24 09/26/25 Rx (2.5 mg base)/3 mL nebulization mL soln celecoxib 200 mg capsule 200 mg PO DAILY 06/27/25 History fluticasone propionate 50 1 spray intranasal BID 06/2709/26/25 History mcg/actuation nasal spray,suspension ipratropium 20 mcg-albuterol 100 2 puff inhalation QID P PRN 09/26/25 09/26/25 History mcg/actuation mist for inhalation shortness of breath or wheezing losartan 25 mg tablet 25 mg PO BID 09/26/25 History omeprazole 20 mg capsule,delayed 20 mg PO DAILY 09/26/25 History release New Prescriptions to Start Prescriptions: Allergies Allergy/AdvReac Type Severity Reaction Status Date / Time latex (LATEX) Allergy Mild Rash Verified 06/27/25 11:56 Sulfa (Sulfonamide Allergy Mild Rash Verified 06/27/25 11:56 Antibiotics) (SULFA (SULFONAMIDE ANTIBIOTICS)) Exam Data for Last 24 hours Vital signs and Labs for Last 24 Hours: Temp Pulse Resp BP Pulse Ox O2 Del Method O2 Flow Rate 98.2 F 111 H 24 96/59 L 97 Nasal Cannula 2 09/26/25 12:01 09/26/25 13:00 09/26/25 12:45 09/26/25 13:00 09/26/25 13:00 09/26/25 13:00 09/26/25 12:45 Laboratory Results - last 24 hr 09/26/25 12:01: WBC 13.9 H, RBC 5.30, Hgb 17.5, Hct 50.4, MCV 95.1 H, MCH 33.0 H , MCHC 34.7, RDW 12.5, Plt Count 202, MPV 10.3, Neut % (Auto) 88.1 H, Lymph % (Auto) 4.4 L, [place] % (Auto) 5.2, Eos % (Auto) 0.6, Baso % (Auto) 0.6, Neut # (Auto) 12.2 H, Lymph # (Auto) 0.6 L, [place] # (Auto) 0.7, Eos # (Auto) 0.1, Baso # (Auto) 0.1, D-Dimer 1.78 H, Sodium 138, Potassium 4.0, Chloride 104, Carbon Dioxide 21 L, Anion Gap 17.0 H, BUN 29 H, Creatinine 2.20 H, Estimated Creat Clear 48, Estimated GFR 30 L, Est GFR ( Amer) 36 L, Glucose 120 H, Calc ium 9.8, Total Bilirubin 2.0 H, AST 38, ALT 32, Alkaline Phosphatase 71, Troponin I < 0.01, C-Reactive Protein 114.2 H, NT-Pro-B Natriuret Pep 1470 H, Total Protein 8.1, Albumin 4.8, Globulin 3.3 H, Albumin/Globulin Ratio 1.5, Lipase 36 09/26/25 12:02: VBG pH 7.31, VBG pCO2 44.5, VBG pO2 23.0 L, VBG HCO3 21.9 L, VBG Total CO2 23.3, VBG O2 Saturation 38.7 L, VBG Base Excess -4.4 L, VBG Lactic Acid 4.9 H 09/26/25 12:10: SARS-CoV-2 (PCR) Not detected, Influenza A Untype (PCR) Not detected, Influenza Type B (PCR) Not detected I & O for Last 24 hours: Intake & Output 09/23/25 09/24/25 09/25/25 09/26/25 23:59 23:59 23:59 23:59 Intake Total 2099 Balance 2099 Weight 106.594 kg Constitutional Constitutional: no acute distress, obese and cooperative *Routine HEENT Exam Head: Present normocephalic Eye: Present EOMI ENT: Present mucous membranes moist *Routine Neck Exam Neck: Present supple *Routine Respiratory Exam Respiratory: Present rhonchi (Left lung), crackles (Left lung), diminished air movement and normal respiratory effort *Routine Cardiovascular Exam Cardiovascular: Present Normal S1, Normal S2 and tachycardia; Absent murmur *Routine Abdominal Exam Abdominal: Present soft and normoactive bowel sounds; Absent tenderness or distended *Routine Rectal Exam Rectal:: deferred *Routine Genitalia Exam Genitalia:: deferred *Routine Extremities Exam Extremities: Present full ROM; Absent cyanosis, clubbing or edema *Routine Skin Exam Skin: Present intact, dry and warm; Absent rash *Routine Neurological Exam Neurological: Present alert, oriented X3, moving all extremities and normal speech Routine Psychiatric Exam Psychiatric: Present normal affect and cooperative Assessment and Plan *Assessment and plan (1) Sepsis: Status: Acute Category: Medical Code(s): A41.9 - Sepsis, unspecified organism (2) Pneumonia: Status: Acute Category: Medical Code(s): J18.9 - Pneumonia, unspecified organism (3) Acute exacerbation of chronic obstructive pulmonary disease: Status: Acute Category: Medical Code(s): J44.1 - Chronic obstructive pulmonary disease with (acute) exacerbation (4) TANIA (acute kidney injury): Status: Acute Category: Medical Code(s): N17.9 - Acute kidney failure, unspecified (5) HTN (hypertension): Status: Chronic Qualifiers: Hypertension type: essential hypertension Qualified Code(s): I10 - Essential (primary) hypertension Category: Medical Code(s): I10 - Essential (primary) hypertension (6) GERD (gastroesophageal reflux disease): Status: Chronic Qualifiers: Esophagitis presence: esophagitis presence not specified Qualified Code(s): K21.9 - Gastro-esophageal reflux disease without esophagitis Category: Medical Code(s): K21.9 - Gastro-esophageal reflux disease without esophagitis (7) Tobacco abuse disorder: Status: Chronic Category: Medical Code(s): Z72.0 - Tobacco use Plan Mr. Lunsford is a 69-year-old male who presented to the emergency department with complaints of shortness of breath, N/V/D, and chest discomfort. States he has been feeling unwell for approximately 2 weeks but worse over the last few days. He is a heavy tobacco user. Workup in the emergency department was significant for sepsis with left lung pneumonia, acute kidney injury. Hospital medicine was consulted for admission, I agreed to admit the patient. Plan of care as follows: #Sepsis #Community-acquired pneumonia #COPD exacerbation ? Patient met sepsis criteria with elevated lactic 4.9, leukocytosis 13.9, tachycardia, hypotension, febrile at 100.5. He was admitted to the medical surgical floor for further management. Patient requiring 2 L nasal cannula to maintain O2 saturation greater than 90%, weaning as tolerated. Left lung sounds with coarse crackles and rhonchi, poor air movement. Patient complains of inspiratory pain and pain with cough. Port score PSI risk class III. ? Patient started on Zosyn 4.5 g every 6 hours, azithromycin 500 mg IV daily. DuoNebs every 6 hours ordered scheduled. Patient received 2 L sepsis bolus in the emergency department, continuing with NS at 100 mL/H. Encouraging p.o. intake. Robitussin DM every 6 hours as needed for cough. Zofran as needed for nausea. Morphine 2 mg every 4 hours as needed for severe pain. Monitoring for toxicity. ?I personally reviewed patient's chest CTA which showed left-sided consolidation suggestive of pneumonia. #TANIA ?Patient has elevated creatinine of 2.2. Baseline creatinine appears to be around 1.0. Patient given 2 L bolus in ED, continuing with fluids for hydration. ?CBC, CMP, magnesium ordered for the a.m. #Tobacco use disorder: Patient states he is a heavy tobacco user, nicotine patches ordered as needed. Smoking cessation counseled. #GERD: Continue formulary substitute for omeprazole 20 mg daily. #HTN: Continue losartan 25 mg twice daily. #DEBORAH: Patient has sleep apnea, uses CPAP nightly. Will bring in home CPAP for bedtime. Full code Ambulate as tolerated VTE?Lovenox Regular diet
[2025-09-26] MEDS: NICOTINE 21MG/24HR PATCH 21 MG TD (15:13)
[2025-09-26] MEDS: GUAIFENESIN/DEXTROMETHORPHAN 200MG/20MG 10ML UDC 20 ML PO (15:35)
[2025-09-26] MEDS: ACETAMINOPHEN 325MG TAB 650 MG PO (15:35)
[2025-09-26] MEDS: AZITHROMYCIN 500 MG in 0.9 % SODIUM CHLORIDE 250 ML 250 MG IV (15:36)
[2025-09-26] MEDS: 0.9 % SODIUM CHLORIDE 1000ML 1,000 ML 100 ML IV ×2 (15:36→18:31)
[2025-09-26] MEDS: METHYLPREDNISOLONE SOD SUCC 125MG VIAL 80 MG IV (15:36)
[2025-09-26] MEDS: MORPHINE 2MG/ML SYRINGE 2 MG IV (15:37)
[2025-09-26 16:08] LABS: Troponin I < 0.01 ng/ml (0.00-0.034)
[2025-09-26 16:18] LABS: Reflex Lactic Add Lactic Reflex
[2025-09-26 16:40] LABS: Lactic Acid Follow Up (RFLX 1) 2.5 mmol/L (0.7-2.1)
[2025-09-26] MEDS: ONDANSETRON 4MG/2ML VIAL 4 MG IV (16:47)
--- NOTE | 2025-09-26 17:04 | PC.NURSE ---
Addendum entered by Lindy Hunt RN 09/26/25 17:10: pt states that he did not take his losartan this morning Original Note: notified hospitalist of BP of 72/46 in L upper arm. recheck in other extremities were 70s/40s. verbal order to bolus existing 800ml in maintenance NS. bolus infusing at this time. pt hooked to datascope cycling BP every 10min.
[2025-09-26 17:10] LABS: POC Glucose,Bedside 117 gm/dL (70-110)
--- NOTE | 2025-09-26 18:17 | PC.NURSE ---
pt transferred to 219 at this time as icu status
[2025-09-26 18:20] LABS: Reflex Lactic (2 hrs) Add Lactic Reflex
[2025-09-26] MEDS: NOREPINEPHRINE BITARTRATE/D5W 8 MG/250 ML PLAST..BAG 15 MG IV (18:23)
[2025-09-26] MEDS: SODIUM CHLORIDE 3% 15ML NEB 3 ML IH (18:26)
[2025-09-26 18:28] LABS: Microscopic, Urine URINE MICROSCOPIC (MICROSCOPIC)
[2025-09-26 18:32] LABS: Bilirubin,Urine Negative (Negative); Color,Urine YELLOW (Yellow); Glucose,Urine (UA) Negative (Negative); Ketones,Urine TRACE (Negative); Leukocyte Esterase,Urine Negative (Negative); PH,Urine 5.0 (5.0-8.5); Protein,Urine TRACE (Negative); Specific Gravity, Urine 1.010 (1.005-1.030); Urobilinogen,Urine 0.2 EU/dl (0.2)
[2025-09-26 19:10] LABS: Lactic Acid Follow up (RFLX 2) 2.7 mmol/L (0.7-2.1)
[2025-09-26 19:11] LABS: Troponin I < 0.01 ng/ml (0.00-0.034)
[2025-09-26 19:15] LABS: Bacteria,Urine 2+ /lpf; Squamous Epithelial Cell,Urine Occasional #/hpf (0-5)
[2025-09-26] MEDS: PANTOPRAZOLE 40MG TABLET 40 MG PO (21:28)
--- NOTE | 2025-09-26 22:26 | EXP.EVENT.NO ---
Went to bedside to check on patient about 25 minutes ago. Patient's family in room at time of my evaluation. Patient now on 12 mcg/kg/min Levophed. Patient also on normal saline 100 cc/h. Patient's maps consistently above 65%. Will continue to wean patient from Levophed as tolerated. Patient has already received 3 L fluid boluses today, so hesitant to give patient additional fluid to avoid acute pulmonary edema.
[2025-09-27] VITALS (19 sets, daily range): BP systolic 92–154; BP diastolic 51–81; PULSE 78–113; RESP 14–22; TEMP 36.6–37.1; O2SAT 90–95; BMI 32.9
[2025-09-27] MEDS: PIPERACILLIN/TAZO 4.5 GM in 0.9 % SODIUM CHLORIDE 100 ML IV ×4 (00:45→18:27)
[2025-09-27] MEDS: IPRATROPIUM/ALBUTEROL 3 ML NEB IH ×5 (00:57→23:11)
[2025-09-27] MEDS: 0.9 % SODIUM CHLORIDE 1000ML 1,000 ML 100 ML IV (06:14)
[2025-09-27] MEDS: MORPHINE 2MG/ML SYRINGE 2 MG IV ×3 (06:27→20:04)
[2025-09-27 06:47] LABS: Hematocrit 38.1 % (42.0-52.0); Immature Granulocytes % 4.6 %; Mean Corpuscular HGB Conc 35.2 g/dL (31.8-35.4); Mean Corpuscular Hemoglobin 32.8 pg (27.0-31.2); Mean Corpuscular Volume 93.2 fl (80-94); Nucleated Red Blood Cells % 0 %; Platelet Count 152 K/mm3 (142-424); Red Blood Count 4.09 M/mm3 (4.60-6.20); Red Cell Distribution Width-SD 42.7 fL; White Blood Count 18.7 K/mm3 (4.8-10.8)
[2025-09-27 06:55] LABS: Chloride 108 mmol/L (98-107); Potassium 4.0 mmoL/L (3.5-5.1); Sodium 134 mmol/L (136-145)
[2025-09-27 06:58] LABS: Anion Gap 12.0 mEq/L (5-15); Blood Urea Nitrogen 32 mg/dl (9-20); Calcium 8.6 mg/dl (8.4-10.2); Carbon Dioxide 18 mmol/L (22.0-30.0); Cholesterol 77 mg/dl (140-200); Creatinine Clearance Estimated 55 mL/min (50-200); Creatinine,Serum 2.00 mg/dl (0.66-1.25); Estimated Glomerular Filt Rate 33 ml/min (>60); GFR (African American) 40 ML/MIN (>60); Glucose 128 mg/dl (74-100); Triglycerides 39 mg/dl (30-150)
[2025-09-27 06:59] LABS: HDL Cholesterol 51 mg/dl (40-60); Magnesium 1.6 mg/dl (1.6-2.3)
[2025-09-27 07:46] LABS: RBC Morphology Normal; Total Cells Counted 100
[2025-09-27 07:47] LABS: Hemoglobin 13.5 g/dL (14.1-18.0)
[2025-09-27 09:22] LABS: Adenovirus,PCR Not Detected (NotDetected); Chlamydophila Pneumoniae, PCR Not Detected (NotDetected); Coronavirus 19, PCR Not Detected (NotDetected); Coronovirus HKU1,PCR Not Detected (NotDetected); Influenza A, PCR Not Detected (NotDetected); Influenza AH1, 2009 Not Detected (NotDetected); Influenza AH1, PCR Not Detected (NotDetected); Influenza AH3,PCR Not Detected (NotDetected); Influenza B, PCR Not Detected (NotDetected); Mycoplasma Pneumoniae, PCR Not Detected (NotDetected); Parainfluenza 1, PCR Not Detected (NotDetected); Parainfluenza 2, PCR Not Detected (NotDetected); Parainfluenza 3, PCR Not Detected (NotDetected); Parainfluenza 4, PCR Not Detected (NotDetected)
--- NOTE | 2025-09-27 09:37 | HMH.PHAAMS2 ---
- Antimicrobial Stewardship Review culture & sensitivity review Stewardship interventions: culture & sensitivity review (CURRENTLY RECEIVING CICI AND TYLOR, WBC 18.7K, AFEBRILE, CX PENDING.)
--- NOTE | 2025-09-27 12:30 | P.PN_ITS ---
Subjective *Date: 09/27/25 *Time: 12:30 Interval history: Today, patient states he feels slightly better. Breathing easier. Weaned to room air. Continue antibiotics, breathing treatments. Added doxycycline, follow-up MRSA PCR and sputum cultures. Exam Data for Last 24 hours Vital signs and Labs for Last 24 Hours: Temp Pulse Resp BP Pulse Ox O2 Del Method O2 Flow Rate 98.0 F 113 H 20 102/60 L 92 L Room Air 2 09/27/25 12:00 09/27/25 12:00 09/27/25 12:00 09/27/25 12:00 09/27/25 12:00 09/27/25 12:00 09/27/25 09:00 Laboratory Results - last 24 hr 09/26/25 12:01: D-Dimer 1.78 H, Sodium 138, Potassium 4.0, Chloride 104, Carbon Dioxide 21 L, Anion Gap 17.0 H, BUN 29 H, Creatinine 2.20 H, Estimated Creat Clear 48, Estimated GFR 30 L, Est GFR ( Amer) 36 L, Glucose 120 H, Calcium 9.8, Total Bilirubin 2.0 H, AST 38, ALT 32, Alkaline Phosphatase 71, Troponin I < 0.01, C-Reactive Protein 114.2 H, NT-Pro-B Natriuret Pep 1470 H, Total Protein 8.1, Albumin 4.8, Globulin 3.3 H, Albumin/Globulin Ratio 1.5, Lipase 36 09/26/25 12:10: SARS-CoV-2 (PCR) Not detected, Influenza A Untype (PCR) Not detected, Influenza Type B (PCR) Not detected 09/26/25 15:30: Lactate 2.5 H, Troponin I < 0.01 09/26/25 17:02: POC Glucose 117 H 09/26/25 18:11: Urine Color Yellow, Urine Appearance Clear, Urine pH 5.0, Ur Specific [place] 1.010, Urine Protein Trace, Urine Glucose (UA) Negative, Urine Ketones Trace, Urine Blood Negative, Urine Nitrate Negative, Urine Bilirubin Negative, Urine Urobilinogen 0.2, Ur Leukocyte Esterase Negative, Urine RBC None, Urine WBC 5-10, Ur Squamous Epith Cells Occasional, Urine Bacteria 2+ 09/26/25 18:29: Lactate 2.7 H, Troponin I < 0.01 09/27/25 00:15: Chlamy pneumoniae PCR Not detected, Adenovirus (PCR) Not detected, B. pertussis DNA (PCR) Not detected, Coronavirus OC43 (PCR) Not detected, Coronavirus HKU1 (PCR) Not detected, Coronavirus 229E (PCR) Not detected, SARS-CoV-2 (PCR) Not detected, Coronavirus NL63 (PCR) Not detected, Human Metapneumovir PCR Not detected, Influenza A (H1) PCR Not detected, Influ A (H1N1/09) PCR Not detected, Influenza A (H3) PCR Not detected, Influenza Type A (PCR) Not detected, Influenza Type B (PCR) Not detected, M. pneumoniae (PCR) Not detected, Parainfluenza 1 (PCR) Not detected, Parainfluenza 2 (PCR) Not detected, Parainfluenza 3 (PCR) Not detected, Parainfluenza 4 (PCR) Not detected, RSV (PCR) Not detected, Entero/Rhino (PCR) Not detected 09/27/25 06:00: WBC 18.7 H D, RBC 4.09 L, Hgb 13.5 L D, Hct 38.1 L, MCV 93.2, MCH 32.8 H, MCHC 35.2, RDW 12.5, Plt Count 152, MPV 10.6 H, Neut % (Auto) 89.3 H , Lymph % (Auto) 4.1 L, [place] % (Auto) 1.9, Eos % (Auto) 0.0 L, Baso % (Auto) 0.1, Neut # (Auto) 16.7 H, Lymph # (Auto) 0.8, [place] # (Auto) 0.4, Eos # (Auto) 0.0, Baso # (Auto) 0.0, Total Counted 100, Neutrophils % (Manual) 80 H, Lymphocytes % (Manual) 13, Monocytes % (Manual) 7, Platelet Estimate Normal, RBC Morphology Normal, Sodium 134 L, Potassium 4.0, Chloride 108 H, Carbon Dioxide 18 L, Anion Gap 12.0, BUN 32 H, Creatinine 2.00 H, Estimated Creat Clear 55, Estimated GFR 33 L, Est GFR ( Amer) 40 L, Glucose 128 H, Calcium 8.6, Magnesium 1.6, Triglycerides 39, Cholesterol 77 L, LDL Cholesterol Direct < 30.00 L, VLDL Cholesterol 8, HDL Cholesterol 51, Cholesterol/HDL Ratio 1.5 I & O for Last 24 hours: Intake & Output 09/24/25 09/25/25 09/26/25 09/27/25 23:59 23:59 23:59 23:59 Intake Total 3973.437 / 3973.437 1702.000 / 1702.000 Output Total 0 / 0 250 / 250 Balance 3973.437 / 3973.437 1452.000 / 1452.000 Weight 106.594 kg 110.404 kg Microbiology Reports for the Last 24 Hours: Microbiology 09/26/25 12:20 Blood Blood Culture - Preliminary NO GROWTH AFTER 24 HOURS 09/26/25 12:15 Blood Blood Culture - Preliminary NO GROWTH AFTER 24 HOURS Constitutional Constitutional: no acute distress *Routine HEENT Exam Head: Present normocephalic Eye: Present EOMI and PERRL ENT: Present mucous membranes moist *Routine Neck Exam Neck: Present supple; Absent lymphadenopathy *Routine Respiratory Exam Respiratory: Present CTA bilaterally *Routine Cardiovascular Exam Cardiovascular: Present RRR *Routine Abdominal Exam Abdominal: Present soft and normoactive bowel sounds; Absent tenderness *Routine Extremities Exam Extremities: Absent cyanosis, clubbing or edema *Routine Skin Exam Skin: Present warm; Absent rash *Routine Neurological Exam Neurological: Present alert and oriented X3 Assessment and Plan *Assessment and plan (1) Sepsis: Status: Acute Category: Medical Code(s): A41.9 - Sepsis, unspecified organism (2) Pneumonia: Status: Acute Category: Medical Code(s): J18.9 - Pneumonia, unspecified organism (3) Acute exacerbation of chronic obstructive pulmonary disease: Status: Acute Category: Medical Code(s): J44.1 - Chronic obstructive pulmonary disease with (acute) exacerbation (4) TANIA (acute kidney injury): Status: Acute Category: Medical Code(s): N17.9 - Acute kidney failure, unspecified (5) HTN (hypertension): Status: Chronic Qualifiers: Hypertension type: essential hypertension Qualified Code(s): I10 - Essential (primary) hypertension Category: Medical Code(s): I10 - Essential (primary) hypertension (6) GERD (gastroesophageal reflux disease): Status: Chronic Qualifiers: Esophagitis presence: esophagitis presence not specified Qualified Code(s): K21.9 - Gastro-esophageal reflux disease without esophagitis Category: Medical Code(s): K21.9 - Gastro-esophageal reflux disease without esophagitis (7) Tobacco abuse disorder: Status: Chronic Category: Medical Code(s): Z72.0 - Tobacco use Plan Mr. Lunsford is a 69-year-old male who presented to the emergency department with complaints of shortness of breath, N/V/D, and chest discomfort. States he has been feeling unwell for approximately 2 weeks but worse over the last few days. He is a heavy tobacco user. Workup in the emergency department was significant for sepsis with left lung pneumonia, acute kidney injury. #Sepsis #Community-acquired pneumonia #COPD exacerbation ? Patient presented with shortness of breath, nausea vomiting/diarrhea with CTA chest showing left lower lobe pneumonia. Initially required 2 L. Port score PSI risk class III. ? Initial WBC 13.9, with tachycardia and tachypnea meeting sepsis criteria. ? Today, patient states he feels slightly better. Breathing easier. Weaned to room air. ? Continues to be tachycardic, WBC up to 18.7 though also received steroids yesterday. ? Continue Zosyn 4.5 g every 6 hours, switch to azithromycin and doxycycline given uptrending WBC today. ? Follow-up MRSA PCR, sputum culture, blood cultures. ? Follow-up morning CBC. #TANIA ? Initial creatinine 2.2, improved to 2.0 with gentle IV fluid rehydration. Patient tolerated p.o. intake now. ? Patient states his hands are slightly swollen today, will discontinue fluids and encourage p.o. fluids. ? Follow-up morning RFT's. #Tobacco use disorder: Patient states he is a heavy tobacco user, nicotine patches ordered as needed. Smoking cessation encouraged. #GERD: Continue formulary substitute for omeprazole 20 mg daily. #HTN: Blood pressure soft today, will discontinue losartan also in the setting of TANIA. #DEBORAH: Patient has sleep apnea, uses CPAP nightly. Will bring in home CPAP for bedtime. Full code Ambulate as tolerated VTE?Lovenox Regular diet
[2025-09-27] MEDS: DOXYCYCLINE HYCL 100 MG TABLET PO ×2 (13:04→20:00)
[2025-09-27] MEDS: NICOTINE 21MG/24HR PATCH 21 MG TD (16:35)
--- NOTE | 2025-09-27 16:49 | PC.NURSE ---
Patients total urine output from 0700 to current is 400mL. notified. No new orders received. Continuation of care plan.
[2025-09-27 18:47] LABS: MRSA DNA PCR Negative (Negative)
[2025-09-27] MEDS: PANTOPRAZOLE 40MG TABLET 40 MG PO (20:00)
[2025-09-27] MEDS: ONDANSETRON 4MG/2ML VIAL 4 MG IV (20:54)
[2025-09-28] VITALS (11 sets, daily range): BP systolic 108–124; BP diastolic 62–74; PULSE 80–110; RESP 16–20; TEMP 36.6–37.2; O2SAT 91–98; BMI 33.0
[2025-09-28] MEDS: PIPERACILLIN/TAZO 4.5 GM in 0.9 % SODIUM CHLORIDE 100 ML IV ×2 (00:26→06:19)
--- NOTE | 2025-09-28 03:50 | PC.NURSE ---
Pt AOx4, pleasant. C/o pain and nausea earlier in the shift, which was treated per MAR, which pt then reported relief. Wearing home CPAP. Currently resting in bed with eyes closed. Respirations even and unlabored. Bed is low, locked, and call light is in reach.
[2025-09-28] MEDS: IPRATROPIUM/ALBUTEROL 3 ML NEB IH ×4 (05:57→23:13)
[2025-09-28 06:16] LABS: Chloride 108 mmol/L (98-107); Potassium 3.6 mmoL/L (3.5-5.1); Sodium 137 mmol/L (136-145)
[2025-09-28 06:19] LABS: Anion Gap 10.6 mEq/L (5-15); Blood Urea Nitrogen 33 mg/dl (9-20); Calcium 9.4 mg/dl (8.4-10.2); Carbon Dioxide 22 mmol/L (22.0-30.0); Creatinine Clearance Estimated 69 mL/min (50-200); Creatinine,Serum 1.60 mg/dl (0.66-1.25); Estimated Glomerular Filt Rate 43 ml/min (>60); GFR (African American) 52 ML/MIN (>60); Glucose 95 mg/dl (74-100); Magnesium 1.8 mg/dl (1.6-2.3)
[2025-09-28 06:21] LABS: Hematocrit 34.8 % (42.0-52.0); Immature Granulocytes % 12.2 %; Mean Corpuscular HGB Conc 34.8 g/dL (31.8-35.4); Mean Corpuscular Hemoglobin 32.7 pg (27.0-31.2); Mean Corpuscular Volume 94.1 fl (80-94); Nucleated Red Blood Cells % 0 %; Platelet Count 138 K/mm3 (142-424); Red Blood Count 3.70 M/mm3 (4.60-6.20); Red Cell Distribution Width-SD 43.9 fL; White Blood Count 18.1 K/mm3 (4.8-10.8)
[2025-09-28 06:29] LABS: Hemoglobin 12.2 g/dL (14.1-18.0)
[2025-09-28 07:38] LABS: Total Cells Counted 100
[2025-09-28 07:39] LABS: RBC Morphology Normal
--- NOTE | 2025-09-28 08:21 | HMH.PHAAMS2 ---
- Antimicrobial Stewardship Review culture & sensitivity review Stewardship interventions: culture & sensitivity review, reviewed - no change Comments: PATIENT ON LEVAQUIN FOR PNEUMONIA, SPUTUM CULTURE PENDING, URINE AND BLOOD CX NO GROWTH AT 24-48HR, WBC 18.1 K/mm3 TODAY DOWN FROM 18.7 K/mm3 YESTERDAY, PATIENT REMAINS AFEBRILE.
[2025-09-28] MEDS: ASPIRIN EC 81MG TABLET 81 MG PO (08:27)
[2025-09-28] MEDS: LEVOFLOXACIN/D5W 750 MG/150 ML 750 MG/150 ML PIGGYBACK 100 MG IV (08:28)
[2025-09-28] MEDS: GUAIFENESIN/DEXTROMETHORPHAN 200MG/20MG 10ML UDC 20 ML PO ×2 (08:45→20:55)
[2025-09-28] MEDS: MORPHINE 2MG/ML SYRINGE 2 MG IV ×2 (08:46→20:45)
[2025-09-28 09:45] LABS: C-Reactive Protein 276.2 mg/L (0-4)
[2025-09-28 10:12] LABS: Procalcitonin 43.8 ng/mL (0.0-2.0)
--- NOTE | 2025-09-28 10:22 | XR_ITS ---
FINAL REPORT CLINICAL HISTORY: F/u pneumonia COMPARISON: 09/26/2025 FINDINGS: A single frontal view of the chest was obtained. New left perihilar airspace disease is compatible with pneumonia. There is minimal right basilar atelectasis. There are no pleural effusions or pneumothorax. Mediastinum is unremarkable. Heart size is normal. IMPRESSION: Significant left perihilar pneumonia, likely involving the left lower lobe. Reviewed, Interpreted and Dictated by Jose M Ramos MD Transcribed by Masha Vega Authenticated and [facility]
--- NOTE | 2025-09-28 10:22 | CA_ITS ---
APPROVED REPORT EXAM: Comprehensive 2D, Doppler, and color-flow Echocardiogram Insurance Verifier: Paula Hdez RT(R) Ht: 6 ft 0 in Wt: 235lbs BSA: 2.28 BP: 102/60 mmHg Indications: dyspnea on exertion, COPD, HTN, smoker, pneumonia, elevated BNP 2D Dimensions LVEF (Herring's) 48.60 % M: 52 - 72 LV Volume 130.80 mL M: 62 - 150 LV Volume Index 57.4 mL/m2 M: 34 - 74 LA Volume 39.80 mL LA Volume Index 17.46 mL/m2 (M/F) 16-34 EF AP4 57.50 % EF AP2 42.6 % EF BP 48.6 % GL Strain -13.3 % M-Mode Dimensions RVDd 3.04 cm (0.9-2.6) LA Diam 3.28 cm (1.9-4.0) LVDd 5.11 cm (3.5-5.7) LVDs 3.85 cm (3.5-5.7) IVSd 1.06 cm (0.6-1.1) PWd 0.89 cm (0.6-1.1) EF (Teich) 48.60% FS 24.70% EDV (Teich) 124.40 mL ESV (Teich) 63.90 mL LV Diastology E Decel Time 150 (160-240 msec) E/A Ratio 0.7 Mitral Valve MV E Max Mac. 63.0 (40-130 cm/s) MV A Velocity 91.0 (40-130 cm/s) E/A Ratio 0.69 MV PHT 44.0 ms Left Ventricle The left ventricle is normal size. Left ventricular systolic function is normal. The left ventricular ejection fraction is within the normal range. There is increased left ventricular wall thickness. There is normal LV segmental wall motion. The left ventricular diastolic function is indeterminate. LVEF is 55% Right Ventricle The right ventricle is mildly to moderately dilated. The right ventricular systolic function is mildly reduced. Atria Left atrium is mildly dilated. Right atrium is mildly dilated. There is no color Doppler evidence of interatrial shunt. Aortic Valve The aortic valve is mildly thickened. There is no hemodynamically significant aortic valvular stenosis. Trace aortic regurgitation is present. Mitral Valve The mitral valve is normal in structure. No evidence of mitral valve stenosis. Mild mitral regurgitation is present. Tricuspid Valve The tricuspid valve leaflets are thin and pliable. Trace tricuspid regurgitation. There is insufficient TR jet to estimate RVSP. Pulmonic Valve The pulmonary valve is grossly normal in structure. Trace pulmonic valve regurgitation is present. Great Vessels The aortic root is normal in size. IVC is normal in size and collapses >50% with inspiration. Pericardium There is no pericardial effusion. Other Information Study Quality: Fair Conclusion Normal LV systolic function. Mild to moderate RV dilation with mild reduction in RV function. Biatrial dilation. Mild MR. Electronically signed by : Ruth Jackson MD 09/29/2025 13:20:24
[2025-09-28] MEDS: FUROSEMIDE 40MG/4ML VIAL 40 MG IV (10:46)
--- OUTSIDE RECORDS SUMMARY | 2025-09-28 12:56 | XMS_ITS | Continuity of Care Document ---
Author Organization [facility], PAIN MEDICINE [address] Address [address] [place] [address] Care Team Providers Care Detective Bowling Alley Name Role Phone ANASTASIIA OLIVEIRA Primary Care Provider [phone] Assessment Encounter Date Assessment Date Assessment LastModified [...] left ureteral stent, L5-S1 fusion SCS (12/2024, [facility]) No updated imaging is available for review The patient has undergone no recent injection therapy. 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 I recommend: 1. Tomas inside outside sales representative is present today for program optimization 2. 6-month follow-up 3. I recommend the patient engage in a core exercise plan such as yoga or pilates on a nursing home basis. [email or web address] Not available 08/07/2025 14:01:41 Plan [...] Address Organization Details Recorded Time Pericardial effusion 017882352 Active 2016 Not Available [facility] 1 02:28:53 Chest pain 22632248 Active 2016 Not Available [facility] 1 02:28:53 Cigarette smoker 42880414 Active 2016 Not Available [facility] 1 02:28:53 Obesity 835442613 Active 2016 Not Available [facility] 1 02:28:53 Obstructive sleep apnea syndrome 33323238 Active 2016 Not Available [facility] 1 02:28:53 Gastroesophag eal reflux disease 305362452 Active 2016 Not Available [facility] 1 02:28:53 Mitral valve regurgitation 14733891 Active 2016 Not Available [facility] 1 02:28:53 Tricuspid valve regurgitation 681526390 Active 2016 Not Available [facility] 1 02:28:53 Problem Notes None recorded. Procedures Surgical History Date Name Laterality Status Provider Name and Address Organization Details Recorded Time 025 Injection - Joint/Bursa, Major completed FISH VIEIRA PA-C [address] [place] [address], [phone] [place] [address] 06/19/2025 11:45:16 025 Injection - Joint/Bursa, Major completed FISH VIEIRA PA-C [address] [place] [address], [phone] 01/31/2025 12:02:12 025 SCS Implant - Karen completed JAMIR MCGEE MD [address] [place] [address], [phone] 12/13/2024 08:33:16 025 Stimulation of spinal cord completed Juan Ferraro [facility] 12/25/2024 11:16:36 025 SCS Trial - Karen completed JAMIR MCGEE MD [address] [place], [address], [facility] 11/13/2024 13:43:38 025 Abdominal Trigger Point Injection w/US completed JAMIR MCGEE MD [address] [place] [address], [address], [facility] 10/10/2024 12:41:11 018 Uroflowmetry; Complex completed [facility] 04/14/2018 15:12:52 018 Urodynamics Interpretation completed NAHID RIDLEY JR, MD [address] [place] [address], [address] 04/18/2018 09:03:17 018 Urodynamics completed [facility] 04/14/2018 15:16:53 017 CYSTOURETHROSCOPY WITH DIRECT VISION INTERNAL URETHROTOMY (SURG) completed [facility] 04/14/2018 15:02:02 013 Circum 28 days or older completed [facility] 04/14/2018 15:09:44 013 Prostate Surgery completed [facility] 04/14/2018 15:09:24 hernia repair [facility]10[facility] 08:15:18 Imaging Results None recorded. Procedure Notes None recorded. Medical Equipment None Reported. Allergies Allergen ID Allergen Name Allergen Category Reaction Reaction Severity Criticality Documentation Date Start Date Code Code System Note Provider Name and Address Organization Details Recorded Time 894460 Substance with sulfonami de structure and antibacte rial mechanism of action (substanc e) medicatio n Not available Not available Not available 08/28/20162012 25379 8003 SNOMED Comme nt: Creat ed By: Jose Luis pabon Date: 12:23 :01 PM; Not Available [facility] 6 04:17:21 112573 latex environme nt,medica tion Not available Not available Not available 08/28/20162012 98748 91 RxNorm Comme nt: Creat ed By: Jose Luis Robert anitaAlba driscoll d Date: 013 12:22 :53 PM; Not Available [facility] 6 07:58:29 Medications Name Sig Start Date [...] Relief 50 mcg/actua tion nasal spray,gayle pension [place] 1 spray every day by intranas al route. active Not Available Not Available No t Available Vitals Date Recorded Body height Body mass index (BMI) Body weight Systolic And Diastolic Provider Name and Address Organization Details Last Updated DateTime 08/07/2025 182.88 cm 31.9 kg/m2 782940.31 g 128/78 mm[Hg] Juan Ferraro [facility] 08/07/2025 13:30:39 Social History Question Answer Notes LastModified by Organizat ion Details LastModified Time Tobacco Smoking Status Current Every Day Smoker Thea traylor, [facility] 09/10/2017 10:40:24 What Is Your Level Of Caffeine Consumption? Heavy Coffee In The Morning Miranda 3 A Day Information not available 12/25/2024 Marital Status Informatio n not available 09/10/2017 What Was The Date Of Your Most Recent Tobacco Screening? 08/07/2025 Information not available 08/07/2025 What Is Your Current Pack Years? [facility] Information not available 01/22/2025 What Is Your Relationship Status? [email or web address] Information not available 04/12/2023 At What Age Did You Start Smoking Tobacco? 29 Information not available 01/22/2025 How Much Tobacco Do You Smoke? 0.5 PPD [email or web address] Information not available 04/12/2023 How Many Years Have You Smoked Tobacco? 40 Information not available 01/22/2025 Sex: Male Functional Status Question Answer Note LastModified by Organizat ion Details LastModified Time Do you use any illicit or recreational drugs? No [email or web address] Information not available 10/26/2024 What is your level of alcohol consumption? None Information not available 09/10/2017 Are you currently employed? 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 Family History Relationship Description Onset Age of this Age Resolved Age Notes LastModified by Organization Details LastModified Time Sister Family history of malignant neoplasm Breast CA Not available 09/10/2017 10:40:16 Maternal Uncle Malignant neoplasm of prostate [email or web address] Not available 2022 16:15:36 Medical History Condition [...] ICD10 Code Diagnosis IMO Codes Diagnosis Note [id number] DOUGLAS CENTENO PA-C PAIN MEDICINE 1207 [address] [place] [address] 08/07/2025 13:16:47 08/07/2025 14:12:40 Complex regional pain syndrome type II of left lower limb 2828544936 48143 G57.72 Chronic pain syndrome 37 8117332 G89.4 Peripheral neuralgia 254 41901 M79.2 Thoracic radiculopathy 83499836 M54.14 Health Concerns Section Related Observation LastModified by Organization Detai ls LastModified Time None Recorded Concern Status LastModified by Organization Details LastModified Time None Recorded Payers Encounter Date Sequence Insurance Name Policy Number Policy Padilla Covered Member ID Padilla Member ID Guarantor Name 08/07/2025 1 [place] Jacob Lunsford [id number] 1 Jacob Lunsford 08/07/2025 2 [employer] Jacob Lunsford [id number] Jacob Lunsford Notes Date Note Type Note [...] edema/pain, andno dysuria/urinary symptoms. DOUGLAS CENTENO PA-C [facility] [place], [address], [facility] 08/07/2025 14:02:26
--- OUTSIDE RECORDS SUMMARY | 2025-09-28 12:56 | XMS_ITS | Clinical Summary ---
Author Organization [facility] Address [address] [place] [address] Care Team Providers Care Business Continuity Management Director Name Role Phone Rocio Bedoya Primary Care Provider [phone] Allergies Active Allergy Reactions Criticality Noted Date [...] PM by Cristóbal Townsend. Briana Ennis [place] [facility] [place] Final R esult from Last 3 Months or Most Recently Relevant to Health Maintenance Insurance MEDICARE A & B Member Subscriber Plan / Payer (Ef fective 2021-Present) Name:Jacob Lunsford Member ID:[id number] Relation to Subscriber:Self Name:Jacob Lunsford Subscriber ID:[id number] Payer ID:[id number] Group ID:Not on file Type:Not on file Address: [address] [place] [address] Care Teams Business Continuity Management Director Relationship Specialty Start Date End Date Rocio Bedoya PA PCP - General Physician Pharmacy Retail Support Specialist 03/16/21
--- OUTSIDE RECORDS SUMMARY | 2025-09-28 12:56 | XMS_ITS | Clinical Summary ---
Author Organization [employer] ([place], [place], [place], [place], [place]) Address [address] [place] [address] Care Team Providers Care Manager Cable Name Role Phone Rocio Bedoya PA-C Primary Care Provider [phone] Allergies Active Allergy Reactions Criticality Noted Date [...] Date Nils rded Speak language other than Sammarinese at home Not on file 10/22/2023 Want [...] 07/05/2021, 12/04/1996 Medical Devices Implanted Type Area Reliability Technician Device Identifier Shelf Expiration Date Model / Serial / Lot Stent Uret Braid + [id number] - [id number] Implanted:Qty : 1 on 06/10/2023 by Guy Mendoza MD at [facility] IMPLANTS Left: Ureter [place] [employer]:UROLOGY/GYNE COLOGY [id number] / [id number] / Insurance MEDICARE PART A B Advance Directives For more information, please contact: [phone] * Full Code (Latest Code Status on File) Date Activated Date Inactivated Comments 06/10/2023 4:09 PM 06/12/2023 3:05 PM Care Teams Manager Cable Relationship Specialty Start Date End Date Rocio Bedoya PA-C [address] [place] [address] PCP - General Physician Proof Reader 06/08/23
--- OUTSIDE RECORDS SUMMARY | 2025-09-28 12:56 | XMS_ITS | Continuity of Care Document ---
Author Organization [place] - [employer] [facility] Address [address] [place] [address] Assessment No assessment recorded. Plan of Treatment Reminders Order Date Submit Date Provider Last Modified By Organization Details Last Modified Time Details Appointments None recorded. Lab None recorded. Referral None recorded. Procedures None recorded. Surgeries None recorded. Imaging None recorded. Medication Orders doxycycline hyclate 100 mg tablet 2024 025 [facility], [address], [address], 5 05:01:19 prednisone 20 mg tablet 2024 025 [facility], [address], [address], 5 05:02:03 promethazin e-DM 6.25 mg-15 mg/5 mL oral syrup 2024 025 [facility], [address], [address], 5 05:02:26 ceftriaxone 1 gram solution for injection [address] [facility], [address], [address], 5 16:00:59 Depo-Medrol 80 mg/mL suspension for injection 2024 025 [email or web address] [facility], [address], [place], [address], 16:00:59 Patient TargetsNo targets recorded. Patient Instructions Encounter Date Encounter Id Patient Instructions Last Modified By Organization Details Last Modified Time 07/27/2025 [id number] bronchitis: care instructions Not available 07/27/2025 15:13:23 Reason for Referral None Reported. Results Created Date Observation Date Name Description Value Unit Range Abnormal Flag Note LastModifiedBy Organization Detail LastModifiedTime 08/02/2008/02/2025 XR, chest , 2 view No observ ation record ed. [facility] (X-Ray) [facility], [place], [address], 08/03/2025 08:38:49 09/26/20 25 09/26/2025 imagi ng/di agnos tic resul t No observ ation record ed. [facility] [address], [place], [address], 09/26/2025 14:01:20 09/26/20 25 09/26/2025 imagi ng/di agnos tic resul t No observ ation record ed. [facility] [address], [place], [address], 09/26/2025 15:54:33 09/26/20 25 09/26/2025 elect gisela figueroa am No observ ation record ed. [facility] [address], [place], [address], 09/26/2025 16:01:23 09/28/20 25 09/28/2025 imagi ng/di agnos tic resul t No observ ation record ed. [facility] [address], [place], [address], 09/28/2025 11:51:56 Result Notes None recorded. Problems Name Problem SNOMED Code Status Onset Date Resolution Date Notes Provider Name and Address Organization Details Recorded Time Candidias is of mouth 54575698 Completed 202306/14/2025 GEORGIA Shaw [address] [place] [address], [address], [employer] 5 14:00:02 Chronic obstructi ve pulmonary disease 87106981 Active 2023 GEORGIA Shaw [address] [place] [address], [address], [employer] 4 16:36:15 Erectile dysfuncti on 847018915 Active 2023 GEORGIA Shaw [address] [place] [address], [address], [employer] 5 11:11:08 Acute prostatit is 11173457 Completed 202306/14/2025 GEORGIA Shaw [address] [place] [address], [address], [employer] 5 14:00:08 Essential hypertens ion 78571559 Active 2023 GEORGIA Shaw [address] [place] [address], [address], [employer] 5 11:11:03 Osteoarth ritis 039622019 Active 2024 GEORGIA Shaw [address] [place] [address], [address], [employer] 5 11:38:22 Obstructi ve sleep apnea syndrome 27258080 Active 2024 GEORGIA Shaw [address] [place] [address], [address], [employer] 5 11:38:09 Dyspnea 860851786 Active 2024 GEORGIA Shaw [address] [place] [address], [address], [employer] 5 14:14:23 Flank pain 715447656 Completed 202406/26/2025 GEORGIA Shaw [address] [place] [address], [address], [employer] 17:30:04 Tobacco dependenc e syndrome 30816154 Active 2024 GEORGIA Shaw [address] [place] [address], [address], [place] [employer] 12:16:28 Bacterial conjuncti vitis 353996662 Completed 202406/14/2025 GEORGIA Shaw [address] [place] [address], [address], [employer] 13:59:57 Weakness of bilateral lower limb Active 2024 GEORGIA Shaw [address] [place] [address], [address], [employer] 13:58:53 Acute urinary tract infection 850668959 Completed 202406/26/2025 GEORGIA Shaw [address] [place] [address], [address], [employer] 17:30:10 Pain in bilateral legs 878319659270 69828 Active 2024 GEORGIA Shaw [address] [place] [address], [address], [employer] 17:56:16 Bacterial sinusitis 467378915 Active 2024 GEORGIA Shaw [address] [place] [address], [address], [employer] 17:32:12 Bronchiti s 06142169 Active 2024 GEORGIA Shaw [address] [place] [address], [address], [employer] 15:12:52 Acute cough Active 2024 GEORGIA Shaw [address] [place] [address], [address], [place] [employer] 12:24:11 Problem Notes None recorded. Procedures Surgical History Date Name Laterality Status Provider Name and Address Organization Details Recorded Time Back Surgery completed [employer] 08/24/2024 13:34:05 Hernia Repair completed [employer] 08/24/2024 13:34:05 Orthopedic Surgery completed [employer]. 08/24/2024 13:34:05 Gallbladder Surgery completed [employer]. 08/24/2024 13:34:05 Other completed [employer] 01/04/2025 10:57:46 Imaging Results None recorded. Procedure Notes None recorded. Medical Equipment None Reported. Allergies Allergen ID Allergen Name Allergen Category Reaction Reaction Severity Criticality Documentation Date Start Date Code Code System Note Provider Name and Address Organization Details Recorded Time 91386 Substance with sulfonami de structure and antibacte rial mechanism of action (substanc e) medicatio n itching Not available Not available 08/24/2024 32506 8003 SNOMED [place] 13:34:02 82952 latex environme nt,medica tion rash Not available Not available 08/24/2024 69294 91 RxNorm [employer] 13:34:02 Medications Name Sig Start Date [...] for 30 days, for high blood pressure. 04/03 /2025 completed Not Available Not Available Not Available [...] Last Updated DateTime 182.88 cm 31.3 kg/m2 246210. 84 g 98 % 92 /min 97.5 [degF] 138/80 mm[Hg] [facility] Condition [facility]. 14:58:50 Social History Question Answer Notes LastModified by Organizat ion Details LastModified Time Tobacco Smoking Status Current Every Day Smoker Isabel traylor, [employer] 08/24/2024 13:34:05 Do You Have An [...] Information not available 07/27/2025 What Type Of What Job Titles Mean Do You Use? None Information not available [...] Or The Highest Degree You Have Received? [id number] Information not available 08/24/2024 Have There Been [...] Do You Have A Medical Power Of Manager Of Internal Audit? Yes Information not available 08/24/2024 What Was [...] Status Question Answer Note LastModified by Organizat [employer] Details LastModified Time Do you use any [...] Status Question Answer Note LastModified by Organizat [employer] Details LastModified Time Do you feel stressed (tense, restless, nervous, or anxious, or unable to sleep at night)? BU0530-6 Information not available 08/24/2024 Do you have [...] COPD N Depression N Dermatologic Disorders N Lung Disease Y Hypothyroidism N Developmental or Behavioral Disorders N Defects or [...] Psychiatric/Mental Health Condition N Organ Transplant N Fibromyalgia N Headaches N Schizophrenia N Dialysis N Kidney Disease N Allergies/Hayfever N Heart [...] Time Tdap 1 completed Isabel Vice null, [employer] 01/04/2025 10:44:51 influenza, unspecified formulation 4 completed Isabel Vice null, [employer] 01/04/2025 10:44:51 Influenza, high-dose, quadrivalent, PF 2 completed Isabel Vice null, [employer] 01/04/2025 10:44:51 COVID-19, mRNA, LNP-S, PF, 100 mcg/0.5mL dose or 50 mcg/0.25mL dose 1 completed Isabel Vice null, [employer] 01/04/2025 10:44:51 COVID-19, mRNA, LNP-S, PF, 100 mcg/0.5mL dose or 50 mcg/0.25mL dose 1 completed Isabel Vice null, [employer] 01/04/2025 10:44:51 COVID-19, mRNA, LNP-S, PF, 100 mcg/0.5mL dose or 50 mcg/0.25mL dose 2 completed Isabel Vice null, [employer] 01/04/2025 10:44:51 COVID-19, mRNA, LNP-S, PF, 100 mcg/0.5mL dose or 50 mcg/0.25mL dose 1 completed Isabel Vice null, [employer] 01/04/2025 10:44:51 COVID-19, mRNA, LNP-S, PF, 50 mcg/0.5 mL 4 completed Isabel Vice null, [employer] 01/04/2025 10:44:51 Influenza, high-dose, trivalent, PF 4 completed Isabel Vice null, [employer] 01/04/2025 10:44:51 Influenza, split virus, trivalent, PF 8 completed Isabel Vice null, [employer] 01/04/2025 10:44:51 Td (adult), 2 Lf tetanus toxoid, preservative free, adsorbed 7 completed Isabel Vice null, [employer] 01/04/2025 10:44:51 Influenza, split virus, quadrivalent, PF 8 completed Isabel Vice null, [employer] 01/04/2025 10:44:51 Influenza, split virus, quadrivalent, PF 0 completed Isabel Vice null, [employer] 01/04/2025 10:44:51 Influenza, split virus, quadrivalent, PF 7 completed Isabel Vice null, [employer] 01/04/2025 10:44:51 Influenza, split virus, quadrivalent, PF 9 completed Isabel Vice null, [employer] 01/04/2025 10:44:51 Influenza, split virus, quadrivalent, PF 1 completed Isabel Vice null, [employer] 01/04/2025 10:44:51 Past Encounters Encounter ID Performer Location Encounter Start Date Encounter Closed Date Diagnosis/Indication Diagnosis SNOMED-CT Code Diagnosis ICD10 Code Diagnosis IMO Codes Diagnosis Note [id number] GEORGIA Shaw [facility] [address] [place], [place] [address] [place] [address] 07/27/2025 14:32:09 07/27/2025 15:21:28 Bronchitis 07030756 J40 43878 Health Concerns Section Related Observation LastModified by Organization Detai ls LastModified Time None Recorded Concern Status LastModified by Organization Details LastModified Time None Recorded Payers Encounter Date Sequence Insurance Name Policy Number Policy Padilla Covered Member ID Padilla Member ID Guarantor Name 07/27/2025 2 [employer] [place] (MEDICARE SUPPLEMENT) Jacob Lunsford [id number] Jacob Lunsford 07/27/2025 1 [place]: [facility] Jacob Lunsford [id number] Jacob Lunsford Notes Date Note Type Note Provider Name and Address Organization Details Recorded Time 07/27/2025 text/html ROS as noted in the HPI Cough and congestion for a week or so. No fever. Cough is productive. GEORGIA Shaw [address] [place] [address], [place], [address], [employer] 07/27/2025 16:03:58
--- OUTSIDE RECORDS SUMMARY | 2025-09-28 12:56 | XMS_ITS ---
Laboratory report Created on: September 04, 2025 PARI MAJOR : 1955 Sex: Male Author Name ANASTASIIA OLIVEIRA Organization Unknown PROBLEMS Problems List Code Description R82.90 I10 R30.9 Z11.4 Z11.59 Z13.29 Z13.220 M19.90 RESULTS Laboratory Orders Date Order Code Test 2025-06-14 867401 CBC WITH DIFFERE NTIAL/PLATELET 2025-06-14 591268 COMP. METABOLIC PANEL (14) 2025-06-14 204101 ESR ENRIKE+RAFFY+RF Q N+CRP+CCP(I... 2025-06-14 786016 TSH 2025-06-14 925600 PSA TOTAL (REFLE X TO FREE) 2025-06-14 769940 HCV ANTIBODY BALDEV BETH(PCR/PETE) 2025-06-14 945211 LIPID PANEL 2025-06-14 959960 URINE CULTURE, R OUTINE Laboratory Results Date LOINC Test Value Unit Reference Range Interpre tation 2025-06-14 6690-2 WBC 7.5 X10E3/UL 3.4-10.8 2025-06-14 789-8 RBC 4.62 X10E6/UL 4.14-5.80 2025-06-14 718-7 HEMOGLOBIN 15.2 G/DL 13.0-17.7 2025-06-14 4544-3 HEMATOCRIT 45.9 % 37.5-51.0 2025-06-14 787-2 MCV 99 FL 79-97 H 2025-06-14 785-6 MCH 32.9 PG 26.6-33.0 2025-06-14 786-4 MCHC 33.1 G/DL 31.5-35.7 2025-06-14 788-0 RDW 12 % 11.6-15.4 2025-06-14 777-3 PLATELETS 196 X10E3/UL 344-951 2542-09-11 770-8 NEUTROPHILS 63 % 2025-06-14 736-9 LYMPHS 24 % 2025-06-14 5905-5 MONOCYTES 8 % 2025-06-14 713-8 EOS 3 % 2025-06-14 706-2 BASOS 2 % 2025-06-14 751-8 NEUTROPHILS (ABSOLUTE) 4.8 X10E3/UL 1.4-7.0 2025-06-14 731-0 LYMPHS (ABSOLUTE) 1.8 X10E3/UL 0.7-3.1 2025-06-14 742-7 MONOCYTES(ABSOLUTE) .6 X10E3/UL 0.1-0.9 2025-06-14 711-2 EOS (ABSOLUTE) .2 X10E3/UL 0.0-0.4 2025-06-14 704-7 BASO (ABSOLUTE) .1 X10E3/UL 0.0-0.2 2025-06-14 39741-9 IMMATURE GRANULOCYTES 0 % 2025-06-14 60836-2 IMMATURE GRANS (ABS) 0 X10E3/UL 0.0-0.1 2025-06-14 2345-7 GLUCOSE 94 MG/DL 70-99 2025-06-14 3094-0 BUN 18 MG/DL 8-27 2025-06-14 2160-0 CREATININE 1.29 MG/DL 0.76-1.27 H 2025-06-14 85376-9 EGFR 60 ML/MIN/1.73 >59 2025-06-14 3097-3 BUN/CREATININE RATIO 14 10-2025-06-14 2951-2 SODIUM 139 MMOL/L 350-082 6200-09-11 2823-3 POTASSIUM 4.2 MMOL/L 3.5-5.2 2025-06-14 2075-0 CHLORIDE 105 MMOL/L 96-106 2025-06-14 2028-9 CARBON DIOXIDE, TOTAL 20 MMOL/L 20-29 2025-06-14 62571-9 CALCIUM 9.6 MG/DL 8.6-10.2 2025-06-14 2885-2 PROTEIN, TOTAL 6.4 G/DL 6.0-8.5 2025-06-14 1751-7 ALBUMIN 4.2 G/DL 3.9-4.9 2025-06-14 00378-6 GLOBULIN, TOTAL 2.2 G/DL 1.5-4.5 2025-06-14 1975-2 BILIRUBIN, TOTAL .3 MG/DL 0.0-1.2 2025-06-14 6768-6 ALKALINE PHOSPHATASE 65 IU/L 44-121 2025-06-14 1920-8 AST (SGOT) 16 IU/L 0-40 2025-06-14 1742-6 ALT (SGPT) 11 IU/L 0-44 2025-06-14 8061-4 RAFFY DIRECT N NEGATIVE 2025-06-14 35401-2 RHEUMATOID FACTO R (RF) <10.0 IU/ML <14.0 2025-06-14 1988-5 C-REACTIVE PROTE IN, QUANT 1 MG/L 0-10 2025-06-14 16244-2 ANTI-CCP AB, IGG/IGA 14 UNITS 0-19 2025-06-14 4537-7 ERYTHROCYTE SEDIMENTATION RATE 8 MM/HR 0-30 2025-06-14 51104-9 TSH 1.06 UIU/ML 0.450-4.500 2025-06-14 2857-1 PROSTATE SPECIFI C AG .4 NG/ML 0.0-4.0 2025-06-14 56794-4 HCV AB NR NON REACTIVE 2025-06-14 2093-3 CHOLESTEROL, TOTAL 173 MG/DL 713-461 9212-09-11 2571-8 TRIGLYCERIDES 210 MG/DL 0-149 H 2025-06-14 2085-9 HDL CHOLESTEROL 42 MG/DL >39 2025-06-14 80633-5 VLDL CHOLESTEROL MARIAJOSE 36 MG/DL 5-40 2025-06-14 92289-0 LDL CHOL CALC ([facility]) 95 MG/DL 0-99 2025-06-14 630-4 URINE CULTURE, ROUTINE FINAL 2025-06-14 630-4 RESULT 1 HARSHAL
--- OUTSIDE RECORDS SUMMARY | 2025-09-28 12:57 | XMS_ITS | Data Portability ---
[facility] Organization [facility] [place] [facility] Address [address] [place] [address] Assessment No assessment recorded. Plan of Treatment Reminders Order Date Submit Date Provider Last Modified By Organization Details Last Modified Time Details Appointments None recorded. Lab inflammatio n panel, serum or plasma 2024 025 [facility] [place], [address], 5 08:11:40 urinalysis, dipstick [address], [facility] [place], [address], 5 14:01:40 PSA, serum or plasma 2024 025 [facility] [place], [address], 5 08:11:42 lipid panel, serum 2024 025 SWAPNA [facility]), [address] [place], [address], 5 08:11:41 TSH, ultra-sensi tive, serum 2024 025 SWAPNA [facility]), [facility] [place], [address], 5 08:11:43 culture, urine 2024 025 [facility]), [address] [facility], [place], [address], 5 08:11:44 CBC w/ auto diff 2024 025 [facility]), [address] [facility], [place], [address], 5 08:11:40 CMP, serum or plasma 2024 025 ELMER [facility] ([place]), [address] [facility], [place], [address], 5 08:11:41 Hepatitis C IgG Ab, qual, serum 2024 025 [facility] ([place]), [address] [facility], [place], [address], 5 08:11:42 HIV 1 + 2, meaningful use set 2024 025 [facility] ([place]), [address] [facility], [place], [address], 5 08:11:43 urinalysis, dipstick [address], [address] [facility], [place], [address], 5 11:08:40 culture, urine 2024 025 [facility] ([place]), [address] [place], [address], 5 02:08:42 Referral None recorded. Procedures None recorded. Surgeries None recorded. Imaging ankle brachial index, complete 2024 025 [place] [id number] [facility] [address], [place], [address], 5 15:58:30 XR, chest, 2 view 2024 [facility] ([facility]), [address] [facility] [address], [place], [address], 5 09:38:37 electrocard iogram 2024 [email or web address] Not available 14:37:54 Medication Orders doxycycline hyclate 100 mg tablet 2024 025 [facility], [address], [address], 5 05:01:19 prednisone 20 mg tablet 2024 [facility], [address], [address], 5 05:02:03 promethazin e-DM 6.25 mg-15 mg/5 mL oral syrup 2024 025 [facility], [address], [address], 5 05:02:26 ceftriaxone 1 gram solution for injection [address] [facility] [address] [facility], [address], [address], 5 16:00:59 Depo-Medrol 80 mg/mL suspension for injection [address] [facility], [address], [address], 5 16:00:59 doxycycline hyclate 100 mg capsule 2024 025 [facility], [address], [address], 5 17:32:51 prednisone 20 mg tablet 2024 025 [facility], [address] [place], [address], 5 05:02:03 Xyzal 5 mg tablet 2024 [facility], [address] [place], [address], 5 14:57:32 ceftriaxone 1 gram solution for injection [address] [facility], [address] [place], [address], 5 14:56:07 Depo-Medrol 80 mg/mL suspension for injection 2024 [facility] Not [facility] 14:56:18 Celebrex 200 mg capsule [address] [facility], [address] [place], [address], 5 14:01:38 doxycycline hyclate 100 mg capsule [address] [facility], [address], [address], 5 14:01:38 ceftriaxone 1 gram solution for injection [address] [facility], [address] [place], [address], 5 14:56:07 Pyridium 200 mg tablet 2024 025 [facility], [address] [place] [address], [address], 5 05:01:04 Cymbalta 20 mg capsule,del ayed release 06/05/ 2025 06/05/2 025 [facility], [address], [address], 17:11:52 Patient TargetsNo targets recorded. Patient Instructions Encounter Date Encounter Id Patient Instructions Last Modified By Organization Details Last Modified Time 01/04/2025 [id number] sleep apnea: car e instructions Not available 01/04/2025 11:38:00 chronic obstructive pulmonary disease (COPD): care instructions Not available 01/04/2025 11:42:29 learning about copd and how to prevent lung infections Not available 01/04/2025 11:42:29 03/05/2025 [id number] flank pain: care instructions [email or web address] Not available 03/08/2025 11:59:15 sleep apnea: car e instructions [email or web address] Not available 03/08/2025 11:59:15 shortness of breath: care instructions [email or web address] Not available 03/05/2025 14:14:47 06/14/2025 [id number] arthritis: care instructions [email or web address] Not available 06/14/2025 14:01:38 painful urinatio n (dysuria): care instructions [email or web address] Not available 06/14/2025 14:01:38 chronic obstructive pulmonary disease (COPD): care instructions [email or web address] Not available 06/14/2025 14:01:38 learning about copd and how to prevent lung infections [email or web address] Not available 06/14/2025 14:01:38 sleep apnea: car e instructions [email or web address] Not available 06/14/2025 14:01:38 high blood pressure: care instructions [email or web address] Not available 06/14/2025 14:01:38 learning about high blood pressure [email or web address] Not available 06/14/2025 14:01:38 HIV testing: car e instructions Not available 06/14/2025 14:39:55 07/27/2025 [id number] bronchitis: care instructions [email or web address] Not available 07/27/2025 15:13:23 Reason for Referral None Reported. Results Created Date Observation Date Name Description Value Unit Range Abnormal Flag Note LastModifiedBy Organization Detail LastModifiedTime 01/05/2001/06/2025 URINE CULTU RE, ROUTI NE urine culture, routine Final report Not Available [facility] ([facility]) [address] [facility], [place], [address], 01/06/2025 02:08:42 01/05/20 25 01/06/2025 URINE CULTU RE, ROUTI NE result 1 No growth Not Available [facility] ([facility]) [address] [facility], [place], [address], 01/06/2025 02:08:42 01/05/20 25 01/04/2025 urina lysis , dipst ick Leukocytes Negati ve Not Available [address], [place], [address], 01/04/2025 10:46:59 01/05/20 25 01/04/2025 urina lysis , dipst ick Nitrite positi ve Not Available [facility] [address] [place] [address], [address], 01/04/2025 10:46:59 01/05/20 25 01/04/2025 urina lysis , dipst ick Urobilinogen 1 Not Available [facility] [address] [place] [address], [address], 01/04/2025 10:46:59 01/05/20 25 01/04/2025 urina lysis , dipst ick Protein 30 Not Available [address], [address], 01/04/2025 10:46:59 01/05/20 25 01/04/2025 urina lysis , dipst ick pH 6.0 Not Available [facility] [address] [place] [address], [address], 01/04/2025 10:46:59 01/05/20 25 01/04/2025 urina lysis , dipst ick Blood Negati ve Not Available [address], [place], [address], 01/04/2025 10:46:59 01/05/20 25 01/04/2025 urina lysis , dipst ick Specific [place] 1.025 Not Available [facility] [address] [place] [address], [place], [address], 01/04/2025 10:46:59 01/05/20 25 01/04/2025 urina lysis , dipst ick Ketone Negati ve Not Available [address], [place], [address], 01/04/2025 10:46:59 01/05/20 25 01/04/2025 urina lysis , dipst ick Bilirubin Small Not Available [address], [place], [address], 01/04/2025 10:46:59 01/05/20 25 01/04/2025 urina lysis , dipst ick Glucose Negati ve Not Available [address], [place], [address], 01/04/2025 10:46:59 01/05/20 25 01/04/2025 urina lysis , dipst ick Appearance Clear Not Available [address], [place], [address], 01/04/2025 10:46:59 01/05/20 25 01/04/2025 urina lysis , dipst ick Color [place] Not Available [address], [address], 01/04/2025 10:46:59 06/14/2006/15/2025 ESR ENRIKE+A NA+RF QN+CR P+CCP (I... rheumatoid factor (rf) <10.0 IU/mL <14.0 Not Available [facility]) [address] [facility], [place], [address], 06/16/2025 08:11:40 06/14/2006/15/2025 ESR ENRIKE+A NA+RF QN+CR P+CCP (I... C-reactive protein, quant 1 mg/L 0-10 normal Not Available [facility]) [address] [facility], [place], [address], 06/16/2025 08:11:40 06/14/2006/15/2025 ESR ENRIKE+A NA+RF QN+CR P+CCP (I... anti-ccp Ab, IgG/IgA 14 units 0-19 Negat desiree <20 Weak posit desiree 20 - 39 Moder ate posit desiree 40 - 59 Stron g posit desiree >59 Not Available [facility] ([facility]) [address] [facility], [place], [address], 06/16/2025 08:11:40 06/14/2006/15/2025 ESR ENRIKE+A NA+RF QN+CR P+CCP (I... sedimentatio n rate-westerg jim 8 mm/HR 0-30 normal Not Available [facility]) [address] [place], [address], 06/16/2025 08:11:40 06/14/2006/16/2025 ESR ENRIKE+A NA+RF QN+CR P+CCP (I... RAFFY direct Negati ve negati ve Not Available [facility] ([facility]) [address] [place], [address], 06/16/2025 08:11:40 06/14/2006/15/2025 CBC WITH DIFFE RENTI AL/PL ATELE T WBC 7.5 x10e3 /uL 3.4-10 .8 normal Not Available [facility] ([facility]) [address] [place], [address], 06/16/2025 08:11:40 06/14/20 25 06/15/2025 CBC WITH DIFFE RENTI AL/PL ATELE T RBC 4.62 x10e6 /uL 4.14-5 .80 normal Not Available [facility] ([facility]) [address] [place], [address], 06/16/2025 08:11:40 06/14/2006/15/2025 CBC WITH DIFFE RENTI AL/PL ATELE T hemoglobin 15.2 g/dL 13.0-1 7.7 normal Not Available [facility] ([facility]) [address] [place], [address], 06/16/2025 08:11:40 06/14/2006/15/2025 CBC WITH DIFFE RENTI AL/PL ATELE T hematocrit 45.9 % 37.5-5 1.0 normal Not Available [facility] ([facility]) [address] [place], [address], 06/16/2025 08:11:40 06/14/2006/15/2025 CBC WITH DIFFE RENTI AL/PL ATELE T MCV 99 fL 79-97 above high normal Not Available [facility] ([facility]) [address] [place], [address], 06/16/2025 08:11:40 06/14/2006/15/2025 CBC WITH DIFFE RENTI AL/PL ATELE T MCH 32.9 pg 26.6-3 3.0 normal Not Available [facility] ([facility]) [address] [place], [address], 06/16/2025 08:11:40 06/14/2006/15/2025 CBC WITH DIFFE RENTI AL/PL ATELE T MCHC 33.1 g/dL 31.5-3 5.7 normal Not Available [facility] ([facility]) [address] [facility], [place], [address], 06/16/2025 08:11:40 06/14/20 25 06/15/2025 CBC WITH DIFFE RENTI AL/PL ATELE T RDW 12.0 % 11.6-1 5.4 Not Available [facility] ([facility]) [address] [facility], [place], [address], 06/16/2025 08:11:40 06/14/2006/15/2025 CBC WITH DIFFE RENTI AL/PL ATELE T platelets 196 x10e3 /uL 150-45 0 normal Not Available [facility] ([facility]) [address] [facility], [place], [address], 06/16/2025 08:11:40 06/14/2006/15/2025 CBC WITH DIFFE RENTI AL/PL ATELE T neutrophils 63 % not estab. normal Not Available [facility] ([facility]) [address] [facility], [place], [address], 06/16/2025 08:11:40 06/14/2006/15/2025 CBC WITH DIFFE RENTI AL/PL ATELE T lymphs 24 % not estab. normal Not Available [facility] ([facility]) [address] [facility], [place], [address], 06/16/2025 08:11:40 06/14/2006/15/2025 CBC WITH DIFFE RENTI AL/PL ATELE T monocytes 8 % not estab. normal Not Available [facility] ([facility]) [address] [facility], [place], [address], 06/16/2025 08:11:40 06/14/2006/15/2025 CBC WITH DIFFE RENTI AL/PL ATELE T eos 3 % not estab. normal Not Available [facility] ([facility]) [address] [facility], [place], [address], 06/16/2025 08:11:40 06/14/20 25 06/15/2025 CBC WITH DIFFE RENTI AL/PL ATELE T basos 2 % not estab. normal Not Available [facility] ([facility]) [address] [facility], [place], [address], 06/16/2025 08:11:40 06/14/2006/15/2025 CBC WITH DIFFE RENTI AL/PL ATELE T immature cells [employer] Not Available [facility]) [address] [facility], [place], [address], 06/16/2025 08:11:40 06/14/2006/15/2025 CBC WITH DIFFE RENTI AL/PL ATELE T neutrophils (absolute) 4.8 x10e3 /uL 1.4-7. 0 normal Not Available [facility] ([facility]) [address] [facility], [place], [address], 06/16/2025 08:11:40 06/14/20 25 06/15/2025 CBC WITH DIFFE RENTI AL/PL ATELE T lymphs (absolute) 1.8 x10e3 /uL 0.7-3. 1 normal Not Available [facility] ([facility]) [address] [place], [address], 06/16/2025 08:11:40 06/14/20 25 06/15/2025 CBC WITH DIFFE RENTI AL/PL ATELE T monocytes(ab solute) 0.6 x10e3 /uL 0.1-0. 9 normal Not Available [facility] ([facility]) [address] [facility], [place], [address], 06/16/2025 08:11:40 06/14/20 25 06/15/2025 CBC WITH DIFFE RENTI AL/PL ATELE T eos (absolute) 0.2 x10e3 /uL 0.0-0. 4 normal Not Available [facility] ([facility]) [address] [facility], [place], [address], 06/16/2025 08:11:40 06/14/20 25 06/15/2025 CBC WITH DIFFE RENTI AL/PL ATELE T baso (absolute) 0.1 x10e3 /uL 0.0-0. 2 normal Not Available [facility] ([facility]) [address] [facility], [place], [address], 06/16/2025 08:11:40 06/14/2006/15/2025 CBC WITH DIFFE RENTI AL/PL ATELE T immature granulocytes 0 % not estab. Not Available [facility] ([facility]) [address] [facility], [place], [address], 06/16/2025 08:11:40 06/14/2006/15/2025 CBC WITH DIFFE RENTI AL/PL ATELE T immature grans (abs) 0.0 x10e3 /uL 0.0-0. 1 Not Available [facility] ([facility]) [address] [facility], [place], [address], 06/16/2025 08:11:40 06/14/2006/15/2025 CBC WITH DIFFE RENTI AL/PL ATELE T NRBC [employer] Not Available [facility] ([facility]) [address] [facility], [place], [address], 06/16/2025 08:11:40 06/14/2006/15/2025 CBC WITH DIFFE RENTI AL/PL ATELE T hematology comments: [employer] OVER[employer] Not Available [facility] ([facility]) [address] [facility], [place], [address], 06/16/2025 08:11:40 09/11/20 25 06/14/2025 COMP. METAB [...] at [email or web address] org. Not Available [facility] ([facility]) [address] [place], [address], 06/16/2025 08:11:41 06/14/20 25 06/15/2025 COMP. METAB OLIC PANEL (14) glucose 94 mg/dL 70-99 normal Not Available [facility] ([facility]) [address] [place], [address], 06/16/2025 08:11:41 06/14/20 25 06/15/2025 COMP. METAB OLIC PANEL (14) BUN 18 mg/dL 8-27 normal Not Available [facility] ([facility]) [address] [place], [address], 06/16/2025 08:11:41 06/14/20 25 06/15/2025 COMP. METAB OLIC PANEL (14) creatinine 1.29 mg/dL 0.76-1 .27 above high normal Not Available [facility] ([facility]) [address] [place], [address], 06/16/2025 08:11:41 06/14/20 25 06/15/2025 COMP. METAB OLIC PANEL (14) eGFR 60 mL/mi n/1.7 3 >59 normal Not Available [facility] ([facility]) [address] [place] [place], [address], 06/16/2025 08:11:41 06/14/20 25 06/15/2025 COMP. METAB OLIC PANEL (14) BUN/creatini ne ratio 14 10-24 normal Not Available [facility] ([facility]) [address] [place], [address], 06/16/2025 08:11:41 06/14/20 25 06/15/2025 COMP. METAB OLIC PANEL (14) sodium 139 mmol/ L 134-14 4 normal Not Available [facility] ([facility]) [address] [place], [address], 06/16/2025 08:11:41 06/14/20 25 06/15/2025 COMP. METAB OLIC PANEL (14) potassium 4.2 mmol/ L 3.5-5. 2 normal Not Available [facility] ([facility]) [address] [place], [address], 06/16/2025 08:11:41 06/14/20 25 06/15/2025 COMP. METAB OLIC PANEL (14) chloride 105 mmol/ L 96-106 normal Not Available [facility] ([facility]) [address] [place], [address], 06/16/2025 08:11:41 06/14/20 25 06/15/2025 COMP. METAB OLIC PANEL (14) carbon dioxide, total 20 mmol/ L 20-29 normal Not Available [facility] ([facility]) [address] [place], [address], 06/16/2025 08:11:41 06/14/20 25 06/15/2025 COMP. METAB OLIC PANEL (14) calcium 9.6 mg/dL 8.6-10 .2 normal Not Available [facility] ([facility]) [address] [place] [place], [address], 06/16/2025 08:11:41 06/14/20 25 06/15/2025 COMP. METAB OLIC PANEL (14) protein, total 6.4 g/dL 6.0-8. 5 normal Not Available [facility] ([facility]) [address] [place], [address], 06/16/2025 08:11:41 06/14/20 25 06/15/2025 COMP. METAB OLIC PANEL (14) albumin 4.2 g/dL 3.9-4. 9 normal Not Available [facility] ([facility]) [address] [place], [address], 06/16/2025 08:11:41 06/14/20 25 06/15/2025 COMP. METAB OLIC PANEL (14) globulin, total 2.2 g/dL 1.5-4. 5 Not Available [facility] ([facility]) [address] [place], [address], 06/16/2025 08:11:41 06/14/2006/15/2025 COMP. METAB OLIC PANEL (14) bilirubin, total 0.3 mg/dL 0.0-1. 2 normal Not Available [facility] ([facility]) [address] [place], [address], 06/16/2025 08:11:41 06/14/2006/15/2025 COMP. METAB OLIC PANEL [...] 129 48 - 129 Not Available [facility] ([facility]) [address] [place], [address], 06/16/2025 08:11:41 06/14/20 25 06/15/2025 COMP. METAB OLIC PANEL (14) AST (SGOT) 16 IU/L 0-40 normal Not Available [facility] ([facility]) [address] [place], [address], 06/16/2025 08:11:41 06/14/20 25 06/15/2025 COMP. METAB OLIC PANEL (14) ALT (SGPT) 11 IU/L 0-44 normal Not Available [facility] ([facility]) [address] [place], [address], 06/16/2025 08:11:41 06/14/20 25 06/15/2025 LIPID PANEL cholesterol, total 173 mg/dL 100-19 9 normal Not Available [facility] ([facility]) [address] [place], [address], 06/16/2025 08:11:41 06/14/20 25 06/15/2025 LIPID PANEL triglyceride s 210 mg/dL 0-149 above high normal Not Available [facility] ([facility]) [address] [place], [address], 06/16/2025 08:11:41 06/14/20 25 06/15/2025 LIPID PANEL HDL cholesterol 42 mg/dL >39 normal Not Available [facility]) [address] [place], [address], 06/16/2025 08:11:41 06/14/20 25 06/15/2025 LIPID PANEL VLDL cholesterol henok 36 mg/dL 5-40 Not Available [facility] ([facility]) [address] [facility], [place], [address], 06/16/2025 08:11:41 06/14/20 25 06/15/2025 LIPID PANEL LDL chol [facility] 95 mg/dL 0-99 Not Available [facility]) [address] [facility], [place], [address], 06/16/2025 08:11:41 06/14/2006/15/2025 LIPID PANEL LDL calc comment: [employer] Not Available [facility] ([facility]) [address] [facility], [place], [address], 06/16/2025 08:11:41 06/14/2006/15/2025 HCV ANTIB SOLEDAD CASCA DE(PC R/GEN O) HCV Ab Non Reacti ve non reacti ve Not Available [facility] ([facility]) [address] [facility], [place], [address], 06/16/2025 08:11:42 06/14/2006/15/2025 HCV ANTIB SOLEDAD CASCA DE(PC R/GEN O) interpretati on: Commen t Not infec lópez with HCV unles s early or acute infec tion is suspe cted (whic h may be delay ed in an immun ocomp romis ed indiv idual ), or other evide nce exist s to indic ate HCV infec tion. Not Available [facility] ([facility]) [address] [facility], [place], [address], 06/16/2025 08:11:42 06/14/2006/14/2025 PSA TOTAL (REFL EX TO FREE) reflex criteria Commen t The perce nt free PSA is perfo rmed on a refle x basis only when the total PSA is betwe en 4.0 and 10.0 ng/mL . Not Available [facility] ([facility]) [address] [facility], [place], [address], 06/16/2025 08:11:42 06/14/2006/15/2025 PSA TOTAL (REFL EX [...] t be inter prete d as absol cabazon evide nce of the prese nce or absen ce of [facility] se. Not Available [facility] ([facility]) [address] [facility], [place], [address], 06/16/2025 08:11:42 06/14/2006/15/2025 TSH TSH 1.060 uIU/m L 0.450- 4.500 normal Not Available [facility] ([facility]) [address] [facility], [place], [address], 06/16/2025 08:11:43 06/14/2006/15/2025 HIV AB/P2 4 AG WITH REFLE X HIV Ab/P24 Ag screen Non Reacti ve non reacti ve HIV-1 /HIV- 2 antib odies and HIV-1 p24 antig en were NOT detec lópez. There is no labor atory evide nce of HIV infec tion. HIV Negat desiree Not Available [facility] ([facility]) [address] [facility], [place], [address], 06/16/2025 08:11:43 06/14/20 25 06/16/2025 URINE CULTU RE, ROUTI NE urine culture, routine Final report Not Available [facility] ([facility]) [address] [facility], [place], [address], 06/16/2025 08:11:43 06/14/20 25 06/16/2025 URINE CULTU RE, ROUTI NE result 1 No growth Not Available [facility] ([facility]) [address] [facility], [place], [address], 06/16/2025 08:11:43 06/14/20 25 06/14/2025 urina lysis , dipst ick Leukocytes Negati ve Not Available [address], [address], 06/14/2025 13:41:49 06/14/20 25 06/14/2025 urina lysis , dipst ick Nitrite positi ve Not Available [address], [place], [address], 06/14/2025 13:41:49 06/14/20 25 06/14/2025 urina lysis , dipst ick Urobilinogen .2 Not Available [address], [place], [address], 06/14/2025 13:41:49 06/14/20 25 06/14/2025 urina lysis , dipst ick Protein Negati ve Not Available [address], [address], 06/14/2025 13:41:49 06/14/20 25 06/14/2025 urina lysis , dipst ick pH 7.0 Not Available [address], [address], 06/14/2025 13:41:49 06/14/20 25 06/14/2025 urina lysis , dipst ick Blood Negati ve Not Available [address], [place], [address], 06/14/2025 13:41:49 06/14/20 25 06/14/2025 urina lysis , dipst ick Specific [place] 1.020 Not Available [address], [place], [address], 06/14/2025 13:41:49 06/14/2006/14/2025 urina lysis , dipst ick Ketone Negati ve Not Available [address], [place], [address], 06/14/2025 13:41:49 06/14/20 25 06/14/2025 urina lysis , dipst ick Bilirubin Negati ve Not Available [address], [place], [address], 06/14/2025 13:41:49 06/14/20 25 06/14/2025 urina lysis , dipst ick Glucose Negati ve Not Available [address], [place], [address], 06/14/2025 13:41:49 06/14/20 25 06/14/2025 urina lysis , dipst ick Appearance Clear Not Available [address], [place], [address], 06/14/2025 13:41:49 06/14/20 25 06/14/2025 urina lysis , dipst ick Color [place] Not Available [address] [place], [address], 06/14/2025 13:41:49 03/05/20 elect rocar diogr am No observ ation record ed. Not Available 2024 15:32:17 06/19/20 25 06/19/2025 ankle brach ial index , compl ete No observ ation record ed. [facility] [address], [place], [place], [address], 06/19/2025 17:56:04 08/02/20 25 08/02/2025 XR, chest , 2 view No observ ation record ed. [facility] (X-Ray) [facility], [place], [place], [address], 08/03/2025 08:38:49 09/26/20 25 09/26/2025 imagi ng/di agnos tic resul t No observ ation record ed. [facility] [address], [place], [address], 09/26/2025 14:01:20 09/26/20 25 09/26/2025 imagi ng/di agnos tic resul t No observ ation record ed. [facility] [address], [place], [place], [address], 09/26/2025 15:54:33 09/26/20 25 09/26/2025 elect rocar diogr am No observ ation record ed. [facility] [address], [place], [address], 09/26/2025 16:01:23 09/28/20 25 09/28/2025 imagi ng/di agnos tic resul t No observ ation record ed. [facility] [address], [place], [address], 09/28/2025 11:51:56 Result Notes None recorded. Problems Name Problem SNOMED Code Status Onset Date Resolution Date Notes Provider Name and Address Organization Details Recorded Time [facility]andid[facility] is of mouth [id number] Completed 202306/14/2025 GEORGIA Shaw [address] [place] [address], 37849[address]886 8, [employer] 5 14:00:02 Chronic obstructi ve pulmonary disease 26515330 Active 2023 GEORGIA Shaw [address] [place] [address], 55934-189 8, [employer] 4 16:36:15 Erectile dysfuncti on 574696002 Active 2023 GEORGIA Shaw [address] [place] [address], 33523-779 8, [employer] 5 11:11:08 Acute prostatit is 26118533 Completed 202306/14/2025 GEORGIA Shaw [address] [place] [address], 40753-333 8, [employer] 5 14:00:08 Essential hypertens ion 81204853 Active 2023 GEORGIA Shaw [address] [place] [address], 03880-357 8, [employer] 5 11:11:03 Osteoarth ritis 287195234 Active 2024 GEORGIA Shaw [address] [place] [address], 38217-228 8, [employer] 5 11:38:22 Obstructi ve sleep apnea syndrome 29116525 Active 2024 GEORGIA Shaw [address] [place] [address], 39481-152 8, [employer] 5 11:38:09 Dyspnea 287835386 Active 2024 GEORGIA Shaw [address] [place] [address], 23460-147 8, [employer] 14:14:23 Flank pain 810303563 Completed 202406/26/2025 GEORGIA Shaw [address] [place] [address], 66609-673 8, [employer] 17:30:04 Tobacco dependenc e syndrome 27415742 Active 2024 GEORGIA Shaw [address] [place] [address], 08119-092 8, [employer] 12:16:28 Bacterial conjuncti vitis 132393509 Completed 202406/14/2025 GEORGIA Shaw [address] [place] [address], 02177-652 8, [employer] 13:59:57 Weakness of bilateral lower limb Active 2024 EGORGIA Shaw [address] [place] [address], 29216-788 8, [employer] 13:58:53 Acute urinary tract infection 628200128 Completed 202406/26/2025 GEORGIA Shaw [address] [place] [address], 00865-020 8, [employer] 17:30:10 Pain in bilateral legs 955780279859 38277 Active 2024 GEORGIA Shaw [address] [place] [address], 05279-155 8, [employer] 17:56:16 Bacterial sinusitis 803472399 Active 2024 GEORGIA Shaw [address] [place] [address], 21740-614 8, [employer] 17:32:12 Bronchiti s 61365568 Active 2024 GEORGIA Shaw [address] [place] [address], 10896-261 8, [employer] 15:12:52 Acute cough Active 2024 GEORGIA Shaw [address] [place] [address], 22582-089 8, [employer] 12:24:11 Problem Notes None recorded. Procedures Surgical History Date Name Laterality Status Provider Name and Address Organization Details Recorded Time Back Surgery completed N[facility] [employer] 08/24/2024 13:34:05 Hernia Repair completed [facility] [employer] 08/24/2024 13:34:05 Orthopedic Surgery completed [facility] [employer] 08/24/2024 13:34:05 Gallbladder Surgery completed [facility] [employer] 08/24/2024 13:34:05 Other completed [employer] 01/04/2025 10:57:46 Imaging Results None recorded. Procedure Notes None recorded. Medical Equipment None Reported. Allergies Allergen ID Allergen Name Allergen Category Reaction Reaction Severity Criticality Documentation Date Start Date Code Code System Note Provider Name and Address Organization Details Recorded Time 89971 Substance with sulfonami de structure and antibacte rial mechanism of action (substanc e) medicatio n itching Not available Not available 08/24/2024 24370 8003 SNOMED [employer] 13:34:02 14417 latex environme nt,medica tion rash Not available Not available 08/24/2024 91981 91 [employer] 4 13:34:02 Medications Name Sig Start Date [...] Available Not Available Not Available amoxicillin 500 mg-potchocou m clavulanate 125 mg tablet TAKE 1 [...] Organization Details Last Updated DateTime 182.88 cm 30.9 kg/m2 476552. 34 g 78 /min 97.9 [degF] 95 % 144/78 mm[Hg] 118/78 mm[Hg] 122/80 mm[Hg] [employer] 5 10:59:38 Date Recorded Body height Body mass index (BMI) Body weight Oxygen saturation Heart rate Body temperature Systolic And Diastolic Systolic And Diastolic Systolic And Diastolic Provider Name and Address Organization Details Last Updated DateTime 5 182.88 cm 30.6 kg/m2 705215. 16 g 100 % 76 /min 98 [degF] 154/74 mm[Hg] 148/80 mm[Hg] 142/78 mm[Hg] [employer] 5 14:17:20 Date Recorded Body height Body mass index (BMI) Body weight Oxygen saturation Heart rate Body temperature Systolic And Diastolic Provider Name and Address Organization Details Last Updated DateTime 5 182.88 cm 30.6 kg/m2 953497. 72 g 98 % 74 /min 98.2 [degF] 138/86 mm[Hg] [employer] 5 13:38:07 Date Recorded Body height Body mass index (BMI) Body weight Body temperature Oxygen saturation Heart rate Systolic And Diastolic Provider Name and Address Organization Details Last Updated DateTime 5 182.88 cm 30.5 kg/m2 533766. 85 g 98.2 [degF] 98 % 68 /min 136/84 mm[Hg] [employer] 5 17:13:55 Date Recorded Body height Body mass index (BMI) Body weight Oxygen saturation Heart rate Body temperature Systolic And Diastolic Provider Name and Address Organization Details Last Updated DateTime 5 182.88 cm 31.3 kg/m2 790861. 84 g 98 % 92 /min 97.5 [degF] 138/80 mm[Hg] [employer] 5 14:58:50 Social History Question Answer Notes LastModified by Organizat ion Details LastModified Time Tobacco Smoking Status Current Every Day Smoker [employer] 08/24/2024 13:34:05 Do You Have An Advance [...] Information not available 07/27/2025 What Type Of Vocational Education Professional Do You Use? None Information not available [...] Or The Highest Degree You Have Received? [id number] Information not available 08/24/2024 Have There Been [...] Do You Have A Medical Power Of Operations Chief? Yes Information not available 08/24/2024 What Was [...] anxious, or unable to sleep at night)? [id number] Information not available 08/24/2024 Do you have [...] Time Tdap 1 completed Isabel Vice null, [employer] 01/04/2025 10:44:51 influenza, unspecified formulation 4 completed Isabel Vice null, [employer] 01/04/2025 10:44:51 Influenza, high-dose, quadrivalent, PF 2 completed Isabel Vice null, [employer] 01/04/2025 10:44:51 COVID-19, mRNA, LNP-S, PF, 100 mcg/0.5mL dose or 50 mcg/0.25mL dose 1 completed Isabel Vice null, [employer] 01/04/2025 10:44:51 COVID-19, mRNA, LNP-S, PF, 100 mcg/0.5mL dose or 50 mcg/0.25mL dose 1 completed Isabel Vice null, [employer] 01/04/2025 10:44:51 COVID-19, mRNA, LNP-S, PF, 100 mcg/0.5mL dose or 50 mcg/0.25mL dose 2 completed Isabel Vice null, [employer] 01/04/2025 10:44:51 COVID-19, mRNA, LNP-S, PF, 100 mcg/0.5mL dose or 50 mcg/0.25mL dose 1 completed Isabel Vice null, [employer] 01/04/2025 10:44:51 COVID-19, mRNA, LNP-S, PF, 50 mcg/0.5 mL 4 completed Isabel Vice null, [employer] 01/04/2025 10:44:51 Influenza, high-dose, trivalent, PF 4 completed Isabel Vice null, [employer] 01/04/2025 10:44:51 Influenza, split virus, trivalent, PF 8 completed Isabel Vice null, [employer] 01/04/2025 10:44:51 Td (adult), 2 Lf tetanus toxoid, preservative free, adsorbed 7 completed Isabel Vice null, [employer] 01/04/2025 10:44:51 Influenza, split virus, quadrivalent, PF 8 completed Isabel Vice null, [employer] 01/04/2025 10:44:51 Influenza, split virus, quadrivalent, PF 0 completed Isabel Vice null, [employer] 01/04/2025 10:44:51 Influenza, split virus, quadrivalent, PF 7 completed Isabel Vice null, [employer] 01/04/2025 10:44:51 Influenza, split virus, quadrivalent, PF 9 completed Isabel Vice null, [place] [employer] 01/04/2025 10:44:51 Influenza, split virus, quadrivalent, PF 1 completed [facility], [facility] 01/04/2025 10:44:51 Past Encounters Encounter ID Performer Location Encounter Start Date Encounter Closed Date Diagnosis/Indication Diagnosis SNOMED-CT Code Diagnosis ICD10 Code Diagnosis IMO Codes Diagnosis Note [id number] GEORGIA Shaw [address] [address] 08/24/2024 13:21:56 08/24/2024 14:29:49 Candidiasis of mouth 23394395 B37.0 Body mass index 30+ - obesity 261806002 Z68.31 [id number] GEORGIA Shaw [address] [address] 01/04/2025 10:28:11 01/04/2025 11:37:16 Pain in penis 069431461 N48.89 Obstructiv e sleep apnea syndrome 61137324 G47.33 Order sent for new Cpap - uses regularly but machine needs to be replaced Chronic ob structive pulmonary disease 50171215 J44.9 [id number] GEORGIA Shaw [address] [address] 03/05/2025 13:49:24 03/05/2025 14:37:53 Dyspnea 119730658 R06.02 91859 CXR if not improvingE KG showed NSRMay need ECHO if persists Obstructiv e sleep apnea syndrome 04864110 G47.33 Cpap working extremely well Flank pain 413543024 R10 .9 G89.29 9310591 Had nerve block by pain mgmt and doing wellGiven instructio ns to slowly taper Cymbalta [id number] GEORGIA Shaw [address] [address] 06/14/2025 13:28:17 06/14/2025 14:17:14 Dysuria 51285799 R30.9 487607 Abnormal urinalysis 1672 59851 R82.90 385706 Weakness o f bilateral lower limb 0229268776 61085 R29.898 718253 Acute urin octavio tract infection 369975823 N39.0 214221 Essential hypertension 53483125 I10 Obstructiv e sleep apnea syndrome 52025059 G47.33 Cpap working extremely well Chronic ob structive pulmonary disease 39851039 J44.9 Osteoarthritis 537451745 M19.90 Hyperlipid emia screening 294371740 Z13.220 419138 Thyroid di sorder screening 579865422 Z13.29 94172 HIV screening 872315049 Z11.4 103014 Viral scre ening status 382950887 Z11.59 610706 [id number] GEORGIA Shaw [address] [address] 06/26/2025 16:53:13 06/26/2025 17:43:38 Acute urinary tract infection 961621059 N39.0 Bacterial sinusitis 7034 58277 J32.9 B96.89 1431856 [id number] GEORGIA Shaw [address] [address] 07/27/2025 14:32:09 07/27/2025 15:21:28 Bronchitis 12751044 J40 30004 Health Concerns Section Related Observation LastModified by Organization Detai ls LastModified Time None Recorded Concern Status LastModified by Organization Details LastModified Time None Recorded Advance Directives Directive Y: Payers Insurance Date Sequence Insurance Name Policy Number Policy Padilla Covered Member ID Padilla Member ID Guarantor Name 07/26/2025 [place] Jacob Lunsford [id number] Jacob Lunsford 08/31/2024 1 [place] Jacob Lunsford [id number] Jacob Lunsford 07/26/2025 2 [facility] (MEDICARE SUPPLEMENT) Jacob Lunsford [id number] Jacob Lunsford 07/26/2025 1 [place] [facility] Jacob Lunsford [id number] Jacob Lunsford Notes Date Note Type [...] and it is working well. GEORGIA Shaw [address] [place], [address], [employer] 01/04/2025 11:42:32 03/05/2025 text/html ROS as noted in the HPI Patient presents for followup.Recently started new Cpap machine and it is working great.He is having some shortness of breath. He is on antibiotics and steroids from [facility]. Uses Trelegy daily as well. Doesn't [...] off Cymbalta as well. GEORGIA Shaw [address] [place], [address], [employer] 03/08/2025 12:00:08 06/14/2025 text/html ROS as noted in the HPI Patient thinks he has a UTI. Mckinley in his penis when he urinates. No fever.Patient complains of weakness in his legs. Left is worse than right. He does smoke. Legs feel heavy at times. GEORGIA Shaw [address] [place], [address], [employer] 06/15/2025 17:36:55 06/26/2025 text/html ROS as noted in the HPI Sinus pain, pressure, watery eyes, sinus drainage X 2-3 days. No fever. Has tried Advil Cold & Sinus without much relief. GEORGIA Shaw [address] [place], [address], [employer] 06/26/2025 17:54:19 07/27/2025 text/html ROS as noted in the HPI Cough and congestion for a week or so. No fever. Cough is productive. GEORGIA Shaw [address] [place] [address], [place], [address], [facility] [employer] 07/27/2025 16:03:58
--- OUTSIDE RECORDS SUMMARY | 2025-09-28 12:58 | XMS_ITS | Data Portability ---
Author Organization [facility] CARMENZA Fuentes K[facility] CLOSED Address [address] [place] [address] Care Team Providers Care Epic Application Coordinator Name Role Phone ANASTASIIA OLIVEIRA Primary [...] possible peripheral neuralgia. I recommend: 1. Tomas commercial pest control representative is present today for program optimization. [...] type II, . I recommend: 1. Tomas commercial pest control representative is present today for program optimization. [...] left ureteral stent, L5-S1 fusion SCS (12/2024, [facility]) No updated imaging is available for review The patient has undergone no recent injection therapy. 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 I recommend: 1. Tomas commercial pest control representative is present today for program optimization 2. 6-month follow-up 3. I recommend the patient engage in a core exercise plan such as yoga or pilates on a mcfp basis. [email or web address] Not available 08/07/2025 14:01:41 Plan of Treatment Reminders Order Date Submit Date Provider Last Modified By Organization Details Last Modified Time Details Appointments RECHECK 2025 11:00A M DOUGLAS CENTENO PA-C Not available Not available Not available Lab None recorded. Referral None recorded. Procedures None recorded. Surgeries None recorded. Imaging None recorded. Medication Orders gabapenti n 300 mg capsule 2024 025 [facility], [address], [address], 03/28/2025 10:26:55 Patient TargetsNo targets recorded. Patient InstructionsNo instructions recorded. Reason for Referral None Reported. Results Created Date Observation Date Name Description Value Unit Range Abnormal Flag Note LastModifiedBy Organization Detail LastModifiedTime 02/01/20 25 01/31/2025 xr eugenio knees compl ete, 4 or more vws [facility] [address] [place] [address] Patien t Name: PARI goldstein : 957 [...] sofia MD on 025 11:36 AM [email or web address] [facility] [address] [place], [address], 02/20/2025 12:58:48 Result Notes None recorded. Problems Name Problem SNOMED Code Status Onset Date Resolution Date Notes Provider Name and Address Organization Details Recorded Time Pericardial effusion 108278496 Active 2016 Not Available [facility] 1 02:28:53 Chest pain 83228948 Active 2016 Not Available [facility] 1 02:28:53 Cigarette smoker 56280514 Active 2016 Not Available [facility] 1 02:28:53 Obesity 885476817 Active 2016 Not Available [facility] 1 02:28:53 Obstructive sleep apnea syndrome 54885410 Active 2016 Not Available [facility] 1 02:28:53 Gastroesophag eal reflux disease 837945694 Active 2016 Not Available [facility] 1 02:28:53 Mitral valve regurgitation 16996722 Active 2016 Not Available [facility] 1 02:28:53 Tricuspid valve regurgitation 693662811 Active 2016 Not Available [facility] 1 02:28:53 Problem Notes None recorded. Procedures Surgical History Date Name Laterality Status Provider Name and Address Organization Details Recorded Time 025 Injection - Joint/Bursa, Major completed FISH VIEIRA PA-C [address] [place], [address], [facility] 06/19/2025 11:45:16 025 Injection - Joint/Bursa, Major completed FISH VIEIRA PA-C [address] [place], [address], [facility] 01/31/2025 12:02:12 025 SCS Implant - Karen completed JAMIR MCGEE MD [facility] [place], [address], [facility] 12/13/2024 08:33:16 025 Stimulation of spinal cord completed Juan Ferraro [facility] 12/25/2024 11:16:36 02/10/2 025 SCS Trial - Karen completed JAMIR MCGEE MD [address] [place], [address], [facility] 11/13/2024 13:43:38 025 Abdominal Trigger Point Injection w/US completed JAMIR MCGEE MD [address] [place], [address], [facility] 10/10/2024 12:41:11 018 Uroflowmetry; Complex completed [facility] 04/14/2018 15:12:52 018 Urodynamics Interpretation completed NAHID RIDLEY JR, MD [address] [place], [address], [facility] 04/18/2018 09:03:17 018 Urodynamics completed [facility] 04/14/2018 15:16:53 017 CYSTOURETHROSCOPY WITH DIRECT VISION INTERNAL URETHROTOMY (SURG) completed [facility] 04/14/2018 15:02:02 013 Circum 28 days or older completed [facility] 04/14/2018 15:09:44 013 Prostate Surgery completed [facility] 04/14/2018 15:09:24 hernia repair [facility] 10/10/2024 08:15:18 Imaging Results None recorded. Procedure Notes None recorded. Medical Equipment None Reported. Allergies Allergen ID Allergen Name Allergen Category Reaction Reaction Severity Criticality Documentation Date Start Date Code Code System Note Provider Name and Address Organization Details Recorded Time 413087 Substance with sulfonami de structure and antibacte rial mechanism of action (substanc e) medicatio n Not available Not available Not available 08/28/20162012 58689 8003 SNOMED Comme nt: Creat ed By: Jose Luis Robert anita;Jhonny driscoll d Date: 12:23 :01 PM; Not Available [facility] 6 04:17:21 659306 latex environme nt,medica tion Not available Not available Not available 08/28/20162012 14326 91 RxNorm Comme nt: Creat ed By: Jose Luis pabon Date: 013 12:22 :53 PM; Not Available [facility] 6 07:58:29 Medications Name Sig Start [...] Relief 50 mcg/actua tion nasal spray,gayle pension [place] 1 spray every day by intranas al route. active Not Available Not Available No t Available Vitals Date Recorded Body height Body mass index (BMI) Body weight Oxygen saturation Heart rate Systolic And Diastolic Provider Name and Address Organization Details Last Updated DateTime 5 182.88 cm 31.1 kg/m2 481073. 65 g 96 % 70 /min 130/78 mm[Hg] Hayley Cheatham [facility] 5 10:57:56 Date Recorded Body height Body mass index (BMI) Body weight Oxygen saturation Heart rate Systolic And Diastolic Provider Name and Address Organization Details Last Updated DateTime 5 182.88 cm 31.1 kg/m2 511764. 65 g 95 % 78 /min 126/84 mm[Hg] [facility] 5 10:29:45 Date Recorded Body height Body mass index (BMI) Body weight Heart rate Oxygen saturation Systolic And Diastolic Provider Name and Address Organization Details Last Updated DateTime 5 182.88 cm 31.1 kg/m2 440885. 65 g 75 /min 97 % 130/76 mm[Hg] Marialuisa Pearson [facility] 5 10:43:17 Date Recorded Body height Provider Name an d Address Organization Details Last Updated DateTime 06/19/2025 182.88 cm Ever Pérez [facility] 06/19/2025 08:40:49 Date Recorded Body height Body mass index (BMI) Body weight Systolic And Diastolic Provider Name and Address Organization Details Last Updated DateTime 08/07/2025 182.88 cm 31.9 kg/m2 866985.31 g 128/78 mm[Hg] [facility] 08/07/2025 13:30:39 Social History Question Answer Notes LastModified by Organizat ion Details LastModified Time Tobacco Smoking Status Current Every Day Smoker Thea traylor, [facility] 09/10/2017 10:40:24 What Is Your Level Of Caffeine Consumption? Heavy Coffee In The Morning Miranda 3 A Day Information not available 12/25/2024 Marital Status Informatio n not available 09/10/2017 What Was The Date Of Your Most Recent Tobacco Screening? 08/07/2025 Information not available 08/07/2025 What Is Your Current Pack Years? [email or web address] [email or web address] Information not available 01/22/2025 What Is Your Relationship Status? [email or web address] Information not available 04/12/2023 At What Age Did You Start Smoking Tobacco? 29 Information not available 01/22/2025 How Much Tobacco Do You Smoke? 0.5 PPD [email or web address] Information not available 04/12/2023 How Many Years Have You Smoked Tobacco? 40 Information not available 01/22/2025 Sex: Male Functional Status Question Answer Note LastModified by Organizat ion Details LastModified Time Do you use any illicit or recreational drugs? No [email or web address] Information not available 10/26/2024 What is your level of alcohol consumption? None Information not available 09/10/2017 Are you currently employed? 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 Family History Relationship Description Onset Age of this Age Resolved Age Notes LastModified by Organization Details LastModified Time Sister Family history of malignant neoplasm Breast CA Not available 09/10/2017 10:40:16 Maternal Uncle Malignant neoplasm of prostate [email or web address] Not available 2022 16:15:36 Medical History Condition [...] Skin Problems N Meningitis N Heart Attack (ID) N Ulcers N Diabetes N Rheumatic Fever N Bleeding Disorder N Tuberculosis N AIDS/HIV N Asthma N Epilepsy/Seizures N Sleep Apnea Y Thyroid Disorder N Hepatitis N Hypertension N Osteoporosis N Past Encounters Encounter ID Performer Location Encounter Start Date Encounter Closed Date Diagnosis/Indication Diagnosis SNOMED-CT Code Diagnosis ICD10 Code Diagnosis IMO Codes Diagnosis Note [id number] DAMONChau THOMAS APRN CARDIOLOG Y [address] [place] [address] 05/10/2017 11:15:08 05/11/2017 12:08:18 Pericardial effusion 658263724 I31.3 Trivial on recent Echocardio gram. No further testing recommende d at this time. Can repeat Echocardio gram if dyspnea worsens. I will see him back in 3 months for reevaluati on. Advised to call sooner with questions or concerns. Chest pain 74227264 R07. 9 EKG today reveals NSR, 80, [...] in agreement with this plan. Cigarette smoker 7579170 7 F17.210 1.5 PPD for 30-40 years. No desire to stop smoking. Smoking cessation advised. Obesity 308446282 E66.9 BMI today 33.9; Weight loss recommende [...] c effects. Obstructiv e sleep apnea syndrome 44465392 G47.33 Utilizes CPAP. Advised continued compliance . Gastroesop hageal reflux disease 809766783 K21.9 Followed by PCP. Controlled on PPI. Mitral king ve regurgitation 94370401 I34.0 Tr noted on recent Echocardio gram. Can repeat echocardio gram q 2-3 years for progressio n, sooner if concerning symptoms develop. Tricuspid valve regurgitation 749241138 I07.1 Tr noted on recent Echocardio gram. Can repeat echocardio gram q 2-3 years for progressio n, sooner if concerning symptoms develop. [id number] BETH SMALLS MD [facility] [address] [place] [address] 0 09/10/2017 09:54:59 09/13/2017 12:40:41 Epididymitis 06931922 N45.1 considerin g his previous medical therapies will switch him to Augmentin for 10 days he has a follow-up appointmen t with nv in [place]. [id number] NAHID RIDLEY JR, MD [facility] [address] [place] [address] 04/14/2018 08:48:15 04/14/2018 10:35:18 Increased frequency of urination 436418072 R35.0 Nocturia 630666858 R35.1 Incomplete emptying of urinary bladder 103621788 R39.14 [id number] BETH SMALLS MD [facility] [address] [place] [address] RD,[address] [place] [address] 04/12/2023 15:49:28 04/12/2023 16:38:55 Renal mass 280195042 N28.89 Plan as above Left flank pain 86234458 9 R10.9 As above [id number] BETH SMALLS MD SURGERY SCHEDULE [address] [place] [address] 05/05/2023 08:26:00 05/05/2023 08:26:25 [id number] BETH SMALLS MD [facility] [address] [place] [address] [address] [address] 0 05/10/2023 10:58:12 05/10/2023 14:54:20 Hydronephrosis due to ureteral stricture 1813717875 83945 N13.1 As above [id number] BETH SMALLS MD 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 We will arrange for flexible local cystoscopy for stent removal [id number] BETH SMALLS MD SURGERY SCHEDULE [address] [place] [address] 06/30/2023 08:04:20 06/30/2023 08:13:55 [id number] BETH SMALLS MD [facility] [address] [address] 09/17/2023 10:02:08 09/17/2023 11:28:44 Obstruction of pelviureteric junction 28157205 N13.5 Status post dismembere d pyeloplast y. Doing well he will follow-up in 6 months [id number] BETH SMALLS MD [facility] [address] [address] 02/23/2024 14:56:57 02/23/2024 15:37:17 Renal colic 3823647 N23 As above Hydronephr osis due to ureteral stricture 2263941297 35696 N13.1 As above [id number] BETH SMALLS MD SURGERY SCHEDULE [address] [place] [address] 03/01/2024 07:55:19 03/01/2024 07:56:35 [id number] MD [facility] [address] [address] 09/22/2024 10:30:27 09/25/2024 04:07:54 Pain in male perineum 895364145 R10.2 As above follow-up 3 months Chronic prostatitis 1990 5009 N41.1 As above Low back pain 799493604 M54.50 Will refer to pain therapy regarding his chronic left flank pain. He has had a recent MRI at [facility] and he will bring his disc. [id number] JAMIR MCGEE MD [facility] [address] [place] [address] 1 10/10/2024 07:45:43 10/10/2024 13:19:08 Peripheral neuralgia 79291499 M79.2 Thoracic radiculopathy 99288153 M54.14 Complex re gional pain syndrome type II of left lower limb 5478688969 47950 G57.72 [id number] JAMIR MCGEE MD [facility] [address] [place] [address], [place] [address] 10/10/2024 12:01:51 10/10/2024 13:20:24 Peripheral neuralgia 13295793 M79.2 [id number] JAMIR MCGEE MD [facility] CLOSED [address] [place] [address] 1 10/26/2024 10:50:16 10/26/2024 16:02:46 Complex regional pain syndrome type I of left lower limb 5993386935 59402 G90.522 [id number] JAMIR MCGEE MD [facility] [address] [place] [address] 1 11/13/2024 12:21:34 11/13/2024 14:29:15 Complex regional pain syndrome of lower limb 612258040 G90.522 [id number] DOUGLAS CENTENO PA-C [facility] CLOSED [address] [place] [address] 1 11/15/2024 12:46:46 11/15/2024 16:16:49 Postoperative visit 877129727 Z09 Lumbar post-laminectomy syndrome 184014716 M96.1 Chronic pain syndrome 37 4882343 G89.4 [id number] JAMIR MCGEE MD [facility] [address] [place] [address], [place] [address] 1 12/13/2024 06:19:38 12/13/2024 06:20:26 Complex regional pain syndrome type I of left lower limb 3494002043 75451 G90.522 [id number] JAMIR MCGEE MD [facility] CLOSED [address] [place] [address] 12/25/2024 10:54:54 12/25/2024 13:13:43 Postoperative visit 773938009 Z09 Chronic pain syndrome 37 6840464 G89.4 Complex re gional pain syndrome, type II, lower limb 405658157 G57.72 [id number] DOUGLAS CENTENO PA-C PAIN MEDICINE [address] [address] 1 01/22/2025 15:01:55 01/22/2025 16:20:06 Complex regional pain syndrome, type II, lower limb 567734479 G57.72 Chronic pain syndrome 37 8217302 G89.4 [id number] FISH VIEIRA PA-C ORTHOPEDI CS [address] [address] 1 01/31/2025 10:36:00 01/31/2025 13:07:18 Osteoarthritis of left knee joint 7524335252 95661 M17.12 [id number] Assessment : Bilateral osteoarthr itis of the knees and quadriceps weakness of both knees. Plan: Physical therapy can be helpful for stabilizat ion of the knee. Terminal treatment for both knees would be arthroplas ty. He opted for bilateral steroid injections today, which were tolerated well without complicati on. Follow-up as needed. Osteoarthr itis of right knee joint 2681459947 63855 M17.11 5696345 Quadriceps weakness 3009 81875 M62.81 9377787528 [id number] DOUGLAS CENTENO PA-C PAIN MEDICINE [address] [address] 1 02/28/2025 10:41:40 02/28/2025 16:32:09 Complex regional pain syndrome, type II, lower limb 582955106 G57.72 Chronic pain syndrome 37 6354702 G89.4 Peripheral neuralgia 254 17541 M79.2 Thoracic radiculopathy 85933026 M54.14 Complex re gional pain syndrome type II of left lower limb 2353046321 90528 G57.72 [id number] DOUGLAS CENTENO PA-C PAIN MEDICINE [address] [address] 1 03/28/2025 10:10:04 03/28/2025 11:11:02 Chronic pain syndrome 679598369 G89.4 Peripheral neuralgia 254 45106 M79.2 Thoracic radiculopathy 80718359 M54.14 Complex re gional pain syndrome type II of left lower limb 3176487941 42388 G57.72 [id number] DOUGLAS CENTENO PA-C PAIN MEDICINE [address] [place] [address] 1 05/09/2025 10:23:50 05/09/2025 15:30:51 Complex regional pain syndrome type II of left lower limb 5822381194 68738 G57.72 Chronic pain syndrome 37 2440396 G89.4 Peripheral neuralgia 254 90479 M79.2 Thoracic radiculopathy 15099260 M54.14 [id number] FISH VIEIRA PA-C ORTHOPEDI CS [address] [place] [address] 1 06/19/2025 08:36:54 06/19/2025 13:58:55 Osteoarthritis of left knee joint 2858341643 72290 M17.12 [id number] He may repeat these every 3 months. He may also try gels in the future. Follow-up as needed. Osteoarthr itis of right knee joint 2637569901 13559 M17.11 2782446 [id number] DOUGLAS CENTENO PA-C PAIN MEDICINE [address] [place] [address] 08/07/2025 13:16:47 08/07/2025 14:12:40 Complex regional pain syndrome type II of left lower limb 2499420979 33300 G57.72 Chronic pain syndrome 37 3223975 G89.4 Peripheral neuralgia 254 99438 M79.2 Thoracic radiculopathy 56879642 M54.14 Health Concerns Section Related Observation LastModified by Organization Detai ls LastModified Time None Recorded Concern Status LastModified by Organization Details LastModified Time None Recorded Advance Directives Directive None Recorded Payers Insurance Date Sequence Insurance Name Policy Number Policy Padilla Covered Member ID Padilla Member ID Guarantor Name 08/04/2025 2 [employer] Pari Lunsford [id number] Pari Lunsford 08/04/2025 1 [place] Pari Lunsford [id number] Pari Lunsford 06/18/2025 1 [facility] [id number] Pari Lunsford [id number] Pari Lunsford 06/18/2025 1 [employer] (POS) [id number] Pari Lunsford [id number] Pari Lunsford 07/17/2024 PAYMENT PLAN Pari Lunsford [...] lower extremity edema/pain. DOUGLAS CENTENO PA-C [address] [place], [address], [facility] 02/28/2025 11:29:51 03/28/2025 text/html Post-OpReported by PatientHPIFor onset/timing, patient reportsdate of surgery: (12/13/24). For quality, patient reportsprocedure: (scs perm). For context, patient reportsreason for procedure: (pain relief). For associated symptoms, patient reportsincision healing well,no fatigue,normal appetite,normal bowel function,no constipation,no nausea,no emesis,pain improving,no pain,no fever,no bleeding,no lower extremity edema/pain, andno dysuria/urinary symptoms. DOUGLAS CENTENO PA-C [address] [place], [address], [facility] 03/28/2025 10:59:21 05/09/2025 text/html Post-OpReported by [...] level today is 0/10. DOUGLAS CENTENO PA-C [address] [place], [address], [facility] 05/09/2025 10:58:12 06/19/2025 text/html Patient comes [...] well-controlled at this time. FISH VIEIRA PA-C [address] [place], [address], [facility] 06/19/2025 11:46:04 08/07/2025 text/html Post-OpReported by PatientHPIFor onset/timing, patient reportsdate of surgery: (12/13/24). For quality, patient reportsprocedure: (scs perm). For context, patient reportsreason for procedure: (pain relief). For associated symptoms, patient reportsincision healing well,no fatigue,normal appetite,normal bowel function,no constipation,no nausea,no emesis,pain improving,no pain,no fever,no bleeding,no lower extremity edema/pain, andno dysuria/urinary symptoms. DOUGLAS CENTENO PA-C [address] [place], [address], [facility] 08/07/2025 14:02:26
--- OUTSIDE RECORDS SUMMARY | 2025-09-28 12:58 | XMS_ITS | Patient Health Record ---
Author Organization [facility] Address [address] [place] [address] Care Team Providers Care Water Technician Name Role Phone Raine Silva Unavailable [phone] Allergies Allergen (clinical drug ingredient) Drug/Non Drug [...] Omeprazole 20 MG TAKE 1 CAPSULE BY [facility] ONCE DAILY FOR GERD Oral; [...] Status W/U Status Risk Notes Problem Hypertension (84063322) Hypertension (I10) Active confirmed Problem Gastroesophageal reflux disease (633521188) GERD (K21.9) Active confirmed Problem Arthritis (0660567) Arthritis (M19.90) Active confirmed Problem COPD - Chronic obstructive pulmonary disease (39999802) COPD (chronic obstructive pulmonary disease) (J44.9) Active confirmed Vital Signs Temperature 98.1 degrees Fahrenheit 07/24/2025 Respiratory Rate 18 /min 07/24/2025 Oximetry 98 07/24/2025 Blood pressure diastolic 88 mm Hg 07/24/2025 Height 072 in 07/24/2025 Blood pressure systolic 130 mm Hg 07/24/2025 Weight 0225 lbs 07/24/2025 BMI 30.51 kg/m2 07/24/2025 Encounters Encounter Location Date Provider Diagnosis [id number] [facility] [address] [place] [address] 07/24/2025 Raine Silva Acute upper respiratory infection [...] Coverage End Date [place] [address] [place] [phone] [id number] Jacob Lunsford Self - patient is the insured [facility] [address] [place] [address] [id number] Jacob Lunsford Self - patient is the insured Medical (General) History Medical History History ICD Code Hypertension I10 GERD K21.9 Arthritis M19.90 COPD (chronic obstructive pulmonary dise ase) J44.9 Surgical History Surgery Date(Month/Year) gallbladder hernia back surgery pain stimulater
--- OUTSIDE RECORDS SUMMARY | 2025-09-28 12:58 | XMS_ITS ---
Laboratory report Created on: September 04, 2025 PARI MAJOR : 1955 Sex: Male Author Organization Unknown PROBLEMS Problems List Code Description RESULTS Laboratory Orders Date Order Code Test 2024-04-14 280492 H PYLORI BREATH TEST Laboratory Results Date LOINC Test Value Unit Reference Range Interpre tation 2024-04-14 40223-1 H PYLORI BREATH TEST N NEGATIVE
--- OUTSIDE RECORDS SUMMARY | 2025-09-28 12:58 | XMS_ITS ---
Laboratory report Created on: September 04, 2025 PARI MAJOR : 1955 Sex: Male Author Name ANASTASIIA OLIVEIRA Organization Unknown PROBLEMS Problems List Code Description N48.89 RESULTS Laboratory Orders Date Order Code Test 2025-01-04 297109 URINE CULTURE, R OUTINE Laboratory Results Date LOINC Test Value Unit Reference Range Interpre tation 2025-01-04 630-4 URINE CULTURE, ROUTINE FINAL 2025-01-04 630-4 RESULT 1 HARSHAL
--- OUTSIDE RECORDS SUMMARY | 2025-09-28 12:58 | XMS_ITS | Data Portability ---
Author Organization [facility] Address [address] [place] [phone] Care Team Providers Care Bid Writer Name Role Phone ANASTASIIA OLIVEIRA Primary Care Provider [phone] Assessment Encounter Date Assessment Date Assessment LastModified by Organization Details LastModified Time 05/03/2024 05/03/2024 NOA (prescription drug monitoring report): reviewed today and is appropriate. Global Risk Assessment Score: low Risk. -All UDS's have been appropriate -All random pill counts have been appropriate when requested -Patient remains on low dose pain medication [email or web address] Not available 05/03/2024 11:41:24 Plan of Treatment Reminders Order Date Submit Date Provider Last Modified By Organization Details Last Modified Time Details Appointments None recorde d. Lab drug screen, urine - Meds: HYDROMO RPHONE AND GABAPET DELVIS TWIN 2023 024 [facility] ([facility]), [address] [place] [address], [id number], 4 13:42:01 drug screen, urine - Meds:HY DROCODO NE AND GABAPEN ITN TWIN 2023 024 SWAPNA [facility] ([facility]), [address] [place] [address], [address], 4 12:17:19 drug screen, urine - Meds: hydroco done and gabapen tin twin 2023 024 SWAPNA [facility] ([facility] House Lab), [address] [place] [address], [place], [address], 4 08:36:42 drug screen, urine - Meds: 2023 024 SWAPNA Bl[facility] (In House Lab), [address] [place], [address], 4 08:13:43 Referral [facility] refer[facility] l - Beh Med eval as part of multi mode pain managem ent 2023 024 [facility] [address], [address], [facility] [address], [place], [address], 4 09:15:59 Procedures None recorde d. Surgeries None recorde d. Imaging None recorde d. Medication Orders gabapen tin 300 mg capsule 2023 024 [place] [facility] #[id number], [address], [id number], 4 08:24:10 hydromo rphone 2 mg tablet 2023 024 [facility] #[id number], [address], [id number], 4 08:24:06 hydromo rphone 2 mg tablet 2023 024 [place] [facility] #[id number], [address], [id number], 4 08:24:06 gabapen tin 300 mg capsule 2023 024 [facility] #[id number], [address], [id number], 4 08:33:24 hydromo rphone 2 mg tablet 2023 024 [facility] #[id number], [address] [facility] [address], SHIRIN Horn, [id number], 4 08:33:23 hydromo rphone 2 mg tablet 2023 024 [facility] #, [address] [facility] [address], [place], [id number], 4 12:04:59 gabapen tin 300 mg capsule 2023 024 [facility] #, [address] [facility] [address], [place], [id number], 4 09:12:13 hydromo rphone 2 mg tablet 2023 024 [facility] #, [address] [facility] [address], [place], [id number], 4 09:12:08 hydroco done 7.5 mg-acet aminoph en 325 mg tablet 2023 024 [facility] #, [address] [facility] [address], SHIR[place], [id number], 4 12:19:19 hydroco done 7.5 mg-acet aminoph en 325 mg tablet 2023 024 [place] [facility] #[id number], [address] [facility] [address], [place], [id number], 4 12:19:20 gabapen tin 300 mg capsule 2023 024 [facility] #[id number], [address] [facility] [address], [place]IR[place], [id number], 4 12:19:19 Patient TargetsNo targets recorded. Patient Instructions Encounter Date Encounter Id Patient Instructions Last Modified By Organization Details Last Modified Time 05/03/[id number] I have spent 45min with the patient, [...] to discuss sup hypogastric block? Pundendal block? [email or web address] Not available 05/03/2024 12:14:46 07/03/[id number] Take medications EXACTLY as instructed. Call office for any problems DO NOT run out of medications and medications should last till next appointment. Notify office if going to be late or need to reschedule. [email or web address] Not available 07/02/2024 18:27:31 07/31/[id number] Take medications EXACTLY as instructed. Call office for any problems DO NOT run out of medications and medications should last till next appointment. Notify office if going to be late or need to reschedule. [email or web address] Not available 07/30/2024 17:53:25 09/26/[id number] Take medications EXACTLY as instructed. Call office [...] status abnormal Not Available Marquis Blanco MD [facility] ([facility]) [address] [place] [address], [address], 07/04/2024 08:36:44 07/03/20 24 07/03/2024 GABAP ENTIN abnormal status high Not Available Marquis Blanco MD [facility] ([facility]) [address] [place] [address], [address], 07/04/2024 08:36:44 07/03/20 24 07/04/2024 OPIAT E DEFIN ITIVE PANEL LC/MS codeine 0.0 NG/mL <75.0 Not Available Shima Blanco MD [facility] ([facility]) [address] [place] [address], [address], 07/04/2024 08:36:43 07/03/20 24 07/04/2024 OPIAT E DEFIN ITIVE PANEL LC/MS morphine 0 NG/mL <75.0 Not Available Shima Blanco MD [facility] ([facility]) [address] [place] [address], [address], 07/04/2024 08:36:43 07/03/20 24 07/04/2024 OPIAT E DEFIN ITIVE PANEL LC/MS 6-STEFANO 0 NG/mL <15.0 Not Available Shima Blanco MD [facility] ([facility]) [address] [place] [address], [address], 07/04/2024 08:36:43 07/03/20 24 07/04/2024 OPIAT E DEFIN ITIVE PANEL LC/MS hydromorphon e 129.1 NG/mL <75.0 abnormal Not Available Marquis [facility] ([facility]) [address] [place] [address], [address], 07/04/2024 08:36:43 07/03/20 24 07/04/2024 OPIAT E DEFIN ITIVE PANEL LC/MS hydrocodone 336.6 NG/mL <75.0 abnormal Not Available Luis Felipe Blanco MD [facility] ([facility]) [address] [place] [address], [address], 07/04/2024 08:36:43 07/03/20 24 07/04/2024 OPIAT E DEFIN ITIVE PANEL LC/MS norhydrocodo ne 617.6 NG/mL <75.0 abnormal Not Available Marquis Blanco MD [facility] ([facility]) [address] [place] [address], [address], 07/04/2024 08:36:43 07/03/20 24 07/04/2024 GABAP ENTIN DEFIN ITIVE PANEL -LC/M S gabapentin >23495 NG/mL <5000. 0 abnormal Not Available Shima Blanco MD [facility] ([facility]) [address] [place] [address], [address], 07/04/2024 08:36:42 07/03/20 24 07/03/2024 D-PRE SUMPT SHAWN URINE DRUG REPOR T amphetamine NEGATI VE NG/mL <1000. 0 Not Available Shima Blanco MD [facility] ([facility]) [address] [place] [address], [address], 07/04/2024 08:36:42 07/03/20 24 07/03/2024 D-PRE SUMPT SHAWN URINE DRUG REPOR T benzodiazepi ne <3.3 NG/mL <200.0 Curre nt metho d may not detec t low level s of Klono pin Not Available Shima Blanco MD [facility] ([facility]) [address] [place] [address], [address], 07/04/2024 08:36:42 07/03/20 24 07/03/2024 D-PRE SUMPT SHAWN URINE DRUG REPOR T buprenorphin e NEGATI VE NG/mL <10.0 Not Available Shima Blanco MD [facility] ([facility]) [address] [place] [address], 22[address], 07/04/2024 08:36:42 07/03/20 24 07/03/2024 D-PRE SUMPT SHAWN URINE DRUG REPOR T cannabinoid NEGATI VE NG/mL <50.0 Not Available Shima Blanco MD [facility] ([facility]) [address] [place] [address], [address], 07/04/2024 08:36:42 07/03/20 24 07/03/2024 D-PRE SUMPT SHAWN URINE DRUG REPOR T cocaine NEGATI VE NG/mL <300.0 Not Available Shima Blanco MD [facility] ([facility]) [address] [place] [address], 924[address], 07/04/2024 08:36:42 07/03/20 24 07/03/2024 D-PRE SUMPT SHAWN URINE DRUG REPOR T ethanol NEGATI VE mg/dL <50.0 Not Available Shima Blanco MD [facility] ([facility]) [address] [place] [address], 95[address], 07/04/2024 08:36:42 07/03/20 24 07/03/2024 D-PRE SUMPT SHAWN URINE DRUG REPOR T methadone <0.8 NG/mL <300.0 Not Available Shima Blanco MD [facility] ([facility]) [address] [place] [address], [address], 07/04/2024 08:36:42 07/03/20 24 07/03/2024 D-PRE SUMPT SHAWN URINE DRUG REPOR T opiates 390.0 NG/mL <300.0 high Opiat es inclu celsa Codei ne,Mo rphin e, Randolph morph one,H ydroc odone Not Available Shima Blanco MD [facility] ([facility]) [facility] [place], [address], 07/04/2024 08:36:42 07/03/20 24 07/03/2024 D-PRE SUMPT SHAWN URINE DRUG REPOR T oxycodone 30.0 NG/mL <300.0 Not Available Shima Blanco MD [facility] ([facility]) [address] [place] [address], 80[address], 07/04/2024 08:36:42 07/03/20 24 07/03/2024 D-PRE SUMPT SHAWN URINE DRUG REPOR T urine creatinine (validity test) 50.0 mg/dL 20.0 - 300.0 Not Available Shima Blanco MD [facility] ([facility]) [address] [place] [address], [address], 07/04/2024 08:36:42 07/31/20 24 07/31/2024 GABAP ENTIN abnormal status abnormal Not Available Marquis Blanco MD [facility] ([facility]) [address] [place] [address], 537[address], 08/04/2024 12:17:21 07/31/2008/04/2024 OPIAT E DEFIN ITIVE PANEL LC/MS codeine 0.0 NG/mL <75.0 Not Available Shima Blanco MD [facility] ([facility]) [address] [place] [address], 312[address], 08/04/2024 12:17:20 07/31/2008/04/2024 OPIAT E DEFIN ITIVE PANEL LC/MS morphine 0 NG/mL <75.0 Not Available Shima Blanco MD [facility] ([facility]) [address] [place] [address], 97[address], 08/04/2024 12:17:20 07/31/20 24 08/04/2024 OPIAT E DEFIN ITIVE PANEL LC/MS 6-STEFANO 0 NG/mL <15.0 Not Available Shima Blanco MD [facility] ([facility]) [address] [place] [address], 766[address], 08/04/2024 12:17:20 07/31/2008/04/2024 OPIAT E DEFIN ITIVE PANEL LC/MS hydromorphon e 773.4 NG/mL <75.0 abnormal Not Available Marquis Blanco MD [facility] ([facility]) [address] [place] [address], 88483, 08/04/2024 12:17:20 07/31/2008/04/2024 OPIAT E DEFIN ITIVE PANEL LC/MS hydrocodone 77.9 NG/mL <75.0 abnormal Not Available Luis Felipe Blanco MD [facility] ([facility]) [address] [place] [address], 330[address], 08/04/2024 12:17:20 07/31/20 24 08/04/2024 OPIAT E DEFIN ITIVE PANEL LC/MS norhydrocodo ne 28.3 NG/mL <75.0 Not Available Marquis Blanco MD [facility] ([facility]) [address] [place] [address], 34581, 08/04/2024 12:17:20 07/31/20 24 08/04/2024 GABAP ENTIN DEFIN ITIVE PANEL -LC/M S gabapentin >82118 NG/mL <5000. 0 abnormal Not Available Shima Blanco MD [facility] ([facility]) [address] [place] [address], [address], 08/04/2024 12:17:19 07/31/20 24 07/31/2024 D-PRE SUMPT SHAWN URINE DRUG REPOR T amphetamine NEGATI VE NG/mL <1000. 0 Not Available Shima Blanco MD [facility] ([facility]) [address] [place] [address], [address]70[address], 08/04/2024 12:17:19 07/31/20 24 07/31/2024 D-PRE SUMPT SHAWN URINE DRUG REPOR T benzodiazepi ne <3.3 NG/mL <200.0 Curre nt metho d may not detec t low level s of Klono pin Not Available Shima Blanco MD [facility] ([facility]) [address] [place] [address], 48765, 08/04/2024 12:17:19 07/31/20 24 07/31/2024 D-PRE SUMPT SHAWN URINE DRUG REPOR T buprenorphin e NEGATI VE NG/mL <10.0 Not Available Shima Blanco MD [facility] ([facility]) [address] [place] [address], 32903, 08/04/2024 12:17:19 07/31/20 24 07/31/2024 D-PRE SUMPT SHAWN URINE DRUG REPOR T cannabinoid NEGATI VE NG/mL <50.0 Not Available Shima Blanco MD [facility] ([facility]) [address] [place] [address], 05576, 08/04/2024 12:17:19 07/31/20 24 07/31/2024 D-PRE SUMPT SHAWN URINE DRUG REPOR T cocaine NEGATI VE NG/mL <300.0 Not Available Shima Blanco MD [facility] ([facility]) [address] [place] [address], [address], 08/04/2024 12:17:19 07/31/2007/31/2024 D-PRE SUMPT SHAWN URINE DRUG REPOR T ethanol NEGATI VE mg/dL <50.0 Not Available Shima Blanco MD [facility] ([facility]) [address] [place] [address], 00798, 08/04/2024 12:17:19 07/31/20 24 07/31/2024 D-PRE SUMPT SHAWN URINE DRUG REPOR T methadone 27.0 NG/mL <300.0 Not Available Shima Blanco MD [facility] ([facility]) [address] [place] [address], 32813, 08/04/2024 12:17:19 07/31/20 24 07/31/2024 D-PRE SUMPT SHAWN URINE DRUG REPOR T opiates 283.0 NG/mL <300.0 Opiat es inclu celsa Codei ne,Mo rphin e, Randolph morph one,H ydroc odone Not Available Shima Blanco MD [facility] ([facility]) [address] [place] [address], 11003, 08/04/2024 12:17:19 07/31/20 24 07/31/2024 D-PRE SUMPT SHAWN URINE DRUG REPOR T oxycodone 13.0 NG/mL <300.0 Not Available Shima Blanco MD [facility] ([facility]) [address] [place] [address], 99589, 08/04/2024 12:17:19 07/31/20 24 07/31/2024 D-PRE SUMPT SHAWN URINE DRUG REPOR T urine creatinine (validity test) 38.5 mg/dL 20.0 - 300.0 Not Available Shima Blanco MD [facility] ([facility]) [address] [place] [address], 46338, 08/04/2024 12:17:19 09/26/20 24 09/26/2024 GABAP ENTIN abnormal status abnormal Not Available Marquis Blanco MD [facility] ([facility]) [address] [place] [address], 50009, 10/02/2024 13:42:04 09/26/20 24 09/26/2024 GABAP ENTIN abnormal status high Not Available Marquis Blanco MD [facility] ([facility]) [address] [place] [address], 34855, 10/02/2024 13:42:04 09/26/20 24 10/02/2024 OPIAT E DEFIN ITIVE PANEL LC/MS codeine 0.0 NG/mL <75.0 Not Available Shima Blanco MD [facility] ([facility]) [address] [place] [address], 01744, 10/02/2024 13:42:03 09/26/20 24 10/02/2024 OPIAT E DEFIN ITIVE PANEL LC/MS morphine 0 NG/mL <75.0 Not Available Shima Blanco MD [facility] ([facility]) [address] [place] [address], 19954, 10/02/2024 13:42:03 09/26/20 24 10/02/2024 OPIAT E DEFIN ITIVE PANEL LC/MS 6-STEFANO 0 NG/mL <15.0 Not Available Shima Blanco MD [facility] ([facility]) [address] [place] [address], 07999, 10/02/2024 13:42:03 09/26/20 24 10/02/2024 OPIAT E DEFIN ITIVE PANEL LC/MS hydromorphon e 2590.5 NG/mL <75.0 abnormal Not Available Marquis Blanco MD [facility] ([facility]) [address] [place] [address], 17288, 10/02/2024 13:42:03 09/26/20 24 10/02/2024 OPIAT E DEFIN ITIVE PANEL LC/MS hydrocodone 0 NG/mL <75.0 Not Available Marquis Blanco MD [facility] ([facility]) [address] [place] [address], 81751, 10/02/2024 13:42:03 09/26/20 24 10/02/2024 OPIAT E DEFIN ITIVE PANEL LC/MS norhydrocodo ne 0 NG/mL <75.0 Not Available Marquis Blanco MD [facility] ([facility]) [address] [place] [address], 17611, 10/02/2024 13:42:03 09/26/20 24 10/02/2024 GABAP ENTIN DEFIN ITIVE PANEL -LC/M S gabapentin >54225 NG/mL <5000. 0 abnormal Not Available Shima Blanco MD [facility] ([facility]) [address] [place] [address], 11235, 10/02/2024 13:42:02 09/26/20 24 10/02/2024 BENZO DIAZE PINE DEFIN ITIVE PANEL - LC/MS alprazolam 0 NG/mL <75.0 Not Available Shima Blanco MD [facility] ([facility]) [address] [place] [address], 48164, 10/02/2024 13:42:02 09/26/20 24 10/02/2024 BENZO DIAZE PINE DEFIN ITIVE PANEL - LC/MS A-hydroxyalp razolam 0 NG/mL <75.0 Not Available Marquis Blanco MD [facility] ([facility]) [address] [place] [address], 01247, 10/02/2024 13:42:02 09/26/20 24 10/02/2024 BENZO DIAZE PINE DEFIN ITIVE PANEL - LC/MS clonazepam 0 NG/mL <75.0 Not Available Shima Blanco MD [facility] ([facility]) [address] [place] [address], 16934, 10/02/2024 13:42:02 09/26/20 24 10/02/2024 BENZO DIAZE PINE DEFIN ITIVE PANEL - LC/MS 7-aminoclona zepam 0 NG/mL <75.0 Not Available Marquis Blanco MD [facility] ([facility]) [address] [place] [address], 18333, 10/02/2024 13:42:02 09/26/20 24 10/02/2024 BENZO DIAZE PINE DEFIN ITIVE PANEL - LC/MS diazepam 0 NG/mL <75.0 Not Available Shima Blanco MD [facility] ([facility]) [address] [place] [address], 33753, 10/02/2024 13:42:02 09/26/20 24 10/02/2024 BENZO DIAZE PINE DEFIN ITIVE PANEL - LC/MS oxazepam 84.8 NG/mL <75.0 abnormal Not Available Shima Blanco MD [facility] ([facility]) [address] [place] [address], 56949, 10/02/2024 13:42:02 09/26/20 24 10/02/2024 BENZO DIAZE PINE DEFIN ITIVE PANEL - LC/MS temazepam 125.7 NG/mL <75.0 abnormal Not Available Shima Blanco MD [facility] ([facility]) [address] [place] [address], 11670, 10/02/2024 13:42:02 09/26/20 24 10/02/2024 BENZO DIAZE PINE DEFIN ITIVE PANEL - LC/MS lorazepam 0 NG/mL <75.0 Not Available Shima Blanco MD [facility] ([facility]) [address] [place] [address], 51339, 10/02/2024 13:42:02 09/26/20 24 09/26/2024 D-PRE SUMPT SHAWN URINE DRUG REPOR T amphetamine NEGATI VE NG/mL <1000. 0 Not Available Shima Blanco MD [facility] ([facility]) [address] [place] [address], 71042, 10/02/2024 13:42:01 09/26/20 24 09/26/2024 D-PRE SUMPT SHAWN URINE DRUG REPOR T benzodiazepi ne 505.0 NG/mL <200.0 high Curre nt metho d may not detec t low level s of Klono pin Not Available Shima Blanco MD [facility] ([facility]) [address] [place] [address], 74432, 10/02/2024 13:42:01 09/26/20 24 09/26/2024 D-PRE SUMPT SHAWN URINE DRUG REPOR T buprenorphin e NEGATI VE NG/mL <10.0 Not Available Shima Blanco MD [facility] ([facility]) [address] [place] [address], 77123, 10/02/2024 13:42:01 09/26/20 24 09/26/2024 D-PRE SUMPT SHAWN URINE DRUG REPOR T cannabinoid NEGATI VE NG/mL <50.0 Not Available Shima Blanco MD [facility] ([facility]) [address] [place] [address], 43164, 10/02/2024 13:42:01 09/26/20 24 09/26/2024 D-PRE SUMPT SHAWN URINE DRUG REPOR T cocaine NEGATI VE NG/mL <300.0 Not Available Shima Blanco MD [facility] ([facility]) [address] [place] [address], 47367, 10/02/2024 13:42:01 09/26/20 24 09/26/2024 D-PRE SUMPT SHAWN URINE DRUG REPOR T ethanol NEGATI VE mg/dL <50.0 Not Available Shima Blanco MD [facility] ([facility]) [address] [place] [address], 72337, 10/02/2024 13:42:01 09/26/20 09/26/2024 D-PRE SUMPT SHAWN URINE DRUG REPOR T methadone <0.8 NG/mL <300.0 Not Available Shima Blanco MD [facility] ([facility]) [address] [place] [address], 89786, 10/02/2024 13:42:01 09/26/20 24 09/26/2024 D-PRE SUMPT SHAWN URINE DRUG REPOR T opiates 488.0 NG/mL <300.0 high Opiat es inclu celsa Codei ne,Mo rphin e, Randolph morph one,H ydroc odone Not Available Shima Blanco MD [facility] ([facility]) [address] [place] [address], 14837, 10/02/2024 13:42:01 09/26/20 24 09/26/2024 D-PRE SUMPT SHAWN URINE DRUG REPOR T oxycodone 30.0 NG/mL <300.0 Not Available Shima Blanco MD [facility] ([facility]) [address] [place] [address], 97995, 10/02/2024 13:42:01 09/26/20 24 09/26/2024 D-PRE SUMPT SHAWN URINE DRUG REPOR T urine creatinine (validity test) 149.4 mg/dL 20.0 - 300.0 Not Available Shima Blanco MD [facility] ([facility]) [address] [place] [address], 35169, 10/02/2024 13:42:01 Result Notes None recorded. Problems Name Problem SNOMED Code Status Onset Date Resolution Date Notes Provider Name and Address Organization Details Recorded Time Left sided abdominal pain 515974867 Active 024 Nasima Frank MD [address] [place] [address], 13812-707 4, [facility] 4 [...] Updated DateTime 07/03/2024 16 /min 60 /min 855328.6 9 g 154/84 mm[Hg] Galina BLANCO M.D., [...] Address Organization Details Last Updated DateTime 4 805166. 25 g 16 /min 98 [degF] 31.2 [...] ICD10 Code Diagnosis IMO Codes Diagnosis Note [id number] Nasima Frank MD [address] [place] [address] [phone] 05/03/2024 08:55:16 05/04/2024 10:10:24 Left lower quadrant pain 195947904 R10.32 Long-term current use of opiate analgesic drug 7607814973 05269 Z79.891 Diagnostic /Lab: Order Presumptiv e UDT [...] and carisoprod ol). Left sided abdominal pain 057001748 R10.9 [id number] SRINIVASAN MCCORMICK MD [address] [place] [address] [phone] 4 07/03/2024 08:20:07 07/03/2024 09:26:22 Long-term current use of opiate analgesic drug 6376920473 64135 Z79.891 Diagnostic /Lab: Order Presumptiv e UDT [...] and carisoprod ol). Left sided abdominal pain 294302822 R10.9 [id number] SRINIVASAN MCCORMICK MD [address] [place] [address] [phone] 4 07/31/2024 08:16:22 07/31/2024 08:47:14 Long-term current use of opiate analgesic drug 3331098346 03202 Z79.891 Diagnostic /Lab: Order Presumptiv e UDT [...] and carisoprod ol). Left sided abdominal pain 567285557 R10.9 [id number] SRINIVASAN MCCORMICK MD [facility] [phone] 4 09/26/2024 08:05:45 09/26/2024 08:25:32 Left sided abdominal pain 078212332 R10.9 Long-term current use of opiate analgesic drug 9393307452 24999 Z79.891 [id number] Diagnostic /Lab: Order Presumptiv e UDT (necessary [...] Jacob Godoy [place] 11/21/2024 2 [employer] (MEDICARE SUPPLEMENT) Jacob Jayne [place]unsford [id number] Jacob Jayne [place] 11/21/2024 1 [place]MEDICARE[place] Jacob Gomez Jonn [id number] 1 Jacob [place] Notes Date Note Type [...] Pt had consult over the phone with [facility] and they will f/u with him [...] or either side now. Nasima Frank MD [address] [facility], [place], [address], [facility] 05/08/2024 16:10:50 07/03/20 [...] will try hydrmorphone SRINIVASAN MCCORMICK MD [address] [facility] [address], [place], [address], [facility] 07/03/2024 09:12:07 07/31/20 [...] and no changes today SRINIVASAN MCCORMICK MD [address] [facility], [place], [address], [facility] 07/31/2024 08:33:19 09/26/20 [...] and no changes today. SRINIVASAN MCCORMICK MD [address] [facility], [place], [address], [facility] 09/26/2024 08:24:06
--- NOTE | 2025-09-28 13:07 | EXP.PN ---
Subjective *Date: 09/28/25 *Time: 13:07 Interval history: Patient continues to have significant dyspnea on exertion, CXR showing worsening left-sided pneumonia. Procalcitonin also very elevated. Continue IV antibiotics, ordered Lasix. Exam Data for Last 24 hours Vital signs and Labs for Last 24 Hours: Temp Pulse Resp BP Pulse Ox O2 Del Method O2 Flow Rate 98.3 F 101 H 17 116/70 94 L Room Air 2 09/28/25 12:00 09/28/25 12:00 09/28/25 12:00 09/28/25 12:00 09/28/25 12:00 09/28/25 12:00 09/27/25 21:00 Laboratory Results - last 24 hr 09/27/25 08:47: MRSA (PCR) Negative 09/28/25 05:15: WBC 18.1 H, RBC 3.70 L, Hgb 12.2 L, Hct 34.8 L, MCV 94.1 H, MCH 32.7 H, MCHC 34.8, RDW 12.8, Plt Count 138 L, MPV 10.8 H, Neut % (Auto) 79.0, Lymph % (Auto) 5.0 L, [place] % (Auto) 2.8, Eos % (Auto) 0.2, Baso % (Auto) 0.8, Neut # (Auto) 14.3 H, Lymph # (Auto) 0.9, [place] # (Auto) 0.5, Eos # (Auto) 0.0, Baso # (Auto) 0.2, Total Counted 100, Neutrophils % (Manual) 89 H, Lymphocytes % (Manual) 7 L, Monocytes % (Manual) 4, Platelet Estimate Normal, RBC Morphology Normal, Sodium 137, Potassium 3.6, Chloride 108 H, Carbon Dioxide 22, Anion Gap 10.6, BUN 33 H, Creatinine 1.60 H, Estimated Creat Clear 69, Estimated GFR 43 L, Est GFR ( Amer) 52 L D, Glucose 95 D, Calcium 9.4, Magnesium 1.8 D, C-Reactive Protein 276.2 H, Procalcitonin 43.8 H I & O for Last 24 hours: Intake & Output 09/25/25 09/26/25 09/27/25 09/28/25 23:59 23:59 23:59 23:59 Intake Total 3973.437 / 3973.437 3734.000 / 4214.000 1190 / 1190 Output Total 0 / 0 475 / 475 1875 / 1875 Balance 3973.437 / 3973.437 3259.000 / 3739.000 -685 / -685 Weight 106.594 kg 110.404 kg 110.767 kg Microbiology Reports for the Last 24 Hours: Microbiology 09/26/25 12:20 Blood Blood Culture - Preliminary NO GROWTH AFTER 48 HOURS 09/26/25 12:15 Blood Blood Culture - Preliminary NO GROWTH AFTER 48 HOURS 09/26/25 18:11 Urine,Clean Catch Urine Culture - Final NO GROWTH AFTER 48 HOURS 09/27/25 07:45 Sputum - Expectorated Sputum Gram Stain - Final Constitutional Constitutional: mild distress *Routine HEENT Exam Head: Present normocephalic Eye: Present EOMI and PERRL ENT: Present mucous membranes moist *Routine Neck Exam Neck: Present supple; Absent lymphadenopathy *Routine Respiratory Exam Respiratory: Absent CTA bilaterally Comments: Left lower lobe crackles *Routine Cardiovascular Exam Cardiovascular: Present RRR *Routine Abdominal Exam Abdominal: Present soft and normoactive bowel sounds; Absent tenderness *Routine Extremities Exam Extremities: Absent cyanosis, clubbing or edema *Routine Skin Exam Skin: Present warm; Absent rash *Routine Neurological Exam Neurological: Present alert and oriented X3 Assessment and Plan *Assessment and plan (1) Sepsis: Status: Acute Category: Medical Code(s): A41.9 - Sepsis, unspecified organism (2) Pneumonia: Status: Acute Category: Medical Code(s): J18.9 - Pneumonia, unspecified organism (3) Acute exacerbation of chronic obstructive pulmonary disease: Status: Acute Category: Medical Code(s): J44.1 - Chronic obstructive pulmonary disease with (acute) exacerbation (4) TANIA (acute kidney injury): Status: Acute Category: Medical Code(s): N17.9 - Acute kidney failure, unspecified (5) HTN (hypertension): Status: Chronic Qualifiers: Hypertension type: essential hypertension Qualified Code(s): I10 - Essential (primary) hypertension Category: Medical Code(s): I10 - Essential (primary) hypertension (6) GERD (gastroesophageal reflux disease): Status: Chronic Qualifiers: Esophagitis presence: esophagitis presence not specified Qualified Code(s): K21.9 - Gastro-esophageal reflux disease without esophagitis Category: Medical Code(s): K21.9 - Gastro-esophageal reflux disease without esophagitis (7) Tobacco abuse disorder: Status: Chronic Category: Medical Code(s): Z72.0 - Tobacco use Plan Mr. Lunsford is a 69-year-old male who presented to the emergency department with complaints of shortness of breath, N/V/D, and chest discomfort. States he has been feeling unwell for approximately 2 weeks but worse over the last few days. He is a heavy tobacco user. Workup in the emergency department was significant for sepsis with left lung pneumonia, acute kidney injury. #Sepsis #Community-acquired pneumonia #COPD exacerbation ? Patient presented with shortness of breath, nausea vomiting/diarrhea with CTA chest showing left lower lobe pneumonia. Initially required 2 L. Port score PSI risk class III. ? Initial WBC 13.9, with tachycardia and tachypnea meeting sepsis criteria. ? Today, patient states he feels slightly better. However, continues to have significant dyspnea on exertion on room air without desaturations. ? CXR today shows worsening left perihilar opacity. WBC still 18.1, procalcitonin significantly elevated to 43, CRP up to 276.2. Continues to be tachycardic. High risk of decompensation. ? Initially switched Zosyn to levofloxacin 750 mg daily. Will consider initiating cefepime, vancomycin later in the afternoon if no improvement. ? Started IV Lasix 40 mg daily. Follow-up response. BNP 1470. ? Continue DuoNebs every 6 hours. ? Sputum culture growing few gram-positive cocci, pending final speciation. MRSA PCR, blood cultures negative. Follow-up Legionella urinary antigen. ? Follow-up morning CBC, CRP, procalcitonin. #TANIA ? Initial creatinine 2.2, improved to 1.6 with initial gentle IV fluid rehydration. Baseline around 1.3. Patient tolerated p.o. intake now. ? Follow-up morning RFT's. #Tobacco use disorder: Patient states he is a heavy tobacco user, nicotine patches ordered as needed. Smoking cessation encouraged. #GERD: Continue formulary substitute for omeprazole 20 mg daily. #HTN: Blood pressure soft today, will discontinue losartan also in the setting of TANIA. #DEBORAH: Patient has sleep apnea, uses CPAP nightly. Will bring in home CPAP for bedtime. Full code Ambulate as tolerated VTE?Lovenox Regular diet
[2025-09-28 17:45] LABS: Procalcitonin 44.2 ng/mL (0.0-2.0)
[2025-09-28 19:00] LABS: Adenovirus F 40/41, stool Not Detected (NotDetected); Clostridium Difficile A/B, PCR Not Detected (NotDetected); Cyclospora Cayetanesis Not Detected (NotDetected); Plesimonas Shigalloides, PCR Not Detected (NotDetected); Salmonella, PCR Not Detected (NotDetected); Shiga-like toxin E coli Not Detected (NotDetected); Shigella Enterovasive E coli Not Detected (NotDetected); Vibrio, PCR Not Detected (NotDetected); Yersinia Entercolitica, PCR Not Detected (NotDetected)
[2025-09-28] MEDS: CEFEPIME HCL 2 GM in 0.9 % SODIUM CHLORIDE 100 ML IV (19:23)
[2025-09-28] MEDS: VANCOMYCIN CONSULT REQUEST 1 EACH NOTAPPLIC (20:28)
[2025-09-28] MEDS: PANTOPRAZOLE 40MG TABLET 40 MG PO (20:45)
[2025-09-28] MEDS: VANCOMYCIN HCL 2,000 MG in 0.9 % SODIUM CHLORIDE 250 ML 125 MG IV (20:45)
[2025-09-29] VITALS (7 sets, daily range): BP systolic 103–127; BP diastolic 52–75; PULSE 80–105; RESP 14–20; TEMP 36.4–37.1; O2SAT 92–95; BMI 31.9
[2025-09-29] MEDS: CEFEPIME HCL 2 GM in 0.9 % SODIUM CHLORIDE 100 ML IV ×3 (03:10→17:30)
--- NOTE | 2025-09-29 04:00 | PC.NURSE ---
Patient is alert and oriented x4. He was observed to be resting in bed with eyes closed, respirations even and unlabored, and no apparent distress throughout the majority of the night. Has utilized personal CPAP machine with oxygen at bedside during resting periods. Tolerated room air while awake. Oxygen saturations have remained > 90% with/without oxygen delivery. Patient does continue to report feeling winded upon exertion + with activity. He reports having a strong, hacking cough and expelling thick yellowish sputum. Robitussin DM was given per DEC for cough relief. Morphine was given per DEC for bilateral rib/side pain that has been occurring from coughing. Patient stated that both the morphine and Robitussin have helped relieve his complaints. Scheduled medications were administered per DEC. Breathing treatments were given by the RTs. Antibiotic therapy ongoing. On telemetry + continuous pulse ox. Poor air movement in lungs auscultated bilaterally. Physical assessment (see nursing shift biophysical intervention) was performed as appropriately this shift. Patient ambulates independently in his room/to the bathroom without apparent difficulty. At this time, the patient remains resting in bed without any new needs vocalized. No acute changes noted thus far. Call light within reach.
[2025-09-29] MEDS: IPRATROPIUM/ALBUTEROL 3 ML NEB IH ×2 (06:53→15:03)
[2025-09-29 07:18] LABS: Chloride 109 mmol/L (98-107); Potassium 3.5 mmoL/L (3.5-5.1); Sodium 136 mmol/L (136-145)
[2025-09-29 07:21] LABS: Anion Gap 6.5 mEq/L (5-15); Blood Urea Nitrogen 27 mg/dl (9-20); Calcium 9.6 mg/dl (8.4-10.2); Carbon Dioxide 24 mmol/L (22.0-30.0); Creatinine Clearance Estimated 76 mL/min (50-200); Creatinine,Serum 1.40 mg/dl (0.66-1.25); Estimated Glomerular Filt Rate 50 ml/min (>60); GFR (African American) 61 ML/MIN (>60); Glucose 87 mg/dl (74-100); Magnesium 2.1 mg/dl (1.6-2.3)
[2025-09-29 07:22] LABS: Hematocrit 35.2 % (42.0-52.0); Hemoglobin 12.5 g/dL (14.1-18.0); Immature Granulocytes % 0.4 %; Mean Corpuscular HGB Conc 35.5 g/dL (31.8-35.4); Mean Corpuscular Hemoglobin 32.8 pg (27.0-31.2); Mean Corpuscular Volume 92.4 fl (80-94); Nucleated Red Blood Cells % 0 %; Platelet Count 147 K/mm3 (142-424); Red Blood Count 3.81 M/mm3 (4.60-6.20); Red Cell Distribution Width-SD 43.4 fL; White Blood Count 12.2 K/mm3 (4.8-10.8)
[2025-09-29] MEDS: ASPIRIN EC 81MG TABLET 81 MG PO (08:36)
[2025-09-29] MEDS: FUROSEMIDE 40MG/4ML VIAL 40 MG IV (08:36)
[2025-09-29 08:41] LABS: C-Reactive Protein 145.6 mg/L (0-4)
--- NOTE | 2025-09-29 08:55 | EXP.PHA.CONS ---
Pharmacy Consult Date: 09/29/25 Time: 08:55 Referring provider: DR. QUINN Reason for Consult:: VANCOMYCIN DOSING Allergies Allergy/AdvReac Type Severity Reaction Status Date / Time latex (LATEX) Allergy Mild Rash Verified 06/27/25 11:56 Sulfa (Sulfonamide Allergy Mild Rash Verified 06/27/25 11:56 Antibiotics) (SULFA (SULFONAMIDE ANTIBIOTICS)) Home Medications ?Medication ?Instructions ?Recorded ?Confirmed ?Type ipratropium 0.5 mg-albuterol 3 mg 3 ml inhalation Q8H 3 months #810 12/12/24 09/26/25 Rx (2.5 mg base)/3 mL nebulization mL soln celecoxib 200 mg capsule 200 mg PO DAILY 06/27/25 09/26/25 History fluticasone propionate 50 1 spray intranasal BID 06/27/25 09/26/25 History mcg/actuation nasal spray,suspension ipratropium 20 mcg-albuterol 100 2 puff inhalation QIDP PRN 09/26/25 09/26/25 History mcg/actuation mist for inhalation shortness of breath or wheezing losartan 25 mg tablet 25 mg PO BID 09/26/25 09/26/25 History omeprazole 20 mg capsule,delayed 20 mg PO DAILY 09/26/25 09/26/25 History release New Prescriptions to Start Prescriptions: Height: 1.83 m Weight: 107.048 kg Laboratory Results:: Laboratory Results - last 24 hr 09/26/25 18:50: Stl C. cayetanensis PCR Not detected, Stool Rotavirus (PCR) Not detected, Stl Adenov F 40/41 PCR Not detected, Stool Astrovirus (PCR) Detected A, Stool Campylobacter PCR Not detected, Stl C.difficile Tox PCR Not detected, Stool Cryptosporidium PCR Not detected, Stl E.coli Shiga Tox PCR Not detected, Stool E coli O157 PCR Not detected, Stl Enterotoxigenic E PCR Not detected, Stool EPEC (PCR) Not detected, Stool EAEC (PCR) Not detected, Stl E. histolytica PCR Not detected, Stool Giardia Lamblia PCR Not detected, Stool Salmonella PCR Not detected, Stool Sapovirus (PCR) Not detected, Stl P. shigelloides PCR Not detected, Stl Shigella/EIEC PCR Not detected, St Y.enterocolitica PCR Not detected, Stool Vibrio (PCR) Not detected, Stl Vibrio cholerae PCR Not detected, Stl Norovirus GI/GII PCR Not detected 09/28/25 05:15: C-Reactive Protein 276.2 H, Procalcitonin 43.8 H 09/28/25 16:58: Procalcitonin 44.2 H 09/29/25 06:57: WBC 12.2 H D, RBC 3.81 L, Hgb 12.5 L, Hct 35.2 L, MCV 92.4, MCH 32.8 H, MCHC 35.5 H, RDW 12.7, Plt Count 147, MPV 10.6 H, Neut % (Auto) 83.3 H, Lymph % (Auto) 9.8 L, [place] % (Auto) 5.8, Eos % (Auto) 0.4, Baso % (Auto) 0.3, Neut # (Auto) 10.1 H, Lymph # (Auto) 1.2, [place] # (Auto) 0.7, Eos # (Auto) 0.1, Baso # (Auto) 0.0, Sodium 136, Potassium 3.5, Chloride 109 H, Carbon Dioxide 24, Anion Gap 6.5, BUN 27 H, Creatinine 1.40 H, Estimated Creat Clear 76, Estimated GFR 50 L, Est GFR ( Amer) 61, Glucose 87, Calcium 9.6, Magnesium 2.1 D, C-Reactive Protein 145.6 H Medical History: Medical History (Updated 09/26/25 @ 14:18 by Rizwan Jarrell MD) Sinusitis Allergic rhinitis COPD mixed type Dyspnea on exertion Screening for lung cancer Tobacco abuse counseling Tobacco abuse disorder Chronic bronchitis Smoking greater than 30 pack years Abnormal computerized axial tomography of chest Solitary pulmonary nodule Prostatitis Hypertension Anxiety DEBORAH (obstructive sleep apnea) Low testosterone in male (~05/05/18) Vitamin D deficiency (~05/05/18) Hyperlipidemia (~05/05/18) Depression GERD (gastroesophageal reflux disease) COPD (chronic obstructive pulmonary disease) Assessment and Plan Assessment and plan all Dx Assessment and Plan for all problems:: Pharmacokinetic dosing service Objective: Patient: Floor: Age: 69 yo Serum creatinine: 1.40 mg/dL Height: 72.0 Inches Weight (kg): 107 Assessment: IBW (kg): 77.60 Dosing wt(kg): 107 Estimated Creatinine clearance (ml/min): 55.4 CRCL method: Cockcroft and Gault using ibw(default). Drug selected: Vancomycin Loading dose (mg): Vd (liters): 85.6 (factor used: 0.8 L/kg) Huy (hr-1): 0.050 Half life (hrs): 13.86 CLvanco=?? 4.280 L/hr Recommended dose: 2250 mg Interval: 24 hrs Infusion time (hrs): 2.0 Predicted peak (mcg/mL): 35.8 Predicted trough (mcg/mL): 11.92 Total body weight is being used for vancomycin dosing. Recommendations: Give Vancomycin 2250 mg q 24 hrs with an expected Cpeak of 35.8 mcg/ml and an expected Ctrough of 11.92 mcg/ml AUC 0-24 /LILLINAA Data: LILLIANA 0.5 mcg/mL:?? AUC/LILLIANA:? 1051.4 LILLIANA 1.0 mcg/mL:?? AUC/LILLIANA:? 525.7 --------- LILLIANA 1.5 mcg/mL:?? AUC/LILLIANA:? 350.5 LILLIANA 2.0 mcg/mL:?? AUC/LILLIANA:? 262.9 Thank you for the consult, will continue to follow. -VIR[place] THOMAS PHARMD
[2025-09-29 09:20] LABS: Procalcitonin 25.4 ng/mL (0.0-2.0)
[2025-09-29] MEDS: NICOTINE 21MG/24HR PATCH 21 MG TD (10:17)
[2025-09-29] MEDS: GUAIFENESIN/DEXTROMETHORPHAN 200MG/20MG 10ML UDC 20 ML PO (10:28)
--- NOTE | 2025-09-29 12:01 | XR_ITS ---
PROCEDURE INFORMATION: Exam: XR Chest Exam date and time: 09/29/2025 12:50 PM Age: 69 years old Clinical indication: Cough; Additional info: F/u pneumonia TECHNIQUE: Imaging protocol: Radiologic exam of the chest. Views: 1 view. COMPARISON: CR XR CHEST PORTABLE 09/28/2025 10:33 AM FINDINGS: Tubes, catheters and devices: EKG leads. Spinal stimulator leads at the midthoracic level. Lungs: Unchanged left perihilar airspace disease. Pleural spaces: Unremarkable. No pleural effusion. No pneumothorax. Heart/Mediastinum: Unremarkable. No cardiomegaly. Vasculature: Atherosclerosis. Bones/joints: Unremarkable. IMPRESSION: Unchanged left perihilar airspace disease, consistent with pneumonia.
[2025-09-29] MEDS: FLUTICASONE/UMECLIDIN/VILANTER 100/62.5/25MCG INHALER 1 PUFF IH (15:03)
[2025-09-29 16:11] LABS: Chloride 102 mmol/L (98-107); Potassium 3.8 mmoL/L (3.5-5.1); Sodium 137 mmol/L (136-145)
[2025-09-29 16:14] LABS: Anion Gap 10.8 mEq/L (5-15); Blood Urea Nitrogen 25 mg/dl (9-20); Calcium 10.5 mg/dl (8.4-10.2); Carbon Dioxide 28 mmol/L (22.0-30.0); Creatinine Clearance Estimated 71 mL/min (50-200); Creatinine,Serum 1.50 mg/dl (0.66-1.25); Estimated Glomerular Filt Rate 47 ml/min (>60); GFR (African American) 56 ML/MIN (>60); Glucose 135 mg/dl (74-100)
--- NOTE | 2025-09-29 16:40 | EXP.DC.SUM ---
General Admission date:: 09/26/25 HPI HPI HPI: Mr. Lunsford is a 69-year-old male who presented to the emergency department with complaints of nausea, vomiting, diarrhea, shortness of breath, cough, and congestion. He has a primary medical history of COPD, tobacco use, GERD, DEBORAH, HTN. He states that he has been feeling bad for approximately 2 weeks, worsening over the last few days. He is a heavy tobacco user and states he has been coughing more than normal. He denies fevers, chills, chest pain, urinary symptoms. He does complain of pain with coughing and deep breathing. Workup was done in the emergency department, findings showed sepsis with left-sided pneumonia and acute kidney injury. Meeting sepsis criteria with a white count of 13.9, lactic of 4.9, tachycardic, hypotensive, febrile. Kidney function elevated with a BUN of 29 and creatinine of 2.20. Additionally patient was found to be hypoxic and was placed on 2 L nasal cannula to maintain O2 saturation greater than 90%. Hospital Course Hospital Course Hospital Course: Mr. Lunsford is a 69-year-old male who presented to the emergency department with complaints of shortness of breath, N/V/D, and chest discomfort. States he has been feeling unwell for approximately 2 weeks but worse over the last few days. He is a heavy tobacco user. Workup in the emergency department was significant for sepsis with left lung pneumonia, acute kidney injury. #Sepsis #Community-acquired pneumonia #COPD exacerbation ? Patient presented with shortness of breath, nausea vomiting/diarrhea with CTA chest showing left lower lobe pneumonia. Initially required 2 L. Port score PSI risk class III. ? Initial WBC 13.9 8 and 18.9, with tachycardia and tachypnea meeting sepsis criteria. ? Gradually improved with broad-spectrum antibiotics including IV vancomycin, Zosyn, and eventually weaned to levofloxacin in addition to DuoNebs, Pulmicort, steroids, diuresis. Sputum cultures did not show growth. ? During hospital course, patient initially required 2 L but remained on room air since day 2 of admission. Continued to have waxing and waning dyspnea on exertion, which is predominantly chronic. ? Appropriate saturations on walk test today on room air. Feels much better this afternoon. WBC, procalcitonin, CRP improving. No fevers. ? Discharged with levofloxacin 750 mg, prednisone 40 mg for 4 more days. ? Will follow-up with pulmonology within 1 week. #TANIA ? Initial creatinine 2.2, improved to 1.3 with initial gentle IV fluid rehydration. Baseline around 1.3. Patient tolerated p.o. intake now. #Tobacco use disorder: Encouraged cessation. Recommended nicotine patches. #GERD: Continue home PPI. #HTN: Blood pressure soft today, will discontinue losartan also in the setting of TANIA and normal pressures. Will follow-up with cardiology to discuss resuming. #DEBORAH: Patient has sleep apnea, uses CPAP nightly. CPAP nightly. Total time spent on discharge: 33 minutes on chart review, counseling, documentation, and direct care with patient. Exam Data for Last 24 hours Vital signs and Labs for Last 24 Hours: Temp Pulse Resp BP Pulse Ox O2 Del Method O2 Flow Rate 97.6 F 87 16 127/75 92 L Room Air 2 09/29/25 12:00 09/29/25 12:00 09/29/25 12:00 09/29/25 12:00 09/29/25 12:00 09/29/25 15:00 09/29/25 00:13 Laboratory Results - last 24 hr 09/26/25 18:50: Stl C. cayetanensis PCR Not detected, Stool Rotavirus (PCR) Not detected, Stl Adenov F 40/41 PCR Not detected, Stool Astrovirus (PCR) Detected A, Stool Campylobacter PCR Not detected, Stl C.difficile Tox PCR Not detected, Stool Cryptosporidium PCR Not detected, Stl E.coli Shiga Tox PCR Not detected, Stool E coli O157 PCR Not detected, Stl Enterotoxigenic E PCR Not detected, Stool EPEC (PCR) Not detected, Stool EAEC (PCR) Not detected, Stl E. histolytica PCR Not detected, Stool Giardia Lamblia PCR Not detected, Stool Salmonella PCR Not detected, Stool Sapovirus (PCR) Not detected, Stl P. shigelloides PCR Not detected, Stl Shigella/EIEC PCR Not detected, St Y.enterocolitica PCR Not detected, Stool Vibrio (PCR) Not detected, Stl Vibrio cholerae PCR Not detected, Stl Norovirus GI/GII PCR Not detected 09/28/25 16:58: Procalcitonin 44.2 H 09/29/25 06:57: WBC 12.2 H D, RBC 3.81 L, Hgb 12.5 L, Hct 35.2 L, MCV 92.4, MCH 32.8 H, MCHC 35.5 H, RDW 12.7, Plt Count 147, MPV 10.6 H, Neut % (Auto) 83.3 H, Lymph % (Auto) 9.8 L, Bowie % (Auto) 5.8, Eos % (Auto) 0.4, Baso % (Auto) 0.3, Neut # (Auto) 10.1 H, Lymph # (Auto) 1.2, Bowie # (Auto) 0.7, Eos # (Auto) 0.1, Baso # (Auto) 0.0, Sodium 136, Potassium 3.5, Chloride 109 H, Carbon Dioxide 24, Anion Gap 6.5, BUN 27 H, Creatinine 1.40 H, Estimated Creat Clear 76, Estimated GFR 50 L, Est GFR ( Amer) 61, Glucose 87, Calcium 9.6, Magnesium 2.1 D, C-Reactive Protein 145.6 H, Procalcitonin 25.4 H 09/29/25 15:58: Sodium 137, Potassium 3.8, Chloride 102, Carbon Dioxide 28, Anion Gap 10.8, BUN 25 H, Creatinine 1.50 H, Estimated Creat Clear 71, Estimated GFR 47 L, Est GFR ( Amer) 56 L, Glucose 135 H D, Calcium 10.5 H I & O for Last 24 hours: Intake & Output 09/26/25 09/27/25 09/28/25 09/29/25 23:59 23:59 23:59 23:59 Intake Total 3973.437 / 3973.437 3734.000 / 4214.000 2040 / 2240 1120 / 1120 Output Total 0 / 0 475 / 475 4450 / 4450 2625 / 2625 Balance 3973.437 / 3973.437 3259.000 / 3739.000 -2410 / -2210 -1505 / -1505 Weight 106.594 kg 110.404 kg 110.767 kg 107.048 kg Microbiology Reports for the Last 24 Hours: Microbiology 09/29/25 08:42 Sputum - Expectorated Sputum Gram Stain - Final 09/27/25 07:45 Sputum - Expectorated Sputum Gram Stain - Final 09/27/25 07:45 Sputum - Expectorated Sputum Sputum Culture - Final No growth. 09/26/25 12:20 Blood Blood Culture - Preliminary NO GROWTH AFTER 48 HOURS 09/26/25 12:15 Blood Blood Culture - Preliminary NO GROWTH AFTER 48 HOURS Constitutional Constitutional: no acute distress and obese *Routine HEENT Exam Head: Present normocephalic Eye: Present EOMI and PERRL ENT: Present mucous membranes moist *Routine Neck Exam Neck: Present supple; Absent lymphadenopathy *Routine Respiratory Exam Respiratory: Absent CTA bilaterally Comments: Left lower lobe crackles *Routine Cardiovascular Exam Cardiovascular: Present RRR *Routine Abdominal Exam Abdominal: Present soft and normoactive bowel sounds; Absent tenderness *Routine Extremities Exam Extremities: Absent cyanosis, clubbing or edema *Routine Skin Exam Skin: Present warm; Absent rash *Routine Neurological Exam Neurological: Present alert and oriented X3 Results Data Completed and Pending Labs on day of discharge: Labs from last 24 hours 09/29/25 09/29/25 09/28/25 15:58 06:57 16:58 WBC 12.2 H D RBC 3.81 L Hgb 12.5 L Hct 35.2 L MCV 92.4 MCH 32.8 H MCHC 35.5 H RDW 12.7 Plt Count 147 MPV 10.6 H Neut % (Auto) 83.3 H Lymph % (Auto) 9.8 L Bowie % (Auto) 5.8 Eos % (Auto) 0.4 Baso % (Auto) 0.3 Neut # (Auto) 10.1 H Lymph # (Auto) 1.2 Bowie # (Auto) 0.7 Eos # (Auto) 0.1 Baso # (Auto) 0.0 Sodium 137 136 Potassium 3.8 3.5 Chloride 102 109 H Carbon Dioxide 28 24 Anion Gap 10.8 6.5 BUN 25 H 27 H Creatinine 1.50 H 1.40 H Estimated Creat Clear 71 76 Estimated GFR 47 L 50 L Est GFR ( Amer) 56 L 61 Glucose 135 H D 87 Calcium 10.5 H 9.6 Magnesium 2.1 D C-Reactive Protein 145.6 H Procalcitonin 25.4 H 44.2 H Stl C. cayetanensis PCR Stool Rotavirus (PCR) Stl Adenov F 40/41 PCR Stool Astrovirus (PCR) Stool Campylobacter PCR Stl C.difficile Tox PCR Stool Cryptosporidium PCR Stl E.coli Shiga Tox PCR Stool E coli O157 PCR Stl Enterotoxigenic E PCR Stool EPEC (PCR) Stool EAEC (PCR) Stl E. histolytica PCR Stool Giardia Lamblia PCR Stool Salmonella PCR Stool Sapovirus (PCR) Stl P. shigelloides PCR Stl Shigella/EIEC PCR St Y.enterocolitica PCR Stool Vibrio (PCR) Stl Vibrio cholerae PCR Stl Norovirus GI/GII PCR 09/26/25 18:50 WBC RBC Hgb Hct MCV MCH MCHC RDW Plt Count MPV Neut % (Auto) Lymph % (Auto) Bowie % (Auto) Eos % (Auto) Baso % (Auto) Neut # (Auto) Lymph # (Auto) Bowie # (Auto) Eos # (Auto) Baso # (Auto) Sodium Potassium Chloride Carbon Dioxide Anion Gap BUN Creatinine Estimated Creat Clear Estimated GFR Est GFR ( Amer) Glucose Calcium Magnesium C-Reactive Protein Procalcitonin Stl C. cayetanensis PCR Not detected Stool Rotavirus (PCR) Not detected Stl Adenov F 40/41 PCR Not detected Stool Astrovirus (PCR) Detected A Stool Campylobacter PCR Not detected Stl C.difficile Tox PCR Not detected Stool Cryptosporidium PCR Not detected Stl E.coli Shiga Tox PCR Not detected Stool E coli O157 PCR Not detected Stl Enterotoxigenic E PCR Not detected Stool EPEC (PCR) Not detected Stool EAEC (PCR) Not detected Stl E. histolytica PCR Not detected Stool Giardia Lamblia PCR Not detected Stool Salmonella PCR Not detected Stool Sapovirus (PCR) Not detected Stl P. shigelloides PCR Not detected Stl Shigella/EIEC PCR Not detected St Y.enterocolitica PCR Not detected Stool Vibrio (PCR) Not detected Stl Vibrio cholerae PCR Not detected Stl Norovirus GI/GII PCR Not detected Preliminary micro results at discharge 09/26/25 12:20 Blood Culture - Preliminary Blood NO GROWTH AFTER 48 HOURS 09/26/25 12:15 Blood Culture - Preliminary Blood NO GROWTH AFTER 48 HOURS DS: Diagnosis Discharge Diagnosis (1) Sepsis: Status: Acute Code(s): A41.9 - Sepsis, unspecified organism (2) Pneumonia: Status: Acute Code(s): J18.9 - Pneumonia, unspecified organism (3) Acute exacerbation of chronic obstructive pulmonary disease: Status: Acute Code(s): J44.1 - Chronic obstructive pulmonary disease with (acute) exacerbation (4) TANIA (acute kidney injury): Status: Acute Code(s): N17.9 - Acute kidney failure, unspecified (5) HTN (hypertension): Status: Chronic Code(s): I10 - Essential (primary) hypertension Qualifiers: Hypertension type: essential hypertension Qualified Code(s): I10 - Essential (primary) hypertension (6) GERD (gastroesophageal reflux disease): Status: Chronic Code(s): K21.9 - Gastro-esophageal reflux disease without esophagitis Qualifiers: Esophagitis presence: esophagitis presence not specified Qualified Code(s): K21.9 - Gastro-esophageal reflux disease without esophagitis (7) Tobacco abuse disorder: Status: Chronic Code(s): Z72.0 - Tobacco use Meds Home Medications and Allergies Home Medications ?Medication ?Instructions ?Recorded ?Confirmed ?Type fluticasone propionate 50 1 spray intranasal BID 06/27/25 10/02/25 History mcg/actuation nasal spray,suspension ipratropium 20 mcg-albuterol 100 2 puff inhalation QIDP PRN 09/26/25 10/02/25 History mcg/actuation mist for inhalation shortness of breath or wheezing losartan 25 mg tablet 25 mg PO BID 09/26/25 10/02/25 History Held on 09/29/25. Instructions: Resume on 10/13/25. Your blood pressures were stable without this medication in the hospital. We also held it due to your temporary renal dysfunction. Your renal function is improving, but not at baseline just yet. Please talk to your PCP/chiropractic doctor about restarting this medication. omeprazole 20 mg capsule,delayed 20 mg PO DAILY 09/26/25 10/02/25 History release celecoxib 200 mg capsule 200 mg PO DAILY PRN pain 30 days 09/29/25 10/02/25 Rx #0 caps levofloxacin 750 mg tablet 750 mg PO DAILY 4 days #4 tabs 09/29/25 10/02/25 Rx prednisone 20 mg tablet 40 mg (2 x 20 mg) PO DAILY 4 days 09/29/25 10/02/25 Rx #8 tabs nicotine (polacrilex) 2 mg gum 2 mg buccal Q2H PRN nicotine 10/02/25 10/02/25 Rx cravings #100 ea nicotine (polacrilex) 2 mg gum 2 mg buccal Q2H PRN nicotine 10/02/25 10/02/25 Rx cravings #100 ea New Prescriptions to Start Prescriptions: levofloxacin Feroz Pratt prednisone Feroz Pratt Allergies Allergy/AdvReac Type Severity Reaction Status Date / Time latex (LATEX) Allergy Mild Rash Verified 10/02/25 11:39 Sulfa (Sulfonamide Allergy Mild Rash Verified 10/02/25 11:39 Antibiotics) (SULFA (SULFONAMIDE ANTIBIOTICS)) Discharge Plan Disposition Patient Disposition: Home, Self-Care Condition: Fair Discharge Order Discharge Orders: Discharge Order (Routine); Ordered 09/29/25 Ordered By: Feroz Pratt Follow up Plan Follow up with: Zach Hernández PA [Physician [employer], Cardiology] - 1 week Referral Note: Dyspnea exertion, smoker Alex Ko MD [Physician, Pulmonology] - 1 week Prescriptions/Medication Reconciliation: New prednisone 20 mg Tablet 40 mg PO DAILY 4 Days Qty: 8 0RF levofloxacin 750 mg tablet 750 mg PO DAILY 4 Days Qty: 4 0RF Continued fluticasone propionate 50 mcg/actuation spray,suspension 1 spray intranasal BID Patient Comments: USE 1 SPRAY(S) IN EACH NOSTRIL TWICE DAILY omeprazole 20 mg capsule,delayed release(DR/EC) 20 mg PO DAILY ipratropium-albuterol 20-100 mcg/actuation mist 2 puff inhalation QIDP PRN (Reason: shortness of breath or wheezing) Changed celecoxib 200 mg capsule 200 mg PO DAILY PRN (Reason: pain) 30 Days Qty: 0 0RF Patient Comments: TAKE 1 CAPSULE BY MOUTH ONCE DAILY FOR 30 DAYS Held losartan 25 mg tablet 25 mg PO BID Hold Instructions: Resume on 10/13/25. Your blood pressures were stable without this medication in the hospital. We also held it due to your temporary renal dysfunction. Your renal function is improving, but not at baseline just yet. Please talk to your PCP/chiropractic doctor about restarting this medication. No Action nicotine (polacrilex) 2 mg gum 2 mg buccal Q2H PRN (Reason: nicotine cravings) Qty: 100 0RF nicotine (polacrilex) 2 mg gum 2 mg buccal Q2H PRN (Reason: nicotine cravings) Qty: 100 2RF Problem Reconciliation Problems Reviewed?: Yes Patient Discharge Instructions Patient Instructions: DI for Pneumonia in Adults, DI for Sepsis in Adults, Stop Light Pneumonia, Stop Light COPD, Stop Light Infection Print Language: Japanese Providers Primary Care Provider: Rocio Bedoya Admit Provider: George Gross Attending Provider: George Gross
[2025-09-29] MEDS: MORPHINE 2MG/ML SYRINGE 2 MG IV (17:59)
--- NOTE | 2025-10-01 12:01 | SW/DCPLANNER ---
Spoke with patient on the phone. Patient stated that he is doing better than what he was. Patient stated that he is aware of his appointments and is wanting to get into pulms office before his appointment due to having trouble breathing. Patient stated that he was able to get his new medicine picked up from the pharmacy. Patient stated that he has no concerns or questions at this time. Shakira Rogers
[2025-10-05 08:01] LABS: POC Glucose,Bedside 96 gm/dL (70-110)
== END 2025-09-29 18:11 | disposition home or self-care (01) | DRG 871 ==
LOC: ER 14:18 → 2ND 15:13
PROVIDERS: Internal Medicine; Student in an Organized Health Care Education/Training Program; Admitting Provider Internal Medicine Adolescent Medicine; Emergency Provider Student in an Organized Health Care Education/Training Program; PCP Physician Assistant; Visit Provider Internal Medicine Adolescent Medicine
DX: A41.9 Sepsis, unspecified organism (principal); J15.9 Unspecified bacterial pneumonia; R65.21 Severe sepsis with septic shock; N17.9 Acute kidney failure, unspecified; J44.1 Chronic obstructive pulmonary disease with (acute) exacerbation; J44.0 Chronic obstructive pulmonary disease with (acute) lower respiratory infection; I10 Essential (primary) hypertension; K21.9 Gastro-esophageal reflux disease without esophagitis; E78.5 Hyperlipidemia, unspecified; F17.200 Nicotine dependence, unspecified, uncomplicated; G47.33 Obstructive sleep apnea (adult) (pediatric); I70.0 Atherosclerosis of aorta; Z79.899 Other long term (current) drug therapy; Z88.2 Allergy status to sulfonamides; Z91.040 Latex allergy status
CPT/HCPCS: 0223U; 36415; 71045; 71275; 80048; 80053; 80061; 81001; 82803; 82962; 83605; 83690; 83735; 83880; 84145; 84484; 85007; 85025; 85378; 86140; 87040; 87070; 87086; 87205; 87507; 87636; 87641; 89220; 93005; 93306; 94640; 94761; 99285; J0131; J0456; J0692; J1650; J1885; J1938; J1956; J2270; J2405; J2543; J2919; J3373; J7030; J7050; J7120; Q9967

== ENCOUNTER 2025-10-02 12:03 | Outpatient (CLI) | payer MEDICARE, OTHER, SELFPAY ==
[2025-10-02 12:53] LABS: Anion Gap 8.4 mEq/L (5-15); Blood Urea Nitrogen 26 mg/dl (9-20); Calcium 9.4 mg/dl (8.4-10.2); Carbon Dioxide 26 mmol/L (22.0-30.0); Chloride 105 mmol/L (98-107); Creatinine,Serum 1.30 mg/dl (0.66-1.25); Estimated Glomerular Filt Rate 55 ml/min (>60); GFR (African American) 66 ML/MIN (>60); Glucose 80 mg/dl (74-100); Potassium 3.4 mmoL/L (3.5-5.1); Sodium 136 mmol/L (136-145)
== END 2025-10-02 23:59 | disposition home or self-care (01) ==
LOC: LAB 12:05
PROVIDERS: PCP Physician Assistant; Visit Provider Nurse Practitioner Family
DX: I10 Essential (primary) hypertension (principal)
CPT/HCPCS: 36415; 80048